=== PATIENT | female | born 1950 | race Caucasian/White ===

== ENCOUNTER 2017-10-16 09:51 | Inpatient (IN) | payer MEDICARE, OTHER ==
[~2017-10-16] VITALS: Ht 170.2 cm; Wt 67.8 kg
[~2017-10-16 09:51] MED LIST: ACET325T9 PO; ASCO500T2 PO; BACL10TA PO; BALS3OIN TP; BISA-42 PO; BISA10SU55 RC; BUPR100T7 PO; BUSP5TAB PO; CLOB15CR2 TP; CLON2TAB2 PO; CRAN450T2 PO; DULO60CA44 PO; FLUC200T4 PO; FLUT1DIS3 IH; LACT1TAB8 PO; LISI10TA2 PO; LUBI24CA7 PO; MAG355OR15 PO; MAGN2400 PO; MEMA10TA PO; METF10003 PO; METH29OI TP; MINE30LO TP; MUPI15CR8 TP; NICO1PAT2 TP; NITR50CA PO; NYST15PO9 TP; OMEP20TA8 PO; OXYC20TA PO; OXYC30TA PO; OXYC5CAP PO; OXYC80TA22 PO; POLY255P PO; SILV20CR14 TP; SIMV20TA3 PO; TRAZ150T49 PO; ZINC220C4 PO; ZINC50TA2 PO
[2017-10-16] MEDS ORDERED: IV NORMAL SALINE 1,000ML 1,000 ML IV ONE (10:45)
[2017-10-16 11:03] LABS: ALBUMIN/GLOBULIN RATIO 0.5 (1.0-1.7); CALCIUM 9.8 mg/dL (8.5-10.1); CREATININE 1.1 mg/dL (0.6-1.0); GFR 49.5; MAGNESIUM 2.6 mg/dL (1.8-2.4); TOTAL BILIRUBIN 0.2 mg/dL (0.2-1.0); TOTAL PROTEIN 8.9 g/dL (6.4-8.2)
[2017-10-16 11:05] LABS: POTASSIUM 4.4 mmol/L (3.5-5.1)
[2017-10-16 11:08] LABS: BILIRUBIN,URINE NEG (NEG); CLARITY,URINE HAZY; COLOR,URINE YELLOW; GLUCOSE,URINE NEG (NEG)
[2017-10-16 11:09] LABS: BACTERIA,URINE MOD /HPF (0-FEW); NITRITE,URINE NEG (NEG); SQUAMOUS EPITHELIAL CELL,UR FEW /LPF; UROBILINOGEN,URINE 0.2 mg/dL (0.2 mg/dL)
[2017-10-16 11:13] LABS: AMORPHOUS SEDIMENT,UR PRESENT /HPF
[2017-10-16 11:14] LABS: BASO # 0.1 x10^3/uL (0.0-0.2); BASO % 1 % (0-3); EOS # 0.2 x10^3/uL (0.0-0.7); EOS % 1 % (0-3); HEMATOCRIT 39.9 % (36.0-47.0); HEMOGLOBIN 12.7 g/dL (12.0-15.5); LYMPH # 2.5 x10^3/uL (1.0-4.8); LYMPH % 20 % (24-48); MEAN CORPUSCULAR HEMOGLOBIN 26 pg (25-35); MEAN CORPUSCULAR HGB CONC 32 g/dL (31-37); MEAN CORPUSCULAR VOLUME 81 fL (79-100); MONO % 8 % (0-9); NEUT # 8.8 x10^3uL (1.8-7.7); NEUT % 70 % (31-73); PLATELET COUNT 228 x10^3/uL (140-400); RED BLOOD COUNT 4.95 x10^6/uL (3.50-5.40); RED CELL DISTRIBUTION WIDTH 20.4 % (11.5-14.5); WHITE BLOOD COUNT 12.5 x10^3/uL (4.0-11.0)
--- NOTE | 2017-10-16 12:11 | RAD ---
Exam: AP portable chest History: Shortness of breath. Comparison: July 22, 2017. Findings: Patient is rotated. The heart and mediastinal structures are within normal limits for size. Lungs are without infiltrate. No pleural effusion or pneumothorax is identified. Cholecystectomy clips are present. Impression: 1. No acute cardiopulmonary process. Electronically signed by: Justino Baptiste MD (10/16/2017 12:09 PM) [facility]
[2017-10-16] MEDS ORDERED: ACETAMINOPHEN 325 MG TABLET PO ONE (12:40)
[2017-10-16] MEDS ORDERED: cefTRIAXone SODIUM 1 GM VIAL IV ONE (12:45)
[2017-10-16] MEDS ORDERED: IV NORMAL SALINE 50ML 50 ML ONE (12:45)
[2017-10-16] MEDS ORDERED: cefTRIAXone IV Push 1 GM VIAL. IVP ONE (13:00)
--- NOTE | 2017-10-16 13:09 | ED.ADGEN ---
Past History Past Medical History: Anxiety, CHF, Depression, Diabetes, GERD, UTI Past Surgical History: Appendectomy, Cholecystectomy, Tubal ligation Alcohol Use: None Drug Use: None Adult General Chief Complaint Chief Complaint Medical screening exam HPI HPI Patient is a 67-year-old wheelchair bound correction patient who presents for medical clearance for hospital admission. Patient has been diagnosed with major depressive order and is reportedly not been eating and drinking. She history of pneumonia. No fever chills, cough, sore throat. Reports chronic back and shoulder pain. Patient is alert and oriented to person. She states she has a very poor memory recall previewed detail her chronic medical problems[] Review of Systems Review of Systems ROS as per HPI> All other systems were reviewed and found to be within normal limits, except as documented in this note. Current Medications Current Medications Current Medications Medications (Trade) Dose Ordered Sig/Julia Start Time Stop Time Status Last Admin Dose Admin Acetaminophen (Tylenol) 650 mg 1X ONCE 10/16/17 12:40 10/16/17 12:41 DC 10/16/17 12:23 650 MG Ceftriaxone Sodium 1 gm/ Sodium Chloride 50 ml @ 100 mls/hr 1X ONCE 10/16/17 12:45 10/16/17 13:14 UNV Ceftriaxone Sodium (Rocephin) 1 gm 1X ONCE 10/16/17 13:00 10/16/17 13:01 10/16/17 12:55 1 GM Sodium Chloride 50 ml @ As Directed STK-MED ONCE 10/16/17 12:45 10/16/17 12:46 DC Allergies Allergies Allergies Coded Allergies Type Severity Reaction Last Updated Verified codeine Allergy Intermediate Itching 02/01/15 Yes penicillin Allergy Intermediate Itching 02/01/15 Yes Physical Exam Physical Exam Constitutional: Well developed, well nourished, weak and debilitated. [] HENT: Normocephalic, atraumatic, oropharynx moist, no oral exudates, nose normal. [] Eyes: PERRLA. [] Neck: Normal range of motion, no tenderness. [] Cardiovascular:RRR [] Lungs & Thorax: Rest sounds diminished, Bilateral breath sounds clear to auscultation [] Abdomen: Bowel sounds normal, soft, no tenderness. [] Extremities: No tenderness, no edema. [] Neurologic: Alert and oriented X 1, normal motor function, normal sensory function, no focal deficits noted. [] Psychologic: Affect,, flat. [] Current Patient Data Vital Signs Vital Signs Date Time Temp Pulse Resp B/P (MAP) Pulse Ox O2 Delivery O2 Flow Rate FiO2 10/16/17 10:58 81 20 96 Nasal Cannula 2.0 Lab Results Laboratory Tests Test 10/16/17 10:30 10/16/17 10:32 White Blood Count 12.5 x10^3/uL (4.0-11.0) H Red Blood Count 4.95 x10^6/uL (3.50-5.40) Hemoglobin 12.7 g/dL (12.0-15.5) Hematocrit 39.9 % (36.0-47.0) Mean Corpuscular Volume 81 fL (79-100) Mean Corpuscular Hemoglobin 26 pg (25-35) Mean Corpuscular Hemoglobin Concent 32 g/dL (31-37) Red Cell Distribution Width 20.4 % (11.5-14.5) H Platelet Count 228 x10^3/uL (140-400) Neutrophils (%) (Auto) 70 % (31-73) Lymphocytes (%) (Auto) 20 % (24-48) L Monocytes (%) (Auto) 8 % (0-9) Eosinophils (%) (Auto) 1 % (0-3) Basophils (%) (Auto) 1 % (0-3) Neutrophils # (Auto) 8.8 x10^3uL (1.8-7.7) H Lymphocytes # (Auto) 2.5 x10^3/uL (1.0-4.8) Monocytes # (Auto) 1.0 x10^3/uL (0.0-1.1) Eosinophils # (Auto) 0.2 x10^3/uL (0.0-0.7) Basophils # (Auto) 0.1 x10^3/uL (0.0-0.2) Sodium Level 143 mmol/L (136-145) Potassium Level 4.4 mmol/L (3.5-5.1) Chloride Level 101 mmol/L (98-107) Carbon Dioxide Level 35 mmol/L (21-32) H Anion Gap 7 (6-14) Blood Urea Nitrogen 46 mg/dL (7-20) H Creatinine 1.1 mg/dL (0.6-1.0) H Estimated GFR (Cockcroft-Gault) 49.5 BUN/Creatinine Ratio 42 (6-20) H Glucose Level 128 mg/dL (70-99) H Calcium Level 9.8 mg/dL (8.5-10.1) Magnesium Level 2.6 mg/dL (1.8-2.4) H Total Bilirubin 0.2 mg/dL (0.2-1.0) Aspartate Amino Transferase (AST) 12 U/L (15-37) L Alanine Aminotransferase (ALT) 8 U/L (14-59) L Alkaline Phosphatase 71 U/L (46-116) Total Protein 8.9 g/dL (6.4-8.2) H Albumin 3.0 g/dL (3.4-5.0) L Albumin/Globulin Ratio 0.5 (1.0-1.7) L Urine Collection Type Unknown Urine Color Yellow Urine Clarity Hazy Urine pH >8.5 Urine Specific [place] 1.015 Urine Protein 30 mg/dl (NEG-TRACE) Urine Glucose (UA) Neg mg/dL (NEG) Urine Ketones (Stick) Neg mg/dL (NEG) Urine Blood Small (NEG) Urine Nitrite Neg (NEG) Urine Bilirubin Neg (NEG) Urine Urobilinogen Dipstick 0.2 mg/dL (0.2 mg/dL) Urine Leukocyte Esterase Small (NEG) Urine RBC 1-2 /HPF (0-2) Urine WBC 5-10 /HPF (0-4) Urine Squamous Epithelial Cells Few /LPF Urine Amorphous Sediment Present /HPF Urine Bacteria Mod /HPF (0-FEW) EKG EKG [EKG: Sinus rhythm, rate 82, no acute ST-T wave changes, QTC 447.] Radiology/Procedures Radiology/Procedures [CXR: NAD per radiology report] Course & Med Decision Making Course & Med Decision Making Pertinent Labs and Imaging studies reviewed. (See chart for details) [Lab reviewed with Dr. Morris in detail. Recommendations are IV antibiotics and admission to [facility].] Final Impression Final Impression [1. Medical clearance for psychiatric admission 2. UTI] Problems: Dragon Disclaimer Dragon Disclaimer This electronic medical record was generated, in whole or in part, using a voice recognition dictation system. SUNITA WALLACE DO October 16, 2017 13:09
--- NOTE | 2017-10-16 13:14 | EKG ---
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
[2017-10-16] MEDS ORDERED: ACETAMINOPHEN 325 MG TABLET PO PRN ×2 (14:45→16:45)
[2017-10-16] MEDS ORDERED: MAG HYDROX/AL HYDROX/SIMETH 30 ML ORAL.SUSP PO PRN (14:45)
[2017-10-16] MEDS ORDERED: METHYL SALICYLATE/MENTHOL TOPICAL OINTMENT 29GM TUBE. TP PRN (14:45)
[2017-10-16] MEDS ORDERED: MAGNESIUM HYDROXIDE 2,400 MG/30 ML ORAL.SUSP. PO PRN (14:45)
[2017-10-16 15:16] VITALS: BP 112/75
[2017-10-16] MEDS ORDERED: ONDA4TAB10 PO (16:08)
[2017-10-16] MEDS ORDERED: OXYM30SP17 NS (16:08)
[2017-10-16] MEDS ORDERED: DEXT38GE2 PO (16:08)
[2017-10-16] MEDS ORDERED: INSU100V13 SQ (16:08)
[2017-10-16] MEDS ORDERED: SENN8.6T99 PO ×2 (16:08)
[2017-10-16] MEDS ORDERED: DEXT15DR5 EACHEYE (16:08)
[2017-10-16] MEDS ORDERED: IPRA3AMP NEB (16:08)
[2017-10-16] MEDS ORDERED: DIVA500T2 PO (16:08)
[2017-10-16] MEDS ORDERED: OXYC10TA PO (16:08)
[2017-10-16] MEDS ORDERED: ACET325T9 PO (16:08)
[2017-10-16] MEDS ORDERED: POTA20TA4 PO (16:08)
[2017-10-16] MEDS ORDERED: FURO-68 PO (16:08)
[2017-10-16] MEDS ORDERED: LOPE2CAP88 PO (16:08)
[2017-10-16] MEDS ORDERED: HYOS0.1265 SL (16:08)
[2017-10-16] MEDS ORDERED: morphine sulfate SQ (16:08)
[2017-10-16] MEDS ORDERED: NYST15OI TP (16:08)
[2017-10-16] MEDS ORDERED: OXYC20TA34 PO (16:08)
[2017-10-16] MEDS ORDERED: TRIA15CR50 TP (16:08)
[2017-10-16] MEDS ORDERED: CALC60CR TP (16:08)
[2017-10-16] MEDS ORDERED: LORA2ORA8 PO (16:08)
[2017-10-16 16:09] LABS: VAL ACID 58 mcg/mL (50-100)
[2017-10-16] MEDS ORDERED: INSU100C4 SQ (16:12)
[2017-10-16] MEDS ORDERED: DEXTROSE 50% 25 GM / 50ML DISP.SYRIN. IV PRN (16:15)
[2017-10-16] MEDS ORDERED: OXYMETAZOLINE 0.05% NASAL SPRAY 15ML BOTTLE. NS PRN (16:45)
[2017-10-16] MEDS ORDERED: BISACODYL 10 MG SUPP.RECT RC PRN (16:45)
[2017-10-16] MEDS ORDERED: LOPERAMIDE 2 MG CAPSULE PO PRN (16:45)
[2017-10-16] MEDS ORDERED: SENNOSIDES 8.6 MG TABLET PO PRN (16:45)
[2017-10-16] MEDS ORDERED: LORazepam INTENSOL 2 MG/ML BOTTLE PO PRN (16:45)
[2017-10-16] MEDS ORDERED: IPRATRPIUM/ALBUTEROL 0.5/2.5MG 3 ML NEBU. NEB PRN (16:45)
[2017-10-16] MEDS ORDERED: DEXTROSE ORAL GEL 15 GM TUBE. PO PRN (16:45)
[2017-10-16] MEDS ORDERED: ONDANSETRON ODT 4 MG TAB.RAPDIS PO PRN (16:45)
[2017-10-16] MEDS ORDERED: POLY15DR27 OP (17:03)
[2017-10-16] MEDS ORDERED: POLYVINYL ALCOHOL 1.4% OPHTH SOLUTION 15ML BOTTLE. OU PRN (17:15)
[2017-10-16] MEDS ORDERED: HYOSCYAMINE 0.125 MG TAB.RAPDIS PO PRN (17:30)
[2017-10-16] MEDS: INSULIN LISPRO 300 UNITS/3 ML INSULN.PEN. SQ SCH (18:00)
[2017-10-16] MEDS: oxyCODONE IR 5 MG TABLET PO SCH ×2 (18:02→20:36)
[2017-10-16] MEDS ORDERED: MORPHINE SULFATE SQ SCH (20:00)
[2017-10-16] MEDS: POTASSIUM CHLORIDE 20 MEQ TABLET.ER. PO SCH (20:35)
[2017-10-16] MEDS: DIVALPROEX SODIUM 250 MG TABLET.DR. PO SCH (20:35)
[2017-10-16] MEDS: clonazePAM 2 MG TABLET PO SCH (20:35)
[2017-10-16] MEDS: ENOXAPARIN 30 MG/0.3 ML SYRINGE. SQ SCH (20:37)
[2017-10-16] MEDS: INSULIN GLARGINE 300 UNITS/3 ML INSULN.PEN. SQ SCH (20:40)
[2017-10-16] MEDS: TRIAMCINOLONE ACETONIDE 0.1% TOPICAL CREAM 15GM TUBE. TP SCH (20:40)
[2017-10-16] MEDS: CALCIPOTRIENE 0.005% TOPICAL CREAM 60GM TUBE. TP SCH (20:41)
[2017-10-16] MEDS: CLOBETASOL EMOLLIENT 0.05% TOPICAL CREAM 15GM TUBE. TP SCH (20:41)
[2017-10-16] MEDS: NYSTATIN 100,000 UNIT/GM TOPICAL OINTMENT 15GM TUBE. TP SCH (20:41)
[2017-10-16] MEDS: oxyCODONE ER 20 MG TAB.ER.12H PO SCH (20:46)
--- NOTE | 2017-10-16 22:56 | PDOC ---
Exam Note: [place] Note: Please also refer to the separate dictated note~for this date of service dictated separately.~Patient seen individually. Discussed the patient with Nursing staff reviewed the chart.~Reviewed interim history and current functioning. Reviewed vital signs,~Labs/ Radiology~and current medications noted below. Continue current treatment with the changes noted in the dictated addendum note Assessment: Vital Signs: Vital Signs Date Time Temp Pulse Resp B/P (MAP) Pulse Ox O2 Delivery O2 Flow Rate FiO2 10/16/17 21:38 96 10/16/17 15:16 97.8 83 18 112/75 (87) 10/16/17 10:58 Nasal Cannula 2.0 Labs: Laboratory Tests Test 10/16/17 10:30 10/16/17 10:32 10/16/17 15:35 10/16/17 16:56 White Blood Count 12.5 x10^3/uL (4.0-11.0) H Red Blood Count 4.95 x10^6/uL (3.50-5.40) Hemoglobin 12.7 g/dL (12.0-15.5) Hematocrit 39.9 % (36.0-47.0) Mean Corpuscular Volume 81 fL (79-100) Mean Corpuscular Hemoglobin 26 pg (25-35) Mean Corpuscular Hemoglobin Concent 32 g/dL (31-37) Red Cell Distribution Width 20.4 % (11.5-14.5) H Platelet Count 228 x10^3/uL (140-400) Neutrophils (%) (Auto) 70 % (31-73) Lymphocytes (%) (Auto) 20 % (24-48) L Monocytes (%) (Auto) 8 % (0-9) Eosinophils (%) (Auto) 1 % (0-3) Basophils (%) (Auto) 1 % (0-3) Neutrophils # (Auto) 8.8 x10^3uL (1.8-7.7) H Lymphocytes # (Auto) 2.5 x10^3/uL (1.0-4.8) Monocytes # (Auto) 1.0 x10^3/uL (0.0-1.1) Eosinophils # (Auto) 0.2 x10^3/uL (0.0-0.7) Basophils # (Auto) 0.1 x10^3/uL (0.0-0.2) Sodium Level 143 mmol/L (136-145) Potassium Level 4.4 mmol/L (3.5-5.1) Chloride Level 101 mmol/L (98-107) Carbon Dioxide Level 35 mmol/L (21-32) H Anion Gap 7 (6-14) Blood Urea Nitrogen 46 mg/dL (7-20) H Creatinine 1.1 mg/dL (0.6-1.0) H Estimated GFR (Cockcroft-Gault) 49.5 BUN/Creatinine Ratio 42 (6-20) H Glucose Level 128 mg/dL (70-99) H Calcium Level 9.8 mg/dL (8.5-10.1) Magnesium Level 2.6 mg/dL (1.8-2.4) H Total Bilirubin 0.2 mg/dL (0.2-1.0) Aspartate Amino Transferase (AST) 12 U/L (15-37) L Alanine Aminotransferase (ALT) 8 U/L (14-59) L Alkaline Phosphatase 71 U/L (46-116) Total Protein 8.9 g/dL (6.4-8.2) H Albumin 3.0 g/dL (3.4-5.0) L Albumin/Globulin Ratio 0.5 (1.0-1.7) L Thyroid Stimulating Hormone (TSH) 1.763 uIU/mL (0.358-3.740) Urine Collection Type Unknown Urine Color Yellow Urine Clarity Hazy Urine pH >8.5 Urine Specific [place] 1.015 Urine Protein 30 mg/dl (NEG-TRACE) Urine Glucose (UA) Neg mg/dL (NEG) Urine Ketones (Stick) Neg mg/dL (NEG) Urine Blood Small (NEG) Urine Nitrite Neg (NEG) Urine Bilirubin Neg (NEG) Urine Urobilinogen Dipstick 0.2 mg/dL (0.2 mg/dL) Urine Leukocyte Esterase Small (NEG) Urine RBC 1-2 /HPF (0-2) Urine WBC 5-10 /HPF (0-4) Urine Squamous Epithelial Cells Few /LPF Urine Amorphous Sediment Present /HPF Urine Bacteria Mod /HPF (0-FEW) Valproic Acid Level 58 mcg/mL (50-100) Valproic Acid Last Dose Date 10/16/2017 Valproic Acid Last Dose Time 0900 Glucose (Fingerstick) 126 mg/dL (70-99) H Test 10/16/17 19:39 Glucose (Fingerstick) 141 mg/dL (70-99) H Current Medications: Meds: Current Medications Sodium Chloride 1,000 ml @ 1,000 mls/hr 1X ONCE IV Last administered on at 10:45; Start 10/16/17 at 10:45; Stop 10/16/17 at 11:44; Status DC Acetaminophen (Tylenol) 650 mg 1X ONCE PO Last administered on 10/16/17at 12:23 ; Start 10/16/17 at 12:40; Stop 10/16/17 at 12:41; Status DC Ceftriaxone Sodium 1 gm/ Sodium Chloride 50 ml @ 100 mls/hr 1X ONCE IV ; Start 10/16/17 at 12:45; Stop 10/16/17 at 13:14; Status UNV Sodium Chloride 50 ml @ As Directed STK-MED ONCE .ROUTE ; Start 10/16/17 at 12:45 ; Stop 10/16/17 at 12:46; Status DC Ceftriaxone Sodium (Rocephin) 1 gm STK-MED ONCE IV ; Start 10/16/17 at 12:45; Stop 10/16/17 at 12:46; Status DC Ceftriaxone Sodium (Rocephin) 1 gm 1X ONCE IVP Last administered on 10/16/17at 12:55; Start 10/16/17 at 13:00; Stop 10/16/17 at 13:01; Status DC Acetaminophen (Tylenol) 650 mg PRN Q6HRS PRN PO PAIN / TEMP; Start 10/16/17 at 14:45; Status Cancel Multi-Ingredient Ointment (Analgesic [place]) 1 lacey PRN QID PRN TP MUSCLE PAIN; Start 10/16/17 at 14:45 Al Hydroxide/Mg Hydroxide (Mylanta Plus Xs) 15 ml PRN AFTMEALHC PRN PO DYSPEPSIA; Start 10/16/17 at 14:45 Magnesium Hydroxide (Milk Of Magnesia) 2,400 mg PRN QHS PRN PO CONSTIPATION; Start 10/16/17 at 14:45 Insulin Human Lispro (HumaLOG) 0-7 UNITS TIDWMEALS SQ ; Start 10/16/17 at 17:00 Dextrose 12.5 gm PRN Q15MIN PRN IV SEE COMMENTS; Start 10/16/17 at 16:15 Acetaminophen (Tylenol) 650 mg PRN Q4HRS PRN PO PAIN / TEMP; Start 10/16/17 at 16:45 Bisacodyl (Dulcolax Supp) 10 mg PRN DAILY PRN RC CONSTIPATION; Start 10/16/17 at 16:45 Calcipotriene (Dovonex) 2 lacey BID TP ; Start 10/16/17 at 21:00 Clobetasol Propionate 1 lacey BID TP Last administered on 10/16/17at 20:41; Start 10/16/17 at 21:00 Clonazepam (KlonoPIN) 2 mg TID PO Last administered on 10/16/17at 20:35; Start at 21:00 Glucose (Insta-Glucose) 1 gm PRN Q15MIN PRN PO hypoglycemia; Start 10/16/17 at 16:45 Furosemide (Lasix) 40 mg DAILY PO ; Start 10/17/17 at 09:00 Albuterol/ Ipratropium (Duoneb) 3 ml PRN Q4HRS PRN NEB SHORTNESS OF BREATH; Start 10/16/17 at 16:45 Loperamide HCl (Imodium) 2 mg PRN Q6HRS PRN PO DIARRHEA; Start 10/16/17 at 16:45 Lorazepam (Ativan Intensol) 2 mg PRN Q3HRS PRN PO restlessness; Start 10/16/17 at 16:45 Nystatin (Mycostatin) 1 lacey BID TP Last administered on 10/16/17at 20:41; Start 10/16/17 at 21:00 Ondansetron HCl (Zofran Odt) 4 mg PRN Q8HRS PRN PO NAUSEA/VOMITING; Start at 16:45 Oxycodone HCl (OxyCONTIN) 20 mg BID PO Last administered on 10/16/17at 20:46; Start 10/16/17 at 21:00 Oxymetazoline HCl (Afrin) 1 spray PRN Q6HRS PRN NS ALLERGY; Start 10/16/17 at 16 :45 Potassium Chloride (Klor-Con) 20 meq BID PO Last administered on 10/16/17at 20:35 ; Start 10/16/17 at 21:00 Sennosides (Senna) 8.6 mg DAILY PO ; Start 10/17/17 at 09:00 Sennosides (Senna) 8.6 mg PRN DAILY PRN PO CONSTIPATION; Start 10/16/17 at 16:45 Artificial Tears (Artificial Tears) 2 drop PRN Q3HRS PRN OU DRY EYE; Start 10/16 at 17:15 Divalproex Sodium (Depakote) 250 mg TID PO Last administered on 10/16/17at 20:35 ; Start 10/16/17 at 21:00 Hyoscyamine (Anaspaz) 0.125 mg PRN Q2HR PRN PO SECRETIONS; Start 10/16/17 at 17: 30 Insulin Glargine (Lantus) 10 units QHS SQ Last administered on 10/16/17at 20:40; Start 10/16/17 at 21:00 Oxycodone HCl (Roxicodone) 20 mg QID PO Last administered on 10/16/17at 20:36; Start 10/16/17 at 17:30 Oxycodone HCl (Roxicodone) 20 mg PRN Q6HRS PRN PO PAIN; Start 10/16/17 at 17:30 Triamcinolone Acetonide (Kenalog) 1 lacey BID TP Last administered on 10/16/17at 20 :40; Start 10/16/17 at 21:00 Non-Formulary Medication ([morphine sulfate ] ) 0.5 ml Q4HRS SQ ; Start 10/16/17 at 20:00; Status UNV Enoxaparin Sodium (Lovenox) 30 mg Q24H SQ Last administered on 10/16/17at 20:37; Start 10/16/17 at 21:00 Active Scripts Active Reported Artificial Tears (Polyvinyl Alcohol) 15 Ml Drops 2 Drop OP PRN Q3HRS PRN Novolog (Insulin Aspart) 100 Unit/1 Ml Cartridge 3-12 Unit SQ PRN BFRMEAL PRN Zofran Odt (Ondansetron) 4 Mg Tab.rapdis 4 Mg PO PRN Q8HRS PRN Triamcinolone Acetonide 15 Gm Cream..g. 1 Lacey TP BID Senokot (Sennosides) 8.6 Mg Tablet 8.6 Mg PO PRN DAILY PRN Senokot (Sennosides) 8.6 Mg Tablet 8.6 Mg PO DAILY Klor-Con M20 (Potassium Chloride) 20 Meq Tab.er.prt 20 Meq PO BID Oxycontin (Oxycodone HCl) 20 Mg Tab.er.12h 20 Mg PO BID Oxycodone Hcl 10 Mg Tablet 20 Mg PO QID Nystatin 15 Gm Oint...g. 1 Lacey TP BID Nasal [place] Sinus (Oxymetazoline Hcl) 30 Ml [place] 1 Spr NS PRN Q6HRS PRN [morphine sulfate ] 0.5 Ml SQ Q4HRS Lorazepam Intensol (Lorazepam) 2 Mg/1 Ml Oral.conc 1 Ml PO PRN Q3HRS PRN Levsin-Sl (Hyoscyamine Sulfate) 0.125 Mg Tab.subl 0.125 Mg SL PRN Q2HR PRN Levemir (Insulin Detemir) 100 Unit/1 Ml Vial 10 Unit SQ HS Lasix (Furosemide) 40 Mg Tablet 40 Mg PO DAILY Imodium A-D (Loperamide HCl) 2 Mg Capsule 2 Mg PO PRN Q6HRS Glucose Gel (Dextrose) 38 Gm Gel..gram. 1 Gm PO PRN Q15MIN PRN Duoneb 0.5-3(2.5) Mg/3 Ml (Albuterol/Ipratropium) 3 Ml Ampul.neb 3 Ml NEB PRN Q4HRS PRN Depakote (Divalproex Sodium) 500 Mg Tablet.dr 250 Mg PO TID Calcipotriene 60 Gm Cream..g. 2 Lacey TP BID Artificial Tears Eye Drops (Dextran 70/Hypromellose) 15 Ml Drops 2 Drop EACHEYE PRN Q3HRS PRN Tylenol (Acetaminophen) 325 Mg Tablet 650 Mg PO PRN Q4HRS PRN Dulcolax (Bisacodyl) 10 Mg Supp.rect 10 Mg RC PRN DAILY PRN Oxycodone Hcl 20 Mg Tablet 20 Mg PO PRN Q6HRS PRN Clobetasol Emollient 0.05% Crm (Clobetasol Propionate/Emoll) 15 Gm Cream..g. 1 Applic TP BID Apply to Feet, Elbows and hands BID for Rash/itching Clonazepam 2 Mg Tablet 2 Mg PO TID I have reviewed the current psychotropics carefully including drug interactions. Risk benefit ratio favors no change other than as noted in my dictated progress note. Diagnosis: Problems: (1) Major depression (2) Anxiety disorder (3) Impulse control disorder (4) Major depressive disorder, recurrent episode (5) Mild cognitive impairment ROMINA SORTO MD October 16, 2017 22:56
--- NOTE | 2017-10-17 02:08 | HP ---
ADMIT DATE: 10/16/2017 PSYCHIATRIC ADMISSION HISTORY/EVALUATION This note covers elements not covered in my initial note of 10/16/2017. IDENTIFYING DATA: The patient is a 67-year-old female referred to us from [facility] by her primary care physician, Dr. Fong, on account of worsening symptoms of depression, anxiety, and making suicidal statements, but without a plan. Per nursing report, the patient has had attention seeking behavior, marked mood lability. Behaviors were deemed dangerous at risk to herself given the suicidal statements, which the patient now minimizes. She is referred for inpatient psychiatric stabilization. I have discussed with nursing staff on a couple of occasions to gather historical information, circumstances prompting this referral. CHIEF COMPLAINT: "No, I am not depressed. No, I am not suicidal. There is nothing wrong with me." The patient was in bed. I met with her individually in her room. She is quite angry, irritable, labile, minimizes most, not all her symptoms. HISTORY OF PRESENT ILLNESS: The patient has a history of depression with worsening mood, anger, irritability, sleep and appetite changes, and mood swings. She has made the suicidal statements noted above, which she now denies. No active homicidal ideation. She has had some short-term memory deficits, but remains otherwise reasonably oriented. PAST PSYCHIATRIC HISTORY: Positive for prior inpatient psychiatric hospitalization for major depressive disorder, anxiety disorder, impulse control disorder. PAST MEDICAL HISTORY: The patient has a suprapubic catheter, atrial fibrillation, gastroesophageal reflux disease, hyperlipidemia, chronic obstructive pulmonary disease, diabetes mellitus. She was on hospice care, which has since been revoked. CODE STATUS: DNR. ALLERGIES: MARÍA INHIBITORS, SEROQUEL, CODEINE, PENICILLIN. ACCU-CHEKS: A.c. and at bedtime. DIET: Regular. CURRENT PSYCHOTROPICS: Klonopin 2 mg t.i.d., Depakote DR 250 mg t.i.d., Ativan Intensol p.r.n. FAMILY HISTORY: Noncontributory. SOCIAL HISTORY: No alcohol, drug abuse, physical, sexual or elder abuse history is noted. Not known to be a perpetrator. REACTION TO HOSPITALIZATION: The patient minimizes most problems, prompting this referral. ASSETS: Supportive living at the above facility. MENTAL STATUS EXAM: The patient was seen individually in her room. She is oriented to herself, situation, aware that she came here the day before. She is quite angry, irritable, labile, minimizes being depressed; denied suicidal ideation despite what prompted this referral. Speech has some latency, coherent. Abstraction is fair, computation somewhat impaired, language function intact, attention span short. Mood and affect, she minimizes being depressed, but affect is depressed, anxious, irritable, and labile. IMPRESSION: Major depressive disorder, rule out psychotic features; anxiety disorder, unspecified; impulse control disorder, unspecified. Rest as above. PLAN: Admit to Geropsychiatry Unit at [facility]. I will see the patient daily individually from a psychiatric standpoint, medical followup per Dr. Fong/Dr. Sims. Continue the patient on her current psychotropics. We have checked a valproic acid level, which is therapeutic at 58, continue Depakote for now, Klonopin. We will observe her baseline, consider adding an antidepressant or an atypical antipsychotic as a mood stabilizer depending on baseline assessment. ESTIMATED LENGTH OF STAY: 7-10 days with transition back to halfway. MAN Yamilex SORTO MD DR: TOD/moris JOB#: [id number] / [id number]
[2017-10-17 06:21] VITALS: BP 114/51
[2017-10-17] MEDS: INSULIN LISPRO 300 UNITS/3 ML INSULN.PEN. SQ SCH ×3 (08:00→19:18)
[2017-10-17] MEDS: POTASSIUM CHLORIDE 20 MEQ TABLET.ER. PO SCH ×2 (08:17→19:48)
[2017-10-17] MEDS: DIVALPROEX SODIUM 250 MG TABLET.DR. PO SCH ×3 (08:17→19:48)
[2017-10-17] MEDS: FUROSEMIDE 40 MG TABLET PO SCH (08:21)
[2017-10-17] MEDS: SENNOSIDES 8.6 MG TABLET PO SCH (08:21)
[2017-10-17] MEDS: clonazePAM 2 MG TABLET PO SCH ×3 (08:21→19:52)
[2017-10-17] MEDS: oxyCODONE IR 5 MG TABLET PO SCH ×4 (08:21→19:52)
[2017-10-17] MEDS: TRIAMCINOLONE ACETONIDE 0.1% TOPICAL CREAM 15GM TUBE. TP SCH ×2 (08:22→19:55)
[2017-10-17] MEDS: CLOBETASOL EMOLLIENT 0.05% TOPICAL CREAM 15GM TUBE. TP SCH ×2 (08:22→19:55)
[2017-10-17] MEDS: NYSTATIN 100,000 UNIT/GM TOPICAL OINTMENT 15GM TUBE. TP SCH ×2 (08:22→19:55)
[2017-10-17] MEDS: CALCIPOTRIENE 0.005% TOPICAL CREAM 60GM TUBE. TP SCH ×2 (09:00→21:00)
[2017-10-17] MEDS: oxyCODONE ER 20 MG TAB.ER.12H PO SCH ×2 (11:43→19:49)
[2017-10-17 12:07] LABS: HEMOGLOBIN A1C 7.6 % (4.8-5.6); T3 TOTAL 69 ng/dL (71-180); THYROXINE 5.4 ug/dL (4.5-12.0)
[2017-10-17 16:34] VITALS: BP 105/61
--- NOTE | 2017-10-17 18:44 | PDOC ---
Exam Note: Laureano Note: Please also refer to the separate dictated note~for this date of service dictated separately.~Patient seen individually. Discussed the patient with Nursing staff reviewed the chart.~Reviewed interim history and current functioning. Reviewed vital signs,~Labs/ Radiology~and current medications noted below. Continue current treatment with the changes noted in the dictated addendum note Assessment: Vital Signs: Vital Signs Date Time Temp Pulse Resp B/P (MAP) Pulse Ox O2 Delivery O2 Flow Rate FiO2 10/17/17 16:34 97.6 80 16 105/61 (76) 99 2.0 10/17/17 13:36 Nasal Cannula I&O Intake and Output 10/17/17 07:00 Intake Total 300 ml Balance 300 ml Intake Oral 300 ml # Bowel Movements 1 Labs: Laboratory Tests Test 10/16/17 19:39 10/17/17 07:34 10/17/17 11:12 10/17/17 17:05 Glucose (Fingerstick) 141 mg/dL (70-99) H 145 mg/dL (70-99) H 195 mg/dL (70-99) H 220 mg/dL (70-99) H Current Medications: Meds: Current Medications Sodium Chloride 1,000 ml @ 1,000 mls/hr 1X ONCE IV Last administered on at 10:45; Start 10/16/17 at 10:45; Stop 10/16/17 at 11:44; Status DC Acetaminophen (Tylenol) 650 mg 1X ONCE PO Last administered on 10/16/17at 12:23 ; Start 10/16/17 at 12:40; Stop 10/16/17 at 12:41; Status DC Ceftriaxone Sodium 1 gm/ Sodium Chloride 50 ml @ 100 mls/hr 1X ONCE IV ; Start 10/16/17 at 12:45; Stop 10/16/17 at 13:14; Status UNV Sodium Chloride 50 ml @ As Directed STK-MED ONCE .ROUTE ; Start 10/16/17 at 12:45 ; Stop 10/16/17 at 12:46; Status DC Ceftriaxone Sodium (Rocephin) 1 gm STK-MED ONCE IV ; Start 10/16/17 at 12:45; Stop 10/16/17 at 12:46; Status DC Ceftriaxone Sodium (Rocephin) 1 gm 1X ONCE IVP Last administered on 10/16/17at 12:55; Start 10/16/17 at 13:00; Stop 10/16/17 at 13:01; Status DC Acetaminophen (Tylenol) 650 mg PRN Q6HRS PRN PO PAIN / TEMP; Start 10/16/17 at 14:45; Status Cancel Multi-Ingredient Ointment (Analgesic [place]) 1 lacey PRN QID PRN TP MUSCLE PAIN; Start 10/16/17 at 14:45 Al Hydroxide/Mg Hydroxide (Mylanta Plus Xs) 15 ml PRN AFTMEALHC PRN PO DYSPEPSIA; Start 10/16/17 at 14:45 Magnesium Hydroxide (Milk Of Magnesia) 2,400 mg PRN QHS PRN PO CONSTIPATION; Start 10/16/17 at 14:45 Insulin Human Lispro (HumaLOG) 0-7 UNITS TIDWMEALS SQ Last administered on at 13:40; Start 10/16/17 at 17:00 Dextrose 12.5 gm PRN Q15MIN PRN IV SEE COMMENTS; Start 10/16/17 at 16:15 Acetaminophen (Tylenol) 650 mg PRN Q4HRS PRN PO PAIN / TEMP; Start 10/16/17 at 16:45 Bisacodyl (Dulcolax Supp) 10 mg PRN DAILY PRN RC CONSTIPATION; Start 10/16/17 at 16:45 Calcipotriene (Dovonex) 2 lacey BID TP ; Start 10/16/17 at 21:00 Clobetasol Propionate 1 lacey BID TP Last administered on 10/17/17at 08:22; Start 10/16/17 at 21:00 Clonazepam (KlonoPIN) 2 mg TID PO Last administered on 10/17/17at 13:36; Start at 21:00 Glucose (Insta-Glucose) 1 gm PRN Q15MIN PRN PO hypoglycemia; Start 10/16/17 at 16:45 Furosemide (Lasix) 40 mg DAILY PO Last administered on 10/17/17at 08:21; Start at 09:00 Albuterol/ Ipratropium (Duoneb) 3 ml PRN Q4HRS PRN NEB SHORTNESS OF BREATH; Start 10/16/17 at 16:45 Loperamide HCl (Imodium) 2 mg PRN Q6HRS PRN PO DIARRHEA; Start 10/16/17 at 16:45 Lorazepam (Ativan Intensol) 2 mg PRN Q3HRS PRN PO restlessness; Start 10/16/17 at 16:45 Nystatin (Mycostatin) 1 lacey BID TP Last administered on 10/17/17at 08:22; Start 10/16/17 at 21:00 Ondansetron HCl (Zofran Odt) 4 mg PRN Q8HRS PRN PO NAUSEA/VOMITING; Start at 16:45 Oxycodone HCl (OxyCONTIN) 20 mg BID PO Last administered on 10/17/17at 11:43; Start 10/16/17 at 21:00 Oxymetazoline HCl (Afrin) 1 spray PRN Q6HRS PRN NS ALLERGY; Start 10/16/17 at 16 :45 Potassium Chloride (Klor-Con) 20 meq BID PO Last administered on 10/17/17at 08:17 ; Start 10/16/17 at 21:00 Sennosides (Senna) 8.6 mg DAILY PO Last administered on 10/17/17at 08:21; Start 10/17/17 at 09:00 Sennosides (Senna) 8.6 mg PRN DAILY PRN PO CONSTIPATION; Start 10/16/17 at 16:45 Artificial Tears (Artificial Tears) 2 drop PRN Q3HRS PRN OU DRY EYE; Start 10/16 at 17:15 Divalproex Sodium (Depakote) 250 mg TID PO Last administered on 10/17/17 13:36 ; Start 10/16/17 at 21:00 Hyoscyamine (Anaspaz) 0.125 mg PRN Q2HR PRN PO SECRETIONS; Start 10/16/17 at 17: 30 Insulin Glargine (Lantus) 10 units QHS SQ Last administered on 10/16/17at 20:40; Start 10/16/17 at 21:00 Oxycodone HCl (Roxicodone) 20 mg QID PO Last administered on 10/17/17 13:36; Start 10/16/17 at 17:30 Oxycodone HCl (Roxicodone) 20 mg PRN Q6HRS PRN PO PAIN; Start 10/16/17 at 17:30 Triamcinolone Acetonide (Kenalog) 1 lacey BID TP Last administered on 10/17/17at 08 :22; Start 10/16/17 at 21:00 Non-Formulary Medication ([morphine sulfate ] ) 0.5 ml Q4HRS SQ ; Start 10/16/17 at 20:00; Status UNV Enoxaparin Sodium (Lovenox) 30 mg Q24H SQ Last administered on 10/16/17at 20:37; Start 10/16/17 at 21:00 Active Scripts Active Reported Artificial Tears (Polyvinyl Alcohol) 15 Ml Drops 2 Drop OP PRN Q3HRS PRN Novolog (Insulin Aspart) 100 Unit/1 Ml Cartridge 3-12 Unit SQ PRN BFRMEAL PRN Zofran Odt (Ondansetron) 4 Mg Tab.rapdis 4 Mg PO PRN Q8HRS PRN Triamcinolone Acetonide 15 Gm Cream..g. 1 Lacey TP BID Senokot (Sennosides) 8.6 Mg Tablet 8.6 Mg PO PRN DAILY PRN Senokot (Sennosides) 8.6 Mg Tablet 8.6 Mg PO DAILY Klor-Con M20 (Potassium Chloride) 20 Meq Tab.er.prt 20 Meq PO BID Oxycontin (Oxycodone HCl) 20 Mg Tab.er.12h 20 Mg PO BID Oxycodone Hcl 10 Mg Tablet 20 Mg PO QID Nystatin 15 Gm Oint...g. 1 Lacey TP BID Nasal [place] Sinus (Oxymetazoline Hcl) 30 Ml [place] 1 Spr NS PRN Q6HRS PRN [morphine sulfate ] 0.5 Ml SQ Q4HRS Lorazepam Intensol (Lorazepam) 2 Mg/1 Ml Oral.conc 1 Ml PO PRN Q3HRS PRN Levsin-Sl (Hyoscyamine Sulfate) 0.125 Mg Tab.subl 0.125 Mg SL PRN Q2HR PRN Levemir (Insulin Detemir) 100 Unit/1 Ml Vial 10 Unit SQ HS Lasix (Furosemide) 40 Mg Tablet 40 Mg PO DAILY Imodium A-D (Loperamide HCl) 2 Mg Capsule 2 Mg PO PRN Q6HRS Glucose Gel (Dextrose) 38 Gm Gel..gram. 1 Gm PO PRN Q15MIN PRN Duoneb 0.5-3(2.5) Mg/3 Ml (Albuterol/Ipratropium) 3 Ml Ampul.neb 3 Ml NEB PRN Q4HRS PRN Depakote (Divalproex Sodium) 500 Mg Tablet.dr 250 Mg PO TID Calcipotriene 60 Gm Cream..g. 2 Lacey TP BID Artificial Tears Eye Drops (Dextran 70/Hypromellose) 15 Ml Drops 2 Drop EACHEYE PRN Q3HRS PRN Tylenol (Acetaminophen) 325 Mg Tablet 650 Mg PO PRN Q4HRS PRN Dulcolax (Bisacodyl) 10 Mg Supp.rect 10 Mg RC PRN DAILY PRN Oxycodone Hcl 20 Mg Tablet 20 Mg PO PRN Q6HRS PRN Clobetasol Emollient 0.05% Crm (Clobetasol Propionate/Emoll) 15 Gm Cream..g. 1 Applic TP BID Apply to Feet, Elbows and hands BID for Rash/itching Clonazepam 2 Mg Tablet 2 Mg PO TID I have reviewed the current psychotropics carefully including drug interactions. Risk benefit ratio favors no change other than as noted in my dictated progress note. Diagnosis: Problems: (1) Mild cognitive impairment (2) Major depressive disorder, recurrent episode (3) Impulse control disorder (4) Anxiety disorder ROMINA SORTO MD October 17, 2017 18:44
[2017-10-17] MEDS: ENOXAPARIN 30 MG/0.3 ML SYRINGE. SQ SCH (19:54)
[2017-10-17] MEDS: INSULIN GLARGINE 300 UNITS/3 ML INSULN.PEN. SQ SCH (23:30)
[2017-10-18] MEDS: SENNOSIDES 8.6 MG TABLET PO SCH (04:35)
[2017-10-18] MEDS: FUROSEMIDE 40 MG TABLET PO SCH (04:35)
[2017-10-18] MEDS: POTASSIUM CHLORIDE 20 MEQ TABLET.ER. PO SCH ×2 (04:36→20:10)
[2017-10-18] MEDS: clonazePAM 2 MG TABLET PO SCH ×3 (04:39→20:16)
[2017-10-18] MEDS: DIVALPROEX SODIUM 250 MG TABLET.DR. PO SCH ×2 (04:39→13:22)
[2017-10-18] MEDS: oxyCODONE ER 20 MG TAB.ER.12H PO SCH ×2 (04:47→20:16)
[2017-10-18] MEDS: oxyCODONE IR 5 MG TABLET PO SCH ×4 (04:48→20:16)
[2017-10-18] MEDS: CALCIPOTRIENE 0.005% TOPICAL CREAM 60GM TUBE. TP SCH ×2 (04:48→20:20)
[2017-10-18] MEDS: NYSTATIN 100,000 UNIT/GM TOPICAL OINTMENT 15GM TUBE. TP SCH (04:49)
[2017-10-18] MEDS: CLOBETASOL EMOLLIENT 0.05% TOPICAL CREAM 15GM TUBE. TP SCH ×2 (04:49→20:19)
[2017-10-18] MEDS: TRIAMCINOLONE ACETONIDE 0.1% TOPICAL CREAM 15GM TUBE. TP SCH ×2 (04:49→20:20)
[2017-10-18 06:24] VITALS: BP 96/53
[2017-10-18] MEDS: INSULIN LISPRO 300 UNITS/3 ML INSULN.PEN. SQ SCH ×3 (08:00→17:00)
[2017-10-18] MEDS: DULoxetine HCL 30 MG CAPSULE.DR PO SCH (08:45)
--- NOTE | 2017-10-18 12:30 | CONS ---
DATE OF CONSULTATION: 10/16/2017 REASON FOR CONSULTATION: Consult for medical management for the patient. HISTORY OF PRESENT ILLNESS: The patient is a 67-year-old female patient, a resident at [facility] in [place], who apparently was referred to [facility] by in fact the hospitalist doctor, Dr. Espinoza, on account of worsening symptoms of depression and anxiety and making suicidal statement, but without a plan. The patient is known to have attention seeking behavior, marked mood lability. Given that this dangerous behavior, making the patient risk to herself and given the suicidal statement, which the patient now minimizes. She was referred to this facility for inpatient psychiatric stabilization. The patient was in fact on hospice and she was on large amount of pain medications that became unresponsive and apparently her medications were withdrawn and that was the time when she made this statement that in fact she is now denying. PAST MEDICAL HISTORY: She has chronic obstructive pulmonary disease, type 2 diabetes, hyperlipidemia, gastroesophageal reflux disease, atrial fibrillation, neurogenic bladder requiring suprapubic catheter, severe osteoporosis, osteoarthritis, and psoriasis. FAMILY HISTORY: Noncontributory. SOCIAL HISTORY: She is a resident at [facility]. She used to be a smoker, quit recently. She was able to use a scooter; however, she has been bedridden for almost a year now. She does not smoke any longer, does not drink alcohol, or use any recreational drugs. ALLERGIES: She is allergic to MARÍA INHIBITORS, CODEINE, PENICILLIN, and QUETIAPINE. MEDICATIONS: She is currently on following medications: She is on Levsin 0.125 mg sublingually every 2 hours. She is on ipratropium bromide, albuterol sulfate 0.5-2.5 mg in 3 mL by nebulizer every 4 hours, oxycodone 20 mg every 6 hours, oxycodone 20 mg scheduled 4 times a day. She is on OxyContin 20 mg twice a day, Tylenol 650 mg every 4 hours, clonazepam 2 mg 3 times a day. She is on Depakote 250 mg 3 times a day, lorazepam for Intensol 2 mg per 1 mL oral concentrate that she takes 1 mL every 3 hours, potassium chloride 20 mEq twice a day, dextrose 80 grams as needed for hypoglycemia, furosemide 40 mg once a day, oxymetazoline nasal spray 1 spray to each nostril every 6 hours. She is on artificial tears 1-2 drops to each eye as needed every 3 hours, loperamide 2 mg every 6 hours, bisacodyl 10 mg suppositories rectally as needed for constipation, senna 1 tablet daily. She is on Zofran 4 mg every 8 hours, NovoLog insulin subcutaneously before meals and Levemir insulin 10 units at bedtime, nystatin 15 grams ointment applied topically twice a day, clobetasol emollient applied topically twice a day, triamcinolone acetonide applied topically twice a day, calcipotriene 60 g cream applied topically twice a day for psoriasis. She is on morphine sulfate 0.5 mL every 4 hours for pain. PHYSICAL EXAMINATION: GENERAL: When I saw her today, she was resting slightly propped up in bed, in no apparent distress, pale, but no jaundice, cyanosis, or thyromegaly. No jugular venous distention. No lower limb edema. VITAL SIGNS: Her heart rate was 72, blood pressure was 114/51, temperature was 97.6, respiratory rate was 16, and oxygen saturation was 98%. HEAD, EYES, EARS, NOSE, AND THROAT: Showed normocephalic, atraumatic. NECK: Supple. HEART: Showed normal first and second heart sounds with no gallop, rub, or murmur. CHEST: Clear to auscultation. No crepitation or rhonchi. ABDOMEN: Distended, soft, nontender. No guarding or rigidity. No organomegaly. Hernial orifice intact. Bowel sounds normal. NEUROLOGIC: She is awake, alert, responding appropriately. All cranial nerves intact. She is able to move her upper extremity to much greater extent than lower extremities. She has bilateral foot drop. SKIN: The patient has pressure sores on her sacral and bilateral gluteal area and the skin folds in her thighs bilaterally, but she has also multiple psoriatic plaques. LABORATORY DATA: Her lab work this morning showed a white cell count of 12,500, hemoglobin 12.7, hematocrit 39, MCV 81 and platelet count 228,000 with a manual differential showed 70% polymorphs, 20% lymphocytes and 8% monocytes. Her serum sodium 143, potassium 4.4, chloride 101, bicarbonate 35, anion gap of 7, BUN 46, creatinine 1.1, estimated GFR was 49 mL per minute. Her glucose was 128. Hemoglobin A1c was 7.6%. Calcium was 9.8, magnesium 2.6. Total bilirubin, AST, ALT, alkaline phosphatase were normal. Total protein was 8.9, albumin was 3. Her serum triglyceride was 181, total cholesterol 196, LDL was 117, VLDL was 36, HDL cholesterol was 43 and the ratio was 4. Her TSH was 1.763, total T4 was 65.4 and total T3 was 69. Her serum iron was 32, TIBC was 49, and percent saturation was 8%. Her urinalysis showed the urine was yellow, hazy with a pH of more than 8.5, specific gravity 1.015, small amount of protein, negative for glucose, ketones, small amount of blood, negative for nitrites, small amount of leukocyte esterase, 5-10 wbc's, very few bacteria. Toxicology screen showed that her valproic acid was 58 mcg/mL, which is well within therapeutic range, and her RPR was still pending. ASSESSMENT AND PLAN: In summary, this is a 67-year-old female patient with a multitude of medical problems who apparently was on hospice and who basically made a suicidal statement without any plans and in fact without any physical ability to even commit suicide if she has a plan given her extreme immobility and weakness. She was basically admitted to [facility] for inpatient psychiatric stabilization. She has multiple medical problems including atrial fibrillation, hyperlipidemia, chronic obstructive pulmonary disease, type 2 diabetes, gastroesophageal reflux disease. She also has neurogenic bladder requiring suprapubic catheter. Generally, she seems to be medically stable. I will obviously review all the labs that are still pending at the time of this dictation and make any necessary recommendation. Thank you, Dr. Hill, for allowing me to participate in the care of this patient. ELOY RIVERA MD DR: RACHEL/moris JOB#: [id number] / [id number]
[2017-10-18 16:28] VITALS: BP 92/56
[2017-10-18] MEDS ORDERED: NYSTATIN TOPICAL POWDER 15GM BOTTLE. TP ONE (17:41)
[2017-10-18] MEDS: ENOXAPARIN 30 MG/0.3 ML SYRINGE. SQ SCH (20:15)
[2017-10-18] MEDS: DIVALPROEX ER 250 MG TAB.ER.24H. PO SCH (20:19)
[2017-10-18] MEDS: NYSTATIN TOPICAL POWDER 15GM BOTTLE. TP SCH (20:20)
[2017-10-18] MEDS: INSULIN GLARGINE 300 UNITS/3 ML INSULN.PEN. SQ SCH (20:23)
--- NOTE | 2017-10-18 20:55 | PDOC ---
Exam Note: Laureano Note: Please also refer to the separate dictated note~for this date of service dictated separately.~Patient seen individually. Discussed the patient with Nursing staff reviewed the chart.~Reviewed interim history and current functioning. Reviewed vital signs,~Labs/ Radiology~and current medications noted below. Continue current treatment with the changes noted in the dictated addendum note Assessment: Vital Signs: Vital Signs Date Time Temp Pulse Resp B/P (MAP) Pulse Ox O2 Delivery O2 Flow Rate FiO2 10/18/17 16:28 97.7 78 18 92/56 (68) 97 2.0 10/17/17 13:36 Nasal Cannula I&O Intake and Output 10/18/17 07:00 Intake Total 480 ml Output Total 1050 ml Balance -570 ml Intake Oral 480 ml Output Urine Total 1050 ml Labs: Laboratory Tests Test 10/18/17 05:49 10/18/17 11:47 10/18/17 16:47 10/18/17 19:22 Glucose (Fingerstick) 78 mg/dL (70-99) 177 mg/dL (70-99) H 145 mg/dL (70-99) H 218 mg/dL (70-99) H Current Medications: Meds: Current Medications Sodium Chloride 1,000 ml @ 1,000 mls/hr 1X ONCE IV Last administered on at 10:45; Start 10/16/17 at 10:45; Stop 10/16/17 at 11:44; Status DC Acetaminophen (Tylenol) 650 mg 1X ONCE PO Last administered on 10/16/17at 12:23 ; Start 10/16/17 at 12:40; Stop 10/16/17 at 12:41; Status DC Ceftriaxone Sodium 1 gm/ Sodium Chloride 50 ml @ 100 mls/hr 1X ONCE IV ; Start 10/16/17 at 12:45; Stop 10/16/17 at 13:14; Status UNV Sodium Chloride 50 ml @ As Directed STK-MED ONCE .ROUTE ; Start 10/16/17 at 12:45 ; Stop 10/16/17 at 12:46; Status DC Ceftriaxone Sodium (Rocephin) 1 gm STK-MED ONCE IV ; Start 10/16/17 at 12:45; Stop 10/16/17 at 12:46; Status DC Ceftriaxone Sodium (Rocephin) 1 gm 1X ONCE IVP Last administered on 10/16/17at 12:55; Start 10/16/17 at 13:00; Stop 10/16/17 at 13:01; Status DC Acetaminophen (Tylenol) 650 mg PRN Q6HRS PRN PO PAIN / TEMP; Start 10/16/17 at 14:45; Status Cancel Multi-Ingredient Ointment (Analgesic [place]) 1 lacey PRN QID PRN TP MUSCLE PAIN; Start 10/16/17 at 14:45 Al Hydroxide/Mg Hydroxide (Mylanta Plus Xs) 15 ml PRN AFTMEALHC PRN PO DYSPEPSIA; Start 10/16/17 at 14:45 Magnesium Hydroxide (Milk Of Magnesia) 2,400 mg PRN QHS PRN PO CONSTIPATION; Start 10/16/17 at 14:45 Insulin Human Lispro (HumaLOG) 0-7 UNITS TIDWMEALS SQ Last administered on at 12:08; Start 10/16/17 at 17:00 Dextrose 12.5 gm PRN Q15MIN PRN IV SEE COMMENTS; Start 10/16/17 at 16:15 Acetaminophen (Tylenol) 650 mg PRN Q4HRS PRN PO PAIN / TEMP; Start 10/16/17 at 16:45 Bisacodyl (Dulcolax Supp) 10 mg PRN DAILY PRN RC CONSTIPATION; Start 10/16/17 at 16:45 Calcipotriene (Dovonex) 2 lacey BID TP Last administered on 10/18/17at 20:20; Start 10/16/17 at 21:00 Clobetasol Propionate 1 lacey BID TP Last administered on 10/18/17at 20:19; Start 10/16/17 at 21:00 Clonazepam (KlonoPIN) 2 mg TID PO Last administered on 10/18/17at 20:16; Start at 21:00 Glucose (Insta-Glucose) 1 gm PRN Q15MIN PRN PO hypoglycemia; Start 10/16/17 at 16:45 Furosemide (Lasix) 40 mg DAILY PO Last administered on 10/18/17at 04:35; Start at 09:00 Albuterol/ Ipratropium (Duoneb) 3 ml PRN Q4HRS PRN NEB SHORTNESS OF BREATH; Start 10/16/17 at 16:45 Loperamide HCl (Imodium) 2 mg PRN Q6HRS PRN PO DIARRHEA; Start 10/16/17 at 16:45 Lorazepam (Ativan Intensol) 2 mg PRN Q3HRS PRN PO restlessness; Start 10/16/17 at 16:45 Nystatin (Mycostatin) 1 lacey BID TP Last administered on 10/18/17 04:49; Start 10/16/17 at 21:00; Stop 10/18/17 at 15:02; Status DC Ondansetron HCl (Zofran Odt) 4 mg PRN Q8HRS PRN PO NAUSEA/VOMITING; Start at 16:45 Oxycodone HCl (OxyCONTIN) 20 mg BID PO Last administered on 10/18/17at 04:47; Start 10/16/17 at 21:00 Oxymetazoline HCl (Afrin) 1 spray PRN Q6HRS PRN NS ALLERGY; Start 10/16/17 at 16 :45 Potassium Chloride (Klor-Con) 20 meq BID PO Last administered on 10/18/17at 20:10 ; Start 10/16/17 at 21:00 Sennosides (Senna) 8.6 mg DAILY PO Last administered on 10/18/17 04:35; Start 10/17/17 at 09:00 Sennosides (Senna) 8.6 mg PRN DAILY PRN PO CONSTIPATION; Start 10/16/17 at 16:45 Artificial Tears (Artificial Tears) 2 drop PRN Q3HRS PRN OU DRY EYE; Start 10/16 at 17:15 Divalproex Sodium (Depakote) 250 mg TID PO Last administered on 10/18/17at 13:22 ; Start 10/16/17 at 21:00; Stop 10/18/17 at 19:28; Status DC Hyoscyamine (Anaspaz) 0.125 mg PRN Q2HR PRN PO SECRETIONS; Start 10/16/17 at 17: 30 Insulin Glargine (Lantus) 10 units QHS SQ Last administered on 10/18/17at 20:23; Start 10/16/17 at 21:00 Oxycodone HCl (Roxicodone) 20 mg QID PO Last administered on 10/18/17at 17:11; Start 10/16/17 at 17:30 Oxycodone HCl (Roxicodone) 20 mg PRN Q6HRS PRN PO PAIN; Start 10/16/17 at 17:30 Triamcinolone Acetonide (Kenalog) 1 lacey BID TP Last administered on 10/18/17at 20 :20; Start 10/16/17 at 21:00 Non-Formulary Medication ([morphine sulfate ] ) 0.5 ml Q4HRS SQ ; Start 10/16/17 at 20:00; Status UNV Enoxaparin Sodium (Lovenox) 30 mg Q24H SQ Last administered on 10/18/17at 20:15; Start 10/16/17 at 21:00 Duloxetine HCl (Cymbalta) 30 mg DAILY PO Last administered on 10/18/17at 08:45; Start 10/18/17 at 09:00 Polyethylene Glycol (miraLAX) 17 gm DAILY PO ; Start 10/19/17 at 09:00 Nystatin (Nystop) 1 lacey BID TP Last administered on 10/18/17at 20:20; Start at 21:00 Vitamin D (Vitamin D3) 50,000 unit WEEKLY PO ; Start 10/19/17 at 09:00 Nystatin (Nystop) 15 lacey STK-MED ONCE TP ; Start 10/18/17 at 17:41; Stop 10/18/17 at 17:42; Status DC Divalproex Sodium (Depakote Er) 750 mg HS PO Last administered on 10/18/17at 20: 19; Start 10/18/17 at 21:00 Active Scripts Active Reported Artificial Tears (Polyvinyl Alcohol) 15 Ml Drops 2 Drop OP PRN Q3HRS PRN Novolog (Insulin Aspart) 100 Unit/1 Ml Cartridge 3-12 Unit SQ PRN BFRMEAL PRN Zofran Odt (Ondansetron) 4 Mg Tab.rapdis 4 Mg PO PRN Q8HRS PRN Triamcinolone Acetonide 15 Gm Cream..g. 1 Lacey TP BID Senokot (Sennosides) 8.6 Mg Tablet 8.6 Mg PO PRN DAILY PRN Senokot (Sennosides) 8.6 Mg Tablet 8.6 Mg PO DAILY Klor-Con M20 (Potassium Chloride) 20 Meq Tab.er.prt 20 Meq PO BID Oxycontin (Oxycodone HCl) 20 Mg Tab.er.12h 20 Mg PO BID Oxycodone Hcl 10 Mg Tablet 20 Mg PO QID Nystatin 15 Gm Oint...g. 1 Lacey TP BID Nasal [place] Sinus (Oxymetazoline Hcl) 30 Ml [place] 1 Spr NS PRN Q6HRS PRN [morphine sulfate ] 0.5 Ml SQ Q4HRS Lorazepam Intensol (Lorazepam) 2 Mg/1 Ml Oral.conc 1 Ml PO PRN Q3HRS PRN Levsin-Sl (Hyoscyamine Sulfate) 0.125 Mg Tab.subl 0.125 Mg SL PRN Q2HR PRN Levemir (Insulin Detemir) 100 Unit/1 Ml Vial 10 Unit SQ HS Lasix (Furosemide) 40 Mg Tablet 40 Mg PO DAILY Imodium A-D (Loperamide HCl) 2 Mg Capsule 2 Mg PO PRN Q6HRS Glucose Gel (Dextrose) 38 Gm Gel..gram. 1 Gm PO PRN Q15MIN PRN Duoneb 0.5-3(2.5) Mg/3 Ml (Albuterol/Ipratropium) 3 Ml Ampul.neb 3 Ml NEB PRN Q4HRS PRN Depakote (Divalproex Sodium) 500 Mg Tablet.dr 250 Mg PO TID Calcipotriene 60 Gm Cream..g. 2 Lacey TP BID Artificial Tears Eye Drops (Dextran 70/Hypromellose) 15 Ml Drops 2 Drop EACHEYE PRN Q3HRS PRN Tylenol (Acetaminophen) 325 Mg Tablet 650 Mg PO PRN Q4HRS PRN Dulcolax (Bisacodyl) 10 Mg Supp.rect 10 Mg RC PRN DAILY PRN Oxycodone Hcl 20 Mg Tablet 20 Mg PO PRN Q6HRS PRN Clobetasol Emollient 0.05% Crm (Clobetasol Propionate/Emoll) 15 Gm Cream..g. 1 Applic TP BID Apply to Feet, Elbows and hands BID for Rash/itching Clonazepam 2 Mg Tablet 2 Mg PO TID I have reviewed the current psychotropics carefully including drug interactions. Risk benefit ratio favors no change other than as noted in my dictated progress note. Diagnosis: Problems: (1) Major depression (2) Anxiety disorder (3) Impulse control disorder (4) Major depressive disorder, recurrent episode (5) Mild cognitive impairment ROMINA SORTO MD October 18, 2017 20:55
[2017-10-19 06:16] VITALS: BP 114/70
[2017-10-19] MEDS: INSULIN LISPRO 300 UNITS/3 ML INSULN.PEN. SQ SCH ×3 (08:00→17:00)
[2017-10-19] MEDS: CLOBETASOL EMOLLIENT 0.05% TOPICAL CREAM 15GM TUBE. TP SCH ×2 (09:00→20:19)
[2017-10-19] MEDS: oxyCODONE IR 5 MG TABLET PO SCH ×4 (09:00→20:18)
[2017-10-19] MEDS: POTASSIUM CHLORIDE 20 MEQ TABLET.ER. PO SCH ×2 (09:18→20:09)
[2017-10-19] MEDS: DULoxetine HCL 30 MG CAPSULE.DR PO SCH (09:18)
[2017-10-19] MEDS: SENNOSIDES 8.6 MG TABLET PO SCH (09:18)
[2017-10-19] MEDS: FUROSEMIDE 40 MG TABLET PO SCH (09:18)
[2017-10-19] MEDS: CHOLECALCIFEROL (VITAMIN D3) 50,000 UNIT CAPSULE PO SCH (09:18)
[2017-10-19] MEDS: TRIAMCINOLONE ACETONIDE 0.1% TOPICAL CREAM 15GM TUBE. TP SCH ×2 (09:25→20:19)
[2017-10-19] MEDS: clonazePAM 2 MG TABLET PO SCH ×2 (09:25→12:51)
[2017-10-19] MEDS: POLYETHYLENE GLYCOL 3350 17 GM PACKET. PO SCH (09:25)
[2017-10-19] MEDS: CALCIPOTRIENE 0.005% TOPICAL CREAM 60GM TUBE. TP SCH ×2 (09:25→20:19)
[2017-10-19] MEDS: NYSTATIN TOPICAL POWDER 15GM BOTTLE. TP SCH ×2 (09:26→20:19)
[2017-10-19] MEDS: oxyCODONE ER 20 MG TAB.ER.12H PO SCH ×2 (09:28→20:18)
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
[2017-10-19 16:12] VITALS: BP 119/69
[2017-10-19] MEDS: DIVALPROEX ER 250 MG TAB.ER.24H. PO SCH (20:08)
[2017-10-19] MEDS: clonazePAM 1 MG TABLET PO SCH (20:14)
[2017-10-19] MEDS: ENOXAPARIN 30 MG/0.3 ML SYRINGE. SQ SCH (20:21)
[2017-10-19] MEDS: INSULIN GLARGINE 300 UNITS/3 ML INSULN.PEN. SQ SCH (20:22)
--- NOTE | 2017-10-19 20:49 | PDOC ---
Exam Note: Laureano Note: Please also refer to the separate dictated note~for this date of service dictated separately.~Patient seen individually. Discussed the patient with Nursing staff reviewed the chart.~Reviewed interim history and current functioning. Reviewed vital signs,~Labs/ Radiology~and current medications noted below. Continue current treatment with the changes noted in the dictated addendum note Assessment: Vital Signs: Vital Signs Date Time Temp Pulse Resp B/P (MAP) Pulse Ox O2 Delivery O2 Flow Rate FiO2 10/19/17 20:18 93 Nasal Cannula 2.0 10/19/17 16:12 97.1 83 16 119/69 (86) I&O Intake and Output 10/19/17 07:00 Intake Total 840 ml Output Total 2225 ml Balance -1385 ml Intake Oral 840 ml Output Urine Total 2225 ml # Voids 1 Labs: Laboratory Tests Test 10/19/17 07:22 10/19/17 11:39 10/19/17 16:54 10/19/17 19:11 Glucose (Fingerstick) 135 mg/dL (70-99) H 152 mg/dL (70-99) H 141 mg/dL (70-99) H 179 mg/dL (70-99) H Current Medications: Meds: Current Medications Sodium Chloride 1,000 ml @ 1,000 mls/hr 1X ONCE IV Last administered on at 10:45; Start 10/16/17 at 10:45; Stop 10/16/17 at 11:44; Status DC Acetaminophen (Tylenol) 650 mg 1X ONCE PO Last administered on 10/16/17at 12:23 ; Start 10/16/17 at 12:40; Stop 10/16/17 at 12:41; Status DC Ceftriaxone Sodium 1 gm/ Sodium Chloride 50 ml @ 100 mls/hr 1X ONCE IV ; Start 10/16/17 at 12:45; Stop 10/16/17 at 13:14; Status UNV Sodium Chloride 50 ml @ As Directed STK-MED ONCE .ROUTE ; Start 10/16/17 at 12:45 ; Stop 10/16/17 at 12:46; Status DC Ceftriaxone Sodium (Rocephin) 1 gm STK-MED ONCE IV ; Start 10/16/17 at 12:45; Stop 10/16/17 at 12:46; Status DC Ceftriaxone Sodium (Rocephin) 1 gm 1X ONCE IVP Last administered on 10/16/17at 12:55; Start 10/16/17 at 13:00; Stop 10/16/17 at 13:01; Status DC Acetaminophen (Tylenol) 650 mg PRN Q6HRS PRN PO PAIN / TEMP; Start 10/16/17 at 14:45; Status Cancel Multi-Ingredient Ointment (Analgesic [place]) 1 lacey PRN QID PRN TP MUSCLE PAIN; Start 10/16/17 at 14:45 Al Hydroxide/Mg Hydroxide (Mylanta Plus Xs) 15 ml PRN AFTMEALHC PRN PO DYSPEPSIA; Start 10/16/17 at 14:45 Magnesium Hydroxide (Milk Of Magnesia) 2,400 mg PRN QHS PRN PO CONSTIPATION; Start 10/16/17 at 14:45 Insulin Human Lispro (HumaLOG) 0-7 UNITS TIDWMEALS SQ Last administered on at 12:28; Start 10/16/17 at 17:00 Dextrose 12.5 gm PRN Q15MIN PRN IV SEE COMMENTS; Start 10/16/17 at 16:15 Acetaminophen (Tylenol) 650 mg PRN Q4HRS PRN PO PAIN / TEMP; Start 10/16/17 at 16:45 Bisacodyl (Dulcolax Supp) 10 mg PRN DAILY PRN RC CONSTIPATION; Start 10/16/17 at 16:45 Calcipotriene (Dovonex) 2 lacey BID TP Last administered on 10/19/17at 20:19; Start 10/16/17 at 21:00 Clobetasol Propionate 1 lacey BID TP Last administered on 10/19/17at 20:19; Start 10/16/17 at 21:00 Clonazepam (KlonoPIN) 2 mg TID PO Last administered on 10/19/17at 12:51; Start at 21:00; Stop 10/19/17 at 18:35; Status DC Glucose (Insta-Glucose) 1 gm PRN Q15MIN PRN PO hypoglycemia; Start 10/16/17 at 16:45 Furosemide (Lasix) 40 mg DAILY PO Last administered on 10/19/17at 09:18; Start at 09:00 Albuterol/ Ipratropium (Duoneb) 3 ml PRN Q4HRS PRN NEB SHORTNESS OF BREATH; Start 10/16/17 at 16:45 Loperamide HCl (Imodium) 2 mg PRN Q6HRS PRN PO DIARRHEA; Start 10/16/17 at 16:45 Lorazepam (Ativan Intensol) 2 mg PRN Q3HRS PRN PO restlessness; Start 10/16/17 at 16:45 Nystatin (Mycostatin) 1 lacey BID TP Last administered on 10/18/17at 04:49; Start 10/16/17 at 21:00; Stop 10/18/17 at 15:02; Status DC Ondansetron HCl (Zofran Odt) 4 mg PRN Q8HRS PRN PO NAUSEA/VOMITING Last administered on 10/19/17at 08:14; Start 10/16/17 at 16:45 Oxycodone HCl (OxyCONTIN) 20 mg BID PO Last administered on 10/19/17 20:18; Start 10/16/17 at 21:00 Oxymetazoline HCl (Afrin) 1 spray PRN Q6HRS PRN NS ALLERGY; Start 10/16/17 at 16 :45 Potassium Chloride (Klor-Con) 20 meq BID PO Last administered on 10/19/17at 20:09 ; Start 10/16/17 at 21:00 Sennosides (Senna) 8.6 mg DAILY PO Last administered on 10/19/17 09:18; Start 10/17/17 at 09:00 Sennosides (Senna) 8.6 mg PRN DAILY PRN PO CONSTIPATION; Start 10/16/17 at 16:45 Artificial Tears (Artificial Tears) 2 drop PRN Q3HRS PRN OU DRY EYE; Start 10/16 at 17:15 Divalproex Sodium (Depakote) 250 mg TID PO Last administered on 10/18/17 13:22 ; Start 10/16/17 at 21:00; Stop 10/18/17 at 19:28; Status DC Hyoscyamine (Anaspaz) 0.125 mg PRN Q2HR PRN PO SECRETIONS; Start 10/16/17 at 17: 30 Insulin Glargine (Lantus) 10 units QHS SQ Last administered on 10/19/17at 20:22; Start 10/16/17 at 21:00 Oxycodone HCl (Roxicodone) 20 mg QID PO Last administered on 10/19/17 18:07; Start 10/16/17 at 17:30 Oxycodone HCl (Roxicodone) 20 mg PRN Q6HRS PRN PO PAIN; Start 10/16/17 at 17:30 Triamcinolone Acetonide (Kenalog) 1 lacey BID TP Last administered on 10/19/17 20 :19; Start 10/16/17 at 21:00 Non-Formulary Medication ([morphine sulfate ] ) 0.5 ml Q4HRS SQ ; Start 10/16/17 at 20:00; Status UNV Enoxaparin Sodium (Lovenox) 30 mg Q24H SQ Last administered on 10/19/17 20:21; Start 10/16/17 at 21:00 Duloxetine HCl (Cymbalta) 30 mg DAILY PO Last administered on 10/19/17 09:18; Start 10/18/17 at 09:00 Polyethylene Glycol (miraLAX) 17 gm DAILY PO Last administered on 10/19/17 09: 25; Start 10/19/17 at 09:00 Nystatin (Nystop) 1 lacey BID TP Last administered on 10/19/17 20:19; Start at 21:00 Vitamin D (Vitamin D3) 50,000 unit WEEKLY PO Last administered on 10/19/17 09: 18; Start 10/19/17 at 09:00 Nystatin (Nystop) 15 lacey STK-MED ONCE TP ; Start 10/18/17 at 17:41; Stop 10/18/17 at 17:42; Status DC Divalproex Sodium (Depakote Er) 750 mg HS PO Last administered on 10/19/17 20: 08; Start 10/18/17 at 21:00 Clonazepam (KlonoPIN) 2 mg BID92 PO ; Start 10/20/17 at 09:00 Clonazepam (KlonoPIN) 1.5 mg QHS PO Last administered on 10/19/17 20:14; Start 10/19/17 at 21:00 Active Scripts Active Reported Artificial Tears (Polyvinyl Alcohol) 15 Ml Drops 2 Drop OP PRN Q3HRS PRN Novolog (Insulin Aspart) 100 Unit/1 Ml Cartridge 3-12 Unit SQ PRN BFRMEAL PRN Zofran Odt (Ondansetron) 4 Mg Tab.rapdis 4 Mg PO PRN Q8HRS PRN Triamcinolone Acetonide 15 Gm Cream..g. 1 Lacey TP BID Senokot (Sennosides) 8.6 Mg Tablet 8.6 Mg PO PRN DAILY PRN Senokot (Sennosides) 8.6 Mg Tablet 8.6 Mg PO DAILY Klor-Con M20 (Potassium Chloride) 20 Meq Tab.er.prt 20 Meq PO BID Oxycontin (Oxycodone HCl) 20 Mg Tab.er.12h 20 Mg PO BID Oxycodone Hcl 10 Mg Tablet 20 Mg PO QID Nystatin 15 Gm Oint...g. 1 Lacey TP BID Nasal [place] Sinus (Oxymetazoline Hcl) 30 Ml [place] 1 Spr NS PRN Q6HRS PRN [morphine sulfate ] 0.5 Ml SQ Q4HRS Lorazepam Intensol (Lorazepam) 2 Mg/1 Ml Oral.conc 1 Ml PO PRN Q3HRS PRN Levsin-Sl (Hyoscyamine Sulfate) 0.125 Mg Tab.subl 0.125 Mg SL PRN Q2HR PRN Levemir (Insulin Detemir) 100 Unit/1 Ml Vial 10 Unit SQ HS Lasix (Furosemide) 40 Mg Tablet 40 Mg PO DAILY Imodium A-D (Loperamide HCl) 2 Mg Capsule 2 Mg PO PRN Q6HRS Glucose Gel (Dextrose) 38 Gm Gel..gram. 1 Gm PO PRN Q15MIN PRN Duoneb 0.5-3(2.5) Mg/3 Ml (Albuterol/Ipratropium) 3 Ml Ampul.neb 3 Ml NEB PRN Q4HRS PRN Depakote (Divalproex Sodium) 500 Mg Tablet.dr 250 Mg PO TID Calcipotriene 60 Gm Cream..g. 2 Lacey TP BID Artificial Tears Eye Drops (Dextran 70/Hypromellose) 15 Ml Drops 2 Drop EACHEYE PRN Q3HRS PRN Tylenol (Acetaminophen) 325 Mg Tablet 650 Mg PO PRN Q4HRS PRN Dulcolax (Bisacodyl) 10 Mg Supp.rect 10 Mg RC PRN DAILY PRN Oxycodone Hcl 20 Mg Tablet 20 Mg PO PRN Q6HRS PRN Clobetasol Emollient 0.05% Crm (Clobetasol Propionate/Emoll) 15 Gm Cream..g. 1 Applic TP BID Apply to Feet, Elbows and hands BID for Rash/itching Clonazepam 2 Mg Tablet 2 Mg PO TID I have reviewed the current psychotropics carefully including drug interactions. Risk benefit ratio favors no change other than as noted in my dictated progress note. Diagnosis: Problems: (1) Major depression (2) Anxiety disorder (3) Impulse control disorder (4) Major depressive disorder, recurrent episode (5) Mild cognitive impairment ROMINA SORTO MD October 19, 2017 20:49
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
[2017-10-20 05:57] VITALS: BP 126/69
[2017-10-20] MEDS: INSULIN LISPRO 300 UNITS/3 ML INSULN.PEN. SQ SCH ×3 (08:00→17:46)
[2017-10-20] MEDS: POTASSIUM CHLORIDE 20 MEQ TABLET.ER. PO SCH ×2 (10:15→20:41)
[2017-10-20] MEDS: FUROSEMIDE 40 MG TABLET PO SCH (10:15)
[2017-10-20] MEDS: SENNOSIDES 8.6 MG TABLET PO SCH (10:15)
[2017-10-20] MEDS: DULoxetine HCL 30 MG CAPSULE.DR PO SCH (10:15)
[2017-10-20] MEDS: clonazePAM 2 MG TABLET PO SCH ×2 (10:18→15:37)
[2017-10-20] MEDS: POLYETHYLENE GLYCOL 3350 17 GM PACKET. PO SCH (10:18)
[2017-10-20] MEDS: oxyCODONE ER 20 MG TAB.ER.12H PO SCH ×2 (10:18→20:44)
[2017-10-20] MEDS: CALCIPOTRIENE 0.005% TOPICAL CREAM 60GM TUBE. TP SCH ×2 (10:18→20:46)
[2017-10-20] MEDS: TRIAMCINOLONE ACETONIDE 0.1% TOPICAL CREAM 15GM TUBE. TP SCH ×2 (10:19→20:46)
[2017-10-20] MEDS: CLOBETASOL EMOLLIENT 0.05% TOPICAL CREAM 15GM TUBE. TP SCH ×2 (10:19→20:46)
[2017-10-20] MEDS: oxyCODONE IR 5 MG TABLET PO SCH ×5 (10:19→20:43)
[2017-10-20] MEDS: NYSTATIN TOPICAL POWDER 15GM BOTTLE. TP SCH ×2 (10:19→20:46)
[2017-10-20 18:14] VITALS: BP 115/67
[2017-10-20] MEDS: DIVALPROEX ER 250 MG TAB.ER.24H. PO SCH (20:40)
[2017-10-20] MEDS: clonazePAM 1 MG TABLET PO SCH (20:41)
[2017-10-20] MEDS: ENOXAPARIN 30 MG/0.3 ML SYRINGE. SQ SCH (20:44)
[2017-10-20] MEDS: INSULIN GLARGINE 300 UNITS/3 ML INSULN.PEN. SQ SCH (20:45)
--- NOTE | 2017-10-20 22:15 | PDOC ---
Exam Note: Laureano Note: Please also refer to the separate dictated note~for this date of service dictated separately.~Patient seen individually. Discussed the patient with Nursing staff reviewed the chart.~Reviewed interim history and current functioning. Reviewed vital signs,~Labs/ Radiology~and current medications noted below. Continue current treatment with the changes noted in the dictated addendum note Assessment: Vital Signs: Vital Signs Date Time Temp Pulse Resp B/P (MAP) Pulse Ox O2 Delivery O2 Flow Rate FiO2 10/20/17 20:43 95 10/20/17 18:14 97.8 86 18 115/67 (83) 10/20/17 14:30 Room Air 10/20/17 05:57 2.0 I&O Intake and Output 10/20/17 07:00 Intake Total 960 ml Output Total 650 ml Balance 310 ml Intake Oral 960 ml Output Urine Total 650 ml Labs: Laboratory Tests Test 10/20/17 07:39 10/20/17 11:33 10/20/17 17:02 10/20/17 19:22 Glucose (Fingerstick) 108 mg/dL (70-99) H 96 mg/dL (70-99) 205 mg/dL (70-99) H 141 mg/dL (70-99) H Current Medications: Meds: Current Medications Sodium Chloride 1,000 ml @ 1,000 mls/hr 1X ONCE IV Last administered on at 10:45; Start 10/16/17 at 10:45; Stop 10/16/17 at 11:44; Status DC Acetaminophen (Tylenol) 650 mg 1X ONCE PO Last administered on 10/16/17at 12:23 ; Start 10/16/17 at 12:40; Stop 10/16/17 at 12:41; Status DC Ceftriaxone Sodium 1 gm/ Sodium Chloride 50 ml @ 100 mls/hr 1X ONCE IV ; Start 10/16/17 at 12:45; Stop 10/16/17 at 13:14; Status UNV Sodium Chloride 50 ml @ As Directed STK-MED ONCE .ROUTE ; Start 10/16/17 at 12:45 ; Stop 10/16/17 at 12:46; Status DC Ceftriaxone Sodium (Rocephin) 1 gm STK-MED ONCE IV ; Start 10/16/17 at 12:45; Stop 10/16/17 at 12:46; Status DC Ceftriaxone Sodium (Rocephin) 1 gm 1X ONCE IVP Last administered on 10/16/17at 12:55; Start 10/16/17 at 13:00; Stop 10/16/17 at 13:01; Status DC Acetaminophen (Tylenol) 650 mg PRN Q6HRS PRN PO PAIN / TEMP; Start 10/16/17 at 14:45; Status Cancel Multi-Ingredient Ointment (Analgesic [place]) 1 lacey PRN QID PRN TP MUSCLE PAIN; Start 10/16/17 at 14:45 Al Hydroxide/Mg Hydroxide (Mylanta Plus Xs) 15 ml PRN AFTMEALHC PRN PO DYSPEPSIA; Start 10/16/17 at 14:45 Magnesium Hydroxide (Milk Of Magnesia) 2,400 mg PRN QHS PRN PO CONSTIPATION; Start 10/16/17 at 14:45 Insulin Human Lispro (HumaLOG) 0-7 UNITS TIDWMEALS SQ Last administered on at 17:46; Start 10/16/17 at 17:00 Dextrose 12.5 gm PRN Q15MIN PRN IV SEE COMMENTS; Start 10/16/17 at 16:15 Acetaminophen (Tylenol) 650 mg PRN Q4HRS PRN PO PAIN / TEMP; Start 10/16/17 at 16:45 Bisacodyl (Dulcolax Supp) 10 mg PRN DAILY PRN RC CONSTIPATION; Start 10/16/17 at 16:45 Calcipotriene (Dovonex) 2 lacey BID TP Last administered on 10/20/17at 20:46; Start 10/16/17 at 21:00 Clobetasol Propionate 1 lacey BID TP Last administered on 10/20/17at 20:46; Start 10/16/17 at 21:00 Clonazepam (KlonoPIN) 2 mg TID PO Last administered on 10/19/17at 12:51; Start at 21:00; Stop 10/19/17 at 18:35; Status DC Glucose (Insta-Glucose) 1 gm PRN Q15MIN PRN PO hypoglycemia; Start 10/16/17 at 16:45 Furosemide (Lasix) 40 mg DAILY PO Last administered on 10/20/17at 10:15; Start at 09:00 Albuterol/ Ipratropium (Duoneb) 3 ml PRN Q4HRS PRN NEB SHORTNESS OF BREATH; Start 10/16/17 at 16:45 Loperamide HCl (Imodium) 2 mg PRN Q6HRS PRN PO DIARRHEA; Start 10/16/17 at 16:45 Lorazepam (Ativan Intensol) 2 mg PRN Q3HRS PRN PO restlessness; Start 10/16/17 at 16:45 Nystatin (Mycostatin) 1 lacey BID TP Last administered on 10/18/17at 04:49; Start 10/16/17 at 21:00; Stop 10/18/17 at 15:02; Status DC Ondansetron HCl (Zofran Odt) 4 mg PRN Q8HRS PRN PO NAUSEA/VOMITING Last administered on 10/19/17 08:14; Start 10/16/17 at 16:45 Oxycodone HCl (OxyCONTIN) 20 mg BID PO Last administered on 10/20/17at 20:44; Start 10/16/17 at 21:00 Oxymetazoline HCl (Afrin) 1 spray PRN Q6HRS PRN NS ALLERGY; Start 10/16/17 at 16 :45 Potassium Chloride (Klor-Con) 20 meq BID PO Last administered on 10/20/17at 20:41 ; Start 10/16/17 at 21:00 Sennosides (Senna) 8.6 mg DAILY PO Last administered on 10/20/17at 10:15; Start 10/17/17 at 09:00 Sennosides (Senna) 8.6 mg PRN DAILY PRN PO CONSTIPATION; Start 10/16/17 at 16:45 Artificial Tears (Artificial Tears) 2 drop PRN Q3HRS PRN OU DRY EYE; Start 10/16 at 17:15 Divalproex Sodium (Depakote) 250 mg TID PO Last administered on 10/18/17 13:22 ; Start 10/16/17 at 21:00; Stop 10/18/17 at 19:28; Status DC Hyoscyamine (Anaspaz) 0.125 mg PRN Q2HR PRN PO SECRETIONS; Start 10/16/17 at 17: 30 Insulin Glargine (Lantus) 10 units QHS SQ Last administered on 5/9/18at 20:45; Start 10/16/17 at 21:00 Oxycodone HCl (Roxicodone) 20 mg QID PO Last administered on 10/20/17 20:43; Start 10/16/17 at 17:30 Oxycodone HCl (Roxicodone) 20 mg PRN Q6HRS PRN PO PAIN; Start 10/16/17 at 17:30 Triamcinolone Acetonide (Kenalog) 1 lacey BID TP Last administered on 10/20/17 20 :46; Start 10/16/17 at 21:00 Non-Formulary Medication ([morphine sulfate ] ) 0.5 ml Q4HRS SQ ; Start 10/16/17 at 20:00; Status UNV Enoxaparin Sodium (Lovenox) 30 mg Q24H SQ Last administered on 10/20/17 20:44; Start 10/16/17 at 21:00 Duloxetine HCl (Cymbalta) 30 mg DAILY PO Last administered on 10/20/17 10:15; Start 10/18/17 at 09:00; Stop 10/22/17 at 09:01 Polyethylene Glycol (miraLAX) 17 gm DAILY PO Last administered on 10/20/17 10: 18; Start 10/19/17 at 09:00 Nystatin (Nystop) 1 lacey BID TP Last administered on 10/20/17 20:46; Start at 21:00 Vitamin D (Vitamin D3) 50,000 unit WEEKLY PO Last administered on 10/19/17 09: 18; Start 10/19/17 at 09:00 Nystatin (Nystop) 15 lacey STK-MED ONCE TP ; Start 10/18/17 at 17:41; Stop 10/18/17 at 17:42; Status DC Divalproex Sodium (Depakote Er) 750 mg HS PO Last administered on 10/20/17 20: 40; Start 10/18/17 at 21:00 Clonazepam (KlonoPIN) 2 mg BID92 PO Last administered on 10/20/17 15:37; Start 10/20/17 at 09:00 Clonazepam (KlonoPIN) 1.5 mg QHS PO Last administered on 10/20/17 20:41; Start 10/19/17 at 21:00 Duloxetine HCl (Cymbalta) 60 mg DAILY PO ; Start 10/23/17 at 09:00 Active Scripts Active Reported Artificial Tears (Polyvinyl Alcohol) 15 Ml Drops 2 Drop OP PRN Q3HRS PRN Novolog (Insulin Aspart) 100 Unit/1 Ml Cartridge 3-12 Unit SQ PRN BFRMEAL PRN Zofran Odt (Ondansetron) 4 Mg Tab.rapdis 4 Mg PO PRN Q8HRS PRN Triamcinolone Acetonide 15 Gm Cream..g. 1 Lacey TP BID Senokot (Sennosides) 8.6 Mg Tablet 8.6 Mg PO PRN DAILY PRN Senokot (Sennosides) 8.6 Mg Tablet 8.6 Mg PO DAILY Klor-Con M20 (Potassium Chloride) 20 Meq Tab.er.prt 20 Meq PO BID Oxycontin (Oxycodone HCl) 20 Mg Tab.er.12h 20 Mg PO BID Oxycodone Hcl 10 Mg Tablet 20 Mg PO QID Nystatin 15 Gm Oint...g. 1 [place]acey TP BID Nasal [place] Sinus (Oxymetazoline Hcl) 30 Ml [place] 1 Spr NS PRN Q6HRS PRN [morphine sulfate ] 0.5 Ml SQ Q4HRS Lorazepam Intensol (Lorazepam) 2 Mg/1 Ml Oral.conc 1 Ml PO PRN Q3HRS PRN Levsin-Sl (Hyoscyamine Sulfate) 0.125 Mg Tab.subl 0.125 Mg SL PRN Q2HR PRN Levemir (Insulin Detemir) 100 Unit/1 Ml Vial 10 Unit SQ HS Lasix (Furosemide) 40 Mg Tablet 40 Mg PO DAILY Imodium A-D (Loperamide HCl) 2 Mg Capsule 2 Mg PO PRN Q6HRS Glucose Gel (Dextrose) 38 Gm Gel..gram. 1 Gm PO PRN Q15MIN PRN Duoneb 0.5-3(2.5) Mg/3 Ml (Albuterol/Ipratropium) 3 Ml Ampul.neb 3 Ml NEB PRN Q4HRS PRN Depakote (Divalproex Sodium) 500 Mg Tablet.dr 250 Mg PO TID Calcipotriene 60 Gm Cream..g. 2 [place]acey TP BID Artificial Tears Eye Drops (Dextran 70/Hypromellose) 15 Ml Drops 2 Drop EACHEYE PRN Q3HRS PRN Tylenol (Acetaminophen) 325 Mg Tablet 650 Mg PO PRN Q4HRS PRN Dulcolax (Bisacodyl) 10 Mg Supp.rect 10 Mg RC PRN DAILY PRN Oxycodone Hcl 20 Mg Tablet 20 Mg PO PRN Q6HRS PRN Clobetasol Emollient 0.05% Crm (Clobetasol Propionate/Emoll) 15 Gm Cream..g. 1 Applic TP BID Apply to Feet, Elbows and hands BID for Rash/itching Clonazepam 2 Mg Tablet 2 Mg PO TID I have reviewed the current psychotropics carefully including drug interactions. Risk benefit ratio favors no change other than as noted in my dictated progress note. Diagnosis: Problems: (1) Major depression (2) Anxiety disorder (3) Impulse control disorder (4) Major depressive disorder, recurrent episode (5) Mild cognitive impairment ROMINA SORTO MD October 20, 2017 22:15
--- NOTE | 2017-10-21 01:10 | PN ---
DATE: 10/19/2017 This is a late entry of 10/19/2017 covers elements not covered in my initial note of 10/19/2017. SUBJECTIVE: I met with the patient in the evening. The patient slept 7 hours, somewhat manipulative, making deals with nursing staff, wanting to lie down most of the time. REVIEW OF SYSTEMS: Ambulation impaired, in Broda chair. No CV, , pulmonary, eye system symptoms on review, has some vague somatic symptoms. MENTAL STATUS EXAM: Oriented to herself and situation. Speech has some latency, coherent. Abstraction fair, computation impaired, language function intact, attention span short. Mood and affect remain somewhat depressed, anxious, labile at times. LABORATORY DATA: Reviewed. IMPRESSION: Unchanged from initial note. PLAN: Start Cymbalta 30 mg a day for her mood symptoms. Reduce the Klonopin from 2 mg 3 times a day down to 2 mg twice a day, 1.5 mg once a day. Maintain Depakote at current dosage, level therapeutic at 58. MAN Yamilex SORTO MD DR: TOD/moris JOB#: [id number] / [id number]
[2017-10-21] MEDS: INSULIN LISPRO 300 UNITS/3 ML INSULN.PEN. SQ SCH ×3 (08:19→17:26)
[2017-10-21] MEDS: clonazePAM 2 MG TABLET PO SCH ×2 (08:28→14:11)
[2017-10-21] MEDS: DULoxetine HCL 30 MG CAPSULE.DR PO SCH (08:28)
[2017-10-21] MEDS: FUROSEMIDE 40 MG TABLET PO SCH (08:29)
[2017-10-21] MEDS: SENNOSIDES 8.6 MG TABLET PO SCH (08:29)
[2017-10-21] MEDS: POTASSIUM CHLORIDE 20 MEQ TABLET.ER. PO SCH ×2 (08:29→19:57)
[2017-10-21] MEDS: POLYETHYLENE GLYCOL 3350 17 GM PACKET. PO SCH (08:29)
[2017-10-21] MEDS: TRIAMCINOLONE ACETONIDE 0.1% TOPICAL CREAM 15GM TUBE. TP SCH ×2 (08:31→20:07)
[2017-10-21] MEDS: CALCIPOTRIENE 0.005% TOPICAL CREAM 60GM TUBE. TP SCH ×2 (08:31→20:07)
[2017-10-21] MEDS: NYSTATIN TOPICAL POWDER 15GM BOTTLE. TP SCH ×2 (08:31→20:07)
[2017-10-21] MEDS: CLOBETASOL EMOLLIENT 0.05% TOPICAL CREAM 15GM TUBE. TP SCH ×2 (08:31→20:08)
[2017-10-21] MEDS: oxyCODONE ER 20 MG TAB.ER.12H PO SCH ×2 (08:32→20:06)
[2017-10-21] MEDS: oxyCODONE IR 5 MG TABLET PO SCH ×4 (08:32→20:05)
[2017-10-21 09:11] LABS: ALBUMIN 2.6 g/dL (3.4-5.0); ALBUMIN/GLOBULIN RATIO 0.5 (1.0-1.7); ALK PHOS 61 U/L (46-116); ALT (SGPT) 8 U/L (14-59); ANION GAP 7 (6-14); AST (SGOT) 10 U/L (15-37); BLOOD UREA NITROGEN 37 mg/dL (7-20); BUN/CREATININE RATIO 37 (6-20); CALCIUM 8.5 mg/dL (8.5-10.1); CARBON DIOXIDE 30 mmol/L (21-32); CHLORIDE 101 mmol/L (98-107); GFR 55.3; GLUCOSE 95 mg/dL (70-99); MAGNESIUM 1.8 mg/dL (1.8-2.4); POTASSIUM 4.3 mmol/L (3.5-5.1); SODIUM 138 mmol/L (136-145); TOTAL BILIRUBIN 0.3 mg/dL (0.2-1.0); TOTAL PROTEIN 7.5 g/dL (6.4-8.2); VAL ACID 67 mcg/mL (50-100)
[2017-10-21 09:18] LABS: BASO # 0.1 x10^3/uL (0.0-0.2); BASO % 1 % (0-3); EOS # 0.3 x10^3/uL (0.0-0.7); EOS % 4 % (0-3); HEMATOCRIT 35.8 % (36.0-47.0); HEMOGLOBIN 11.6 g/dL (12.0-15.5); LYMPH # 2.3 x10^3/uL (1.0-4.8); LYMPH % 31 % (24-48); MEAN CORPUSCULAR HEMOGLOBIN 26 pg (25-35); MEAN CORPUSCULAR HGB CONC 32 g/dL (31-37); MEAN CORPUSCULAR VOLUME 80 fL (79-100); MONO # 0.7 x10^3/uL (0.0-1.1); MONO % 9 % (0-9); NEUT # 4.2 x10^3uL (1.8-7.7); NEUT % 55 % (31-73); PLATELET COUNT 160 x10^3/uL (140-400); RED BLOOD COUNT 4.49 x10^6/uL (3.50-5.40); RED CELL DISTRIBUTION WIDTH 20.1 % (11.5-14.5); WHITE BLOOD COUNT 7.6 x10^3/uL (4.0-11.0)
[2017-10-21 18:13] VITALS: BP 102/53
[2017-10-21] MEDS: DIVALPROEX ER 250 MG TAB.ER.24H. PO SCH (19:57)
[2017-10-21] MEDS: clonazePAM 1 MG TABLET PO SCH (20:06)
[2017-10-21] MEDS: ENOXAPARIN 30 MG/0.3 ML SYRINGE. SQ SCH (20:07)
[2017-10-21] MEDS: INSULIN GLARGINE 300 UNITS/3 ML INSULN.PEN. SQ SCH (20:09)
--- NOTE | 2017-10-21 20:45 | PDOC ---
Exam Note: Laureano Note: Please also refer to the separate dictated note~for this date of service dictated separately.~Patient seen individually. Discussed the patient with Nursing staff reviewed the chart.~Reviewed interim history and current functioning. Reviewed vital signs,~Labs/ Radiology~and current medications noted below. Continue current treatment with the changes noted in the dictated addendum note Assessment: Vital Signs: Vital Signs Date Time Temp Pulse Resp B/P (MAP) Pulse Ox O2 Delivery O2 Flow Rate FiO2 10/21/17 20:06 18 96 Nasal Cannula 2.0 10/21/17 18:13 97.7 67 102/53 (69) I&O Intake and Output 10/21/17 07:00 Intake Total 600 ml Output Total 600 ml Balance 0 ml Intake Oral 600 ml Output Urine Total 600 ml # Bowel Movements 1 Labs: Laboratory Tests Test 10/21/17 07:49 10/21/17 07:54 10/21/17 11:29 10/21/17 16:20 Glucose (Fingerstick) 97 mg/dL (70-99) 104 mg/dL (70-99) H 191 mg/dL (70-99) H White Blood Count 7.6 x10^3/uL (4.0-11.0) Red Blood Count 4.49 x10^6/uL (3.50-5.40) Hemoglobin 11.6 g/dL (12.0-15.5) L Hematocrit 35.8 % (36.0-47.0) L Mean Corpuscular Volume 80 fL (79-100) Mean Corpuscular Hemoglobin 26 pg (25-35) Mean Corpuscular Hemoglobin Concent 32 g/dL (31-37) Red Cell Distribution Width 20.1 % (11.5-14.5) H Platelet Count 160 x10^3/uL (140-400) Neutrophils (%) (Auto) 55 % (31-73) Lymphocytes (%) (Auto) 31 % (24-48) Monocytes (%) (Auto) 9 % (0-9) Eosinophils (%) (Auto) 4 % (0-3) H Basophils (%) (Auto) 1 % (0-3) Neutrophils # (Auto) 4.2 x10^3uL (1.8-7.7) Lymphocytes # (Auto) 2.3 x10^3/uL (1.0-4.8) Monocytes # (Auto) 0.7 x10^3/uL (0.0-1.1) Eosinophils # (Auto) 0.3 x10^3/uL (0.0-0.7) Basophils # (Auto) 0.1 x10^3/uL (0.0-0.2) Sodium Level 138 mmol/L (136-145) Potassium Level 4.3 mmol/L (3.5-5.1) Chloride Level 101 mmol/L (98-107) Carbon Dioxide Level 30 mmol/L (21-32) Anion Gap 7 (6-14) Blood Urea Nitrogen 37 mg/dL (7-20) H Creatinine 1.0 mg/dL (0.6-1.0) Estimated GFR (Cockcroft-Gault) 55.3 BUN/Creatinine Ratio 37 (6-20) H Glucose Level 95 mg/dL (70-99) Calcium Level 8.5 mg/dL (8.5-10.1) Magnesium Level 1.8 mg/dL (1.8-2.4) Total Bilirubin 0.3 mg/dL (0.2-1.0) Aspartate Amino Transferase (AST) 10 U/L (15-37) L Alanine Aminotransferase (ALT) 8 U/L (14-59) L Alkaline Phosphatase 61 U/L (46-116) Total Protein 7.5 g/dL (6.4-8.2) Albumin 2.6 g/dL (3.4-5.0) L Albumin/Globulin Ratio 0.5 (1.0-1.7) L Valproic Acid Level 67 mcg/mL (50-100) Valproic Acid Last Dose Date 10/20/2017 Valproic Acid Last Dose Time 2100 Test 10/21/17 19:19 Glucose (Fingerstick) 150 mg/dL (70-99) H Current Medications: Meds: Current Medications Sodium Chloride 1,000 ml @ 1,000 mls/hr 1X ONCE IV Last administered on at 10:45; Start 10/16/17 at 10:45; Stop 10/16/17 at 11:44; Status DC Acetaminophen (Tylenol) 650 mg 1X ONCE PO Last administered on 10/16/17at 12:23 ; Start 10/16/17 at 12:40; Stop 10/16/17 at 12:41; Status DC Ceftriaxone Sodium 1 gm/ Sodium Chloride 50 ml @ 100 mls/hr 1X ONCE IV ; Start 10/16/17 at 12:45; Stop 10/16/17 at 13:14; Status UNV Sodium Chloride 50 ml @ As Directed STK-MED ONCE .ROUTE ; Start 10/16/17 at 12:45 ; Stop 10/16/17 at 12:46; Status DC Ceftriaxone Sodium (Rocephin) 1 gm STK-MED ONCE IV ; Start 10/16/17 at 12:45; Stop 10/16/17 at 12:46; Status DC Ceftriaxone Sodium (Rocephin) 1 gm 1X ONCE IVP Last administered on 10/16/17at 12:55; Start 10/16/17 at 13:00; Stop 10/16/17 at 13:01; Status DC Acetaminophen (Tylenol) 650 mg PRN Q6HRS PRN PO PAIN / TEMP; Start 10/16/17 at 14:45; Status Cancel Multi-Ingredient Ointment (Analgesic [place]) 1 lacey PRN QID PRN TP MUSCLE PAIN; Start 10/16/17 at 14:45 Al Hydroxide/Mg Hydroxide (Mylanta Plus Xs) 15 ml PRN AFTMEALHC PRN PO DYSPEPSIA; Start 10/16/17 at 14:45 Magnesium Hydroxide (Milk Of Magnesia) 2,400 mg PRN QHS PRN PO CONSTIPATION; Start 10/16/17 at 14:45 Insulin Human Lispro (HumaLOG) 0-7 UNITS TIDWMEALS SQ Last administered on at 17:46; Start 10/16/17 at 17:00 Dextrose 12.5 gm PRN Q15MIN PRN IV SEE COMMENTS; Start 10/16/17 at 16:15 Acetaminophen (Tylenol) 650 mg PRN Q4HRS PRN PO PAIN / TEMP; Start 10/16/17 at 16:45 Bisacodyl (Dulcolax Supp) 10 mg PRN DAILY PRN RC CONSTIPATION; Start 10/16/17 at 16:45 Calcipotriene (Dovonex) 2 lacey BID TP Last administered on 10/21/17at 20:07; Start 10/16/17 at 21:00 Clobetasol Propionate 1 lacey BID TP Last administered on 10/21/17 20:08; Start 10/16/17 at 21:00 Clonazepam (KlonoPIN) 2 mg TID PO Last administered on 10/19/17 12:51; Start at 21:00; Stop 10/19/17 at 18:35; Status DC Glucose (Insta-Glucose) 1 gm PRN Q15MIN PRN PO hypoglycemia; Start 10/16/17 at 16:45 Furosemide (Lasix) 40 mg DAILY PO Last administered on 10/21/17 08:29; Start 10/17/17 at 09:00 Albuterol/ Ipratropium (Duoneb) 3 ml PRN Q4HRS PRN NEB SHORTNESS OF BREATH; Start 10/16/17 at 16:45 Loperamide HCl (Imodium) 2 mg PRN Q6HRS PRN PO DIARRHEA; Start 10/16/17 at 16:45 Lorazepam (Ativan Intensol) 2 mg PRN Q3HRS PRN PO restlessness; Start 10/16/17 at 16:45 Nystatin (Mycostatin) 1 lacey BID TP Last administered on 10/18/17 04:49; Start 10/16/17 at 21:00; Stop 10/18/17 at 15:02; Status DC Ondansetron HCl (Zofran Odt) 4 mg PRN Q8HRS PRN PO NAUSEA/VOMITING Last administered on 10/19/17 08:14; Start 10/16/17 at 16:45 Oxycodone HCl (OxyCONTIN) 20 mg BID PO Last administered on 10/21/17 20:06; Start 10/16/17 at 21:00 Oxymetazoline HCl (Afrin) 1 spray PRN Q6HRS PRN NS ALLERGY; Start 10/16/17 at 16 :45 Potassium Chloride (Klor-Con) 20 meq BID PO Last administered on 10/21/17 19: 57; Start 10/16/17 at 21:00 Sennosides (Senna) 8.6 mg DAILY PO Last administered on 10/21/17 08:29; Start 10/17/17 at 09:00 Sennosides (Senna) 8.6 mg PRN DAILY PRN PO CONSTIPATION; Start 10/16/17 at 16:45 Artificial Tears (Artificial Tears) 2 drop PRN Q3HRS PRN OU DRY EYE; Start 10/16 at 17:15 Divalproex Sodium (Depakote) 250 mg TID PO Last administered on 10/18/17at 13:22 ; Start 10/16/17 at 21:00; Stop 10/18/17 at 19:28; Status DC Hyoscyamine (Anaspaz) 0.125 mg PRN Q2HR PRN PO SECRETIONS; Start 10/16/17 at 17: 30 Insulin Glargine (Lantus) 10 units QHS SQ Last administered on 10/21/17 20:09 ; Start 10/16/17 at 21:00 Oxycodone HCl (Roxicodone) 20 mg QID PO Last administered on 10/21/17 20:05; Start 10/16/17 at 17:30 Oxycodone HCl (Roxicodone) 20 mg PRN Q6HRS PRN PO PAIN; Start 10/16/17 at 17:30 Triamcinolone Acetonide (Kenalog) 1 lacey BID TP Last administered on 10/21/17 20:07; Start 10/16/17 at 21:00 Non-Formulary Medication ([morphine sulfate ] ) 0.5 ml Q4HRS SQ ; Start 10/16/17 at 20:00; Status UNV Enoxaparin Sodium (Lovenox) 30 mg Q24H SQ Last administered on 10/21/17 20:07 ; Start 10/16/17 at 21:00 Duloxetine HCl (Cymbalta) 30 mg DAILY PO Last administered on 10/21/17 08:28; Start 10/18/17 at 09:00; Stop 10/22/17 at 09:01 Polyethylene Glycol (miraLAX) 17 gm DAILY PO Last administered on 10/21/17 08: 29; Start 10/19/17 at 09:00 Nystatin (Nystop) 1 lacey BID TP Last administered on 10/21/17 20:07; Start 10/18 at 21:00 Vitamin D (Vitamin D3) 50,000 unit WEEKLY PO Last administered on 10/19/17 09: 18; Start 10/19/17 at 09:00 Nystatin (Nystop) 15 lacey STK-MED ONCE TP ; Start 10/18/17 at 17:41; Stop 10/18/17 at 17:42; Status DC Divalproex Sodium (Depakote Er) 750 mg HS PO Last administered on 10/21/17at 19: 57; Start 10/18/17 at 21:00 Clonazepam (KlonoPIN) 2 mg [id number] PO Last administered on 10/21/17at 14:11; Start 10/20/17 at 09:00 Clonazepam (KlonoPIN) 1.5 mg QHS PO Last administered on 10/21/17at 20:06; Start 10/19/17 at 21:00 Duloxetine HCl (Cymbalta) 60 mg DAILY PO ; Start 10/23/17 at 09:00 Active Scripts Active Reported Artificial Tears (Polyvinyl Alcohol) 15 Ml Drops 2 Drop OP PRN Q3HRS PRN Novolog (Insulin Aspart) 100 Unit/1 Ml Cartridge 3-12 Unit SQ PRN BFRMEAL PRN Zofran Odt (Ondansetron) 4 Mg Tab.rapdis 4 Mg PO PRN Q8HRS PRN Triamcinolone Acetonide 15 Gm Cream..g. 1 Lacey TP BID Senokot (Sennosides) 8.6 Mg Tablet 8.6 Mg PO PRN DAILY PRN Senokot (Sennosides) 8.6 Mg Tablet 8.6 Mg PO DAILY Klor-Con M20 (Potassium Chloride) 20 Meq Tab.er.prt 20 Meq PO BID Oxycontin (Oxycodone HCl) 20 Mg Tab.er.12h 20 Mg PO BID Oxycodone Hcl 10 Mg Tablet 20 Mg PO QID Nystatin 15 Gm Oint...g. 1 Lacey TP BID Nasal [place] Sinus (Oxymetazoline Hcl) 30 Ml [place] 1 Spr NS PRN Q6HRS PRN [morphine sulfate ] 0.5 Ml SQ Q4HRS Lorazepam Intensol (Lorazepam) 2 Mg/1 Ml Oral.conc 1 Ml PO PRN Q3HRS PRN Levsin-Sl (Hyoscyamine Sulfate) 0.125 Mg Tab.subl 0.125 Mg SL PRN Q2HR PRN Levemir (Insulin Detemir) 100 Unit/1 Ml Vial 10 Unit SQ HS Lasix (Furosemide) 40 Mg Tablet 40 Mg PO DAILY Imodium A-D (Loperamide HCl) 2 Mg Capsule 2 Mg PO PRN Q6HRS Glucose Gel (Dextrose) 38 Gm Gel..gram. 1 Gm PO PRN Q15MIN PRN Duoneb 0.5-3(2.5) Mg/3 Ml (Albuterol/Ipratropium) 3 Ml Ampul.neb 3 Ml NEB PRN Q4HRS PRN Depakote (Divalproex Sodium) 500 Mg Tablet.dr 250 Mg PO TID Calcipotriene 60 Gm Cream..g. 2 Lacey TP BID Artificial Tears Eye Drops (Dextran 70/Hypromellose) 15 Ml Drops 2 Drop EACHEYE PRN Q3HRS PRN Tylenol (Acetaminophen) 325 Mg Tablet 650 Mg PO PRN Q4HRS PRN Dulcolax (Bisacodyl) 10 Mg Supp.rect 10 Mg RC PRN DAILY PRN Oxycodone Hcl 20 Mg Tablet 20 Mg PO PRN Q6HRS PRN Clobetasol Emollient 0.05% Crm (Clobetasol Propionate/Emoll) 15 Gm Cream..g. 1 Applic TP BID Apply to Feet, Elbows and hands BID for Rash/itching Clonazepam 2 Mg Tablet 2 Mg PO TID I have reviewed the current psychotropics carefully including drug interactions. Risk benefit ratio favors no change other than as noted in my dictated progress note. Diagnosis: Problems: (1) Major depression (2) Anxiety disorder (3) Impulse control disorder (4) Major depressive disorder, recurrent episode (5) Mild cognitive impairment ROMINA SORTO MD October 21, 2017 20:45
[2017-10-22] MEDS: oxyCODONE IR 5 MG TABLET PO PRN (04:56)
[2017-10-22 05:27] VITALS: BP 135/76
[2017-10-22] MEDS: INSULIN LISPRO 300 UNITS/3 ML INSULN.PEN. SQ SCH ×3 (08:00→18:47)
[2017-10-22] MEDS: POTASSIUM CHLORIDE 20 MEQ TABLET.ER. PO SCH ×2 (08:42→20:51)
[2017-10-22] MEDS: SENNOSIDES 8.6 MG TABLET PO SCH (08:42)
[2017-10-22] MEDS: FUROSEMIDE 40 MG TABLET PO SCH (08:43)
[2017-10-22] MEDS: DULoxetine HCL 30 MG CAPSULE.DR PO SCH (08:43)
[2017-10-22] MEDS: POLYETHYLENE GLYCOL 3350 17 GM PACKET. PO SCH (08:43)
[2017-10-22] MEDS: clonazePAM 2 MG TABLET PO SCH ×2 (08:48→15:01)
[2017-10-22] MEDS: oxyCODONE IR 5 MG TABLET PO SCH ×4 (08:48→20:52)
[2017-10-22] MEDS: oxyCODONE ER 20 MG TAB.ER.12H PO SCH ×2 (08:49→20:51)
[2017-10-22] MEDS: CALCIPOTRIENE 0.005% TOPICAL CREAM 60GM TUBE. TP SCH ×2 (08:49→21:48)
[2017-10-22] MEDS: TRIAMCINOLONE ACETONIDE 0.1% TOPICAL CREAM 15GM TUBE. TP SCH ×2 (08:49→21:48)
[2017-10-22] MEDS: NYSTATIN TOPICAL POWDER 15GM BOTTLE. TP SCH ×2 (08:49→21:48)
[2017-10-22] MEDS: CLOBETASOL EMOLLIENT 0.05% TOPICAL CREAM 15GM TUBE. TP SCH ×2 (08:49→21:48)
[2017-10-22 16:35] VITALS: BP 133/76
--- NOTE | 2017-10-22 20:44 | PDOC ---
Exam Note: Laureano Note: Please also refer to the separate dictated note~for this date of service dictated separately.~Patient seen individually. Discussed the patient with Nursing staff reviewed the chart.~Reviewed interim history and current functioning. Reviewed vital signs,~Labs/ Radiology~and current medications noted below. Continue current treatment with the changes noted in the dictated addendum note Assessment: Vital Signs: Vital Signs Date Time Temp Pulse Resp B/P (MAP) Pulse Ox O2 Delivery O2 Flow Rate FiO2 10/22/17 19:58 91 10/22/17 19:50 Nasal Cannula 2.0 10/22/17 18:45 18 10/22/17 16:35 96.3 82 133/76 (95) I&O Intake and Output 10/22/17 07:00 Intake Total 360 ml Balance 360 ml Intake Oral 360 ml # Bowel Movements 1 Labs: Laboratory Tests Test 10/22/17 08:18 10/22/17 11:59 10/22/17 17:04 Glucose (Fingerstick) 99 mg/dL (70-99) 98 mg/dL (70-99) 170 mg/dL (70-99) H Current Medications: Meds: Current Medications Sodium Chloride 1,000 ml @ 1,000 mls/hr 1X ONCE IV Last administered on at 10:45; Start 10/16/17 at 10:45; Stop 10/16/17 at 11:44; Status DC Acetaminophen (Tylenol) 650 mg 1X ONCE PO Last administered on 10/16/17at 12:23 ; Start 10/16/17 at 12:40; Stop 10/16/17 at 12:41; Status DC Ceftriaxone Sodium 1 gm/ Sodium Chloride 50 ml @ 100 mls/hr 1X ONCE IV ; Start 10/16/17 at 12:45; Stop 10/16/17 at 13:14; Status UNV Sodium Chloride 50 ml @ As Directed STK-MED ONCE .ROUTE ; Start 10/16/17 at 12:45 ; Stop 10/16/17 at 12:46; Status DC Ceftriaxone Sodium (Rocephin) 1 gm STK-MED ONCE IV ; Start 10/16/17 at 12:45; Stop 10/16/17 at 12:46; Status DC Ceftriaxone Sodium (Rocephin) 1 gm 1X ONCE IVP Last administered on 10/16/17at 12:55; Start 10/16/17 at 13:00; Stop 10/16/17 at 13:01; Status DC Acetaminophen (Tylenol) 650 mg PRN Q6HRS PRN PO PAIN / TEMP; Start 10/16/17 at 14:45; Status Cancel Multi-Ingredient Ointment (Analgesic [place]) 1 lacey PRN QID PRN TP MUSCLE PAIN; Start 10/16/17 at 14:45 Al Hydroxide/Mg Hydroxide (Mylanta Plus Xs) 15 ml PRN AFTMEALHC PRN PO DYSPEPSIA; Start 10/16/17 at 14:45 Magnesium Hydroxide (Milk Of Magnesia) 2,400 mg PRN QHS PRN PO CONSTIPATION; Start 10/16/17 at 14:45 Insulin Human Lispro (HumaLOG) 0-7 UNITS TIDWMEALS SQ Last administered on 10/22at 18:47; Start 10/16/17 at 17:00 Dextrose 12.5 gm PRN Q15MIN PRN IV SEE COMMENTS; Start 10/16/17 at 16:15 Acetaminophen (Tylenol) 650 mg PRN Q4HRS PRN PO PAIN / TEMP; Start 10/16/17 at 16:45 Bisacodyl (Dulcolax Supp) 10 mg PRN DAILY PRN RC CONSTIPATION; Start 10/16/17 at 16:45 Calcipotriene (Dovonex) 2 lacey BID TP Last administered on 10/22/17at 08:49; Start 10/16/17 at 21:00 Clobetasol Propionate 1 lacey BID TP Last administered on 10/22/17at 08:49; Start 10/16/17 at 21:00 Clonazepam (KlonoPIN) 2 mg TID PO Last administered on 10/19/17at 12:51; Start at 21:00; Stop 10/19/17 at 18:35; Status DC Glucose (Insta-Glucose) 1 gm PRN Q15MIN PRN PO hypoglycemia; Start 10/16/17 at 16:45 Furosemide (Lasix) 40 mg DAILY PO Last administered on 10/22/17at 08:43; Start 10/17/17 at 09:00 Albuterol/ Ipratropium (Duoneb) 3 ml PRN Q4HRS PRN NEB SHORTNESS OF BREATH; Start 10/16/17 at 16:45 Loperamide HCl (Imodium) 2 mg PRN Q6HRS PRN PO DIARRHEA; Start 10/16/17 at 16:45 Lorazepam (Ativan Intensol) 2 mg PRN Q3HRS PRN PO restlessness; Start 10/16/17 at 16:45 Nystatin (Mycostatin) 1 lacey BID TP Last administered on 10/18/17at 04:49; Start 10/16/17 at 21:00; Stop 10/18/17 at 15:02; Status DC Ondansetron HCl (Zofran Odt) 4 mg PRN Q8HRS PRN PO NAUSEA/VOMITING Last administered on 10/19/17at 08:14; Start 10/16/17 at 16:45 Oxycodone HCl (OxyCONTIN) 20 mg BID PO Last administered on 10/22/17at 08:49; Start 10/16/17 at 21:00 Oxymetazoline HCl (Afrin) 1 spray PRN Q6HRS PRN NS ALLERGY; Start 10/16/17 at 16 :45 Potassium Chloride (Klor-Con) 20 meq BID PO Last administered on 10/22/17at 08: 42; Start 10/16/17 at 21:00 Sennosides (Senna) 8.6 mg DAILY PO Last administered on 10/22/17at 08:42; Start 10/17/17 at 09:00 Sennosides (Senna) 8.6 mg PRN DAILY PRN PO CONSTIPATION; Start 10/16/17 at 16:45 Artificial Tears (Artificial Tears) 2 drop PRN Q3HRS PRN OU DRY EYE; Start 10/16 at 17:15 Divalproex Sodium (Depakote) 250 mg TID PO Last administered on 10/18/17at 13:22 ; Start 10/16/17 at 21:00; Stop 10/18/17 at 19:28; Status DC Hyoscyamine (Anaspaz) 0.125 mg PRN Q2HR PRN PO SECRETIONS; Start 10/16/17 at 17: 30 Insulin Glargine (Lantus) 10 units QHS SQ Last administered on 10/21/17at 20:09 ; Start 10/16/17 at 21:00 Oxycodone HCl (Roxicodone) 20 mg QID PO Last administered on 10/22/17 18:45; Start 10/16/17 at 17:30 Oxycodone HCl (Roxicodone) 20 mg PRN Q6HRS PRN PO PAIN Last administered on 04:56; Start 10/16/17 at 17:30 Triamcinolone Acetonide (Kenalog) 1 lacey BID TP Last administered on 10/22/17 08:49; Start 10/16/17 at 21:00 Non-Formulary Medication ([morphine sulfate ] ) 0.5 ml Q4HRS SQ ; Start 10/16/17 at 20:00; Status UNV Enoxaparin Sodium (Lovenox) 30 mg Q24H SQ Last administered on 10/21/17 20:07 ; Start 10/16/17 at 21:00 Duloxetine HCl (Cymbalta) 30 mg DAILY PO Last administered on 10/22/17 08:43; Start 10/18/17 at 09:00; Stop 10/22/17 at 09:01; Status DC Polyethylene Glycol (miraLAX) 17 gm DAILY PO Last administered on 10/22/17 08: 43; Start 10/19/17 at 09:00 Nystatin (Nystop) 1 lacey BID TP Last administered on 10/22/17 08:49; Start 10/18 at 21:00 Vitamin D (Vitamin D3) 50,000 unit WEEKLY PO Last administered on 10/19/17 09: 18; Start 10/19/17 at 09:00 Nystatin (Nystop) 15 lacey STK-MED ONCE TP ; Start 10/18/17 at 17:41; Stop 10/18/17 at 17:42; Status DC Divalproex Sodium (Depakote Er) 750 mg HS PO Last administered on 10/21/17 19: 57; Start 10/18/17 at 21:00 Clonazepam (KlonoPIN) 2 mg [id number] PO Last administered on 10/22/17 15:01; Start 10/20/17 at 09:00 Clonazepam (KlonoPIN) 1.5 mg QHS PO Last administered on 10/21/17 20:06; Start 10/19/17 at 21:00 Duloxetine HCl (Cymbalta) 60 mg DAILY PO ; Start 10/23/17 at 09:00 Active Scripts Active Reported Artificial Tears (Polyvinyl Alcohol) 15 Ml Drops 2 Drop OP PRN Q3HRS PRN Novolog (Insulin Aspart) 100 Unit/1 Ml Cartridge 3-12 Unit SQ PRN BFRMEAL PRN Zofran Odt (Ondansetron) 4 Mg Tab.rapdis 4 Mg PO PRN Q8HRS PRN Triamcinolone Acetonide 15 Gm Cream..g. 1 Lacey TP BID Senokot (Sennosides) 8.6 Mg Tablet 8.6 Mg PO PRN DAILY PRN Senokot (Sennosides) 8.6 Mg Tablet 8.6 Mg PO DAILY Klor-Con M20 (Potassium Chloride) 20 Meq Tab.er.prt 20 Meq PO BID Oxycontin (Oxycodone HCl) 20 Mg Tab.er.12h 20 Mg PO BID Oxycodone Hcl 10 Mg Tablet 20 Mg PO QID Nystatin 15 Gm Oint...g. 1 Lacey TP BID Nasal [place] Sinus (Oxymetazoline Hcl) 30 Ml [place] 1 Spr NS PRN Q6HRS PRN [morphine sulfate ] 0.5 Ml SQ Q4HRS Lorazepam Intensol (Lorazepam) 2 Mg/1 Ml Oral.conc 1 Ml PO PRN Q3HRS PRN Levsin-Sl (Hyoscyamine Sulfate) 0.125 Mg Tab.subl 0.125 Mg SL PRN Q2HR PRN Levemir (Insulin Detemir) 100 Unit/1 Ml Vial 10 Unit SQ HS Lasix (Furosemide) 40 Mg Tablet 40 Mg PO DAILY Imodium A-D (Loperamide HCl) 2 Mg Capsule 2 Mg PO PRN Q6HRS Glucose Gel (Dextrose) 38 Gm Gel..gram. 1 Gm PO PRN Q15MIN PRN Duoneb 0.5-3(2.5) Mg/3 Ml (Albuterol/Ipratropium) 3 Ml Ampul.neb 3 Ml NEB PRN Q4HRS PRN Depakote (Divalproex Sodium) 500 Mg Tablet.dr 250 Mg PO TID Calcipotriene 60 Gm Cream..g. 2 Lacey TP BID Artificial Tears Eye Drops (Dextran 70/Hypromellose) 15 Ml Drops 2 Drop EACHEYE PRN Q3HRS PRN Tylenol (Acetaminophen) 325 Mg Tablet 650 Mg PO PRN Q4HRS PRN Dulcolax (Bisacodyl) 10 Mg Supp.rect 10 Mg RC PRN DAILY PRN Oxycodone Hcl 20 Mg Tablet 20 Mg PO PRN Q6HRS PRN Clobetasol Emollient 0.05% Crm (Clobetasol Propionate/Emoll) 15 Gm Cream..g. 1 Applic TP BID Apply to Feet, Elbows and hands BID for Rash/itching Clonazepam 2 Mg Tablet 2 Mg PO TID I have reviewed the current psychotropics carefully including drug interactions. Risk benefit ratio favors no change other than as noted in my dictated progress note. Diagnosis: Problems: (1) Major depression (2) Anxiety disorder (3) Impulse control disorder (4) Major depressive disorder, recurrent episode (5) Mild cognitive impairment ROMINA SORTO MD October 22, 2017 20:44
[2017-10-22] MEDS: DIVALPROEX ER 250 MG TAB.ER.24H. PO SCH (20:52)
[2017-10-22] MEDS: clonazePAM 1 MG TABLET PO SCH (20:53)
[2017-10-22] MEDS: ENOXAPARIN 30 MG/0.3 ML SYRINGE. SQ SCH (20:53)
[2017-10-22] MEDS: INSULIN GLARGINE 300 UNITS/3 ML INSULN.PEN. SQ SCH (21:42)
[2017-10-23 05:52] VITALS: BP 112/62
[2017-10-23] MEDS: INSULIN LISPRO 300 UNITS/3 ML INSULN.PEN. SQ SCH ×3 (08:33→17:11)
[2017-10-23] MEDS: DULoxetine HCL 60 MG CAPSULE.DR PO SCH ×2 (08:35→12:40)
[2017-10-23] MEDS: POTASSIUM CHLORIDE 20 MEQ TABLET.ER. PO SCH ×3 (08:35→20:58)
[2017-10-23] MEDS: clonazePAM 2 MG TABLET PO SCH ×3 (08:35→12:41)
[2017-10-23] MEDS: FUROSEMIDE 40 MG TABLET PO SCH ×2 (08:36→12:40)
[2017-10-23] MEDS: POLYETHYLENE GLYCOL 3350 17 GM PACKET. PO SCH ×2 (08:36→12:40)
[2017-10-23] MEDS: SENNOSIDES 8.6 MG TABLET PO SCH ×2 (08:36→12:40)
[2017-10-23] MEDS: oxyCODONE ER 20 MG TAB.ER.12H PO SCH ×3 (08:39→12:40)
[2017-10-23] MEDS: oxyCODONE IR 5 MG TABLET PO SCH ×5 (08:41→20:58)
[2017-10-23] MEDS: NYSTATIN TOPICAL POWDER 15GM BOTTLE. TP SCH ×2 (08:43→21:12)
[2017-10-23] MEDS: CLOBETASOL EMOLLIENT 0.05% TOPICAL CREAM 15GM TUBE. TP SCH ×2 (08:43→21:12)
[2017-10-23] MEDS: TRIAMCINOLONE ACETONIDE 0.1% TOPICAL CREAM 15GM TUBE. TP SCH ×2 (08:43→21:12)
[2017-10-23] MEDS: CALCIPOTRIENE 0.005% TOPICAL CREAM 60GM TUBE. TP SCH ×2 (08:43→21:12)
--- NOTE | 2017-10-23 11:46 | PN ---
DATE: 10/20/2017 PSYCHIATRIC PROGRESS NOTE This is a late entry 10/20/2017, covers elements not covered in the initial note 10/20/2017. I met with the patient in the evening. The patient slept 7-3/4 hours, somewhat withdrawn, repeatedly wanting to get to bed. No suicidal ideation. REVIEW OF SYSTEMS: Ambulation impaired, in wheelchair. No CV, , pulmonary, eye, ENT system symptoms on review. MENTAL STATUS EXAM: Oriented to herself and situation. Speech moderate latency, often responses monosyllabic. Abstraction fair, computation impaired. Mood and affect withdrawn. LABORATORY DATA: Reviewed. No active suicidal ideation. IMPRESSION: Unchanged from initial note. PLAN: Increase Cymbalta to 60 mg a day after she has been on 30 for 4 days. Continue rest unchanged. MAN Yamilex SORTO MD DR: TOD/moris JOB#: [id number] / [id number]
--- NOTE | 2017-10-23 11:48 | PN ---
DATE: 10/21/2017 PSYCHIATRIC PROGRESS NOTE This is a late entry 10/21/2017, covers elements not covered in my initial note 10/21/2017. SUBJECTIVE: The patient was staffed in the morning, seen individually in the evening, sleeping hours. Appetite is 50%. She is quite accusatory of staff, somewhat paranoid, withdrawn, depressed. REVIEW OF SYSTEMS: Ambulation impaired, in wheelchair/Broda chair. No CV, , pulmonary, eye system symptoms on review. MENTAL STATUS EXAM: Oriented to herself and situation. Speech moderate latency, low in rate and rhythm, low in volume. Abstraction fair. Computation impaired. Mood and affect still depressed. No suicidal ideation. IMPRESSION: Unchanged from initial note. PLAN: Continue current psychotropics. Adjust Klonopin downward gradually. We have already reduced it. Valproic acid level therapeutic. MAN Yamilex SORTO MD DR: TOD/moris JOB#: [id number] / [id number]
[2017-10-23 16:05] VITALS: BP 124/70
[2017-10-23] MEDS: DIVALPROEX ER 250 MG TAB.ER.24H. PO SCH (20:59)
[2017-10-23] MEDS: clonazePAM 1 MG TABLET PO SCH (21:01)
[2017-10-23] MEDS: ENOXAPARIN 30 MG/0.3 ML SYRINGE. SQ SCH (21:02)
[2017-10-23] MEDS: INSULIN GLARGINE 300 UNITS/3 ML INSULN.PEN. SQ SCH (21:03)
--- NOTE | 2017-10-23 22:48 | PDOC ---
Exam Note: Laureano Note: Please also refer to the separate dictated note~for this date of service dictated separately.~Patient seen individually. Discussed the patient with Nursing staff reviewed the chart.~Reviewed interim history and current functioning. Reviewed vital signs,~Labs/ Radiology~and current medications noted below. Continue current treatment with the changes noted in the dictated addendum note Assessment: Vital Signs: Vital Signs Date Time Temp Pulse Resp B/P (MAP) Pulse Ox O2 Delivery O2 Flow Rate FiO2 10/23/17 21:58 18 93 Room Air 10/23/17 16:05 97.8 83 124/70 (88) 10/22/17 19:50 2.0 I&O Intake and Output 10/23/17 07:00 Intake Total 1562 ml Balance 1562 ml Intake Oral 1562 ml # Bowel Movements 1 Labs: Laboratory Tests Test 10/23/17 08:20 10/23/17 11:41 10/23/17 16:55 10/23/17 19:16 Glucose (Fingerstick) 118 mg/dL (70-99) H 101 mg/dL (70-99) H 137 mg/dL (70-99) H 133 mg/dL (70-99) H Current Medications: Meds: Current Medications Sodium Chloride 1,000 ml @ 1,000 mls/hr 1X ONCE IV Last administered on at 10:45; Start 10/16/17 at 10:45; Stop 10/16/17 at 11:44; Status DC Acetaminophen (Tylenol) 650 mg 1X ONCE PO Last administered on 10/16/17at 12:23 ; Start 10/16/17 at 12:40; Stop 10/16/17 at 12:41; Status DC Ceftriaxone Sodium 1 gm/ Sodium Chloride 50 ml @ 100 mls/hr 1X ONCE IV ; Start 10/16/17 at 12:45; Stop 10/16/17 at 13:14; Status UNV Sodium Chloride 50 ml @ As Directed STK-MED ONCE .ROUTE ; Start 10/16/17 at 12:45 ; Stop 10/16/17 at 12:46; Status DC Ceftriaxone Sodium (Rocephin) 1 gm STK-MED ONCE IV ; Start 10/16/17 at 12:45; Stop 10/16/17 at 12:46; Status DC Ceftriaxone Sodium (Rocephin) 1 gm 1X ONCE IVP Last administered on 10/16/17at 12:55; Start 10/16/17 at 13:00; Stop 10/16/17 at 13:01; Status DC Acetaminophen (Tylenol) 650 mg PRN Q6HRS PRN PO PAIN / TEMP; Start 10/16/17 at 14:45; Status Cancel Multi-Ingredient Ointment (Analgesic [place]) 1 lacey PRN QID PRN TP MUSCLE PAIN; Start 10/16/17 at 14:45 Al Hydroxide/Mg Hydroxide (Mylanta Plus Xs) 15 ml PRN AFTMEALHC PRN PO DYSPEPSIA; Start 10/16/17 at 14:45 Magnesium Hydroxide (Milk Of Magnesia) 2,400 mg PRN QHS PRN PO CONSTIPATION; Start 10/16/17 at 14:45 Insulin Human Lispro (HumaLOG) 0-7 UNITS TIDWMEALS SQ Last administered on 10/22at 18:47; Start 10/16/17 at 17:00 Dextrose 12.5 gm PRN Q15MIN PRN IV SEE COMMENTS; Start 10/16/17 at 16:15 Acetaminophen (Tylenol) 650 mg PRN Q4HRS PRN PO PAIN / TEMP; Start 10/16/17 at 16:45 Bisacodyl (Dulcolax Supp) 10 mg PRN DAILY PRN RC CONSTIPATION; Start 10/16/17 at 16:45 Calcipotriene (Dovonex) 2 lacey BID TP Last administered on 10/23/17at 21:12; Start 10/16/17 at 21:00 Clobetasol Propionate 1 lacey BID TP Last administered on 10/23/17at 21:12; Start 10/16/17 at 21:00 Clonazepam (KlonoPIN) 2 mg TID PO Last administered on 10/19/17at 12:51; Start at 21:00; Stop 10/19/17 at 18:35; Status DC Glucose (Insta-Glucose) 1 gm PRN Q15MIN PRN PO hypoglycemia; Start 10/16/17 at 16:45 Furosemide (Lasix) 40 mg DAILY PO Last administered on 10/23/17at 12:40; Start 10/17/17 at 09:00 Albuterol/ Ipratropium (Duoneb) 3 ml PRN Q4HRS PRN NEB SHORTNESS OF BREATH; Start 10/16/17 at 16:45 Loperamide HCl (Imodium) 2 mg PRN Q6HRS PRN PO DIARRHEA; Start 10/16/17 at 16:45 Lorazepam (Ativan Intensol) 2 mg PRN Q3HRS PRN PO restlessness; Start 10/16/17 at 16:45 Nystatin (Mycostatin) 1 lacey BID TP Last administered on 10/18/17at 04:49; Start 10/16/17 at 21:00; Stop 10/18/17 at 15:02; Status DC Ondansetron HCl (Zofran Odt) 4 mg PRN Q8HRS PRN PO NAUSEA/VOMITING Last administered on 10/19/17at 08:14; Start 10/16/17 at 16:45 Oxycodone HCl (OxyCONTIN) 20 mg BID PO Last administered on 10/23/17at 12:40; Start 10/16/17 at 21:00 Oxymetazoline HCl (Afrin) 1 spray PRN Q6HRS PRN NS ALLERGY; Start 10/16/17 at 16 :45 Potassium Chloride (Klor-Con) 20 meq BID PO Last administered on 10/23/17at 20: 58; Start 10/16/17 at 21:00 Sennosides (Senna) 8.6 mg DAILY PO Last administered on 10/23/17at 12:40; Start 10/17/17 at 09:00 Sennosides (Senna) 8.6 mg PRN DAILY PRN PO CONSTIPATION; Start 10/16/17 at 16:45 Artificial Tears (Artificial Tears) 2 drop PRN Q3HRS PRN OU DRY EYE; Start 10/16 at 17:15 Divalproex Sodium (Depakote) 250 mg TID PO Last administered on 10/18/17at 13:22 ; Start 10/16/17 at 21:00; Stop 10/18/17 at 19:28; Status DC Hyoscyamine (Anaspaz) 0.125 mg PRN Q2HR PRN PO SECRETIONS; Start 10/16/17 at 17: 30 Insulin Glargine (Lantus) 10 units QHS SQ Last administered on 10/23/17at 21:03 ; Start 10/16/17 at 21:00 Oxycodone HCl (Roxicodone) 20 mg QID PO Last administered on 10/23/17 20:58; Start 10/16/17 at 17:30 Oxycodone HCl (Roxicodone) 20 mg PRN Q6HRS PRN PO PAIN Last administered on 04:56; Start 10/16/17 at 17:30 Triamcinolone Acetonide (Kenalog) 1 lacey BID TP Last administered on 10/23/17 21:12; Start 10/16/17 at 21:00 Non-Formulary Medication ([morphine sulfate ] ) 0.5 ml Q4HRS SQ ; Start 10/16/17 at 20:00; Status UNV Enoxaparin Sodium (Lovenox) 30 mg Q24H SQ Last administered on 10/23/17 21:02 ; Start 10/16/17 at 21:00 Duloxetine HCl (Cymbalta) 30 mg DAILY PO Last administered on 10/22/17 08:43; Start 10/18/17 at 09:00; Stop 10/22/17 at 09:01; Status DC Polyethylene Glycol (miraLAX) 17 gm DAILY PO Last administered on 10/23/17 12: 40; Start 10/19/17 at 09:00 Nystatin (Nystop) 1 lacey BID TP Last administered on 10/23/17 21:12; Start 10/18 at 21:00 Vitamin D (Vitamin D3) 50,000 unit WEEKLY PO Last administered on 10/19/17 09: 18; Start 10/19/17 at 09:00 Nystatin (Nystop) 15 lacey STK-MED ONCE TP ; Start 10/18/17 at 17:41; Stop 10/18/17 at 17:42; Status DC Divalproex Sodium (Depakote Er) 750 mg HS PO Last administered on 10/23/17 20: 59; Start 10/18/17 at 21:00 Clonazepam (KlonoPIN) 2 mg BID92 PO Last administered on 10/23/17 12:41; Start 10/20/17 at 09:00; Stop 10/23/17 at 18:47; Status DC Clonazepam (KlonoPIN) 1.5 mg QHS PO Last administered on 5/12/18at 21:01; Start 10/19/17 at 21:00 Duloxetine HCl (Cymbalta) 60 mg DAILY PO Last administered on 10/23/17at 12:40; Start 10/23/17 at 09:00 Clonazepam (KlonoPIN) 2 mg 1400 PO ; Start 10/24/17 at 14:00 Clonazepam (KlonoPIN) 1.5 mg DAILY PO ; Start 10/24/17 at 09:00 Active Scripts Active Reported Artificial Tears (Polyvinyl Alcohol) 15 Ml Drops 2 Drop OP PRN Q3HRS PRN Novolog (Insulin Aspart) 100 Unit/1 Ml Cartridge 3-12 Unit SQ PRN BFRMEAL PRN Zofran Odt (Ondansetron) 4 Mg Tab.rapdis 4 Mg PO PRN Q8HRS PRN Triamcinolone Acetonide 15 Gm Cream..g. 1 Lacey TP BID Senokot (Sennosides) 8.6 Mg Tablet 8.6 Mg PO PRN DAILY PRN Senokot (Sennosides) 8.6 Mg Tablet 8.6 Mg PO DAILY Klor-Con M20 (Potassium Chloride) 20 Meq Tab.er.prt 20 Meq PO BID Oxycontin (Oxycodone HCl) 20 Mg Tab.er.12h 20 Mg PO BID Oxycodone Hcl 10 Mg Tablet 20 Mg PO QID Nystatin 15 Gm Oint...g. 1 Lacey TP BID Nasal [place] Sinus (Oxymetazoline Hcl) 30 Ml [place] 1 Spr NS PRN Q6HRS PRN [morphine sulfate ] 0.5 Ml SQ Q4HRS Lorazepam Intensol (Lorazepam) 2 Mg/1 Ml Oral.conc 1 Ml PO PRN Q3HRS PRN Levsin-Sl (Hyoscyamine Sulfate) 0.125 Mg Tab.subl 0.125 Mg SL PRN Q2HR PRN Levemir (Insulin Detemir) 100 Unit/1 Ml Vial 10 Unit SQ HS Lasix (Furosemide) 40 Mg Tablet 40 Mg PO DAILY Imodium A-D (Loperamide HCl) 2 Mg Capsule 2 Mg PO PRN Q6HRS Glucose Gel (Dextrose) 38 Gm Gel..gram. 1 Gm PO PRN Q15MIN PRN Duoneb 0.5-3(2.5) Mg/3 Ml (Albuterol/Ipratropium) 3 Ml Ampul.neb 3 Ml NEB PRN Q4HRS PRN Depakote (Divalproex Sodium) 500 Mg Tablet.dr 250 Mg PO TID Calcipotriene 60 Gm Cream..g. 2 Lacey TP BID Artificial Tears Eye Drops (Dextran 70/Hypromellose) 15 Ml Drops 2 Drop EACHEYE PRN Q3HRS PRN Tylenol (Acetaminophen) 325 Mg Tablet 650 Mg PO PRN Q4HRS PRN Dulcolax (Bisacodyl) 10 Mg Supp.rect 10 Mg RC PRN DAILY PRN Oxycodone Hcl 20 Mg Tablet 20 Mg PO PRN Q6HRS PRN Clobetasol Emollient 0.05% Crm (Clobetasol Propionate/Emoll) 15 Gm Cream..g. 1 Applic TP BID Apply to Feet, Elbows and hands BID for Rash/itching Clonazepam 2 Mg Tablet 2 Mg PO TID I have reviewed the current psychotropics carefully including drug interactions. Risk benefit ratio favors no change other than as noted in my dictated progress note. Diagnosis: Problems: (1) Major depression (2) Anxiety disorder (3) Impulse control disorder (4) Major depressive disorder, recurrent episode (5) Mild cognitive impairment ROMINA SORTO MD October 23, 2017 22:48
[2017-10-24 05:31] VITALS: BP 112/67
[2017-10-24] MEDS: INSULIN LISPRO 300 UNITS/3 ML INSULN.PEN. SQ SCH ×3 (09:55→17:00)
[2017-10-24] MEDS: SENNOSIDES 8.6 MG TABLET PO SCH (10:10)
[2017-10-24] MEDS: DULoxetine HCL 60 MG CAPSULE.DR PO SCH (10:10)
[2017-10-24] MEDS: FUROSEMIDE 40 MG TABLET PO SCH (10:10)
[2017-10-24] MEDS: POLYETHYLENE GLYCOL 3350 17 GM PACKET. PO SCH (10:10)
[2017-10-24] MEDS: POTASSIUM CHLORIDE 20 MEQ TABLET.ER. PO SCH ×2 (10:10→19:52)
[2017-10-24] MEDS: NYSTATIN TOPICAL POWDER 15GM BOTTLE. TP SCH ×2 (10:11→20:00)
[2017-10-24] MEDS: TRIAMCINOLONE ACETONIDE 0.1% TOPICAL CREAM 15GM TUBE. TP SCH ×2 (10:11→20:00)
[2017-10-24] MEDS: CLOBETASOL EMOLLIENT 0.05% TOPICAL CREAM 15GM TUBE. TP SCH ×2 (10:11→20:01)
[2017-10-24] MEDS: CALCIPOTRIENE 0.005% TOPICAL CREAM 60GM TUBE. TP SCH ×2 (10:11→20:01)
[2017-10-24] MEDS: oxyCODONE ER 20 MG TAB.ER.12H PO SCH ×2 (10:14→20:00)
[2017-10-24] MEDS: oxyCODONE IR 5 MG TABLET PO SCH ×4 (10:14→19:58)
[2017-10-24] MEDS: clonazePAM 1 MG TABLET PO SCH ×2 (10:15→19:58)
[2017-10-24] MEDS: clonazePAM 2 MG TABLET PO SCH (14:00)
[2017-10-24 16:43] VITALS: BP 110/62
[2017-10-24] MEDS: DIVALPROEX ER 250 MG TAB.ER.24H. PO SCH (19:52)
[2017-10-24] MEDS: ENOXAPARIN 30 MG/0.3 ML SYRINGE. SQ SCH (19:53)
[2017-10-24] MEDS: INSULIN GLARGINE 300 UNITS/3 ML INSULN.PEN. SQ SCH (20:04)
--- NOTE | 2017-10-24 20:46 | PDOC ---
Exam Note: Laureano Note: Please also refer to the separate dictated note~for this date of service dictated separately.~Patient seen individually. Discussed the patient with Nursing staff reviewed the chart.~Reviewed interim history and current functioning. Reviewed vital signs,~Labs/ Radiology~and current medications noted below. Continue current treatment with the changes noted in the dictated addendum note Assessment: Vital Signs: Vital Signs Date Time Temp Pulse Resp B/P (MAP) Pulse Ox O2 Delivery O2 Flow Rate FiO2 10/24/17 20:00 20 10/24/17 16:43 98.4 90 110/62 (78) 92 10/24/17 05:31 2.0 10/23/17 21:58 Room Air I&O Intake and Output 10/24/17 07:00 Intake Total 600 ml Output Total 750 ml Balance -150 ml Intake Oral 600 ml Output Urine Total 750 ml # Bowel Movements 1 Labs: Laboratory Tests Test 10/24/17 07:57 10/24/17 11:18 10/24/17 16:27 10/24/17 19:20 Glucose (Fingerstick) 103 mg/dL (70-99) H 167 mg/dL (70-99) H 130 mg/dL (70-99) H 117 mg/dL (70-99) H Current Medications: Meds: Current Medications Sodium Chloride 1,000 ml @ 1,000 mls/hr 1X ONCE IV Last administered on at 10:45; Start 10/16/17 at 10:45; Stop 10/16/17 at 11:44; Status DC Acetaminophen (Tylenol) 650 mg 1X ONCE PO Last administered on 10/16/17at 12:23 ; Start 10/16/17 at 12:40; Stop 10/16/17 at 12:41; Status DC Ceftriaxone Sodium 1 gm/ Sodium Chloride 50 ml @ 100 mls/hr 1X ONCE IV ; Start 10/16/17 at 12:45; Stop 10/16/17 at 13:14; Status UNV Sodium Chloride 50 ml @ As Directed STK-MED ONCE .ROUTE ; Start 10/16/17 at 12:45 ; Stop 10/16/17 at 12:46; Status DC Ceftriaxone Sodium (Rocephin) 1 gm STK-MED ONCE IV ; Start 10/16/17 at 12:45; Stop 10/16/17 at 12:46; Status DC Ceftriaxone Sodium (Rocephin) 1 gm 1X ONCE IVP Last administered on 10/16/17at 12:55; Start 10/16/17 at 13:00; Stop 10/16/17 at 13:01; Status DC Acetaminophen (Tylenol) 650 mg PRN Q6HRS PRN PO PAIN / TEMP; Start 10/16/17 at 14:45; Status Cancel Multi-Ingredient Ointment (Analgesic [place]) 1 lacey PRN QID PRN TP MUSCLE PAIN; Start 10/16/17 at 14:45 Al Hydroxide/Mg Hydroxide (Mylanta Plus Xs) 15 ml PRN AFTMEALHC PRN PO DYSPEPSIA; Start 10/16/17 at 14:45 Magnesium Hydroxide (Milk Of Magnesia) 2,400 mg PRN QHS PRN PO CONSTIPATION; Start 10/16/17 at 14:45 Insulin Human Lispro (HumaLOG) 0-7 UNITS TIDWMEALS SQ Last administered on 10/24at 12:37; Start 10/16/17 at 17:00 Dextrose 12.5 gm PRN Q15MIN PRN IV SEE COMMENTS; Start 10/16/17 at 16:15 Acetaminophen (Tylenol) 650 mg PRN Q4HRS PRN PO PAIN / TEMP; Start 10/16/17 at 16:45 Bisacodyl (Dulcolax Supp) 10 mg PRN DAILY PRN RC CONSTIPATION; Start 10/16/17 at 16:45 Calcipotriene (Dovonex) 2 lacey BID TP Last administered on 10/24/17at 20:01; Start 10/16/17 at 21:00 Clobetasol Propionate 1 lacey BID TP Last administered on 10/24/17at 20:01; Start 10/16/17 at 21:00 Clonazepam (KlonoPIN) 2 mg TID PO Last administered on 10/19/17at 12:51; Start at 21:00; Stop 10/19/17 at 18:35; Status DC Glucose (Insta-Glucose) 1 gm PRN Q15MIN PRN PO hypoglycemia; Start 10/16/17 at 16:45 Furosemide (Lasix) 40 mg DAILY PO Last administered on 10/24/17at 10:10; Start 10/17/17 at 09:00 Albuterol/ Ipratropium (Duoneb) 3 ml PRN Q4HRS PRN NEB SHORTNESS OF BREATH; Start 10/16/17 at 16:45 Loperamide HCl (Imodium) 2 mg PRN Q6HRS PRN PO DIARRHEA; Start 10/16/17 at 16:45 Lorazepam (Ativan Intensol) 2 mg PRN Q3HRS PRN PO restlessness; Start 10/16/17 at 16:45 Nystatin (Mycostatin) 1 lacey BID TP Last administered on 10/18/17at 04:49; Start 10/16/17 at 21:00; Stop 10/18/17 at 15:02; Status DC Ondansetron HCl (Zofran Odt) 4 mg PRN Q8HRS PRN PO NAUSEA/VOMITING Last administered on 10/19/17at 08:14; Start 10/16/17 at 16:45 Oxycodone HCl (OxyCONTIN) 20 mg BID PO Last administered on 10/24/17at 20:00; Start 10/16/17 at 21:00 Oxymetazoline HCl (Afrin) 1 spray PRN Q6HRS PRN NS ALLERGY; Start 10/16/17 at 16 :45 Potassium Chloride (Klor-Con) 20 meq BID PO Last administered on 10/24/17at 19: 52; Start 10/16/17 at 21:00 Sennosides (Senna) 8.6 mg DAILY PO Last administered on 10/24/17at 10:10; Start 10/17/17 at 09:00 Sennosides (Senna) 8.6 mg PRN DAILY PRN PO CONSTIPATION; Start 10/16/17 at 16:45 Artificial Tears (Artificial Tears) 2 drop PRN Q3HRS PRN OU DRY EYE; Start 10/16 at 17:15 Divalproex Sodium (Depakote) 250 mg TID PO Last administered on 10/18/17at 13:22 ; Start 10/16/17 at 21:00; Stop 10/18/17 at 19:28; Status DC Hyoscyamine (Anaspaz) 0.125 mg PRN Q2HR PRN PO SECRETIONS; Start 10/16/17 at 17: 30 Insulin Glargine (Lantus) 10 units QHS SQ Last administered on 5/13/18at 20:04 ; Start 10/16/17 at 21:00 Oxycodone HCl (Roxicodone) 20 mg QID PO Last administered on 10/24/17 19:58; Start 10/16/17 at 17:30 Oxycodone HCl (Roxicodone) 20 mg PRN Q6HRS PRN PO PAIN Last administered on 04:56; Start 10/16/17 at 17:30 Triamcinolone Acetonide (Kenalog) 1 lacey BID TP Last administered on 10/24/17 20:00; Start 10/16/17 at 21:00 Non-Formulary Medication ([morphine sulfate ] ) 0.5 ml Q4HRS SQ ; Start 10/16/17 at 20:00; Status UNV Enoxaparin Sodium (Lovenox) 30 mg Q24H SQ Last administered on 10/24/17 19:53 ; Start 10/16/17 at 21:00 Duloxetine HCl (Cymbalta) 30 mg DAILY PO Last administered on 10/22/17 08:43; Start 10/18/17 at 09:00; Stop 10/22/17 at 09:01; Status DC Polyethylene Glycol (miraLAX) 17 gm DAILY PO Last administered on 10/24/17 10: 10; Start 10/19/17 at 09:00 Nystatin (Nystop) 1 lacey BID TP Last administered on 10/24/17 20:00; Start 10/18 at 21:00 Vitamin D (Vitamin D3) 50,000 unit WEEKLY PO Last administered on 10/19/17 09: 18; Start 10/19/17 at 09:00 Nystatin (Nystop) 15 lacey STK-MED ONCE TP ; Start 10/18/17 at 17:41; Stop 10/18/17 at 17:42; Status DC Divalproex Sodium (Depakote Er) 750 mg HS PO Last administered on 10/24/17 19: 52; Start 10/18/17 at 21:00 Clonazepam (KlonoPIN) 2 mg BID92 PO Last administered on 10/23/17 12:41; Start 10/20/17 at 09:00; Stop 10/23/17 at 18:47; Status DC Clonazepam (KlonoPIN) 1.5 mg QHS PO Last administered on 10/24/17at 19:58; Start 10/19/17 at 21:00 Duloxetine HCl (Cymbalta) 60 mg DAILY PO Last administered on 10/24/17at 10:10; Start 10/23/17 at 09:00 Clonazepam (KlonoPIN) 2 mg 1400 PO ; Start 10/24/17 at 14:00 Clonazepam (KlonoPIN) 1.5 mg DAILY PO Last administered on 10/24/17at 10:15; Start 10/24/17 at 09:00 Bupropion HCl (Wellbutrin Xl) 150 mg DAILY PO ; Start 10/25/17 at 09:00 Active Scripts Active Reported Artificial Tears (Polyvinyl Alcohol) 15 Ml Drops 2 Drop OP PRN Q3HRS PRN Novolog (Insulin Aspart) 100 Unit/1 Ml Cartridge 3-12 Unit SQ PRN BFRMEAL PRN Zofran Odt (Ondansetron) 4 Mg Tab.rapdis 4 Mg PO PRN Q8HRS PRN Triamcinolone Acetonide 15 Gm Cream..g. 1 Lacey TP BID Senokot (Sennosides) 8.6 Mg Tablet 8.6 Mg PO PRN DAILY PRN Senokot (Sennosides) 8.6 Mg Tablet 8.6 Mg PO DAILY Klor-Con M20 (Potassium Chloride) 20 Meq Tab.er.prt 20 Meq PO BID Oxycontin (Oxycodone HCl) 20 Mg Tab.er.12h 20 Mg PO BID Oxycodone Hcl 10 Mg Tablet 20 Mg PO QID Nystatin 15 Gm Oint...g. 1 [place]acey TP BID Nasal [place] Sinus (Oxymetazoline Hcl) 30 Ml [place] 1 Spr NS PRN Q6HRS PRN [morphine sulfate ] 0.5 Ml SQ Q4HRS Lorazepam Intensol (Lorazepam) 2 Mg/1 Ml Oral.conc 1 Ml PO PRN Q3HRS PRN Levsin-Sl (Hyoscyamine Sulfate) 0.125 Mg Tab.subl 0.125 Mg SL PRN Q2HR PRN Levemir (Insulin Detemir) 100 Unit/1 Ml Vial 10 Unit SQ HS Lasix (Furosemide) 40 Mg Tablet 40 Mg PO DAILY Imodium A-D (Loperamide HCl) 2 Mg Capsule 2 Mg PO PRN Q6HRS Glucose Gel (Dextrose) 38 Gm Gel..gram. 1 Gm PO PRN Q15MIN PRN Duoneb 0.5-3(2.5) Mg/3 Ml (Albuterol/Ipratropium) 3 Ml Ampul.neb 3 Ml NEB PRN Q4HRS PRN Depakote (Divalproex Sodium) 500 Mg Tablet.dr 250 Mg PO TID Calcipotriene 60 Gm Cream..g. 2 [place]acey TP BID Artificial Tears Eye Drops (Dextran 70/Hypromellose) 15 Ml Drops 2 Drop EACHEYE PRN Q3HRS PRN Tylenol (Acetaminophen) 325 Mg Tablet 650 Mg PO PRN Q4HRS PRN Dulcolax (Bisacodyl) 10 Mg Supp.rect 10 Mg RC PRN DAILY PRN Oxycodone Hcl 20 Mg Tablet 20 Mg PO PRN Q6HRS PRN Clobetasol Emollient 0.05% Crm (Clobetasol Propionate/Emoll) 15 Gm Cream..g. 1 Applic TP BID Apply to Feet, Elbows and hands BID for Rash/itching Clonazepam 2 Mg Tablet 2 Mg PO TID I have reviewed the current psychotropics carefully including drug interactions. Risk benefit ratio favors no change other than as noted in my dictated progress note. Diagnosis: Problems: (1) Major depression (2) Anxiety disorder (3) Impulse control disorder (4) Major depressive disorder, recurrent episode (5) Mild cognitive impairment ROMINA SORTO MD October 24, 2017 20:46
--- NOTE | 2017-10-24 23:18 | PN ---
DATE: 10/22/2017 This is a late entry of 10/22/2017 covers elements not covered in my initial note of 10/22/2017. SUBJECTIVE: I met with the patient in the evening. The patient slept 8-1/2 hours. She had a telephone call with her daughter and was pleased about this, addressed this individually. REVIEW OF SYSTEMS: Ambulation impaired, in Broda chair. No CV, , pulmonary, eye system symptoms on review. MENTAL STATUS EXAM: Oriented to herself and situation. Speech has some latency, coherent, often responses monosyllabic. Abstraction fair, computation impaired, language function intact. Mood and affect somewhat withdrawn, depressed. LABORATORY DATA: Reviewed. IMPRESSION: Unchanged from initial note. PLAN: Continue current psychotropics. MAN Yamilex SORTO MD DR: TOD/moris JOB#: [id number] / [id number]
[2017-10-25] MEDS: oxyCODONE IR 5 MG TABLET PO PRN (00:29)
[2017-10-25 05:45] VITALS: BP 109/62
[2017-10-25] MEDS: DULoxetine HCL 60 MG CAPSULE.DR PO SCH (09:19)
[2017-10-25] MEDS: INSULIN LISPRO 300 UNITS/3 ML INSULN.PEN. SQ SCH ×3 (09:19→18:01)
[2017-10-25] MEDS: FUROSEMIDE 40 MG TABLET PO SCH (09:20)
[2017-10-25] MEDS: POLYETHYLENE GLYCOL 3350 17 GM PACKET. PO SCH (09:20)
[2017-10-25] MEDS: POTASSIUM CHLORIDE 20 MEQ TABLET.ER. PO SCH ×2 (09:20→19:19)
[2017-10-25] MEDS: oxyCODONE ER 20 MG TAB.ER.12H PO SCH ×2 (09:20→19:19)
[2017-10-25] MEDS: clonazePAM 1 MG TABLET PO SCH ×2 (09:20→19:18)
[2017-10-25] MEDS: oxyCODONE IR 5 MG TABLET PO SCH ×4 (09:21→19:19)
[2017-10-25] MEDS: SENNOSIDES 8.6 MG TABLET PO SCH (09:21)
[2017-10-25] MEDS: buPROPion XL 150 MG TAB.ER.24H PO SCH (09:24)
[2017-10-25] MEDS: CALCIPOTRIENE 0.005% TOPICAL CREAM 60GM TUBE. TP SCH ×2 (09:25→19:22)
[2017-10-25] MEDS: TRIAMCINOLONE ACETONIDE 0.1% TOPICAL CREAM 15GM TUBE. TP SCH ×2 (09:25→19:22)
[2017-10-25] MEDS: CLOBETASOL EMOLLIENT 0.05% TOPICAL CREAM 15GM TUBE. TP SCH ×2 (09:25→19:21)
[2017-10-25] MEDS: NYSTATIN TOPICAL POWDER 15GM BOTTLE. TP SCH ×2 (09:25→19:22)
--- NOTE | 2017-10-25 09:45 | PN ---
DATE: 10/23/2017 PSYCHIATRIC PROGRESS NOTE This is a late entry for 10/23/2017, covers elements not covered in my initial note of 10/23/2017. HISTORY OF PRESENT ILLNESS: I met with the patient in the evening. The patient slept 8 hours previous night, somewhat sedated during the day. Repeatedly states she does not feel good. REVIEW OF SYSTEMS: Ambulation impaired, in Broda chair. No CV, , pulmonary, eye, ENT system symptoms on review. MENTAL STATUS EXAM: Oriented to herself and situation. Speech, moderate latency, often responses monosyllabic. Abstraction fair, computation impaired, language function intact. Mood and affect are somewhat anxious, withdrawn. LABORATORY DATA: Reviewed. IMPRESSION: Unchanged from initial note. PLAN: Klonopin is 2 mg 0900 hours, ____ and 1.5 mg at bedtime, which was changed on 10/19/2017. We will reduce 0900 Klonopin down to 1.5 mg to help with daytime sedation. Continue rest unchanged. ROMINA SORTO MD DR: TOD/moris JOB#: [id number] / [id number]
[2017-10-25] MEDS: clonazePAM 2 MG TABLET PO SCH (13:08)
[2017-10-25] MEDS: DIVALPROEX ER 250 MG TAB.ER.24H. PO SCH (19:18)
[2017-10-25] MEDS: ENOXAPARIN 30 MG/0.3 ML SYRINGE. SQ SCH (19:21)
[2017-10-25] MEDS: INSULIN GLARGINE 300 UNITS/3 ML INSULN.PEN. SQ SCH (19:23)
--- NOTE | 2017-10-25 20:49 | PDOC ---
Exam Note: Laureano Note: Please also refer to the separate dictated note~for this date of service dictated separately.~Patient seen individually. Discussed the patient with Nursing staff reviewed the chart.~Reviewed interim history and current functioning. Reviewed vital signs,~Labs/ Radiology~and current medications noted below. Continue current treatment with the changes noted in the dictated addendum note Assessment: Vital Signs: Vital Signs Date Time Temp Pulse Resp B/P (MAP) Pulse Ox O2 Delivery O2 Flow Rate FiO2 10/25/17 20:22 100 Room Air 10/25/17 18:03 18 10/25/17 05:45 97.2 80 109/62 (78) 2.0 I&O Intake and Output 10/25/17 07:00 Intake Total 720 ml Balance 720 ml Intake Oral 720 ml Labs: Laboratory Tests Test 10/25/17 07:37 10/25/17 11:19 10/25/17 16:37 10/25/17 19:03 Glucose (Fingerstick) 73 mg/dL (70-99) 102 mg/dL (70-99) H 252 mg/dL (70-99) H 274 mg/dL (70-99) H Current Medications: Meds: Current Medications Sodium Chloride 1,000 ml @ 1,000 mls/hr 1X ONCE IV Last administered on at 10:45; Start 10/16/17 at 10:45; Stop 10/16/17 at 11:44; Status DC Acetaminophen (Tylenol) 650 mg 1X ONCE PO Last administered on 10/16/17at 12:23 ; Start 10/16/17 at 12:40; Stop 10/16/17 at 12:41; Status DC Ceftriaxone Sodium 1 gm/ Sodium Chloride 50 ml @ 100 mls/hr 1X ONCE IV ; Start 10/16/17 at 12:45; Stop 10/16/17 at 13:14; Status UNV Sodium Chloride 50 ml @ As Directed STK-MED ONCE .ROUTE ; Start 10/16/17 at 12:45 ; Stop 10/16/17 at 12:46; Status DC Ceftriaxone Sodium (Rocephin) 1 gm STK-MED ONCE IV ; Start 10/16/17 at 12:45; Stop 10/16/17 at 12:46; Status DC Ceftriaxone Sodium (Rocephin) 1 gm 1X ONCE IVP Last administered on 10/16/17at 12:55; Start 10/16/17 at 13:00; Stop 10/16/17 at 13:01; Status DC Acetaminophen (Tylenol) 650 mg PRN Q6HRS PRN PO PAIN / TEMP; Start 10/16/17 at 14:45; Status Cancel Multi-Ingredient Ointment (Analgesic [place]) 1 lacey PRN QID PRN TP MUSCLE PAIN; Start 10/16/17 at 14:45 Al Hydroxide/Mg Hydroxide (Mylanta Plus Xs) 15 ml PRN AFTMEALHC PRN PO DYSPEPSIA; Start 10/16/17 at 14:45 Magnesium Hydroxide (Milk Of Magnesia) 2,400 mg PRN QHS PRN PO CONSTIPATION; Start 10/16/17 at 14:45 Insulin Human Lispro (HumaLOG) 0-7 UNITS TIDWMEALS SQ Last administered on 10/25at 18:01; Start 10/16/17 at 17:00 Dextrose 12.5 gm PRN Q15MIN PRN IV SEE COMMENTS; Start 10/16/17 at 16:15 Acetaminophen (Tylenol) 650 mg PRN Q4HRS PRN PO PAIN / TEMP; Start 10/16/17 at 16:45 Bisacodyl (Dulcolax Supp) 10 mg PRN DAILY PRN RC CONSTIPATION; Start 10/16/17 at 16:45 Calcipotriene (Dovonex) 2 lacey BID TP Last administered on 10/25/17at 19:22; Start 10/16/17 at 21:00 Clobetasol Propionate 1 lacey BID TP Last administered on 10/25/17at 19:21; Start 10/16/17 at 21:00 Clonazepam (KlonoPIN) 2 mg TID PO Last administered on 10/19/17at 12:51; Start at 21:00; Stop 10/19/17 at 18:35; Status DC Glucose (Insta-Glucose) 1 gm PRN Q15MIN PRN PO hypoglycemia; Start 10/16/17 at 16:45 Furosemide (Lasix) 40 mg DAILY PO Last administered on 10/25/17at 09:20; Start 10/17/17 at 09:00 Albuterol/ Ipratropium (Duoneb) 3 ml PRN Q4HRS PRN NEB SHORTNESS OF BREATH; Start 10/16/17 at 16:45 Loperamide HCl (Imodium) 2 mg PRN Q6HRS PRN PO DIARRHEA; Start 10/16/17 at 16:45 Lorazepam (Ativan Intensol) 2 mg PRN Q3HRS PRN PO restlessness; Start 10/16/17 at 16:45 Nystatin (Mycostatin) 1 lacey BID TP Last administered on 10/18/17at 04:49; Start 10/16/17 at 21:00; Stop 10/18/17 at 15:02; Status DC Ondansetron HCl (Zofran Odt) 4 mg PRN Q8HRS PRN PO NAUSEA/VOMITING Last administered on 10/19/17at 08:14; Start 10/16/17 at 16:45 Oxycodone HCl (OxyCONTIN) 20 mg BID PO Last administered on 10/25/17 19:19; Start 10/16/17 at 21:00 Oxymetazoline HCl (Afrin) 1 spray PRN Q6HRS PRN NS ALLERGY; Start 10/16/17 at 16 :45 Potassium Chloride (Klor-Con) 20 meq BID PO Last administered on 10/25/17 19: 19; Start 10/16/17 at 21:00 Sennosides (Senna) 8.6 mg DAILY PO Last administered on 10/25/17at 09:21; Start 10/17/17 at 09:00 Sennosides (Senna) 8.6 mg PRN DAILY PRN PO CONSTIPATION; Start 10/16/17 at 16:45 Artificial Tears (Artificial Tears) 2 drop PRN Q3HRS PRN OU DRY EYE; Start 10/16 at 17:15 Divalproex Sodium (Depakote) 250 mg TID PO Last administered on 10/18/17at 13:22 ; Start 10/16/17 at 21:00; Stop 10/18/17 at 19:28; Status DC Hyoscyamine (Anaspaz) 0.125 mg PRN Q2HR PRN PO SECRETIONS; Start 10/16/17 at 17: 30 Insulin Glargine (Lantus) 10 units QHS SQ Last administered on 10/25/17at 19:23 ; Start 10/16/17 at 21:00 Oxycodone HCl (Roxicodone) 20 mg QID PO Last administered on 10/25/17 19:19; Start 10/16/17 at 17:30 Oxycodone HCl (Roxicodone) 20 mg PRN Q6HRS PRN PO PAIN Last administered on at 00:29; Start 10/16/17 at 17:30 Triamcinolone Acetonide (Kenalog) 1 lacey BID TP Last administered on 10/25/17 19:22; Start 10/16/17 at 21:00 Non-Formulary Medication ([morphine sulfate ] ) 0.5 ml Q4HRS SQ ; Start 10/16/17 at 20:00; Status UNV Enoxaparin Sodium (Lovenox) 30 mg Q24H SQ Last administered on 10/25/17 19:21 ; Start 10/16/17 at 21:00 Duloxetine HCl (Cymbalta) 30 mg DAILY PO Last administered on 10/22/17at 08:43; Start 10/18/17 at 09:00; Stop 10/22/17 at 09:01; Status DC Polyethylene Glycol (miraLAX) 17 gm DAILY PO Last administered on 10/25/17at 09: 20; Start 10/19/17 at 09:00 Nystatin (Nystop) 1 lacey BID TP Last administered on 10/25/17 19:22; Start 10/18 at 21:00 Vitamin D (Vitamin D3) 50,000 unit WEEKLY PO Last administered on 10/19/17at 09: 18; Start 10/19/17 at 09:00 Nystatin (Nystop) 15 lacey STK-MED ONCE TP ; Start 10/18/17 at 17:41; Stop 10/18/17 at 17:42; Status DC Divalproex Sodium (Depakote Er) 750 mg HS PO Last administered on 10/25/17 19: 18; Start 10/18/17 at 21:00 Clonazepam (KlonoPIN) 2 mg BID92 PO Last administered on 10/23/17at 12:41; Start 10/20/17 at 09:00; Stop 10/23/17 at 18:47; Status DC Clonazepam (KlonoPIN) 1.5 mg QHS PO Last administered on 10/25/17 19:18; Start 10/19/17 at 21:00 Duloxetine HCl (Cymbalta) 60 mg DAILY PO Last administered on 10/25/17at 09:19; Start 10/23/17 at 09:00 Clonazepam (KlonoPIN) 2 mg 1400 PO Last administered on 10/25/17at 13:08; Start 10/24/17 at 14:00 Clonazepam (KlonoPIN) 1.5 mg DAILY PO Last administered on 10/25/17at 09:20; Start 10/24/17 at 09:00 Bupropion HCl (Wellbutrin Xl) 150 mg DAILY PO Last administered on 10/25/17at 09 :24; Start 10/25/17 at 09:00 Active Scripts Active Reported Artificial Tears (Polyvinyl Alcohol) 15 Ml Drops 2 Drop OP PRN Q3HRS PRN Novolog (Insulin Aspart) 100 Unit/1 Ml Cartridge 3-12 Unit SQ PRN BFRMEAL PRN Zofran Odt (Ondansetron) 4 Mg Tab.rapdis 4 Mg PO PRN Q8HRS PRN Triamcinolone Acetonide 15 Gm Cream..g. 1 Lacey TP BID Senokot (Sennosides) 8.6 Mg Tablet 8.6 Mg PO PRN DAILY PRN Senokot (Sennosides) 8.6 Mg Tablet 8.6 Mg PO DAILY Klor-Con M20 (Potassium Chloride) 20 Meq Tab.er.prt 20 Meq PO BID Oxycontin (Oxycodone HCl) 20 Mg Tab.er.12h 20 Mg PO BID Oxycodone Hcl 10 Mg Tablet 20 Mg PO QID Nystatin 15 Gm Oint...g. 1 Lacey TP BID Nasal [place] Sinus (Oxymetazoline Hcl) 30 Ml [place] 1 Spr NS PRN Q6HRS PRN [morphine sulfate ] 0.5 Ml SQ Q4HRS Lorazepam Intensol (Lorazepam) 2 Mg/1 Ml Oral.conc 1 Ml PO PRN Q3HRS PRN Levsin-Sl (Hyoscyamine Sulfate) 0.125 Mg Tab.subl 0.125 Mg SL PRN Q2HR PRN Levemir (Insulin Detemir) 100 Unit/1 Ml Vial 10 Unit SQ HS Lasix (Furosemide) 40 Mg Tablet 40 Mg PO DAILY Imodium A-D (Loperamide HCl) 2 Mg Capsule 2 Mg PO PRN Q6HRS Glucose Gel (Dextrose) 38 Gm Gel..gram. 1 Gm PO PRN Q15MIN PRN Duoneb 0.5-3(2.5) Mg/3 Ml (Albuterol/Ipratropium) 3 Ml Ampul.neb 3 Ml NEB PRN Q4HRS PRN Depakote (Divalproex Sodium) 500 Mg Tablet.dr 250 Mg PO TID Calcipotriene 60 Gm Cream..g. 2 Lacey TP BID Artificial Tears Eye Drops (Dextran 70/Hypromellose) 15 Ml Drops 2 Drop EACHEYE PRN Q3HRS PRN Tylenol (Acetaminophen) 325 Mg Tablet 650 Mg PO PRN Q4HRS PRN Dulcolax (Bisacodyl) 10 Mg Supp.rect 10 Mg RC PRN DAILY PRN Oxycodone Hcl 20 Mg Tablet 20 Mg PO PRN Q6HRS PRN Clobetasol Emollient 0.05% Crm (Clobetasol Propionate/Emoll) 15 Gm Cream..g. 1 Applic TP BID Apply to Feet, Elbows and hands BID for Rash/itching Clonazepam 2 Mg Tablet 2 Mg PO TID I have reviewed the current psychotropics carefully including drug interactions. Risk benefit ratio favors no change other than as noted in my dictated progress note. Diagnosis: Problems: (1) Major depression (2) Anxiety disorder (3) Impulse control disorder (4) Major depressive disorder, recurrent episode (5) Mild cognitive impairment ROMINA SORTO MD October 25, 2017 20:49
--- NOTE | 2017-10-26 04:57 | PN ---
DATE: 10/24/2017 This is a late entry for 10/24/2017 covers elements not covered in my initial note of 10/24/2017. SUBJECTIVE: I met with the patient in the evening. Overall, the patient had a good night and a good day on 10/24/2017, somewhat sedated during the day, tired. REVIEW OF SYSTEMS: Ambulation impaired, in Broda chair. No CV, , pulmonary, eye system symptoms on review. MENTAL STATUS EXAM: Reasonably oriented. Speech has some latency, coherent. Abstraction fair, computation impaired, language function intact. Mood and affect somewhat withdrawn. LABORATORY DATA: Reviewed. IMPRESSION: Unchanged from initial note, major depressive disorder with psychotic features; anxiety disorder, unspecified. PLAN: Continue psychotropics mentioned in my initial note. Start Wellbutrin-XL 150 mg in the morning, which should help with augmenting the Cymbalta and help with her energy activation during the day. ROMINA SORTO MD DR: TOD/moris JOB#: [id number] / [id number]
[2017-10-26 06:18] VITALS: BP 132/72
[2017-10-26] MEDS: INSULIN LISPRO 300 UNITS/3 ML INSULN.PEN. SQ SCH ×3 (08:00→16:50)
[2017-10-26] MEDS: POLYETHYLENE GLYCOL 3350 17 GM PACKET. PO SCH (09:32)
[2017-10-26] MEDS: CHOLECALCIFEROL (VITAMIN D3) 50,000 UNIT CAPSULE PO SCH (09:32)
[2017-10-26] MEDS: FUROSEMIDE 40 MG TABLET PO SCH (09:32)
[2017-10-26] MEDS: POTASSIUM CHLORIDE 20 MEQ TABLET.ER. PO SCH ×2 (09:32→20:00)
[2017-10-26] MEDS: DULoxetine HCL 60 MG CAPSULE.DR PO SCH (09:32)
[2017-10-26] MEDS: SENNOSIDES 8.6 MG TABLET PO SCH (09:32)
[2017-10-26] MEDS: buPROPion XL 150 MG TAB.ER.24H PO SCH (09:32)
[2017-10-26] MEDS: TRIAMCINOLONE ACETONIDE 0.1% TOPICAL CREAM 15GM TUBE. TP SCH ×2 (09:35→20:07)
[2017-10-26] MEDS: CLOBETASOL EMOLLIENT 0.05% TOPICAL CREAM 15GM TUBE. TP SCH ×2 (09:35→20:07)
[2017-10-26] MEDS: CALCIPOTRIENE 0.005% TOPICAL CREAM 60GM TUBE. TP SCH ×2 (09:35→20:06)
[2017-10-26] MEDS: NYSTATIN TOPICAL POWDER 15GM BOTTLE. TP SCH ×2 (09:35→20:07)
[2017-10-26] MEDS: oxyCODONE ER 20 MG TAB.ER.12H PO SCH ×2 (09:38→20:04)
[2017-10-26] MEDS: oxyCODONE IR 5 MG TABLET PO SCH ×5 (09:38→20:05)
[2017-10-26] MEDS: clonazePAM 1 MG TABLET PO SCH ×2 (09:39→20:05)
[2017-10-26] MEDS: clonazePAM 2 MG TABLET PO SCH (14:12)
[2017-10-26 16:31] VITALS: BP 125/71
--- NOTE | 2017-10-26 18:51 | PN ---
DATE: 10/25/2017 This is a late entry for 10/25/2017 and covers the elements not covered in my initial note of 10/25/2017. SUBJECTIVE: I met with the patient in the evening. The patient slept 6 hours, somewhat anxious, demanding at night regarding her suprapubic catheter. Irritable at times, tired during the day. REVIEW OF SYSTEMS: Ambulation impaired, in Broda chair. No CV, , pulmonary, eye system symptoms on review other than the discomfort with suprapubic catheter. MENTAL STATUS EXAM: Reasonably oriented. Speech moderate latency, often responses monosyllabic. Abstraction fair, computation impaired, language function intact. Mood and affect still somewhat withdrawn, dysphoric. LABORATORY DATA: Reviewed. IMPRESSION: Unchanged from initial note. PLAN: Add Wellbutrin-XL 150 mg in the morning to augment the Cymbalta 60 mg a day, Klonopin is being tapered. Maintain Depakote ER 750 at bedtime, level is therapeutic at 67. ROMINA SORTO MD DR: TOD/moris JOB#: [id number] / [id number]
[2017-10-26] MEDS: DIVALPROEX ER 250 MG TAB.ER.24H. PO SCH (20:00)
[2017-10-26] MEDS: ENOXAPARIN 30 MG/0.3 ML SYRINGE. SQ SCH (20:04)
[2017-10-26] MEDS: INSULIN GLARGINE 300 UNITS/3 ML INSULN.PEN. SQ SCH (20:06)
--- NOTE | 2017-10-26 20:17 | PDOC ---
Exam Note: Laureano Note: Please also refer to the separate dictated note~for this date of service dictated separately.~Patient seen individually. Discussed the patient with Nursing staff reviewed the chart.~Reviewed interim history and current functioning. Reviewed vital signs,~Labs/ Radiology~and current medications noted below. Continue current treatment with the changes noted in the dictated addendum note Assessment: Vital Signs: Vital Signs Date Time Temp Pulse Resp B/P (MAP) Pulse Ox O2 Delivery O2 Flow Rate FiO2 10/26/17 20:05 90 Room Air 10/26/17 18:05 16 10/26/17 16:31 97.6 82 125/71 (89) 10/26/17 06:18 2.0 I&O Intake and Output 10/26/17 07:00 Intake Total 960 ml Output Total 1600 ml Balance -640 ml Intake Oral 960 ml Output Urine Total 1600 ml Labs: Laboratory Tests Test 10/26/17 07:48 10/26/17 11:23 10/26/17 16:27 10/26/17 19:29 Glucose (Fingerstick) 116 mg/dL (70-99) H 144 mg/dL (70-99) H 133 mg/dL (70-99) H 167 mg/dL (70-99) H Current Medications: Meds: Current Medications Sodium Chloride 1,000 ml @ 1,000 mls/hr 1X ONCE IV Last administered on at 10:45; Start 10/16/17 at 10:45; Stop 10/16/17 at 11:44; Status DC Acetaminophen (Tylenol) 650 mg 1X ONCE PO Last administered on 10/16/17at 12:23 ; Start 10/16/17 at 12:40; Stop 10/16/17 at 12:41; Status DC Ceftriaxone Sodium 1 gm/ Sodium Chloride 50 ml @ 100 mls/hr 1X ONCE IV ; Start 10/16/17 at 12:45; Stop 10/16/17 at 13:14; Status UNV Sodium Chloride 50 ml @ As Directed STK-MED ONCE .ROUTE ; Start 10/16/17 at 12:45 ; Stop 10/16/17 at 12:46; Status DC Ceftriaxone Sodium (Rocephin) 1 gm STK-MED ONCE IV ; Start 10/16/17 at 12:45; Stop 10/16/17 at 12:46; Status DC Ceftriaxone Sodium (Rocephin) 1 gm 1X ONCE IVP Last administered on 10/16/17at 12:55; Start 10/16/17 at 13:00; Stop 10/16/17 at 13:01; Status DC Acetaminophen (Tylenol) 650 mg PRN Q6HRS PRN PO PAIN / TEMP; Start 10/16/17 at 14:45; Status Cancel Multi-Ingredient Ointment (Analgesic [place]) 1 lacey PRN QID PRN TP MUSCLE PAIN; Start 10/16/17 at 14:45 Al Hydroxide/Mg Hydroxide (Mylanta Plus Xs) 15 ml PRN AFTMEALHC PRN PO DYSPEPSIA; Start 10/16/17 at 14:45 Magnesium Hydroxide (Milk Of Magnesia) 2,400 mg PRN QHS PRN PO CONSTIPATION; Start 10/16/17 at 14:45 Insulin Human Lispro (HumaLOG) 0-7 UNITS TIDWMEALS SQ Last administered on 10/25at 18:01; Start 10/16/17 at 17:00 Dextrose 12.5 gm PRN Q15MIN PRN IV SEE COMMENTS; Start 10/16/17 at 16:15 Acetaminophen (Tylenol) 650 mg PRN Q4HRS PRN PO PAIN / TEMP; Start 10/16/17 at 16:45 Bisacodyl (Dulcolax Supp) 10 mg PRN DAILY PRN RC CONSTIPATION; Start 10/16/17 at 16:45 Calcipotriene (Dovonex) 2 [place] BID TP Last administered on 10/26/17at 20:06; Start 10/16/17 at 21:00 Clobetasol Propionate 1 lacey BID TP Last administered on 10/26/17at 20:07; Start 10/16/17 at 21:00 Clonazepam (KlonoPIN) 2 mg TID PO Last administered on 10/19/17at 12:51; Start at 21:00; Stop 10/19/17 at 18:35; Status DC Glucose (Insta-Glucose) 1 gm PRN Q15MIN PRN PO hypoglycemia; Start 10/16/17 at 16:45 Furosemide (Lasix) 40 mg DAILY PO Last administered on 10/26/17at 09:32; Start 10/17/17 at 09:00 Albuterol/ Ipratropium (Duoneb) 3 ml PRN Q4HRS PRN NEB SHORTNESS OF BREATH; Start 10/16/17 at 16:45 Loperamide HCl (Imodium) 2 mg PRN Q6HRS PRN PO DIARRHEA; Start 10/16/17 at 16:45 Lorazepam (Ativan Intensol) 2 mg PRN Q3HRS PRN PO restlessness; Start 10/16/17 at 16:45 Nystatin (Mycostatin) 1 lacey BID TP Last administered on 10/18/17at 04:49; Start 10/16/17 at 21:00; Stop 10/18/17 at 15:02; Status DC Ondansetron HCl (Zofran Odt) 4 mg PRN Q8HRS PRN PO NAUSEA/VOMITING Last administered on 10/19/17 08:14; Start 10/16/17 at 16:45 Oxycodone HCl (OxyCONTIN) 20 mg BID PO Last administered on 10/26/17 20:04; Start 10/16/17 at 21:00 Oxymetazoline HCl (Afrin) 1 spray PRN Q6HRS PRN NS ALLERGY; Start 10/16/17 at 16 :45 Potassium Chloride (Klor-Con) 20 meq BID PO Last administered on 10/26/17at 20: 00; Start 10/16/17 at 21:00 Sennosides (Senna) 8.6 mg DAILY PO Last administered on 10/26/17at 09:32; Start 10/17/17 at 09:00 Sennosides (Senna) 8.6 mg PRN DAILY PRN PO CONSTIPATION; Start 10/16/17 at 16:45 Artificial Tears (Artificial Tears) 2 drop PRN Q3HRS PRN OU DRY EYE; Start 10/16 at 17:15 Divalproex Sodium (Depakote) 250 mg TID PO Last administered on 10/18/17at 13:22 ; Start 10/16/17 at 21:00; Stop 10/18/17 at 19:28; Status DC Hyoscyamine (Anaspaz) 0.125 mg PRN Q2HR PRN PO SECRETIONS; Start 10/16/17 at 17: 30 Insulin Glargine (Lantus) 10 units QHS SQ Last administered on 10/26/17at 20:06 ; Start 10/16/17 at 21:00 Oxycodone HCl (Roxicodone) 20 mg QID PO Last administered on 10/26/17 20:05; Start 10/16/17 at 17:30 Oxycodone HCl (Roxicodone) 20 mg PRN Q6HRS PRN PO PAIN Last administered on 00:29; Start 10/16/17 at 17:30 Triamcinolone Acetonide (Kenalog) 1 lacey BID TP Last administered on 10/26/17 20:07; Start 10/16/17 at 21:00 Non-Formulary Medication ([morphine sulfate ] ) 0.5 ml Q4HRS SQ ; Start 10/16/17 at 20:00; Status UNV Enoxaparin Sodium (Lovenox) 30 mg Q24H SQ Last administered on 10/26/17 20:04 ; Start 10/16/17 at 21:00 Duloxetine HCl (Cymbalta) 30 mg DAILY PO Last administered on 10/22/17 08:43; Start 10/18/17 at 09:00; Stop 10/22/17 at 09:01; Status DC Polyethylene Glycol (miraLAX) 17 gm DAILY PO Last administered on 10/26/17 09: 32; Start 10/19/17 at 09:00 Nystatin (Nystop) 1 lacey BID TP Last administered on 10/26/17 20:07; Start 10/18 at 21:00 Vitamin D (Vitamin D3) 50,000 unit WEEKLY PO Last administered on 10/26/17 09: 32; Start 10/19/17 at 09:00 Nystatin (Nystop) 15 lacey STK-MED ONCE TP ; Start 10/18/17 at 17:41; Stop 10/18/17 at 17:42; Status DC Divalproex Sodium (Depakote Er) 750 mg HS PO Last administered on 10/26/17 20: 00; Start 10/18/17 at 21:00 Clonazepam (KlonoPIN) 2 mg BID92 PO Last administered on 10/23/17 12:41; Start 10/20/17 at 09:00; Stop 10/23/17 at 18:47; Status DC Clonazepam (KlonoPIN) 1.5 mg QHS PO Last administered on 10/26/17at 20:05; Start 10/19/17 at 21:00 Duloxetine HCl (Cymbalta) 60 mg DAILY PO Last administered on 10/26/17at 09:32; Start 10/23/17 at 09:00 Clonazepam (KlonoPIN) 2 mg 1400 PO Last administered on 10/26/17at 14:12; Start 10/24/17 at 14:00; Stop 10/26/17 at 18:51; Status DC Clonazepam (KlonoPIN) 1.5 mg DAILY PO Last administered on 10/26/17at 09:39; Start 10/24/17 at 09:00 Bupropion HCl (Wellbutrin Xl) 150 mg DAILY PO Last administered on 10/26/17at 09 :32; Start 10/25/17 at 09:00 Clonazepam (KlonoPIN) 1.5 mg DAILY@1400 PO ; Start 10/27/17 at 14:00 Active Scripts Active Reported Artificial Tears (Polyvinyl Alcohol) 15 Ml Drops 2 Drop OP PRN Q3HRS PRN Novolog (Insulin Aspart) 100 Unit/1 Ml Cartridge 3-12 Unit SQ PRN BFRMEAL PRN Zofran Odt (Ondansetron) 4 Mg Tab.rapdis 4 Mg PO PRN Q8HRS PRN Triamcinolone Acetonide 15 Gm Cream..g. 1 Lacey TP BID Senokot (Sennosides) 8.6 Mg Tablet 8.6 Mg PO PRN DAILY PRN Senokot (Sennosides) 8.6 Mg Tablet 8.6 Mg PO DAILY Klor-Con M20 (Potassium Chloride) 20 Meq Tab.er.prt 20 Meq PO BID Oxycontin (Oxycodone HCl) 20 Mg Tab.er.12h 20 Mg PO BID Oxycodone Hcl 10 Mg Tablet 20 Mg PO QID Nystatin 15 Gm Oint...g. 1 Lacey TP BID Nasal [place] Sinus (Oxymetazoline Hcl) 30 Ml [place] 1 Spr NS PRN Q6HRS PRN [morphine sulfate ] 0.5 Ml SQ Q4HRS Lorazepam Intensol (Lorazepam) 2 Mg/1 Ml Oral.conc 1 Ml PO PRN Q3HRS PRN Levsin-Sl (Hyoscyamine Sulfate) 0.125 Mg Tab.subl 0.125 Mg SL PRN Q2HR PRN Levemir (Insulin Detemir) 100 Unit/1 Ml Vial 10 Unit SQ HS Lasix (Furosemide) 40 Mg Tablet 40 Mg PO DAILY Imodium A-D (Loperamide HCl) 2 Mg Capsule 2 Mg PO PRN Q6HRS Glucose Gel (Dextrose) 38 Gm Gel..gram. 1 Gm PO PRN Q15MIN PRN Duoneb 0.5-3(2.5) Mg/3 Ml (Albuterol/Ipratropium) 3 Ml Ampul.neb 3 Ml NEB PRN Q4HRS PRN Depakote (Divalproex Sodium) 500 Mg Tablet.dr 250 Mg PO TID Calcipotriene 60 Gm Cream..g. 2 Lacey TP BID Artificial Tears Eye Drops (Dextran 70/Hypromellose) 15 Ml Drops 2 Drop EACHEYE PRN Q3HRS PRN Tylenol (Acetaminophen) 325 Mg Tablet 650 Mg PO PRN Q4HRS PRN Dulcolax (Bisacodyl) 10 Mg Supp.rect 10 Mg RC PRN DAILY PRN Oxycodone Hcl 20 Mg Tablet 20 Mg PO PRN Q6HRS PRN Clobetasol Emollient 0.05% Crm (Clobetasol Propionate/Emoll) 15 Gm Cream..g. 1 Applic TP BID Apply to Feet, Elbows and hands BID for Rash/itching Clonazepam 2 Mg Tablet 2 Mg PO TID I have reviewed the current psychotropics carefully including drug interactions. Risk benefit ratio favors no change other than as noted in my dictated progress note. Diagnosis: Problems: (1) Major depression (2) Anxiety disorder (3) Impulse control disorder (4) Major depressive disorder, recurrent episode (5) Mild cognitive impairment ROMINA SORTO MD October 26, 2017 20:17
[2017-10-27 05:59] VITALS: BP 115/54
[2017-10-27 07:30] VITALS: BP 117/77
[2017-10-27] MEDS: INSULIN LISPRO 300 UNITS/3 ML INSULN.PEN. SQ SCH ×3 (08:00→17:23)
[2017-10-27] MEDS: FUROSEMIDE 40 MG TABLET PO SCH (09:05)
[2017-10-27] MEDS: DULoxetine HCL 60 MG CAPSULE.DR PO SCH (09:05)
[2017-10-27] MEDS: POTASSIUM CHLORIDE 20 MEQ TABLET.ER. PO SCH ×2 (09:05→19:42)
[2017-10-27] MEDS: SENNOSIDES 8.6 MG TABLET PO SCH (09:05)
[2017-10-27] MEDS: buPROPion XL 150 MG TAB.ER.24H PO SCH (09:05)
[2017-10-27] MEDS: clonazePAM 1 MG TABLET PO SCH ×3 (09:07→19:43)
[2017-10-27] MEDS: POLYETHYLENE GLYCOL 3350 17 GM PACKET. PO SCH (09:08)
[2017-10-27] MEDS: oxyCODONE ER 20 MG TAB.ER.12H PO SCH ×2 (09:10→19:42)
[2017-10-27] MEDS: oxyCODONE IR 5 MG TABLET PO SCH ×5 (09:11→22:59)
[2017-10-27] MEDS: TRIAMCINOLONE ACETONIDE 0.1% TOPICAL CREAM 15GM TUBE. TP SCH ×2 (09:13→19:41)
[2017-10-27] MEDS: CLOBETASOL EMOLLIENT 0.05% TOPICAL CREAM 15GM TUBE. TP SCH ×2 (09:13→19:41)
[2017-10-27] MEDS: CALCIPOTRIENE 0.005% TOPICAL CREAM 60GM TUBE. TP SCH ×2 (09:13→19:40)
[2017-10-27] MEDS: NYSTATIN TOPICAL POWDER 15GM BOTTLE. TP SCH ×2 (09:13→19:40)
[2017-10-27 18:16] VITALS: BP 129/70
[2017-10-27] MEDS: ENOXAPARIN 30 MG/0.3 ML SYRINGE. SQ SCH (19:41)
[2017-10-27] MEDS: DIVALPROEX ER 250 MG TAB.ER.24H. PO SCH (19:42)
[2017-10-27] MEDS: INSULIN GLARGINE 300 UNITS/3 ML INSULN.PEN. SQ SCH (19:45)
--- NOTE | 2017-10-27 22:10 | PDOC ---
Exam Note: Laureano Note: Please also refer to the separate dictated note~for this date of service dictated separately.~Patient seen individually. Discussed the patient with Nursing staff reviewed the chart.~Reviewed interim history and current functioning. Reviewed vital signs,~Labs/ Radiology~and current medications noted below. Continue current treatment with the changes noted in the dictated addendum note Assessment: Vital Signs: Vital Signs Date Time Temp Pulse Resp B/P (MAP) Pulse Ox O2 Delivery O2 Flow Rate FiO2 10/27/17 20:43 94 Room Air 10/27/17 18:16 97.6 96 18 129/70 (89) 10/26/17 06:18 2.0 I&O Intake and Output 10/27/17 07:00 Intake Total 600 ml Output Total 1250 ml Balance -650 ml Intake Oral 600 ml Output Urine Total 1250 ml Labs: Laboratory Tests Test 10/27/17 08:00 10/27/17 11:44 10/27/17 16:59 10/27/17 19:04 Glucose (Fingerstick) 103 mg/dL (70-99) H 115 mg/dL (70-99) H 181 mg/dL (70-99) H 237 mg/dL (70-99) H Current Medications: Meds: Current Medications Sodium Chloride 1,000 ml @ 1,000 mls/hr 1X ONCE IV Last administered on at 10:45; Start 10/16/17 at 10:45; Stop 10/16/17 at 11:44; Status DC Acetaminophen (Tylenol) 650 mg 1X ONCE PO Last administered on 10/16/17at 12:23 ; Start 10/16/17 at 12:40; Stop 10/16/17 at 12:41; Status DC Ceftriaxone Sodium 1 gm/ Sodium Chloride 50 ml @ 100 mls/hr 1X ONCE IV ; Start 10/16/17 at 12:45; Stop 10/16/17 at 13:14; Status UNV Sodium Chloride 50 ml @ As Directed STK-MED ONCE .ROUTE ; Start 10/16/17 at 12:45 ; Stop 10/16/17 at 12:46; Status DC Ceftriaxone Sodium (Rocephin) 1 gm STK-MED ONCE IV ; Start 10/16/17 at 12:45; Stop 10/16/17 at 12:46; Status DC Ceftriaxone Sodium (Rocephin) 1 gm 1X ONCE IVP Last administered on 10/16/17at 12:55; Start 10/16/17 at 13:00; Stop 10/16/17 at 13:01; Status DC Acetaminophen (Tylenol) 650 mg PRN Q6HRS PRN PO PAIN / TEMP; Start 10/16/17 at 14:45; Status Cancel Multi-Ingredient Ointment (Analgesic [place]) 1 lacey PRN QID PRN TP MUSCLE PAIN; Start 10/16/17 at 14:45 Al Hydroxide/Mg Hydroxide (Mylanta Plus Xs) 15 ml PRN AFTMEALHC PRN PO DYSPEPSIA; Start 10/16/17 at 14:45 Magnesium Hydroxide (Milk Of Magnesia) 2,400 mg PRN QHS PRN PO CONSTIPATION; Start 10/16/17 at 14:45 Insulin Human Lispro (HumaLOG) 0-7 UNITS TIDWMEALS SQ Last administered on 10/27at 17:23; Start 10/16/17 at 17:00 Dextrose 12.5 gm PRN Q15MIN PRN IV SEE COMMENTS; Start 10/16/17 at 16:15 Acetaminophen (Tylenol) 650 mg PRN Q4HRS PRN PO PAIN / TEMP; Start 10/16/17 at 16:45 Bisacodyl (Dulcolax Supp) 10 mg PRN DAILY PRN RC CONSTIPATION; Start 10/16/17 at 16:45 Calcipotriene (Dovonex) 2 lacey BID TP Last administered on 10/27/17at 19:40; Start 10/16/17 at 21:00 Clobetasol Propionate 1 lacey BID TP Last administered on 10/27/17at 19:41; Start 10/16/17 at 21:00 Clonazepam (KlonoPIN) 2 mg TID PO Last administered on 10/19/17at 12:51; Start at 21:00; Stop 10/19/17 at 18:35; Status DC Glucose (Insta-Glucose) 1 gm PRN Q15MIN PRN PO hypoglycemia; Start 10/16/17 at 16:45 Furosemide (Lasix) 40 mg DAILY PO Last administered on 10/27/17at 09:05; Start 10/17/17 at 09:00 Albuterol/ Ipratropium (Duoneb) 3 ml PRN Q4HRS PRN NEB SHORTNESS OF BREATH; Start 10/16/17 at 16:45 Loperamide HCl (Imodium) 2 mg PRN Q6HRS PRN PO DIARRHEA; Start 10/16/17 at 16:45 Lorazepam (Ativan Intensol) 2 mg PRN Q3HRS PRN PO restlessness; Start 10/16/17 at 16:45 Nystatin (Mycostatin) 1 lacey BID TP Last administered on 10/18/17at 04:49; Start 10/16/17 at 21:00; Stop 10/18/17 at 15:02; Status DC Ondansetron HCl (Zofran Odt) 4 mg PRN Q8HRS PRN PO NAUSEA/VOMITING Last administered on 10/19/17at 08:14; Start 10/16/17 at 16:45 Oxycodone HCl (OxyCONTIN) 20 mg BID PO Last administered on 10/27/17at 19:42; Start 10/16/17 at 21:00 Oxymetazoline HCl (Afrin) 1 spray PRN Q6HRS PRN NS ALLERGY; Start 10/16/17 at 16 :45 Potassium Chloride (Klor-Con) 20 meq BID PO Last administered on 10/27/17at 19: 42; Start 10/16/17 at 21:00 Sennosides (Senna) 8.6 mg DAILY PO Last administered on 10/27/17at 09:05; Start 10/17/17 at 09:00 Sennosides (Senna) 8.6 mg PRN DAILY PRN PO CONSTIPATION; Start 10/16/17 at 16:45 Artificial Tears (Artificial Tears) 2 drop PRN Q3HRS PRN OU DRY EYE; Start 10/16 at 17:15 Divalproex Sodium (Depakote) 250 mg TID PO Last administered on 10/18/17 13:22 ; Start 10/16/17 at 21:00; Stop 10/18/17 at 19:28; Status DC Hyoscyamine (Anaspaz) 0.125 mg PRN Q2HR PRN PO SECRETIONS; Start 10/16/17 at 17: 30 Insulin Glargine (Lantus) 10 units QHS SQ Last administered on 10/27/17at 19:45 ; Start 10/16/17 at 21:00 Oxycodone HCl (Roxicodone) 20 mg QID PO Last administered on 10/27/17 19:43; Start 10/16/17 at 17:30 Oxycodone HCl (Roxicodone) 20 mg PRN Q6HRS PRN PO PAIN Last administered on 00:29; Start 10/16/17 at 17:30 Triamcinolone Acetonide (Kenalog) 1 lacey BID TP Last administered on 10/27/17 19:41; Start 10/16/17 at 21:00 Non-Formulary Medication ([morphine sulfate ] ) 0.5 ml Q4HRS SQ ; Start 10/16/17 at 20:00; Status UNV Enoxaparin Sodium (Lovenox 30mg Syringe) 30 mg Q24H SQ Last administered on 19:41; Start 10/16/17 at 21:00 Duloxetine HCl (Cymbalta) 30 mg DAILY PO Last administered on 10/22/17 08:43; Start 10/18/17 at 09:00; Stop 10/22/17 at 09:01; Status DC Polyethylene Glycol (miraLAX) 17 gm DAILY PO Last administered on 10/27/17 09: 08; Start 10/19/17 at 09:00 Nystatin (Nystop) 1 lacey BID TP Last administered on 10/27/17 19:40; Start 10/18 at 21:00 Vitamin D (Vitamin D3) 50,000 unit WEEKLY PO Last administered on 10/26/17 09: 32; Start 10/19/17 at 09:00 Nystatin (Nystop) 15 lacey STK-MED ONCE TP ; Start 10/18/17 at 17:41; Stop 10/18/17 at 17:42; Status DC Divalproex Sodium (Depakote Er) 750 mg HS PO Last administered on 10/27/17 19: 42; Start 10/18/17 at 21:00 Clonazepam (KlonoPIN) 2 mg BID92 PO Last administered on 10/23/17 12:41; Start 10/20/17 at 09:00; Stop 10/23/17 at 18:47; Status DC Clonazepam (KlonoPIN) 1.5 mg QHS PO Last administered on 5/16/18at 19:43; Start 10/19/17 at 21:00 Duloxetine HCl (Cymbalta) 60 mg DAILY PO Last administered on 10/27/17at 09:05; Start 10/23/17 at 09:00 Clonazepam (KlonoPIN) 2 mg 1400 PO Last administered on 10/26/17at 14:12; Start 10/24/17 at 14:00; Stop 10/26/17 at 18:51; Status DC Clonazepam (KlonoPIN) 1.5 mg DAILY PO Last administered on 10/27/17at 09:07; Start 10/24/17 at 09:00 Bupropion HCl (Wellbutrin Xl) 150 mg DAILY PO Last administered on 10/27/17at 09 :05; Start 10/25/17 at 09:00 Clonazepam (KlonoPIN) 1.5 mg DAILY@1400 PO Last administered on 10/27/17at 13:25 ; Start 10/27/17 at 14:00 Active Scripts Active Reported Artificial Tears (Polyvinyl Alcohol) 15 Ml Drops 2 Drop OP PRN Q3HRS PRN Novolog (Insulin Aspart) 100 Unit/1 Ml Cartridge 3-12 Unit SQ PRN BFRMEAL PRN Zofran Odt (Ondansetron) 4 Mg Tab.rapdis 4 Mg PO PRN Q8HRS PRN Triamcinolone Acetonide 15 Gm Cream..g. 1 Lacey TP BID Senokot (Sennosides) 8.6 Mg Tablet 8.6 Mg PO PRN DAILY PRN Senokot (Sennosides) 8.6 Mg Tablet 8.6 Mg PO DAILY Klor-Con M20 (Potassium Chloride) 20 Meq Tab.er.prt 20 Meq PO BID Oxycontin (Oxycodone HCl) 20 Mg Tab.er.12h 20 Mg PO BID Oxycodone Hcl 10 Mg Tablet 20 Mg PO QID Nystatin 15 Gm Oint...g. 1 Lacey TP BID Nasal [place] Sinus (Oxymetazoline Hcl) 30 Ml [place] 1 Spr NS PRN Q6HRS PRN [morphine sulfate ] 0.5 Ml SQ Q4HRS Lorazepam Intensol (Lorazepam) 2 Mg/1 Ml Oral.conc 1 Ml PO PRN Q3HRS PRN Levsin-Sl (Hyoscyamine Sulfate) 0.125 Mg Tab.subl 0.125 Mg SL PRN Q2HR PRN Levemir (Insulin Detemir) 100 Unit/1 Ml Vial 10 Unit SQ HS Lasix (Furosemide) 40 Mg Tablet 40 Mg PO DAILY Imodium A-D (Loperamide HCl) 2 Mg Capsule 2 Mg PO PRN Q6HRS Glucose Gel (Dextrose) 38 Gm Gel..gram. 1 Gm PO PRN Q15MIN PRN Duoneb 0.5-3(2.5) Mg/3 Ml (Albuterol/Ipratropium) 3 Ml Ampul.neb 3 Ml NEB PRN Q4HRS PRN Depakote (Divalproex Sodium) 500 Mg Tablet.dr 250 Mg PO TID Calcipotriene 60 Gm Cream..g. 2 Lacey TP BID Artificial Tears Eye Drops (Dextran 70/Hypromellose) 15 Ml Drops 2 Drop EACHEYE PRN Q3HRS PRN Tylenol (Acetaminophen) 325 Mg Tablet 650 Mg PO PRN Q4HRS PRN Dulcolax (Bisacodyl) 10 Mg Supp.rect 10 Mg RC PRN DAILY PRN Oxycodone Hcl 20 Mg Tablet 20 Mg PO PRN Q6HRS PRN Clobetasol Emollient 0.05% Crm (Clobetasol Propionate/Emoll) 15 Gm Cream..g. 1 Applic TP BID Apply to Feet, Elbows and hands BID for Rash/itching Clonazepam 2 Mg Tablet 2 Mg PO TID I have reviewed the current psychotropics carefully including drug interactions. Risk benefit ratio favors no change other than as noted in my dictated progress note. Diagnosis: Problems: (1) Major depression (2) Anxiety disorder (3) Impulse control disorder (4) Major depressive disorder, recurrent episode (5) Mild cognitive impairment ROMINA SORTO MD October 27, 2017 22:09
--- NOTE | 2017-10-28 01:12 | PN ---
DATE: 10/26/2017 This is a late entry of 10/26/2017 covers elements not covered in my initial note of 10/26/2017. SUBJECTIVE: I met with the patient in the evening. The patient slept 8 hours previous evening, tearful, depressed in the morning, consequent to pain, sedated during the day secondary to pain medications per nursing report. REVIEW OF SYSTEMS: Ambulation impaired, in Broda chair. No CV, , pulmonary, eye, ENT system symptoms on review, somewhat tired partly due to Klonopin, perhaps due to her pain medications. MENTAL STATUS EXAM: Reasonably oriented. Speech is coherent, but quite sedated as I met with her. Abstraction fair, computation impaired, language function intact. Mood and affect withdrawn. No suicidal or homicidal ideation. LABORATORY DATA: Reviewed. IMPRESSION: Major depressive disorder, recurrent, in partial remission; anxiety disorder, unspecified, sedation. PLAN: Reduce the 02:00 p.m. Klonopin from 2 mg to 1.5 mg and she is already on 1.5 mg at 0900, which was reduced previously from 2 mg and bedtime dosage of Klonopin 1.5 mg was a reduction on 10/19/2017. Continue Depakote, Cymbalta, Wellbutrin for now. ROMINA SORTO MD DR: TOD/moris JOB#: [id number] / [id number]
[2017-10-28 05:58] VITALS: BP 136/73
[2017-10-28] MEDS: INSULIN LISPRO 300 UNITS/3 ML INSULN.PEN. SQ SCH ×3 (08:00→12:25)
[2017-10-28] MEDS: SENNOSIDES 8.6 MG TABLET PO SCH (09:10)
[2017-10-28] MEDS: buPROPion XL 150 MG TAB.ER.24H PO SCH (09:10)
[2017-10-28] MEDS: DULoxetine HCL 60 MG CAPSULE.DR PO SCH (09:10)
[2017-10-28] MEDS: POTASSIUM CHLORIDE 20 MEQ TABLET.ER. PO SCH ×2 (09:10→19:43)
[2017-10-28] MEDS: POLYETHYLENE GLYCOL 3350 17 GM PACKET. PO SCH (09:11)
[2017-10-28] MEDS: FUROSEMIDE 40 MG TABLET PO SCH (09:11)
[2017-10-28] MEDS: oxyCODONE ER 20 MG TAB.ER.12H PO SCH ×2 (09:13→19:47)
[2017-10-28] MEDS: clonazePAM 1 MG TABLET PO SCH ×3 (09:13→19:48)
[2017-10-28] MEDS: TRIAMCINOLONE ACETONIDE 0.1% TOPICAL CREAM 15GM TUBE. TP SCH ×2 (09:15→19:58)
[2017-10-28] MEDS: NYSTATIN TOPICAL POWDER 15GM BOTTLE. TP SCH ×2 (09:15→19:59)
[2017-10-28] MEDS: CALCIPOTRIENE 0.005% TOPICAL CREAM 60GM TUBE. TP SCH ×2 (09:16→19:59)
[2017-10-28] MEDS: CLOBETASOL EMOLLIENT 0.05% TOPICAL CREAM 15GM TUBE. TP SCH ×2 (09:16→19:58)
[2017-10-28] MEDS: oxyCODONE IR 5 MG TABLET PO SCH ×3 (12:10→19:47)
[2017-10-28 16:40] VITALS: BP 125/74
[2017-10-28] MEDS: DIVALPROEX ER 250 MG TAB.ER.24H. PO SCH (19:44)
[2017-10-28] MEDS: INSULIN GLARGINE 300 UNITS/3 ML INSULN.PEN. SQ SCH (19:51)
[2017-10-28] MEDS: ENOXAPARIN 30 MG/0.3 ML SYRINGE. SQ SCH (19:51)
--- NOTE | 2017-10-28 20:14 | PDOC ---
Exam Note: Laureano Note: Please also refer to the separate dictated note~for this date of service dictated separately.~Patient seen individually. Discussed the patient with Nursing staff reviewed the chart.~Reviewed interim history and current functioning. Reviewed vital signs,~Labs/ Radiology~and current medications noted below. Continue current treatment with the changes noted in the dictated addendum note Assessment: Vital Signs: Vital Signs Date Time Temp Pulse Resp B/P (MAP) Pulse Ox O2 Delivery O2 Flow Rate FiO2 10/28/17 17:27 92 Room Air 10/28/17 16:40 97.6 100 22 125/74 (91) 10/26/17 06:18 2.0 I&O Intake and Output 10/28/17 07:00 Intake Total 1080 ml Output Total 725 ml Balance 355 ml Intake Oral 1080 ml Output Urine Total 725 ml # Bowel Movements 1 Labs: Laboratory Tests Test 10/28/17 07:51 10/28/17 12:12 10/28/17 17:00 10/28/17 19:22 Glucose (Fingerstick) 109 mg/dL (70-99) H 132 mg/dL (70-99) H 138 mg/dL (70-99) H 230 mg/dL (70-99) H Current Medications: Meds: Current Medications Sodium Chloride 1,000 ml @ 1,000 mls/hr 1X ONCE IV Last administered on at 10:45; Start 10/16/17 at 10:45; Stop 10/16/17 at 11:44; Status DC Acetaminophen (Tylenol) 650 mg 1X ONCE PO Last administered on 10/16/17at 12:23 ; Start 10/16/17 at 12:40; Stop 10/16/17 at 12:41; Status DC Ceftriaxone Sodium 1 gm/ Sodium Chloride 50 ml @ 100 mls/hr 1X ONCE IV ; Start 10/16/17 at 12:45; Stop 10/16/17 at 13:14; Status UNV Sodium Chloride 50 ml @ As Directed STK-MED ONCE .ROUTE ; Start 10/16/17 at 12:45 ; Stop 10/16/17 at 12:46; Status DC Ceftriaxone Sodium (Rocephin) 1 gm STK-MED ONCE IV ; Start 10/16/17 at 12:45; Stop 10/16/17 at 12:46; Status DC Ceftriaxone Sodium (Rocephin) 1 gm 1X ONCE IVP Last administered on 10/16/17at 12:55; Start 10/16/17 at 13:00; Stop 10/16/17 at 13:01; Status DC Acetaminophen (Tylenol) 650 mg PRN Q6HRS PRN PO PAIN / TEMP; Start 10/16/17 at 14:45; Status Cancel Multi-Ingredient Ointment (Analgesic [place]) 1 lacey PRN QID PRN TP MUSCLE PAIN; Start 10/16/17 at 14:45 Al Hydroxide/Mg Hydroxide (Mylanta Plus Xs) 15 ml PRN AFTMEALHC PRN PO DYSPEPSIA; Start 10/16/17 at 14:45 Magnesium Hydroxide (Milk Of Magnesia) 2,400 mg PRN QHS PRN PO CONSTIPATION; Start 10/16/17 at 14:45 Insulin Human Lispro (HumaLOG) 0-7 UNITS TIDWMEALS SQ Last administered on 10/27at 17:23; Start 10/16/17 at 17:00 Dextrose 12.5 gm PRN Q15MIN PRN IV SEE COMMENTS; Start 10/16/17 at 16:15 Acetaminophen (Tylenol) 650 mg PRN Q4HRS PRN PO PAIN / TEMP; Start 10/16/17 at 16:45 Bisacodyl (Dulcolax Supp) 10 mg PRN DAILY PRN RC CONSTIPATION; Start 10/16/17 at 16:45 Calcipotriene (Dovonex) 2 lacey BID TP Last administered on 10/28/17at 09:16; Start 10/16/17 at 21:00 Clobetasol Propionate 1 lacey BID TP Last administered on 10/28/17at 09:16; Start 10/16/17 at 21:00 Clonazepam (KlonoPIN) 2 mg TID PO Last administered on 10/19/17at 12:51; Start at 21:00; Stop 10/19/17 at 18:35; Status DC Glucose (Insta-Glucose) 1 gm PRN Q15MIN PRN PO hypoglycemia; Start 10/16/17 at 16:45 Furosemide (Lasix) 40 mg DAILY PO Last administered on 10/28/17at 09:11; Start 10/17/17 at 09:00 Albuterol/ Ipratropium (Duoneb) 3 ml PRN Q4HRS PRN NEB SHORTNESS OF BREATH; Start 10/16/17 at 16:45 Loperamide HCl (Imodium) 2 mg PRN Q6HRS PRN PO DIARRHEA; Start 10/16/17 at 16:45 Lorazepam (Ativan Intensol) 2 mg PRN Q3HRS PRN PO restlessness; Start 10/16/17 at 16:45 Nystatin (Mycostatin) 1 lacey BID TP Last administered on 10/18/17at 04:49; Start 10/16/17 at 21:00; Stop 10/18/17 at 15:02; Status DC Ondansetron HCl (Zofran Odt) 4 mg PRN Q8HRS PRN PO NAUSEA/VOMITING Last administered on 10/19/17at 08:14; Start 10/16/17 at 16:45 Oxycodone HCl (OxyCONTIN) 20 mg BID PO Last administered on 10/28/17at 09:13; Start 10/16/17 at 21:00 Oxymetazoline HCl (Afrin) 1 spray PRN Q6HRS PRN NS ALLERGY; Start 10/16/17 at 16 :45 Potassium Chloride (Klor-Con) 20 meq BID PO Last administered on 10/28/17at 09: 10; Start 10/16/17 at 21:00 Sennosides (Senna) 8.6 mg DAILY PO Last administered on 10/28/17at 09:10; Start 10/17/17 at 09:00 Sennosides (Senna) 8.6 mg PRN DAILY PRN PO CONSTIPATION; Start 10/16/17 at 16:45 Artificial Tears (Artificial Tears) 2 drop PRN Q3HRS PRN OU DRY EYE; Start 10/16 at 17:15 Divalproex Sodium (Depakote) 250 mg TID PO Last administered on 10/18/17at 13:22 ; Start 10/16/17 at 21:00; Stop 10/18/17 at 19:28; Status DC Hyoscyamine (Anaspaz) 0.125 mg PRN Q2HR PRN PO SECRETIONS; Start 10/16/17 at 17: 30 Insulin Glargine (Lantus) 10 units QHS SQ Last administered on 10/27/17at 19:45 ; Start 10/16/17 at 21:00 Oxycodone HCl (Roxicodone) 20 mg QID PO Last administered on 10/28/17at 16:26; Start 10/16/17 at 17:30 Oxycodone HCl (Roxicodone) 20 mg PRN Q6HRS PRN PO PAIN Last administered on at 00:29; Start 10/16/17 at 17:30 Triamcinolone Acetonide (Kenalog) 1 lacey BID TP Last administered on 10/28/17at 09:15; Start 10/16/17 at 21:00 Non-Formulary Medication ([morphine sulfate ] ) 0.5 ml Q4HRS SQ ; Start 10/16/17 at 20:00; Status UNV Enoxaparin Sodium (Lovenox 30mg Syringe) 30 mg Q24H SQ Last administered on at 19:41; Start 10/16/17 at 21:00 Duloxetine HCl (Cymbalta) 30 mg DAILY PO Last administered on 10/22/17at 08:43; Start 10/18/17 at 09:00; Stop 10/22/17 at 09:01; Status DC Polyethylene Glycol (miraLAX) 17 gm DAILY PO Last administered on 10/28/17at 09: 11; Start 10/19/17 at 09:00 Nystatin (Nystop) 1 lacey BID TP Last administered on 10/28/17at 09:15; Start 10/18 at 21:00 Vitamin D (Vitamin D3) 50,000 unit WEEKLY PO Last administered on 10/26/17at 09: 32; Start 10/19/17 at 09:00 Nystatin (Nystop) 15 lacey STK-MED ONCE TP ; Start 10/18/17 at 17:41; Stop 10/18/17 at 17:42; Status DC Divalproex Sodium (Depakote Er) 750 mg HS PO Last administered on 10/27/17at 19: 42; Start 10/18/17 at 21:00 Clonazepam (KlonoPIN) 2 mg [id number] PO Last administered on 10/23/17at 12:41; Start 10/20/17 at 09:00; Stop 10/23/17 at 18:47; Status DC Clonazepam (KlonoPIN) 1.5 mg QHS PO Last administered on 10/27/17at 19:43; Start 10/19/17 at 21:00 Duloxetine HCl (Cymbalta) 60 mg DAILY PO Last administered on 10/28/17at 09:10; Start 10/23/17 at 09:00 Clonazepam (KlonoPIN) 2 mg 1400 PO Last administered on 10/26/17at 14:12; Start 10/24/17 at 14:00; Stop 10/26/17 at 18:51; Status DC Clonazepam (KlonoPIN) 1.5 mg DAILY PO Last administered on 10/28/17at 09:13; Start 10/24/17 at 09:00 Bupropion HCl (Wellbutrin Xl) 150 mg DAILY PO Last administered on 10/28/17at 09 :10; Start 10/25/17 at 09:00 Clonazepam (KlonoPIN) 1.5 mg DAILY@1400 PO Last administered on 10/28/17at 12:08 ; Start 10/27/17 at 14:00 Active Scripts Active Reported Artificial Tears (Polyvinyl Alcohol) 15 Ml Drops 2 Drop OP PRN Q3HRS PRN Novolog (Insulin Aspart) 100 Unit/1 Ml Cartridge 3-12 Unit SQ PRN BFRMEAL PRN Zofran Odt (Ondansetron) 4 Mg Tab.rapdis 4 Mg PO PRN Q8HRS PRN Triamcinolone Acetonide 15 Gm Cream..g. 1 Lacey TP BID Senokot (Sennosides) 8.6 Mg Tablet 8.6 Mg PO PRN DAILY PRN Senokot (Sennosides) 8.6 Mg Tablet 8.6 Mg PO DAILY Klor-Con M20 (Potassium Chloride) 20 Meq Tab.er.prt 20 Meq PO BID Oxycontin (Oxycodone HCl) 20 Mg Tab.er.12h 20 Mg PO BID Oxycodone Hcl 10 Mg Tablet 20 Mg PO QID Nystatin 15 Gm Oint...g. 1 Lacey TP BID Nasal [place] Sinus (Oxymetazoline Hcl) 30 Ml [place] 1 Spr NS PRN Q6HRS PRN [morphine sulfate ] 0.5 Ml SQ Q4HRS Lorazepam Intensol (Lorazepam) 2 Mg/1 Ml Oral.conc 1 Ml PO PRN Q3HRS PRN Levsin-Sl (Hyoscyamine Sulfate) 0.125 Mg Tab.subl 0.125 Mg SL PRN Q2HR PRN Levemir (Insulin Detemir) 100 Unit/1 Ml Vial 10 Unit SQ HS Lasix (Furosemide) 40 Mg Tablet 40 Mg PO DAILY Imodium A-D (Loperamide HCl) 2 Mg Capsule 2 Mg PO PRN Q6HRS Glucose Gel (Dextrose) 38 Gm Gel..gram. 1 Gm PO PRN Q15MIN PRN Duoneb 0.5-3(2.5) Mg/3 Ml (Albuterol/Ipratropium) 3 Ml Ampul.neb 3 Ml NEB PRN Q4HRS PRN Depakote (Divalproex Sodium) 500 Mg Tablet.dr 250 Mg PO TID Calcipotriene 60 Gm Cream..g. 2 Lacey TP BID Artificial Tears Eye Drops (Dextran 70/Hypromellose) 15 Ml Drops 2 Drop EACHEYE PRN Q3HRS PRN Tylenol (Acetaminophen) 325 Mg Tablet 650 Mg PO PRN Q4HRS PRN Dulcolax (Bisacodyl) 10 Mg Supp.rect 10 Mg RC PRN DAILY PRN Oxycodone Hcl 20 Mg Tablet 20 Mg PO PRN Q6HRS PRN Clobetasol Emollient 0.05% Crm (Clobetasol Propionate/Emoll) 15 Gm Cream..g. 1 Applic TP BID Apply to Feet, Elbows and hands BID for Rash/itching Clonazepam 2 Mg Tablet 2 Mg PO TID I have reviewed the current psychotropics carefully including drug interactions. Risk benefit ratio favors no change other than as noted in my dictated progress note. Diagnosis: Problems: (1) Major depression (2) Anxiety disorder (3) Impulse control disorder (4) Major depressive disorder, recurrent episode (5) Mild cognitive impairment ROMINA SORTO MD October 28, 2017 20:14
[2017-10-29] MEDS ORDERED: DIVA250T14 PO (02:44)
[2017-10-29] MEDS ORDERED: CHOL500016 PO (02:45)
[2017-10-29] MEDS ORDERED: DULO60CA6 PO (02:47)
[2017-10-29] MEDS ORDERED: ENOX30DI SQ (02:49)
[2017-10-29] MEDS ORDERED: MAG30ORA2 PO (02:51)
[2017-10-29] MEDS ORDERED: MAGN2400 PO (02:52)
[2017-10-29] MEDS ORDERED: METH29OI TP (02:53)
[2017-10-29] MEDS ORDERED: CLON1TAB3 PO ×2 (02:55)
[2017-10-29] MEDS ORDERED: BUPR-192 PO (02:56)
[2017-10-29] MEDS ORDERED: POLY255P PO (02:57)
[2017-10-29 05:40] VITALS: BP 125/65
[2017-10-29] MEDS: POLYETHYLENE GLYCOL 3350 17 GM PACKET. PO SCH (07:29)
[2017-10-29] MEDS: DULoxetine HCL 60 MG CAPSULE.DR PO SCH (07:29)
[2017-10-29] MEDS: SENNOSIDES 8.6 MG TABLET PO SCH (07:29)
[2017-10-29] MEDS: FUROSEMIDE 40 MG TABLET PO SCH (07:30)
[2017-10-29] MEDS: buPROPion XL 150 MG TAB.ER.24H PO SCH (07:30)
[2017-10-29] MEDS: POTASSIUM CHLORIDE 20 MEQ TABLET.ER. PO SCH (07:30)
[2017-10-29] MEDS: clonazePAM 1 MG TABLET PO SCH (07:33)
[2017-10-29] MEDS: oxyCODONE ER 20 MG TAB.ER.12H PO SCH (07:33)
[2017-10-29] MEDS: oxyCODONE IR 5 MG TABLET PO SCH (07:34)
[2017-10-29] MEDS: CALCIPOTRIENE 0.005% TOPICAL CREAM 60GM TUBE. TP SCH (07:34)
[2017-10-29] MEDS: TRIAMCINOLONE ACETONIDE 0.1% TOPICAL CREAM 15GM TUBE. TP SCH (07:34)
[2017-10-29] MEDS: CLOBETASOL EMOLLIENT 0.05% TOPICAL CREAM 15GM TUBE. TP SCH (07:34)
[2017-10-29] MEDS: NYSTATIN TOPICAL POWDER 15GM BOTTLE. TP SCH (07:35)
[2017-10-29] MEDS: INSULIN LISPRO 300 UNITS/3 ML INSULN.PEN. SQ SCH (07:59)
--- NOTE | 2017-10-29 22:41 | PDOC ---
Exam Note: Laureano Note: Please also refer to the separate dictated note~for this date of service dictated separately.~Patient seen individually. Discussed the patient with Nursing staff reviewed the chart.~Reviewed interim history and current functioning. Reviewed vital signs,~Labs/ Radiology~and current medications noted below. Continue current treatment with the changes noted in the dictated addendum note Assessment: Vital Signs: Vital Signs Date Time Temp Pulse Resp B/P (MAP) Pulse Ox O2 Delivery O2 Flow Rate FiO2 10/29/17 05:40 97.2 87 22 125/65 (85) 93 Room Air 10/26/17 06:18 2.0 I&O Intake and Output 10/29/17 07:00 Intake Total 480 ml Output Total 225 ml Balance 255 ml Intake Oral 480 ml Output Urine Total 225 ml # Bowel Movements 1 Labs: Laboratory Tests Test 10/29/17 07:44 Glucose (Fingerstick) 146 mg/dL (70-99) H Current Medications: Meds: Current Medications Sodium Chloride 1,000 ml @ 1,000 mls/hr 1X ONCE IV Last administered on at 10:45; Start 10/16/17 at 10:45; Stop 10/16/17 at 11:44; Status DC Acetaminophen (Tylenol) 650 mg 1X ONCE PO Last administered on 10/16/17at 12:23 ; Start 10/16/17 at 12:40; Stop 10/16/17 at 12:41; Status DC Ceftriaxone Sodium 1 gm/ Sodium Chloride 50 ml @ 100 mls/hr 1X ONCE IV ; Start 10/16/17 at 12:45; Stop 10/16/17 at 13:14; Status UNV Sodium Chloride 50 ml @ As Directed STK-MED ONCE .ROUTE ; Start 10/16/17 at 12:45 ; Stop 10/16/17 at 12:46; Status DC Ceftriaxone Sodium (Rocephin) 1 gm STK-MED ONCE IV ; Start 10/16/17 at 12:45; Stop 10/16/17 at 12:46; Status DC Ceftriaxone Sodium (Rocephin) 1 gm 1X ONCE IVP Last administered on 10/16/17at 12:55; Start 10/16/17 at 13:00; Stop 10/16/17 at 13:01; Status DC Acetaminophen (Tylenol) 650 mg PRN Q6HRS PRN PO PAIN / TEMP; Start 10/16/17 at 14:45; Status Cancel Multi-Ingredient Ointment (Analgesic [place]) 1 lacey PRN QID PRN TP MUSCLE PAIN; Start 10/16/17 at 14:45; Stop 10/29/17 at 10:27; Status DC Al Hydroxide/Mg Hydroxide (Mylanta Plus Xs) 15 ml PRN AFTMEALHC PRN PO DYSPEPSIA; Start 10/16/17 at 14:45; Stop 10/29/17 at 10:27; Status DC Magnesium Hydroxide (Milk Of Magnesia) 2,400 mg PRN QHS PRN PO CONSTIPATION; Start 10/16/17 at 14:45; Stop 10/29/17 at 10:27; Status DC Insulin Human Lispro (HumaLOG) 0-7 UNITS TIDWMEALS SQ Last administered on 10/27at 17:23; Start 10/16/17 at 17:00; Stop 10/29/17 at 10:27; Status DC Dextrose 12.5 gm PRN Q15MIN PRN IV SEE COMMENTS; Start 10/16/17 at 16:15; Stop 10/29/17 at 10:27; Status DC Acetaminophen (Tylenol) 650 mg PRN Q4HRS PRN PO PAIN / TEMP; Start 10/16/17 at 16:45; Stop 10/29/17 at 10:27; Status DC Bisacodyl (Dulcolax Supp) 10 mg PRN DAILY PRN RC CONSTIPATION; Start 10/16/17 at 16:45; Stop 10/29/17 at 10:27; Status DC Calcipotriene (Dovonex) 2 lacey BID TP Last administered on 10/29/17at 07:34; Start 10/16/17 at 21:00; Stop 10/29/17 at 10:27; Status DC Clobetasol Propionate 1 lacey BID TP Last administered on 10/29/17at 07:34; Start 10/16/17 at 21:00; Stop 10/29/17 at 10:27; Status DC Clonazepam (KlonoPIN) 2 mg TID PO Last administered on 10/19/17at 12:51; Start at 21:00; Stop 10/19/17 at 18:35; Status DC Glucose (Insta-Glucose) 1 gm PRN Q15MIN PRN PO hypoglycemia; Start 10/16/17 at 16:45; Stop 10/29/17 at 10:27; Status DC Furosemide (Lasix) 40 mg DAILY PO Last administered on 10/29/17 07:30; Start 10/17/17 at 09:00; Stop 10/29/17 at 10:27; Status DC Albuterol/ Ipratropium (Duoneb) 3 ml PRN Q4HRS PRN NEB SHORTNESS OF BREATH; Start 10/16/17 at 16:45; Stop 10/29/17 at 10:27; Status DC Loperamide HCl (Imodium) 2 mg PRN Q6HRS PRN PO DIARRHEA; Start 10/16/17 at 16:45 ; Stop 10/29/17 at 10:27; Status DC Lorazepam (Ativan Intensol) 2 mg PRN Q3HRS PRN PO restlessness; Start 10/16/17 at 16:45; Stop 10/29/17 at 10:27; Status DC Nystatin (Mycostatin) 1 lacey BID TP Last administered on 10/18/17at 04:49; Start 10/16/17 at 21:00; Stop 10/18/17 at 15:02; Status DC Ondansetron HCl (Zofran Odt) 4 mg PRN Q8HRS PRN PO NAUSEA/VOMITING Last administered on 10/19/17at 08:14; Start 10/16/17 at 16:45; Stop 10/29/17 at 10:27; Status DC Oxycodone HCl (OxyCONTIN) 20 mg BID PO Last administered on 10/29/17 07:33; Start 10/16/17 at 21:00; Stop 10/29/17 at 10:27; Status DC Oxymetazoline HCl (Afrin) 1 spray PRN Q6HRS PRN NS ALLERGY; Start 10/16/17 at 16 :45; Stop 10/29/17 at 10:27; Status DC Potassium Chloride (Klor-Con) 20 meq BID PO Last administered on 10/29/17 07: 30; Start 10/16/17 at 21:00; Stop 10/29/17 at 10:27; Status DC Sennosides (Senna) 8.6 mg DAILY PO Last administered on 5/18/18at 07:29; Start 10/17/17 at 09:00; Stop 10/29/17 at 10:27; Status DC Sennosides (Senna) 8.6 mg PRN DAILY PRN PO CONSTIPATION; Start 10/16/17 at 16:45 ; Stop 10/29/17 at 10:27; Status DC Artificial Tears (Artificial Tears) 2 drop PRN Q3HRS PRN OU DRY EYE; Start 10/16 at 17:15; Stop 10/29/17 at 10:27; Status DC Divalproex Sodium (Depakote) 250 mg TID PO Last administered on 10/18/17at 13:22 ; Start 10/16/17 at 21:00; Stop 10/18/17 at 19:28; Status DC Hyoscyamine (Anaspaz) 0.125 mg PRN Q2HR PRN PO SECRETIONS; Start 10/16/17 at 17: 30; Stop 10/29/17 at 10:27; Status DC Insulin Glargine (Lantus) 10 units QHS SQ Last administered on 10/28/17 19:51 ; Start 10/16/17 at 21:00; Stop 10/29/17 at 10:27; Status DC Oxycodone HCl (Roxicodone) 20 mg QID PO Last administered on 10/29/17 07:34; Start 10/16/17 at 17:30; Stop 10/29/17 at 10:27; Status DC Oxycodone HCl (Roxicodone) 20 mg PRN Q6HRS PRN PO PAIN Last administered on at 00:29; Start 10/16/17 at 17:30; Stop 10/29/17 at 10:27; Status DC Triamcinolone Acetonide (Kenalog) 1 lacey BID TP Last administered on 10/29/17 07:34; Start 10/16/17 at 21:00; Stop 10/29/17 at 10:27; Status DC Non-Formulary Medication ([morphine sulfate ] ) 0.5 ml Q4HRS SQ ; Start 10/16/17 at 20:00; Status UNV Enoxaparin Sodium (Lovenox 30mg Syringe) 30 mg Q24H SQ Last administered on at 19:51; Start 10/16/17 at 21:00; Stop 10/29/17 at 10:27; Status DC Duloxetine HCl (Cymbalta) 30 mg DAILY PO Last administered on 10/22/17at 08:43; Start 10/18/17 at 09:00; Stop 10/22/17 at 09:01; Status DC Polyethylene Glycol (miraLAX) 17 gm DAILY PO Last administered on 10/29/17at 07: 29; Start 10/19/17 at 09:00; Stop 10/29/17 at 10:27; Status DC Nystatin (Nystop) 1 lacey BID TP Last administered on 10/29/17at 07:35; Start 10/18 at 21:00; Stop 10/29/17 at 10:27; Status DC Vitamin D (Vitamin D3) 50,000 unit WEEKLY PO Last administered on 10/26/17at 09: 32; Start 10/19/17 at 09:00; Stop 10/29/17 at 10:27; Status DC Nystatin (Nystop) 15 lacey STK-MED ONCE TP ; Start 10/18/17 at 17:41; Stop 10/18/17 at 17:42; Status DC Divalproex Sodium (Depakote Er) 750 mg HS PO Last administered on 10/28/17at 19: 44; Start 10/18/17 at 21:00; Stop 10/29/17 at 10:27; Status DC Clonazepam (KlonoPIN) 2 mg BID92 PO Last administered on 10/23/17at 12:41; Start 10/20/17 at 09:00; Stop 10/23/17 at 18:47; Status DC Clonazepam (KlonoPIN) 1.5 mg QHS PO Last administered on 10/28/17at 19:48; Start 10/19/17 at 21:00; Stop 10/29/17 at 10:27; Status DC Duloxetine HCl (Cymbalta) 60 mg DAILY PO Last administered on 10/29/17at 07:29; Start 10/23/17 at 09:00; Stop 10/29/17 at 10:27; Status DC Clonazepam (KlonoPIN) 2 mg 1400 PO Last administered on 10/26/17at 14:12; Start 10/24/17 at 14:00; Stop 10/26/17 at 18:51; Status DC Clonazepam (KlonoPIN) 1.5 mg DAILY PO Last administered on 10/29/17at 07:33; Start 10/24/17 at 09:00; Stop 10/29/17 at 10:27; Status DC Bupropion HCl (Wellbutrin Xl) 150 mg DAILY PO Last administered on 10/29/17at 07 :30; Start 10/25/17 at 09:00; Stop 10/29/17 at 10:27; Status DC Clonazepam (KlonoPIN) 1.5 mg DAILY@1400 PO Last administered on 10/28/17at 12:08 ; Start 10/27/17 at 14:00; Stop 10/29/17 at 10:27; Status DC Active Scripts Active Reported Polyethylene Glycol 3350 255 Gm Powder 17 Gm PO DAILY Bupropion Xl (Bupropion Hcl) 150 Mg Tab.er.24h 150 Mg PO DAILY Clonazepam 1 Mg Tablet 1.5 Mg PO QHS Clonazepam 1 Mg Tablet 1.5 Mg PO DAILY Analgesic [place] (Methyl Salicylate/Menthol) 28 Gm Oint...g. 1 [place] TP PRN QID PRN Milk Of Magnesia (Magnesium Hydroxide) 2,400 Mg/10 Ml Oral.susp 2,400 Mg PO PRN QHS PRN Mag-Al Plus Xs Suspension (Mag Hydrox/Al Hydrox/Simeth) 30 Ml Oral.susp 15 Ml PO PRN AFTMEALHC PRN Lovenox (Enoxaparin Sodium) 30 Mg/0.3 Ml Disp.syrin 30 Mg SQ Q24H Cymbalta (Duloxetine Hcl) 60 Mg Capsule.dr 60 Mg PO DAILY Vitamin D3 (Cholecalciferol (Vitamin D3)) 5,000 Unit Tablet 5,000 Unit PO WEEKLY Divalproex Sodium Er (Divalproex Sodium) 250 Mg Tab.er.24h 750 Mg PO QHS Artificial Tears (Polyvinyl Alcohol) 15 Ml Drops 2 Drop OP PRN Q3HRS PRN Novolog (Insulin Aspart) 100 Unit/1 Ml Cartridge 0-7 Unit SQ TIDWMEALS Zofran Odt (Ondansetron) 4 Mg Tab.rapdis 4 Mg PO PRN Q8HRS PRN Triamcinolone Acetonide 15 Gm Cream..g. 1 [place]acey TP BID Senokot (Sennosides) 8.6 Mg Tablet 8.6 Mg PO PRN DAILY PRN Senokot (Sennosides) 8.6 Mg Tablet 8.6 Mg PO DAILY Klor-Con M20 (Potassium Chloride) 20 Meq Tab.er.prt 20 Meq PO BID Oxycontin (Oxycodone HCl) 20 Mg Tab.er.12h 20 Mg PO BID Oxycodone Hcl 10 Mg Tablet 20 Mg PO QID Nystatin 15 Gm Oint...g. 1 Lacey TP BID Nasal [place] Sinus (Oxymetazoline Hcl) 30 Ml [place] 1 Spr NS PRN Q6HRS PRN Lorazepam Intensol (Lorazepam) 2 Mg/1 Ml Oral.conc 1 Ml PO PRN Q3HRS PRN Levsin-Sl (Hyoscyamine Sulfate) 0.125 Mg Tab.subl 0.125 Mg SL PRN Q2HR PRN Levemir (Insulin Detemir) 100 Unit/1 Ml Vial 10 Unit SQ HS Lasix (Furosemide) 40 Mg Tablet 40 Mg PO DAILY Imodium A-D (Loperamide HCl) 2 Mg Capsule 2 Mg PO PRN Q6HRS Glucose Gel (Dextrose) 38 Gm Gel..gram. 1 Gm PO PRN Q15MIN PRN Duoneb 0.5-3(2.5) Mg/3 Ml (Albuterol/Ipratropium) 3 Ml Ampul.neb 3 Ml NEB PRN Q4HRS PRN Calcipotriene 60 Gm Cream..g. 2 Lacey TP BID Tylenol (Acetaminophen) 325 Mg Tablet 650 Mg PO PRN Q4HRS PRN Dulcolax (Bisacodyl) 10 Mg Supp.rect 10 Mg RC PRN DAILY PRN Oxycodone Hcl 20 Mg Tablet 20 Mg PO PRN Q6HRS PRN Clobetasol Emollient 0.05% Crm (Clobetasol Propionate/Emoll) 15 Gm Cream..g. 1 Applic TP BID Apply to Feet, Elbows and hands BID for Rash/itching Clonazepam 2 Mg Tablet 1.5 Mg PO DAILY@1400 I have reviewed the current psychotropics carefully including drug interactions. Risk benefit ratio favors no change other than as noted in my dictated progress note. Diagnosis: Problems: (1) Mild cognitive impairment (2) Major depressive disorder, recurrent episode (3) Impulse control disorder (4) Anxiety disorder (5) Major depression ROMINA SORTO MD October 29, 2017 22:41
--- NOTE | 2017-10-30 02:41 | PN ---
DATE: 10/28/2017 PSYCHIATRIC PROGRESS NOTE This is a late entry for 10/28/2017, covers elements not covered in my initial note of 10/28/2017. SUBJECTIVE: The patient was seen in the evening. The patient has refused to shower, gets very anxious when this is suggested to her. Complains of the pain despite receiving opioids. REVIEW OF SYSTEMS: Ambulation impaired, in Broda chair. No CV, , pulmonary, eye system symptoms on review. Slept 9 hours previous evening. MENTAL STATUS EXAM: Oriented to herself and situation. Speech has some latency, coherent. Abstraction fair, computation impaired, language function intact. Mood and affect still somewhat depressed, but not aggressive. LABORATORY DATA: Reviewed. IMPRESSION: Unchanged from initial note. PLAN: No change from a psychiatric standpoint other than above. MAN Yamilex SORTO MD DR: TOD/moris JOB#: [id number] / [id number]
--- NOTE | 2017-10-30 02:47 | PN ---
DATE: 10/27/2017 This is a late entry, 10/27/2017, covers the elements not covered in my initial note, 10/27/2017. SUBJECTIVE: I met with the patient in the evening, staffed at treatment team meeting with the entire team during the day. The patient continues to be tearful, anxious at times, and pain is always 10/10, even when she has received her narcotics. She spends much time in a bed, crying and she slept 7-1/2 hours previous evening. Social service staff discussed significant family dynamics. Her daughter was in [place]. The patient wants to go there or take a job, limited insight into her ability to do either of these. REVIEW OF SYSTEMS: Ambulation impaired, in Broda chair. No CV, , pulmonary, eye system symptoms on review, does complain of the pain as noted, somewhat tired. MENTAL STATUS EXAM: Oriented to herself and situation. Speech has some latency, coherent. Abstraction fair, computation impaired, language function intact. Mood and affect somewhat withdrawn, but less angry, irritable. LABORATORY DATA: Reviewed. IMPRESSION: Unchanged from initial note. PLAN: Continue psychotropics as mentioned in my initial note. ROMINA SORTO MD DR: TOD/moris JOB#: [id number] / [id number]
--- NOTE | 2017-10-30 22:31 | PDOC ---
Exam Note: Laureano Note: Late entry for date of service October 29, 2017. Please also refer to the separate dictated note~for this date of service dictated separately.~Patient seen individually. Discussed the patient with Nursing staff reviewed the chart.~ Reviewed interim history and current functioning. Reviewed vital signs,~Labs/ Radiology~and current medications noted below. Continue current treatment with the changes noted in the dictated addendum note Assessment: Vital Signs: Vital Signs Date Time Temp Pulse Resp B/P (MAP) Pulse Ox O2 Delivery O2 Flow Rate FiO2 10/29/17 05:40 97.2 87 22 125/65 (85) 93 Room Air 10/26/17 06:18 2.0 I&O Intake and Output 10/30/17 07:00 Intake Total 0 ml Balance 0 ml Intake Oral 0 ml Current Medications: Meds: Current Medications Sodium Chloride 1,000 ml @ 1,000 mls/hr 1X ONCE IV Last administered on at 10:45; Start 10/16/17 at 10:45; Stop 10/16/17 at 11:44; Status DC Acetaminophen (Tylenol) 650 mg 1X ONCE PO Last administered on 10/16/17at 12:23 ; Start 10/16/17 at 12:40; Stop 10/16/17 at 12:41; Status DC Ceftriaxone Sodium 1 gm/ Sodium Chloride 50 ml @ 100 mls/hr 1X ONCE IV ; Start 10/16/17 at 12:45; Stop 10/16/17 at 13:14; Status UNV Sodium Chloride 50 ml @ As Directed STK-MED ONCE .ROUTE ; Start 10/16/17 at 12:45 ; Stop 10/16/17 at 12:46; Status DC Ceftriaxone Sodium (Rocephin) 1 gm STK-MED ONCE IV ; Start 10/16/17 at 12:45; Stop 10/16/17 at 12:46; Status DC Ceftriaxone Sodium (Rocephin) 1 gm 1X ONCE IVP Last administered on 10/16/17at 12:55; Start 10/16/17 at 13:00; Stop 10/16/17 at 13:01; Status DC Acetaminophen (Tylenol) 650 mg PRN Q6HRS PRN PO PAIN / TEMP; Start 10/16/17 at 14:45; Status Cancel Multi-Ingredient Ointment (Analgesic [place]) 1 lacey PRN QID PRN TP MUSCLE PAIN; Start 10/16/17 at 14:45; Stop 10/29/17 at 10:27; Status DC Al Hydroxide/Mg Hydroxide (Mylanta Plus Xs) 15 ml PRN AFTMEALHC PRN PO DYSPEPSIA; Start 10/16/17 at 14:45; Stop 10/29/17 at 10:27; Status DC Magnesium Hydroxide (Milk Of Magnesia) 2,400 mg PRN QHS PRN PO CONSTIPATION; Start 10/16/17 at 14:45; Stop 10/29/17 at 10:27; Status DC Insulin Human Lispro (HumaLOG) 0-7 UNITS TIDWMEALS SQ Last administered on 10/27at 17:23; Start 10/16/17 at 17:00; Stop 10/29/17 at 10:27; Status DC Dextrose 12.5 gm PRN Q15MIN PRN IV SEE COMMENTS; Start 10/16/17 at 16:15; Stop 10/29/17 at 10:27; Status DC Acetaminophen (Tylenol) 650 mg PRN Q4HRS PRN PO PAIN / TEMP; Start 10/16/17 at 16:45; Stop 10/29/17 at 10:27; Status DC Bisacodyl (Dulcolax Supp) 10 mg PRN DAILY PRN RC CONSTIPATION; Start 10/16/17 at 16:45; Stop 10/29/17 at 10:27; Status DC Calcipotriene (Dovonex) 2 lacey BID TP Last administered on 10/29/17at 07:34; Start 10/16/17 at 21:00; Stop 10/29/17 at 10:27; Status DC Clobetasol Propionate 1 lacey BID TP Last administered on 10/29/17at 07:34; Start 10/16/17 at 21:00; Stop 10/29/17 at 10:27; Status DC Clonazepam (KlonoPIN) 2 mg TID PO Last administered on 10/19/17at 12:51; Start at 21:00; Stop 10/19/17 at 18:35; Status DC Glucose (Insta-Glucose) 1 gm PRN Q15MIN PRN PO hypoglycemia; Start 10/16/17 at 16:45; Stop 10/29/17 at 10:27; Status DC Furosemide (Lasix) 40 mg DAILY PO Last administered on 10/29/17at 07:30; Start 10/17/17 at 09:00; Stop 10/29/17 at 10:27; Status DC Albuterol/ Ipratropium (Duoneb) 3 ml PRN Q4HRS PRN NEB SHORTNESS OF BREATH; Start 10/16/17 at 16:45; Stop 10/29/17 at 10:27; Status DC Loperamide HCl (Imodium) 2 mg PRN Q6HRS PRN PO DIARRHEA; Start 10/16/17 at 16:45 ; Stop 10/29/17 at 10:27; Status DC Lorazepam (Ativan Intensol) 2 mg PRN Q3HRS PRN PO restlessness; Start 10/16/17 at 16:45; Stop 10/29/17 at 10:27; Status DC Nystatin (Mycostatin) 1 lacey BID TP Last administered on 10/18/17at 04:49; Start 10/16/17 at 21:00; Stop 10/18/17 at 15:02; Status DC Ondansetron HCl (Zofran Odt) 4 mg PRN Q8HRS PRN PO NAUSEA/VOMITING Last administered on 10/19/17at 08:14; Start 10/16/17 at 16:45; Stop 10/29/17 at 10:27; Status DC Oxycodone HCl (OxyCONTIN) 20 mg BID PO Last administered on 10/29/17at 07:33; Start 10/16/17 at 21:00; Stop 10/29/17 at 10:27; Status DC Oxymetazoline HCl (Afrin) 1 spray PRN Q6HRS PRN NS ALLERGY; Start 10/16/17 at 16 :45; Stop 10/29/17 at 10:27; Status DC Potassium Chloride (Klor-Con) 20 meq BID PO Last administered on 10/29/17at 07: 30; Start 10/16/17 at 21:00; Stop 10/29/17 at 10:27; Status DC Sennosides (Senna) 8.6 mg DAILY PO Last administered on 10/29/17at 07:29; Start 10/17/17 at 09:00; Stop 10/29/17 at 10:27; Status DC Sennosides (Senna) 8.6 mg PRN DAILY PRN PO CONSTIPATION; Start 10/16/17 at 16:45 ; Stop 10/29/17 at 10:27; Status DC Artificial Tears (Artificial Tears) 2 drop PRN Q3HRS PRN OU DRY EYE; Start 10/16 at 17:15; Stop 10/29/17 at 10:27; Status DC Divalproex Sodium (Depakote) 250 mg TID PO Last administered on 10/18/17at 13:22 ; Start 10/16/17 at 21:00; Stop 10/18/17 at 19:28; Status DC Hyoscyamine (Anaspaz) 0.125 mg PRN Q2HR PRN PO SECRETIONS; Start 10/16/17 at 17: 30; Stop 10/29/17 at 10:27; Status DC Insulin Glargine (Lantus) 10 units QHS SQ Last administered on 10/28/17at 19:51 ; Start 10/16/17 at 21:00; Stop 10/29/17 at 10:27; Status DC Oxycodone HCl (Roxicodone) 20 mg QID PO Last administered on 10/29/17at 07:34; Start 10/16/17 at 17:30; Stop 10/29/17 at 10:27; Status DC Oxycodone HCl (Roxicodone) 20 mg PRN Q6HRS PRN PO PAIN Last administered on at 00:29; Start 10/16/17 at 17:30; Stop 10/29/17 at 10:27; Status DC Triamcinolone Acetonide (Kenalog) 1 lacey BID TP Last administered on 10/29/17at 07:34; Start 10/16/17 at 21:00; Stop 10/29/17 at 10:27; Status DC Non-Formulary Medication ([morphine sulfate ] ) 0.5 ml Q4HRS SQ ; Start 10/16/17 at 20:00; Status UNV Enoxaparin Sodium (Lovenox 30mg Syringe) 30 mg Q24H SQ Last administered on at 19:51; Start 10/16/17 at 21:00; Stop 10/29/17 at 10:27; Status DC Duloxetine HCl (Cymbalta) 30 mg DAILY PO Last administered on 10/22/17at 08:43; Start 10/18/17 at 09:00; Stop 10/22/17 at 09:01; Status DC Polyethylene Glycol (miraLAX) 17 gm DAILY PO Last administered on 10/29/17at 07: 29; Start 10/19/17 at 09:00; Stop 10/29/17 at 10:27; Status DC Nystatin (Nystop) 1 lacey BID TP Last administered on 10/29/17at 07:35; Start 10/18 at 21:00; Stop 10/29/17 at 10:27; Status DC Vitamin D (Vitamin D3) 50,000 unit WEEKLY PO Last administered on 10/26/17at 09: 32; Start 10/19/17 at 09:00; Stop 10/29/17 at 10:27; Status DC Nystatin (Nystop) 15 lacey STK-MED ONCE TP ; Start 10/18/17 at 17:41; Stop 10/18/17 at 17:42; Status DC Divalproex Sodium (Depakote Er) 750 mg HS PO Last administered on 10/28/17at 19: 44; Start 10/18/17 at 21:00; Stop 10/29/17 at 10:27; Status DC Clonazepam (KlonoPIN) 2 mg BID92 PO Last administered on 10/23/17at 12:41; Start 10/20/17 at 09:00; Stop 10/23/17 at 18:47; Status DC Clonazepam (KlonoPIN) 1.5 mg QHS PO Last administered on 10/28/17at 19:48; Start 10/19/17 at 21:00; Stop 10/29/17 at 10:27; Status DC Duloxetine HCl (Cymbalta) 60 mg DAILY PO Last administered on 10/29/17at 07:29; Start 10/23/17 at 09:00; Stop 10/29/17 at 10:27; Status DC Clonazepam (KlonoPIN) 2 mg 1400 PO Last administered on 10/26/17at 14:12; Start 10/24/17 at 14:00; Stop 10/26/17 at 18:51; Status DC Clonazepam (KlonoPIN) 1.5 mg DAILY PO Last administered on 10/29/17at 07:33; Start 10/24/17 at 09:00; Stop 10/29/17 at 10:27; Status DC Bupropion HCl (Wellbutrin Xl) 150 mg DAILY PO Last administered on 10/29/17at 07 :30; Start 10/25/17 at 09:00; Stop 10/29/17 at 10:27; Status DC Clonazepam (KlonoPIN) 1.5 mg DAILY@1400 PO Last administered on 10/28/17at 12:08 ; Start 10/27/17 at 14:00; Stop 10/29/17 at 10:27; Status DC Active Scripts Active Reported Polyethylene Glycol 3350 255 Gm Powder 17 Gm PO DAILY Bupropion Xl (Bupropion Hcl) 150 Mg Tab.er.24h 150 Mg PO DAILY Clonazepam 1 Mg Tablet 1.5 Mg PO QHS Clonazepam 1 Mg Tablet 1.5 Mg PO DAILY Analgesic [place] (Methyl Salicylate/Menthol) 28 Gm Oint...g. 1 [place] TP PRN QID PRN Milk Of Magnesia (Magnesium Hydroxide) 2,400 Mg/10 Ml Oral.susp 2,400 Mg PO PRN QHS PRN Mag-Al Plus Xs Suspension (Mag Hydrox/Al Hydrox/Simeth) 30 Ml Oral.susp 15 Ml PO PRN AFTMEALHC PRN Lovenox (Enoxaparin Sodium) 30 Mg/0.3 Ml Disp.syrin 30 Mg SQ Q24H Cymbalta (Duloxetine Hcl) 60 Mg Capsule.dr 60 Mg PO DAILY Vitamin D3 (Cholecalciferol (Vitamin D3)) 5,000 Unit Tablet 5,000 Unit PO WEEKLY Divalproex Sodium Er (Divalproex Sodium) 250 Mg Tab.er.24h 750 Mg PO QHS Artificial Tears (Polyvinyl Alcohol) 15 Ml Drops 2 Drop OP PRN Q3HRS PRN Novolog (Insulin Aspart) 100 Unit/1 Ml Cartridge 0-7 Unit SQ TIDWMEALS Zofran Odt (Ondansetron) 4 Mg Tab.rapdis 4 Mg PO PRN Q8HRS PRN Triamcinolone Acetonide 15 Gm Cream..g. 1 [place] TP BID Senokot (Sennosides) 8.6 Mg Tablet 8.6 Mg PO PRN DAILY PRN Senokot (Sennosides) 8.6 Mg Tablet 8.6 Mg PO DAILY Klor-Con M20 (Potassium Chloride) 20 Meq Tab.er.prt 20 Meq PO BID Oxycontin (Oxycodone HCl) 20 Mg Tab.er.12h 20 Mg PO BID Oxycodone Hcl 10 Mg Tablet 20 Mg PO QID Nystatin 15 Gm Oint...g. 1 [place]acey TP BID Nasal [place] Sinus (Oxymetazoline Hcl) 30 Ml [place] 1 Spr NS PRN Q6HRS PRN Lorazepam Intensol (Lorazepam) 2 Mg/1 Ml Oral.conc 1 Ml PO PRN Q3HRS PRN Levsin-Sl (Hyoscyamine Sulfate) 0.125 Mg Tab.subl 0.125 Mg SL PRN Q2HR PRN Levemir (Insulin Detemir) 100 Unit/1 Ml Vial 10 Unit SQ HS Lasix (Furosemide) 40 Mg Tablet 40 Mg PO DAILY Imodium A-D (Loperamide HCl) 2 Mg Capsule 2 Mg PO PRN Q6HRS Glucose Gel (Dextrose) 38 Gm Gel..gram. 1 Gm PO PRN Q15MIN PRN Duoneb 0.5-3(2.5) Mg/3 Ml (Albuterol/Ipratropium) 3 Ml Ampul.neb 3 Ml NEB PRN Q4HRS PRN Calcipotriene 60 Gm Cream..g. 2 Lacey TP BID Tylenol (Acetaminophen) 325 Mg Tablet 650 Mg PO PRN Q4HRS PRN Dulcolax (Bisacodyl) 10 Mg Supp.rect 10 Mg RC PRN DAILY PRN Oxycodone Hcl 20 Mg Tablet 20 Mg PO PRN Q6HRS PRN Clobetasol Emollient 0.05% Crm (Clobetasol Propionate/Emoll) 15 Gm Cream..g. 1 Applic TP BID Apply to Feet, Elbows and hands BID for Rash/itching Clonazepam 2 Mg Tablet 1.5 Mg PO DAILY@1400 I have reviewed the current psychotropics carefully including drug interactions. Risk benefit ratio favors no change other than as noted in my dictated progress note. Diagnosis: Problems: (1) Major depression (2) Anxiety disorder (3) Impulse control disorder (4) Major depressive disorder, recurrent episode (5) Mild cognitive impairment ROMINA SORTO MD October 30, 2017 22:31
--- NOTE | 2017-10-31 03:54 | DS ---
DATE OF DISCHARGE: 10/29/2017 DISCHARGE SUMMARY/PSYCHIATRIC PROGRESS NOTE This late entry 10/29/2017 covers elements not covered in my initial note 10/29/2017. REASON FOR ADMISSION: Please refer to the admission history for details. Briefly, the patient is a 67-year-old female referred to us from [facility] referred by her primary care physician and psychiatrist on account of worsening symptoms of depression after the patient voiced suicidal ideation even though she did not have a specific plan. She is extremely anxious, labile in her mood, noted to have attention-seeking behaviors. She had failed outpatient psychiatric interventions resulting in this referral. SIGNIFICANT FINDINGS AND CLINICAL COURSE: Following admission, the patient was seen daily individually by myself, followed medically per Dr. Elias/Dr. Fong/Dr. Sims. She was extremely depressed, withdrawn, irritable, anxious. Adjustments were made in her psychotropic, she seemed to respond to a combination of Klonopin 1.5 mg t.i.d., which was a gradual dose reduction along with Ativan p.r.n., Depakote ER 750 mg at bedtime, Valproic acid level therapeutic at 67, Cymbalta 60 mg a day, Wellbutrin-XL 150 mg a day to augment the Cymbalta. Gradually mood appeared to improve. She denied suicidal ideations, still withdrawn, anxious at times. REVIEW OF SYSTEMS: Prior to discharge 10/29/2017, ambulation impaired, in Broda chair. No CV, , pulmonary, eye system symptoms on review. MENTAL STATUS EXAM: Oriented to herself and situation. Speech moderate latency, often responses monosyllabic. Abstraction fair, computation impaired, language function intact, attention span short. Mood and affect showing improvement. No active suicidal ideation on discharge. CONDITION ON DISCHARGE: Improved. FINAL DIAGNOSES: Major depressive disorder with psychotic features in partial remission; anxiety disorder, unspecified; impulse control disorder, unspecified. Rest unchanged from admission. DISCHARGE MEDICATIONS: Please refer to the MRAD. DISCHARGE INSTRUCTIONS: Outpatient psychiatric and medical followup at the care home. MAN Yamilex SORTO MD DR: TOD/moris JOB#: [id number] / [id number]
== END 2017-10-29 10:00 | disposition home or self-care (01) | DRG 885 ==
LOC: ER 09:51 → GEROPSY 14:31
PROVIDERS: ADMIT Psychiatry & Neurology Psychiatry; ATTEND Psychiatry & Neurology Psychiatry
DX: F31.5 Bipolar disorder, current episode depressed, severe, with psychotic features (principal); I48.91 Unspecified atrial fibrillation; I50.9 Heart failure, unspecified; R45.851 Suicidal ideations; G31.84 Mild cognitive impairment of uncertain or unknown etiology; N31.9 Neuromuscular dysfunction of bladder, unspecified; E11.9 Type 2 diabetes mellitus without complications; N39.0 Urinary tract infection, site not specified; E78.5 Hyperlipidemia, unspecified; F41.9 Anxiety disorder, unspecified; F63.9 Impulse disorder, unspecified; J44.9 Chronic obstructive pulmonary disease, unspecified; Z66 Do not resuscitate; K21.9 Gastro-esophageal reflux disease without esophagitis; G89.29 Other chronic pain; M81.0 Age-related osteoporosis without current pathological fracture; M19.90 Unspecified osteoarthritis, unspecified site; L40.9 Psoriasis, unspecified; Z87.891 Personal history of nicotine dependence; Z74.01 Bed confinement status; Z87.01 Personal history of pneumonia (recurrent); Z90.49 Acquired absence of other specified parts of digestive tract; Z98.51 Tubal ligation status; Z99.3 Dependence on wheelchair; Z88.0 Allergy status to penicillin; Z88.5 Allergy status to narcotic agent; Z88.8 Allergy status to other drugs, medicaments and biological substances
CPT/HCPCS: 36415; 71045; 80053; 80061; 80164; 81001; 82306; 82607; 82947; 83036; 83540; 83550; 83735; 84436; 84443; 84480; 85025; 86593; 93005; 96361; 96374; J0696; J1650; J1815; Q0162; 99285-25; J7030

== ENCOUNTER 2019-10-19 19:52 | Inpatient (IN) | payer MEDICARE, MEDICAID ==
[~2019-10-19] VITALS: Ht 172.7 cm; Wt 94.0 kg
[~2019-10-19 19:52] MED LIST changes: -ASCO500T2 PO; +ASCO500T4 PO; +BUPR-192 PO; +CALC60CR TP; +CHOL500016 PO; +CLON1TAB11 PO; -CLON2TAB2 PO; +CLON2TAB9 PO; +DEXT15DR5 EACHEYE; +DEXT38GE2 PO; +DIVA250T14 PO; +DIVA500T2 PO; -DULO60CA44 PO; +DULO60CA6 PO; +DULO60CA98 PO; +ENOX30DI SQ; +FURO-68 PO; +HYOS0.1265 SL; +INSU100C4 SQ; +INSU100V13 SQ; +IPRA3AMP29 NEB; +LOPE-101 PO; +LORA2ORA8 PO; +MAG30ORA2 PO; -MAGN2400 PO; +MAGN24003 PO; -METF10003 PO; +METF10007 PO; +METH28OI2 TP; +NYST15OI TP; +ONDA4TAB10 PO; +OXYC10TA PO; +OXYC20TA35 PO; -OXYC30TA PO; +OXYC30TA3 PO; +OXYM30SP17 NS; +POLY15DR27 OP; -POLY255P PO; +POLY255P11 PO; +POTA20TA4 PO; +SENN8.6T99 PO; +SIMV20TA18 PO; -SIMV20TA3 PO; +TRIA15CR50 TP; +ZINC50TA10 PO; -ZINC50TA2 PO; +morphine sulfate SQ
--- NOTE | 2019-10-19 20:14 | PHYS DOC ---
Past History Past Medical History: Anxiety, Bronchitis, CHF, Dementia, Depression, Diabetes, GERD, Pneumonia, UTI Past Medical History Post polio syndrome-wheelchair dependent Past Surgical History: Appendectomy, Cholecystectomy, Tubal ligation Past Surgical History Supra pubic cath. Alcohol Use: None Drug Use: None General Adult HPI: HPI: " They sent me...because I said things.. I get anxiety... Sometimes I don't want to do... stuff..."..." I get angry..." Patient is a 69 year old female who presents with above complaints and hx. of disruptive behavior. Pt. a resident of [place], [place], since 07/21/2019. Pt. reportedly has had mental status change, with increased yelling , calling the staff whores, threatening staff, calling police, non-compliant with attempts to re-direct and treatment efforts. Pt. follows with Dr. Simon Bonds. Pt.DPOA sister Tatiana Cummings [phone]. Patient has had past history of diagnosis of depression, mood instability, insomnia, suicidal ideation, dementia with short-term memory issues, poor impulse control. Patient reportedly did have a previous admission at our senior behavioral unit and 10/16/2017. Patient has previous history of CHF, diabetes, GERD, UTIs, post polio syndrome and wheel chair dependent. Review of Systems: Review of Systems: Constitutional: Denies fever or chills Eyes: Denies change in visual acuity HENT: Denies nasal congestion or sore throat Respiratory: Denies cough or shortness of breath Cardiovascular: Denies chest pain or edema GI: Denies abdominal pain, nausea, vomiting, bloody stools or diarrhea : Denies dysuria Musculoskeletal: Denies back pain or joint pain Integument: Denies rash Neurologic: Denies headache, focal weakness or sensory changes Endocrine: Denies polyuria or polydipsia Lymphatic: Denies swollen glands Psychiatric: Complaints of depression or anxiety Heart Score: HEART Score for Chest Pain: HEART Score for Chest Pain Response (Comments) Value History Slighlty/Non-Suspicious 0 ECG Normal 0 Age > 65 2 Risk Factors 1 or 2 Risk Factors 1 Troponin < Normal Limit 0 Total 3 Risk Factors: Risk Factors: DM, Current or recent (<one month) smoker, HTN, HLP, family history of CAD, obesity. Risk Scores: Score 0 - 3: 2.5% MACE over next 6 weeks - Discharge Home Score 4 - 6: 20.3% MACE over next 6 weeks - Admit for Clinical Observation Score 7 - 10: 72.7% MACE over next 6 weeks - Early Invasive Strategies Family History: Family History: Not currently available Current Medications: Current Meds: See nursing for home meds Allergies: Allergies: Allergies Coded Allergies Type Severity Reaction Last Updated Verified MARÍA Inhibitors Allergy Intermediate 10/18/17 Yes codeine Allergy Intermediate Itching 02/01/15 Yes penicillin Allergy Intermediate Itching 02/01/15 Yes quetiapine Allergy Intermediate 10/18/17 Yes Physical Exam: PE: Constitutional: no acute distress, non-toxic appearance. [] HENT: Normocephalic, atraumatic, bilateral external ears normal, oropharynx moist, no oral exudates, nose normal. [] Eyes: PERRLA, EOMI, conjunctiva normal, no discharge. [] Neck: Normal range of motion, no tenderness, supple, no stridor. [] Cardiovascular:Heart rate regular rhythm, no murmur [] Lungs & Thorax: Bilateral breath sounds equal at apex with some basilar crackles on auscultation [. Patient has a] few scattered wheezes. Abdomen: Bowel sounds normal, soft, no tenderness, distended., Suprapubic catheter, no masses, no pulsatile masses. Old surgical scars Skin: Warm, dry, groin and sacral erythema, no rash. [] Back: No tenderness, no CVA tenderness. [] Extremities: No tenderness, no cyanosis, no clubbing, bilateral foot drop, . Neurologic: Alert and oriented X 3, at time refuses to answer questions, will move upper arms on request, and has upper arm sensory function, lower limb weakness/paralysis and foot drop Psychologic: Affect flat, but at times angry, anxious, appears to have some memory deficits, , mood depressed but patient denies any suicidal ideation. The patient did state she would like to " hurt some people ." EKG: EKG: My interpretation EKG shows a sinus rhythm at 89 bpm. No acute morphology. [] Radiology/Procedures: Radiology/Procedures: [[address] [address] IMAGING REPORT Signed PATIENT: ARTURO GEORGE ACCOUNT: [id number] : 1950 LOCATION: ER AGE: 69 SEX: F EXAM STATUS: PRE ER ORD. PHYSICIAN: DHRUV HOLLY MD REASON: Mental status change PROCEDURE: CT HEAD WO CONTRAST EXAM: CT Head without IV contrast CLINICAL HISTORY: Mental status change COMPARISON: None. TECHNIQUE: Routine CT of the head without contrast. Soft tissues and bone windows were reviewed. PQRS compliance statement - One or more of the following individualized dose reduction techniques were utilized for this study: 1. Automated exposure control 2. Adjustment of the mA and/or kV according to patient size 3. Use of iterative reconstruction technique FINDINGS: There is no evidence of hemorrhage, mass or extra-axial fluid collection. Apodaca-white differentiation is maintained with no evidence of edema. Subcortical, periventricular as well as deep white matter foci of hypoattenuation may be seen with chronic small vessel disease. There is no mass effect or shift of the intracranial structures. The ventricles, basilar cisterns and cortical sulci are normal in size and configuration for the patients stated age. The cerebellum and brainstem are unremarkable. The calvarium demonstrates no evidence of fracture or focal lesion. There is normal aeration of the visualized paranasal sinuses and mastoid air cells. The visualized portions of the orbits are normal. Atherosclerotic calcifications of the intracranial internal carotid and vertebral arteries is seen. IMPRESSION: 1. No evidence for acute intracranial process. 2. White matter changes likely chronic small vessel disease. Electronically signed by: Laci Talbot MD (10/19/2019 9:49 PM) [facility] DICTATED AND SIGNED BY: LACI TALBOT MD DATE: 10/19/192148 CC: SIMON BONDS JR, MD; DHRUV HOLLY MD ~ ][address] [address] IMAGING REPORT Signed PATIENT: ARTURO GEORGE ACCOUNT: [id number] : 1950 LOCATION: ER AGE: 69 SEX: F EXAM STATUS: PRE ER ORD. PHYSICIAN: DHRUV HOLLY MD REASON: Psych. evaluation, dyspnea PROCEDURE: PORTABLE CHEST 1V EXAM: AP View of the chest DATE: 10/19/2019 9:03 PM INDICATION: Dyspnea COMPARISON: 10/16/2017 FINDINGS: The heart is not enlarged. Mediastinal and hilar contours are normal. Patchy opacities right midlung and right lower lung may represent atelectasis or consolidation. . No pleural effusion or pneumothorax. IMPRESSION: Patchy opacities right midlung and right lower lung may represent atelectasis or consolidation. Electronically signed by: Laci Talbot MD (10/19/2019 10:08 PM) [facility] DICTATED AND SIGNED BY: LACI TALBOT MD DATE: 10/19/192 CC: SIMON BONDS JR, MD; DHRUV HOLLY MD ~ Course & Med Decision Making: Course & Med Decision Making Pertinent Labs and Imaging studies reviewed. (See chart for details) Patient admitted to Senior behavioral unit - Dr. Hill, Consult to Dr. Fong for medical issues. Will start antibiotic for coverage UTI and Bronchitis/ Pneumonia. Impression: 1. Mental Status Change 2. Hx.Disruptive Behavior 3. Hx.Depression 4, Hx. Anxiety Disorder 5. Hx. Poor Impulse Control 6. Hx. Post Polio Syndrome 7. Hx. DM = 496 8. Hx. IBS/GERD 9. UTI 10. Basilar Atelectasis vs Pneumonia 11. History of COPD/Bronchitis 12. Hx of Non-compliance with meds./ and Tx. plans 13. Elevated Creat/ Bun -36/1.4 14. Malnutrition Alb. 2.9 15. Subtherapeutic valproic acid= 36 16. Elevated CRP 26.9 17. Dementia [] Dragon Disclaimer: Dragon Disclaimer: This electronic medical record was generated, in whole or in part, using a voice recognition dictation system. Departure Departure: Disposition: 01 HOME/RESIDENCE PRIOR TO ADM Condition: STABLE Referrals: SIMON BONDS JR, MD (PCP) Nory Disclaimer This chart was dictated in whole or in part using Voice Recognition software in a busy, high-work load, and often noisy Emergency Department environment. It may contain unintended and wholly unrecognized errors or omissions. Dragon Disclaimer This chart was dictated in whole or in part using Voice Recognition software in a busy, high-work load, and often noisy Emergency Department environment. It may contain unintended and wholly unrecognized errors or omissions. DHRUV HOLLY MD October 19, 2019 20:14
[2019-10-19] MEDS ORDERED: IV RINGERS SOLUTION,LACTATED 1,000 ML IV SCH (21:03)
[2019-10-19] MEDS ORDERED: OXYC1TAB15 PO (21:25)
[2019-10-19] MEDS ORDERED: DEXT38GE2 PO (21:25)
[2019-10-19] MEDS ORDERED: FLUO40CA2 PO (21:25)
[2019-10-19] MEDS ORDERED: INSU100V13 SQ (21:25)
[2019-10-19] MEDS ORDERED: CLON1TAB PO (21:25)
[2019-10-19] MEDS ORDERED: FAMO20TA5 PO (21:25)
[2019-10-19] MEDS ORDERED: INSU200I SQ (21:25)
[2019-10-19] MEDS ORDERED: LINA145C PO (21:25)
[2019-10-19] MEDS ORDERED: BALS60OI3 TP (21:25)
[2019-10-19] MEDS ORDERED: ALBU2.5V8 INH (21:25)
[2019-10-19] MEDS ORDERED: CARB15DR2 OP (21:25)
[2019-10-19] MEDS ORDERED: FERR325T14 PO (21:25)
[2019-10-19] MEDS ORDERED: IPRA3AMP29 NEB (21:25)
[2019-10-19] MEDS ORDERED: BUPR150T11 PO (21:25)
[2019-10-19] MEDS ORDERED: SENN1TAB99 PO (21:25)
[2019-10-19] MEDS ORDERED: DICL100G28 TP (21:25)
[2019-10-19] MEDS ORDERED: FURO40TA4 PO (21:25)
[2019-10-19] MEDS ORDERED: TRAZ150T49 PO (21:25)
[2019-10-19] MEDS ORDERED: GABA-587 PO (21:25)
[2019-10-19] MEDS ORDERED: DIVA250T PO (21:25)
[2019-10-19] MEDS ORDERED: HYDR25TA PO (21:26)
--- NOTE | 2019-10-19 21:51 | RAD ---
EXAM: CT Head without IV contrast CLINICAL HISTORY: Mental status change COMPARISON: None. TECHNIQUE: Routine CT of the head without contrast. Soft tissues and bone windows were reviewed. PQRS compliance statement - One or more of the following individualized dose reduction techniques were utilized for this study: 1. Automated exposure control 2. Adjustment of the mA and/or kV according to patient size 3. Use of iterative reconstruction technique FINDINGS: There is no evidence of hemorrhage, mass or extra-axial fluid collection. Apodaca-white differentiation is maintained with no evidence of edema. Subcortical, periventricular as well as deep white matter foci of hypoattenuation may be seen with chronic small vessel disease. There is no mass effect or shift of the intracranial structures. The ventricles, basilar cisterns and cortical sulci are normal in size and configuration for the patients stated age. The cerebellum and brainstem are unremarkable. The calvarium demonstrates no evidence of fracture or focal lesion. There is normal aeration of the visualized paranasal sinuses and mastoid air cells. The visualized portions of the orbits are normal. Atherosclerotic calcifications of the intracranial internal carotid and vertebral arteries is seen. IMPRESSION: 1. No evidence for acute intracranial process. 2. White matter changes likely chronic small vessel disease. Electronically signed by: Laci Swanson MD (10/19/2019 9:49 PM) TONI
--- NOTE | 2019-10-19 22:11 | RAD ---
EXAM: AP View of the chest DATE: 10/19/2019 9:03 PM INDICATION: Dyspnea COMPARISON: 10/16/2017 FINDINGS: The heart is not enlarged. Mediastinal and hilar contours are normal. Patchy opacities right midlung and right lower lung may represent atelectasis or consolidation. . No pleural effusion or pneumothorax. IMPRESSION: Patchy opacities right midlung and right lower lung may represent atelectasis or consolidation. Electronically signed by: Laci Swanson MD (10/19/2019 10:08 PM) TONI
[2019-10-19 23:15] LABS: BASO # 0.1 x10^3/uL (0.0-0.2); BASO % 1 % (0-3); EOS # 0.3 x10^3/uL (0.0-0.7); EOS % 5 % (0-3); HEMATOCRIT 41.1 % (36.0-47.0); HEMOGLOBIN 13.1 g/dL (12.0-15.5); LYMPH # 1.5 x10^3/uL (1.0-4.8); LYMPH % 24 % (24-48); MEAN CORPUSCULAR HEMOGLOBIN 31 pg (25-35); MEAN CORPUSCULAR HGB CONC 32 g/dL (31-37); MEAN CORPUSCULAR VOLUME 96 fL (79-100); MONO # 0.6 x10^3/uL (0.0-1.1); MONO % 10 % (0-9); NEUT # 3.6 x10^3uL (1.8-7.7); NEUT % 60 % (31-73); PLATELET COUNT 227 x10^3/uL (140-400); RED BLOOD COUNT 4.29 x10^6/uL (3.50-5.40); RED CELL DISTRIBUTION WIDTH 16.3 % (11.5-14.5)
[2019-10-19 23:32] LABS: BACTERIA,URINE MOD /HPF (0-FEW); BILIRUBIN,URINE NEG (NEG); CLARITY,URINE HAZY; COLOR,URINE YELLOW; GLUCOSE,URINE >=1000 mg/dL (NEG); NITRITE,URINE POS (NEG); RBC,URINE OCC /HPF (0-2); SQUAMOUS EPITHELIAL CELL,UR FEW /LPF; UROBILINOGEN,URINE 0.2 mg/dL (0.2 mg/dL); WBC,URINE >40 /HPF (0-4)
[2019-10-19 23:33] LABS: BARBITURATES NEG (NEG); BENZODIAZEPINES NEG (NEG); CANNABINOIDS NEG (NEG); COCAINE NEG (NEG); METHADONE NEG (NEG); OPIATES NEG (NEG); PHENCYCLIDINE NEG (NEG)
[2019-10-19 23:35] LABS: AMPHETAMINE/METHAMPHETAMINE NEG (NEG)
[2019-10-19 23:37] LABS: CALCIUM 9.4 mg/dL (8.5-10.1); CREATININE 1.4 mg/dL (0.6-1.0); GFR 37.3; POTASSIUM 4.9 mmol/L (3.5-5.1); VAL ACID 36 mcg/mL (50-100)
[2019-10-19 23:50] LABS: ALBUMIN 2.9 g/dL (3.4-5.0); DIRECT BILIRUBIN 0.1 mg/dL (0.0-0.2); MAGNESIUM 2.3 mg/dL (1.8-2.4); TOTAL BILIRUBIN 0.2 mg/dL (0.2-1.0)
[2019-10-20] MEDS ORDERED: INSULIN REGULAR 100 UNIT/ML 3ML VIAL. SQ ONE ×2 (01:15)
[2019-10-20] MEDS ORDERED: ACETAMINOPHEN 325 MG TABLET PO PRN ×2 (01:15→03:15)
[2019-10-20] MEDS ORDERED: VALPROIC ACID 250 MG CAPSULE. PO ONE (01:30)
[2019-10-20] MEDS ORDERED: levoFLOXacin 500 MG TABLET PO ONE (01:30)
[2019-10-20] MEDS ORDERED: MAGNESIUM HYDROXIDE 2,400 MG/30 ML ORAL.SUSP. PO PRN (02:30)
[2019-10-20] MEDS ORDERED: METHYL SALICYLATE/MENTHOL TOPICAL OINTMENT 57GM TUBE. TP PRN (02:30)
[2019-10-20] MEDS ORDERED: MAG HYDROX/AL HYDROX/SIMETH 30 ML ORAL.SUSP PO PRN (02:30)
[2019-10-20 02:36] VITALS: BP 153/83
[2019-10-20] MEDS ORDERED: ONDANSETRON ODT 4 MG TAB.RAPDIS PO PRN (03:15)
[2019-10-20] MEDS ORDERED: OXYMETAZOLINE 0.05% NASAL SPRAY 30ML BOTTLE. NS PRN (03:15)
[2019-10-20] MEDS ORDERED: hydrOXYzine HCL 25 MG TABLET PO PRN (03:30)
[2019-10-20] MEDS ORDERED: ALBUTEROL SULFATE 2.5 MG/3 ML NEBU. NEB PRN (03:30)
[2019-10-20] MEDS ORDERED: POLYVINYL ALCOHOL 1.4% OPHTH SOLUTION 15ML BOTTLE. OU PRN (03:30)
[2019-10-20] MEDS ORDERED: HYOSCYAMINE 0.125 MG TAB.RAPDIS PO PRN (03:30)
[2019-10-20] MEDS: oxyCODONE/APAP 5/325 1 TAB TABLET PO PRN ×2 (05:15→07:45)
[2019-10-20 05:34] VITALS: BP 129/64
[2019-10-20] MEDS: FLUoxetine HCL 20 MG CAPSULE PO SCH (07:44)
[2019-10-20] MEDS: GABAPENTIN 400 MG CAPSULE. PO SCH ×2 (07:44→20:27)
[2019-10-20] MEDS: FUROSEMIDE 40 MG TABLET PO SCH (07:44)
[2019-10-20] MEDS: buPROPion SR 150 MG TABLET.SA PO SCH (07:44)
[2019-10-20] MEDS: FERROUS SULFATE 325 MG TABLET. PO SCH (07:44)
[2019-10-20] MEDS ORDERED: ALBUTEROL SULFATE 8GM INHALER. INH PRN (07:45)
[2019-10-20] MEDS: DIVALPROEX 125 MG CAP.SPRINK PO SCH ×3 (07:45→20:27)
[2019-10-20] MEDS: clonazePAM 1 MG TABLET PO SCH ×3 (07:45→20:27)
[2019-10-20] MEDS ORDERED: IPRATRPIUM/ALBUTEROL 0.5/2.5MG 3 ML NEBU. NEB SCH (08:00)
[2019-10-20] MEDS: INSULIN LISPRO 300 UNITS/3 ML VIAL. SQ SCH ×4 (08:00→18:45)
[2019-10-20] MEDS: LUBIPROSTONE 24 MCG CAPSULE PO SCH ×2 (08:37→17:31)
[2019-10-20] MEDS: DICLOFENAC SODIUM 1% TOPICAL GEL 100GM TUBE. TP SCH ×2 (08:40→20:31)
[2019-10-20] MEDS ORDERED: CALCIPOTRIENE TP SCH (09:00)
[2019-10-20] MEDS ORDERED: ALBUTEROL SULFATE 2.5 MG/3 ML NEBU. INH SCH (09:00)
[2019-10-20] MEDS: VITS A & D/LANOLIN TOPICAL OINTMENT 42GM TUBE. TP SCH ×2 (09:00→21:00)
[2019-10-20] MEDS ORDERED: CLOBETASOL EMOLLIENT 0.05% TOPICAL CREAM 15GM TUBE. TP SCH (09:00)
[2019-10-20] MEDS ORDERED: CASTOR OIL TP SCH (09:00)
[2019-10-20] MEDS ORDERED: BALSAM PERU TP SCH (09:00)
[2019-10-20] MEDS ORDERED: IPRATROPIUM/ALBUTEROL 20/100mcg/INH INHALER. INH SCH (12:00)
[2019-10-20 15:46] VITALS: BP 112/70
[2019-10-20] MEDS: IPRATROPIUM/ALBUTEROL 20/100mcg/INH INHALER. INH SCH ×2 (17:31→20:26)
[2019-10-20] MEDS: traZODone 150 MG TABLET. PO SCH (20:27)
[2019-10-20] MEDS: FAMOTIDINE 20 MG TABLET PO SCH (20:28)
[2019-10-20] MEDS: SENNOSIDES/DOCUSATE 8.6/50MG TABLET. PO SCH (20:28)
[2019-10-20] MEDS: INSULIN GLARGINE SYRINGE. SQ SCH (20:29)
[2019-10-20] MEDS: CHOLECALCIFEROL (VITAMIN D3) 50,000 UNIT CAPSULE PO SCH (20:31)
[2019-10-20] MEDS ORDERED: INSULIN GLARGINE SYRINGE. SQ SCH (21:00)
[2019-10-20] MEDS ORDERED: levoFLOXacin 500 MG TABLET PO SCH (21:00)
[2019-10-20 21:06] LABS: THYROXINE 6.5 ug/dL (4.5-12.0)
--- NOTE | 2019-10-20 22:07 | PDOC ---
Exam Note: Laureano Note: Please also refer to the separate dictated note~for this date of service dictated separately. Discussed the patient with Nursing staff reviewed the chart.~Reviewed interim history and current functioning. Reviewed vital signs,~Labs/ Radiology~and current medications noted below. Continue current treatment with the changes noted in the dictated addendum note Assessment: Vital Signs/I&O: Vital Signs Date Time Temp Pulse Resp B/P (MAP) Pulse Ox O2 Delivery O2 Flow Rate FiO2 10/20/19 15:46 97.6 77 16 112/70 (84) 95 10/20/19 06:13 Room Air I & O 10/19/19 10/19/19 10/20/19 15:00 23:00 07:00 Intake Total 1359 ml Output Total 500 ml Balance 859 ml Labs: Laboratory Tests Test 10/19/19 22:10 10/20/19 00:53 10/20/19 01:31 10/20/19 03:53 White Blood Count 6.0 x10^3/uL (4.0-11.0) Red Blood Count 4.29 x10^6/uL (3.50-5.40) Hemoglobin 13.1 g/dL (12.0-15.5) Hematocrit 41.1 % (36.0-47.0) Mean Corpuscular Volume 96 fL (79-100) Mean Corpuscular Hemoglobin 31 pg (25-35) Mean Corpuscular Hemoglobin Concent 32 g/dL (31-37) Red Cell Distribution Width 16.3 % (11.5-14.5) H Platelet Count 227 x10^3/uL (140-400) Neutrophils (%) (Auto) 60 % (31-73) Lymphocytes (%) (Auto) 24 % (24-48) Monocytes (%) (Auto) 10 % (0-9) H Eosinophils (%) (Auto) 5 % (0-3) H Basophils (%) (Auto) 1 % (0-3) Neutrophils # (Auto) 3.6 x10^3uL (1.8-7.7) Lymphocytes # (Auto) 1.5 x10^3/uL (1.0-4.8) Monocytes # (Auto) 0.6 x10^3/uL (0.0-1.1) Eosinophils # (Auto) 0.3 x10^3/uL (0.0-0.7) Basophils # (Auto) 0.1 x10^3/uL (0.0-0.2) Prothrombin Time 10.0 SEC (9.4-11.4) Prothrombin Time INR 1.0 (0.9-1.1) Activated Partial Thromboplast Time 26 SEC (23-33) Sodium Level 138 mmol/L (136-145) Potassium Level 4.9 mmol/L (3.5-5.1) Chloride Level 100 mmol/L (98-107) Carbon Dioxide Level 30 mmol/L (21-32) Anion Gap 8 (6-14) Blood Urea Nitrogen 36 mg/dL (7-20) H Creatinine 1.4 mg/dL (0.6-1.0) H Estimated GFR (Cockcroft-Gault) 37.3 Glucose Level 496 mg/dL (70-99) H Calcium Level 9.4 mg/dL (8.5-10.1) Magnesium Level 2.3 mg/dL (1.8-2.4) Iron Level 49 ug/dL (50-170) L Total Iron Binding Capacity 277 ug/dL (250-450) Iron Saturation 18 % (15-34) Total Bilirubin 0.2 mg/dL (0.2-1.0) Direct Bilirubin 0.1 mg/dL (0.0-0.2) Aspartate Amino Transferase (AST) 12 U/L (15-37) L Alanine Aminotransferase (ALT) 14 U/L (14-59) Alkaline Phosphatase 104 U/L (46-116) Creatine Kinase 38 U/L (26-192) Troponin I Quantitative 0.023 ng/mL (0-0.055) C-Reactive Protein 26.9 mg/L (0-3.3) H KB-Wgc-A-Type Natriuretic Peptide 601 pg/mL (0-124) H Total Protein 8.0 g/dL (6.4-8.2) Albumin 2.9 g/dL (3.4-5.0) L Triglycerides Level 215 mg/dL (0-150) H Cholesterol Level 258 mg/dL (0-200) H LDL Cholesterol, Calculated 156 mg/dL (0-100) H VLDL Cholesterol, Calculated 43 mg/dL (0-40) H Non-HDL Cholesterol Calculated 199 mg/dL (0-129) H HDL Cholesterol 59 mg/dL (40-60) Cholesterol/HDL Ratio 4.0 Lipase 112 U/L (73-393) Vitamin B12 Level 560 pg/mL (247-911) 25-Hydroxy Vitamin D Total 25.5 ng/mL (30-100) L Thyroid Stimulating Hormone (TSH) 1.964 uIU/mL (0.358-3.740) Thyroxine (T4) 6.5 ug/dL (4.5-12.0) Total Triiodothyronine (TT3) 98 ng/dL (71-180) Valproic Acid Level 36 mcg/mL (50-100) L Valproic Acid Last Dose Date Unknown Valproic Acid Last Dose Time Unknown Treponema pallidum Antibody Nonreactive (Nonreactive) Glucose (Fingerstick) 410 mg/dL (70-99) H 402 mg/dL (70-99) H 313 mg/dL (70-99) H Test 10/20/19 08:24 10/20/19 12:18 10/20/19 16:54 10/20/19 19:59 Glucose (Fingerstick) 335 mg/dL (70-99) H 315 mg/dL (70-99) H 204 mg/dL (70-99) H 177 mg/dL (70-99) H Current Medications: Meds: Current Medications Medications (Trade) Dose Ordered Sig/Julia Route PRN Reason Start Time Stop Time Status Last Admin Dose Admin Valproic Acid (Depakene) 500 mg 1X ONCE PO 10/20/19 01:30 10/20/19 01:31 DC 10/20/19 05:16 Levofloxacin (Levaquin) 500 mg 1X ONCE PO 10/20/19 01:30 10/20/19 01:31 DC 10/20/19 01:09 Insulin Human Regular (HumuLIN R VIAL) 10 unit 1X ONCE SQ 10/20/19 01:15 10/20/19 01:16 DC 10/20/19 01:14 Bupropion HCl (Wellbutrin Sr) 150 mg DAILY PO 10/20/19 09:00 10/20/19 07:44 Clonazepam (KlonoPIN) 3 mg TID PO 10/20/19 09:00 10/20/19 20:27 Divalproex Sodium (Depakote Sprinkles) 125 mg TID PO 10/20/19 09:00 10/20/19 20:27 Gabapentin (Neurontin) 400 mg BID PO 10/20/19 09:00 10/20/19 20:27 Oxycodone/ Acetaminophen (Percocet 5/325) 1 tab PRN Q8HRS PRN PO MODERATE PAIN 4-6 10/20/19 03:00 10/20/19 07:45 Trazodone HCl (Desyrel) 150 mg HS PO 10/20/19 21:00 10/20/19 20:27 Fluoxetine HCl (PROzac) 40 mg DAILY PO 10/20/19 09:00 10/20/19 07:44 Clobetasol Propionate 1 joey BID TP 10/20/19 09:00 10/20/19 19:28 DC 10/20/19 08:40 Diclofenac Sodium (Voltaren) 1 joey BID TP 10/20/19 09:00 10/20/19 20:31 Famotidine (Pepcid) 20 mg HS PO 10/20/19 21:00 10/20/19 20:28 Ferrous Sulfate (Feosol) 325 mg DAILY PO 10/20/19 09:00 10/20/19 07:44 Furosemide (Lasix) 40 mg DAILY PO 10/20/19 09:00 10/20/19 07:44 Senna/Docusate Sodium (Senna Plus) 2 tab HS PO 10/20/19 21:00 10/20/19 20:28 Insulin Human Lispro (HumaLOG) 8 units TIDWMEALS SQ 10/20/19 08:00 10/20/19 18:47 DC 10/20/19 17:30 Lubiprostone (Amitiza) 24 mcg BIDWMEALS PO 10/20/19 08:00 10/20/19 17:31 Vitamin A/Vitamin D (Vitamin A & D Ointment) 1 joey BID TP 10/20/19 09:00 10/20/19 21:00 Albuterol/ Ipratropium (Combivent Respimat 20-100 Mcg) 1 puff RTQID INH 10/20/19 12:00 10/20/19 15:11 DC 10/20/19 12:32 Albuterol/ Ipratropium (Combivent Respimat 20-100 Mcg) 1 puff RTQID INH 10/20/19 15:11 10/20/19 20:26 Vitamin D (Vitamin D3) 50,000 unit WEEKLY PO 10/20/19 18:45 10/20/19 20:31 Insulin Glargine (Lantus Syringe) 25 unit QHS SQ 10/20/19 21:00 10/20/19 20:29 I have reviewed the current psychotropics carefully including drug interactions. Risk benefit ratio favors no change other than as noted in my dictated progress note. Diagnosis: Problems: (1) Major depression (2) Anxiety disorder (3) Impulse control disorder (4) Major depressive disorder, recurrent episode (5) Mild cognitive impairment ROMINA SORTO MD October 20, 2019 22:07
--- NOTE | 2019-10-20 23:03 | EKG ---
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
--- NOTE | 2019-10-20 23:17 | HP ---
ADMIT DATE: 10/20/2019 PSYCHIATRIC ADMISSION HISTORY/EVALUATION IDENTIFYING DATA: The patient is a 69-year-old female referred to us back from [facility] by her primary care physician on account of worsening symptoms of depression, anxiety, irritability, mood lability, anger. The patient appeared helpless, hopeless, worthless and behaviors have been unmanageable at the facility. CHIEF COMPLAINT: "No, I have not been here before." In fact, the patient has been hospitalized here twice, the last one about a year and a half back. HISTORY OF PRESENT ILLNESS: The patient has a long history of major depressive disorder; anxiety disorder; impulse control disorder. Most recently at the nursing facility, she appeared depressed, anxious, irritable, labile, noncompliant with treatment, disruptive to the facility and was referred for inpatient psychiatric stabilization. She has had sleep and appetite changes, worsening confusion. She has had no clear history of bipolar disorder, suicidal or homicidal ideation. PAST PSYCHIATRIC HISTORY: As above. MEDICAL HISTORY: Positive for postpolio syndrome, acute renal failure, type 2 diabetes mellitus, history of pneumonia, weakness, dysphagia, irritable bowel syndrome, GERD, hyperlipidemia, chronic kidney disease. ACCU-CHEKS: Before meals and at bedtime. DIET: Diabetic, dysphagia 2 diet. Ambulates in wheelchair. UA culture is pending. CODE STATUS: DNR. ALLERGIES: CODEINE, SEROQUEL, ZYPREXA, PENICILLIN, MARÍA INHIBITORS. CURRENT PSYCHOTROPICS: Wellbutrin 150 mg daily, Klonopin 3 mg t.i.d. and she has been on this dose since about 5 years as a muscle relaxant. Gabapentin 400 mg t.i.d., Prozac 40 mg a day, trazodone 150 mg at bedtime and Depakote, his level is ____. FAMILY HISTORY: Noncontributory. SOCIAL HISTORY: No history of alcohol, drug abuse, physical, sexual or elder abuse. She is not known to be a perpetrator. REACTION TO HOSPITALIZATION: The patient accepting of this. ASSETS: Supportive, living at the intermediate. MENTAL STATUS EXAMINATION: The patient was seen individually on audiovisual rounds evening of 10/20/2019. She did not remember me from the prior visit and did not remember she had been here before. Her short-term memory is impaired. She felt it was 08/2019, was aware of who the president was. Speech is coherent, abstraction fair, computation impaired, language function intact. Mood is somewhat depressed, anxious. Short-term memory is impaired. She is somewhat paranoid. No active suicidal or homicidal ideation. Attention span is short, language function intact. IMPRESSION: Major depressive disorder, recurrent; anxiety disorder, unspecified; impulse control disorder. Rest as above. PLAN: Admit to Ger[facility]ychiatry Unit at [facility]. I will see the patient daily individually from a psychiatric standpoint, medical followup with Dr. Fong. We will check with Dr. Fong on the dosage of Klonopin since we would not use these high dosages from a psychiatric standpoint. Continue current psychotropics, observe baseline, await urine C and S and treat as indicated. We will make further adjustments as clinically indicated. ESTIMATED LENGTH OF STAY: 10-12 days. DISPOSITION: Plan is back to intermediate when stable. ROMINA SORTO MD DR: TOD/moris JOB#: [id number] / [id number]
--- NOTE | 2019-10-21 04:18 | CONS ---
DATE OF CONSULTATION: 10/20/2019 REASON FOR CONSULTATION: Medical management. HISTORY OF PRESENT ILLNESS: The patient is a 69-year-old female patient, a resident at [facility], who was admitted [facility] on account of name calling, yelling, called police, attempted to pull her suprapubic catheter, irritable, all this in a depression and anxiety disorder, impulse control disorder and mild cognitive impairment. PAST MEDICAL HISTORY: Significant for chronic obstructive pulmonary disease, type 2 diabetes mellitus, hyperlipidemia, gastroesophageal reflux disease, atrial fibrillation and neurogenic bladder requiring suprapubic catheter, severe osteoporosis, osteoarthritis, psoriasis. She also has post-polio syndrome. PAST SURGICAL HISTORY: Significant for suprapubic catheter placement. FAMILY HISTORY: Noncontributory. SOCIAL HISTORY: She apparently is residing now at [facility]. She used to be a smoker. She used to be able to use her scooter; however, she is now bedridden. She has a [place] lift. She does not drink alcohol or any recreational drugs. ALLERGIES: She is allergic to MARÍA INHIBITORS, CODEINE, PENICILLIN AND QUETIAPINE. MEDICATIONS: She is currently on following medications: She is currently on hyoscyamine sulfate for Levsin 0.125 mg sublingually every 2 hours. She is on DuoNeb 0.5-2.5 mg in 2 mL by nebulizer every 4 hours, albuterol sulfate for ProAir 2 puffs 3 times a day, ferrous sulfate 325 mg once a day, diclofenac sodium 100 grams gel 1 gram applied topically twice a day, oxycodone/APAP 5/325 one tablet every 8 hours, acetaminophen 650 mg every 6 hours. Clonazepam, she takes 3 mg 3 times a day; divalproex sodium 125 mg 3 times a day; gabapentin 400 mg 3 times a day; Wellbutrin 150 mg p.o. daily; fluoxetine 40 mg daily; trazodone 150 mg at bedtime; hydroxyzine 25 mg every 8 hours as needed. She is on glucose gel as needed for hypoglycemia, furosemide 40 mg once a day. She is on oxymetazoline nasal spray one spray to each nostril every 8 hours, carboxymethylcellulose sodium, Refresh Tears 1 drop to both eyes as needed every 3 hours, senna-S 2 tablets at bedtime. She is on ondansetron 4 mg every 8 hours, famotidine 20 mg once a day, linaclotide for Linzess 145 mcg daily. She is on Levemir insulin 21 units at bedtime, Humalog insulin 8 units 3 times a day. She is on clobetasol propionate 1 application topically twice a day, ____ plus castor oil apply topically twice a day, calcipotriene 1 application topically twice a day, cholecalciferol vitamin D 5000 units at bedtime. REVIEW OF SYSTEMS: As per history of present illness. PHYSICAL EXAMINATION: GENERAL: When I examined her, she was resting slightly propped up in bed, in no apparent distress. She was somewhat pale, nonjaundiced, cyanosis or thyromegaly. No jugular venous distention. No limb edema. VITAL SIGNS: Her heart rate was 77, blood pressure was 112/70, temperature was 97.6, respiratory rate was 16, and oxygen saturation was 95%. HEAD, EYES, EARS, NOSE AND THROAT: Normocephalic, atraumatic. NECK: Supple. HEART: Showed normal first and second heart sounds. No gallop, rub or murmur. CHEST: Clear to auscultation. No crepitation or rhonchi. ABDOMEN: Distended, soft with suprapubic catheter in place. No guarding or rigidity. No organomegaly. Hernial orifice intact. Bowel sounds normal. NEUROLOGIC: She was awake, alert, but extremely confused and disoriented. All her cranial nerves intact. She moves upper extremities to much extent than lower extremities. She has fixed flexion contraction of both lower extremities. She has also wry neck. LABORATORY DATA: Her lab work on arrival showed a white cell count of 6000, hemoglobin 13, hematocrit 41, MCV 96, and platelet count 227,000. Her most recent lab work shows a serum sodium of 138, potassium 4.9, chloride 100, bicarbonate 30, anion gap of 8, BUN 36, creatinine 1.4, estimated GFR was 37 mL per minute. Her glucose was high at 496, calcium was 9.4, magnesium was 2.3. Total bilirubin, AST, ALT, alkaline phosphatase were normal. Her total protein was 8, albumin was 2.9. Her lipase was normal. Her TSH was normal at 1.964. Her serum iron was 49, TIBC was 277 and iron saturation was 18. Her vitamin B12 was 560 pg/mL and 25-hydroxy vitamin D was only 25.5 ng/mL. Her thrombin time, INR and aPTT are normal. Her urinalysis showed the urine was yellow, hazy with a pH of 7, specific gravity of 1.015. There was small amount of protein, large amount of glucose. Urine was positive for nitrite, small amount of leukocyte esterase, more than 40 wbc's. Her toxic screen essentially showed the valproic acid to be 36 ng/mL and her treponema pallidum antibody nonreactive. IMPRESSION: In summary, this is a 69-year-old female patient who was admitted on account of yelling, name calling, called the police, wanting catheter out, irritating staff and basically had very disruptive behavior. She is calling the staff whore, threatening staff, noncompliant with attempt to redirect and treatment efforts. Given her previous history of depression, mood instability and insomnia, she was admitted to [facility] for inpatient psychiatric stabilization. She was here twice before. Medically, she obviously has urinary tract infection that may be contributing to her psychosis. She was already started on levofloxacin. Her vitamin D is low also and her blood sugar is poorly controlled. PLAN: My plan is to continue with levofloxacin and await the results of the culture and sensitivity, replenish her vitamin D, and adjust her insulin to achieve a better control of her blood sugar Thank you, Dr. Hill, for allowing me to participate in the care of this patient. ELOY RIVERA MD DR: RACHEL/moris JOB#: [id number] / [id number]
[2019-10-21] MEDS ORDERED: levoFLOXacin 500 MG TABLET PO SCH (06:00)
[2019-10-21 06:24] VITALS: BP 119/67
[2019-10-21] MEDS: clonazePAM 1 MG TABLET PO SCH ×3 (07:59→20:34)
[2019-10-21] MEDS: GABAPENTIN 400 MG CAPSULE. PO SCH ×2 (07:59→20:34)
[2019-10-21] MEDS: DIVALPROEX 125 MG CAP.SPRINK PO SCH ×3 (07:59→20:34)
[2019-10-21] MEDS: FUROSEMIDE 40 MG TABLET PO SCH (07:59)
[2019-10-21] MEDS: FERROUS SULFATE 325 MG TABLET. PO SCH (07:59)
[2019-10-21] MEDS: LUBIPROSTONE 24 MCG CAPSULE PO SCH ×2 (07:59→16:52)
[2019-10-21] MEDS: buPROPion SR 150 MG TABLET.SA PO SCH (07:59)
[2019-10-21] MEDS: IPRATROPIUM/ALBUTEROL 20/100mcg/INH INHALER. INH SCH ×4 (08:00→20:34)
[2019-10-21] MEDS: FLUoxetine HCL 20 MG CAPSULE PO SCH (08:00)
[2019-10-21] MEDS: INSULIN LISPRO 300 UNITS/3 ML VIAL. SQ SCH ×3 (08:01→16:56)
[2019-10-21] MEDS: LACTOBACILLUS RHAMNOSUS GG 1 CAPSULE. PO SCH ×2 (08:02→20:34)
[2019-10-21] MEDS: DICLOFENAC SODIUM 1% TOPICAL GEL 100GM TUBE. TP SCH ×2 (08:03→20:35)
[2019-10-21] MEDS: VITS A & D/LANOLIN TOPICAL OINTMENT 42GM TUBE. TP SCH ×2 (08:03→20:35)
[2019-10-21] MEDS: CLOBETASOL EMOLLIENT 0.05% TOPICAL CREAM 15GM TUBE. TP SCH ×2 (09:00→20:35)
[2019-10-21 15:32] VITALS: BP 102/66
[2019-10-21] MEDS: SENNOSIDES/DOCUSATE 8.6/50MG TABLET. PO SCH (20:34)
[2019-10-21] MEDS: traZODone 150 MG TABLET. PO SCH (20:34)
[2019-10-21] MEDS: FAMOTIDINE 20 MG TABLET PO SCH (20:34)
[2019-10-21] MEDS: INSULIN GLARGINE SYRINGE. SQ SCH (21:40)
--- NOTE | 2019-10-21 22:15 | PDOC ---
Exam Note: Laureano Note: Please also refer to the separate dictated note~for this date of service dictated separately.~Patient seen individually. Discussed the patient with Nursing staff reviewed the chart.~Reviewed interim history and current functioning. Reviewed vital signs,~Labs/ Radiology~and current medications noted below. Continue current treatment with the changes noted in the dictated addendum note Assessment: Vital Signs/I&O: Vital Signs Date Time Temp Pulse Resp B/P (MAP) Pulse Ox O2 Delivery O2 Flow Rate FiO2 10/21/19 15:32 98.2 76 18 102/66 (78) 92 Nasal Cannula 2.0 I & O 10/20/19 10/20/19 10/21/19 15:00 23:00 07:00 Intake Total 580 ml 240 ml Output Total 500 ml Balance 580 ml -260 ml Labs: Laboratory Tests Test 10/21/19 07:46 10/21/19 11:45 10/21/19 17:01 10/21/19 19:05 Glucose (Fingerstick) 215 mg/dL (70-99) H 175 mg/dL (70-99) H 249 mg/dL (70-99) H 180 mg/dL (70-99) H Current Medications: Meds: Current Medications Medications (Trade) Dose Ordered Sig/Julia Route PRN Reason Start Time Stop Time Status Last Admin Dose Admin Levofloxacin (Levaquin) 500 mg DAILY06 PO 10/21/19 06:00 10/21/19 12:08 DC 10/21/19 05:29 Lactobacillus Rhamnosus (Culturelle) 1 cap BID PO 10/21/19 09:00 10/21/19 20:34 Clobetasol Propionate 1 joey BID TP 10/21/19 09:00 10/21/19 20:35 Vitamin A/Vitamin D (Vitamin A & D Ointment) 1 joey BID TP 10/21/19 21:00 10/21/19 20:35 I have reviewed the current psychotropics carefully including drug interactions. Risk benefit ratio favors no change other than as noted in my dictated progress note. Diagnosis: Problems: (1) Anxiety disorder (2) Impulse control disorder (3) Major depressive disorder, recurrent episode (4) Mild cognitive impairment ROMINA SORTO MD October 21, 2019 22:15
[2019-10-22] MEDS ORDERED: levoFLOXacin 250 MG TABLET PO SCH (06:00)
[2019-10-22 06:38] VITALS: BP 104/53
[2019-10-22] MEDS: IPRATROPIUM/ALBUTEROL 20/100mcg/INH INHALER. INH SCH ×4 (07:57→20:28)
[2019-10-22] MEDS: CLOBETASOL EMOLLIENT 0.05% TOPICAL CREAM 15GM TUBE. TP SCH ×2 (07:57→20:29)
[2019-10-22] MEDS: VITS A & D/LANOLIN TOPICAL OINTMENT 42GM TUBE. TP SCH ×2 (07:57→20:29)
[2019-10-22] MEDS: DICLOFENAC SODIUM 1% TOPICAL GEL 100GM TUBE. TP SCH ×2 (07:57→20:39)
[2019-10-22] MEDS: buPROPion SR 150 MG TABLET.SA PO SCH (07:58)
[2019-10-22] MEDS: FUROSEMIDE 40 MG TABLET PO SCH (07:58)
[2019-10-22] MEDS: GABAPENTIN 400 MG CAPSULE. PO SCH ×2 (07:58→20:30)
[2019-10-22] MEDS: DIVALPROEX 125 MG CAP.SPRINK PO SCH ×3 (07:58→20:31)
[2019-10-22] MEDS: FERROUS SULFATE 325 MG TABLET. PO SCH (07:58)
[2019-10-22] MEDS: FLUoxetine HCL 20 MG CAPSULE PO SCH (07:58)
[2019-10-22] MEDS: LACTOBACILLUS RHAMNOSUS GG 1 CAPSULE. PO SCH ×2 (07:58→20:31)
[2019-10-22] MEDS: INSULIN LISPRO 300 UNITS/3 ML VIAL. SQ SCH ×3 (07:59→16:54)
[2019-10-22] MEDS: LUBIPROSTONE 24 MCG CAPSULE PO SCH ×2 (08:01→16:51)
[2019-10-22] MEDS: clonazePAM 1 MG TABLET PO SCH ×3 (08:01→20:29)
[2019-10-22 10:48] LABS: CALCIUM 8.4 mg/dL (8.5-10.1); CREATININE 1.2 mg/dL (0.6-1.0); GFR 44.5
[2019-10-22 10:49] LABS: POTASSIUM 3.6 mmol/L (3.5-5.1)
[2019-10-22 15:46] VITALS: BP 100/61
[2019-10-22] MEDS: INSULIN GLARGINE SYRINGE. SQ SCH ×2 (17:15→20:36)
[2019-10-22] MEDS: NYSTATIN/TRIAMCIN TOPICAL CREAM 15GM TUBE. TP PRN (20:28)
[2019-10-22] MEDS: traZODone 150 MG TABLET. PO SCH (20:30)
[2019-10-22] MEDS: SENNOSIDES/DOCUSATE 8.6/50MG TABLET. PO SCH (20:30)
[2019-10-22] MEDS: FAMOTIDINE 20 MG TABLET PO SCH (20:30)
--- NOTE | 2019-10-22 22:31 | PDOC ---
Exam Note: Laureano Note: Please also refer to the separate dictated note~for this date of service dictated separately.~Patient seen individually. Discussed the patient with Nursing staff reviewed the chart.~Reviewed interim history and current functioning. Reviewed vital signs,~Labs/ Radiology~and current medications noted below. Continue current treatment with the changes noted in the dictated addendum note Assessment: Vital Signs/I&O: Vital Signs Date Time Temp Pulse Resp B/P (MAP) Pulse Ox O2 Delivery O2 Flow Rate FiO2 10/22/19 15:46 97.3 76 16 100/61 (74) 95 10/21/19 15:32 Nasal Cannula 2.0 I & O 10/21/19 10/21/19 10/22/19 15:00 23:00 07:00 Intake Total 480 ml 780 ml Output Total 500 ml 800 ml 300 ml Balance -20 ml -20 ml -300 ml Labs: Laboratory Tests Test 10/22/19 07:31 10/22/19 10:34 10/22/19 12:01 10/22/19 16:53 Glucose (Fingerstick) 138 mg/dL (70-99) H 112 mg/dL (70-99) H 57 mg/dL (70-99) L Sodium Level 135 mmol/L (136-145) L Potassium Level 3.6 mmol/L (3.5-5.1) Chloride Level 98 mmol/L (98-107) Carbon Dioxide Level 28 mmol/L (21-32) Anion Gap 9 (6-14) Blood Urea Nitrogen 30 mg/dL (7-20) H Creatinine 1.2 mg/dL (0.6-1.0) H Estimated GFR (Cockcroft-Gault) 44.5 Glucose Level 163 mg/dL (70-99) H Calcium Level 8.4 mg/dL (8.5-10.1) L Test 10/22/19 17:14 10/22/19 19:11 Glucose (Fingerstick) 79 mg/dL (70-99) 233 mg/dL (70-99) H Current Medications: Meds: Current Medications Medications (Trade) Dose Ordered Sig/Julia Route PRN Reason Start Time Stop Time Status Last Admin Dose Admin Levofloxacin (Levaquin) 250 mg DAILY06 PO 10/22/19 06:00 10/22/19 17:08 DC 10/22/19 06:19 Insulin Glargine (Lantus Syringe) 21 unit QHS SQ 10/22/19 17:15 10/22/19 20:36 Clonazepam (KlonoPIN) 3 mg BID PO 10/22/19 21:00 10/22/19 20:29 I have reviewed the current psychotropics carefully including drug interactions. Risk benefit ratio favors no change other than as noted in my dictated progress note. Diagnosis: Problems: (1) Major depression (2) Anxiety disorder (3) Impulse control disorder (4) Major depressive disorder, recurrent episode (5) Mild cognitive impairment ROMINA SORTO MD October 22, 2019 22:31
--- NOTE | 2019-10-23 00:08 | PN ---
DATE: 10/21/2019 PSYCHIATRIC PROGRESS NOTE This late entry 10/21/2019 covers elements not covered in my initial note. SUBJECTIVE: I met with the patient evening of 10/21/2019 on audiovisual rounds. Per DIVYA Barber, the patient slept 7-1/2 hours previous night. She was given a bed bath by the staff member and has appeared much brighter since then. She was in a Broda chair. As I questioned her, she was aware the year was 2019, thought the month was August, but knew she had been here for about 2 days and knew that the president was President Lizzy. She seems a little more oriented than she seemed initially on admission. REVIEW OF SYSTEMS: Positive for impaired ambulation, tiredness. No CV, GI, or pulmonary, eye system symptoms on review. MENTAL STATUS EXAMINATION: The patient is oriented as noted. Speech has some latency, coherent. Abstraction fair, computation impaired, language function intact, attention span short. Mood and affect somewhat withdrawn, still depressed. LABORATORY DATA: Reviewed. IMPRESSION: Major depressive disorder; anxiety disorder, unspecified; mild cognitive impairment. PLAN: Continue psychotropics from initial note. Maintain Wellbutrin-XL 150 mg a day. She is on Klonopin 3 mg t.i.d. We checked with Dr. Fong with no recommendation to reduce this. On questioning, this seems to be used for anxiety according to the patient rather than as a muscle relaxant. It is a rather high dosage for anxiety and we may reduce it, but she has been on this dosage for about 5 years. Maintain gabapentin 400 mg t.i.d., Prozac 40 mg a day, trazodone 150 mg at bedtime. Adjust further as clinically indicated. MAN Yamilex SORTO MD DR: TOD/moris JOB#: [id number] / [id number]
[2019-10-23 06:29] VITALS: BP 121/63
[2019-10-23 06:49] LABS: BASO # 0.1 x10^3/uL (0.0-0.2); BASO % 1 % (0-3); EOS # 0.3 x10^3/uL (0.0-0.7); EOS % 5 % (0-3); HEMATOCRIT 36.9 % (36.0-47.0); HEMOGLOBIN 12.1 g/dL (12.0-15.5); LYMPH # 1.8 x10^3/uL (1.0-4.8); LYMPH % 29 % (24-48); MEAN CORPUSCULAR HEMOGLOBIN 31 pg (25-35); MEAN CORPUSCULAR HGB CONC 33 g/dL (31-37); MEAN CORPUSCULAR VOLUME 94 fL (79-100); MONO # 0.7 x10^3/uL (0.0-1.1); MONO % 11 % (0-9); NEUT # 3.4 x10^3uL (1.8-7.7); NEUT % 55 % (31-73); PLATELET COUNT 218 x10^3/uL (140-400); RED BLOOD COUNT 3.93 x10^6/uL (3.50-5.40); RED CELL DISTRIBUTION WIDTH 15.8 % (11.5-14.5); WHITE BLOOD COUNT 6.3 x10^3/uL (4.0-11.0)
[2019-10-23 07:03] LABS: ALBUMIN 2.5 g/dL (3.4-5.0); ALBUMIN/GLOBULIN RATIO 0.6 (1.0-1.7); CALCIUM 8.6 mg/dL (8.5-10.1); CREATININE 1.2 mg/dL (0.6-1.0); GFR 44.5; POTASSIUM 3.4 mmol/L (3.5-5.1); TOTAL BILIRUBIN 0.2 mg/dL (0.2-1.0); TOTAL PROTEIN 6.8 g/dL (6.4-8.2)
[2019-10-23] MEDS: IPRATROPIUM/ALBUTEROL 20/100mcg/INH INHALER. INH SCH ×4 (08:26→21:13)
[2019-10-23] MEDS: LUBIPROSTONE 24 MCG CAPSULE PO SCH ×2 (08:27→17:26)
[2019-10-23] MEDS: INSULIN LISPRO 300 UNITS/3 ML VIAL. SQ SCH ×3 (08:28→17:00)
[2019-10-23] MEDS: LACTOBACILLUS RHAMNOSUS GG 1 CAPSULE. PO SCH ×2 (08:29→21:13)
[2019-10-23] MEDS: DIVALPROEX 125 MG CAP.SPRINK PO SCH ×4 (08:30→21:11)
[2019-10-23] MEDS: buPROPion SR 150 MG TABLET.SA PO SCH (08:30)
[2019-10-23] MEDS: GABAPENTIN 400 MG CAPSULE. PO SCH ×2 (08:30→21:12)
[2019-10-23] MEDS: FLUoxetine HCL 20 MG CAPSULE PO SCH (08:30)
[2019-10-23] MEDS: FERROUS SULFATE 325 MG TABLET. PO SCH (08:30)
[2019-10-23] MEDS: FUROSEMIDE 40 MG TABLET PO SCH (08:30)
[2019-10-23] MEDS: clonazePAM 1 MG TABLET PO SCH ×3 (08:35→21:12)
[2019-10-23] MEDS: DICLOFENAC SODIUM 1% TOPICAL GEL 100GM TUBE. TP SCH ×2 (09:00→21:22)
[2019-10-23] MEDS ORDERED: clonazePAM 1 MG TABLET PO SCH (09:00)
[2019-10-23] MEDS: VITS A & D/LANOLIN TOPICAL OINTMENT 42GM TUBE. TP SCH ×2 (09:00→21:22)
[2019-10-23] MEDS: CLOBETASOL EMOLLIENT 0.05% TOPICAL CREAM 15GM TUBE. TP SCH ×2 (09:00→21:22)
--- NOTE | 2019-10-23 13:53 | TX PLAN ---
Interdisciplinary Tx Plan Admission Information October 20, 2019 at 02:07 Legal Status (on Admission): Voluntary DPOA/Guardian Name: Tatiana Wright Contact Other Contact Name: Arslan Rodriguez Other Contact Verified Code Status: DNR Allergies: Coded Allergies: MARÍA Inhibitors (Verified Allergy, Intermediate, 10/18/17) codeine (Verified Allergy, Intermediate, Itching, 02/01/15) olanzapine (Verified Allergy, Intermediate, 10/20/19) penicillin (Verified Allergy, Intermediate, Itching, 02/01/15) quetiapine (Verified Allergy, Intermediate, 10/18/17) Diagnoses Primary Diagnosis: MDD, Anxiety D/O unspecified, Impulse Control D/O unspecified Reasons for Admission: Aggressive, Poor impulse control Problem in Patient's Words: She seems just really confused and needs to be evaluated. Additional Admission Comments: According to the intake, pt was yelling, calling staff "whores", attempting to remove catheter, refused cares, called police to change her catheter, threatening and calling staff names. Problems Active Problems: Yelling out Irritability Confusion Potential UTI Inactive Problems: Medication Management Pt Strengths/Limitations Ability for Sargent: Poor Cognitive Functioning/Ability: Fair Communication Skills/Ability: Fair Financial Resources: Fair Insight/Judgement: Poor Intellectual Ability: Fair Physical Health: Poor Social Skills: Poor Stability in Family: Fair Stability in School/Work: Poor Verbal Skills: Fair Discharge Criteria Discharge Criteria: Adequate arrangements @DC, Improved behavior, Improved mood/thought Other Discharge Comments: may need recommendations for outpt PT and OT. Preliminary Discharge Plan Preliminary DC Plan: Current Living Arrange. Special Precautions Fall Risk: Moderate Initial D/C Plan Pt will plan to [facility] to [facility] upon discharge. Identified Discharge Needs: Psychiatrist Counseling Primary Care Physician Currently Utilized Resources Currently Utilized Resources/P: None Referrals Community Resources: Will need referral for mental health services. Identified Problems/Hx/Goals Objectives/Short-Term Goals Short Term Goals: Dec. Aggression, Dec. Outbursts, Improved Social Skills, Medication Stabilization, Promote Coping Skill Short Term Goals in Patient's: N/A Interventions/Frequency Staff Interventions/Frequency&: Psychiatrist to assess pt at least 3x per week. Manager Relocation to assess pt at least 2x per week. Nursing assess and complete 15 minute checks daily. Encourage group participation in activities; if not 1:1 time based of goals during the Activity assessment. 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 She always had problems with other people "not doing their jobs". Eventually in the end, she ended up being the one fired for "starting trouble". Education: Did graduate high school Community Follow-up Community Provider/Family Inpu: She needs to be assessed with her confusion and re-evaluate her medications. Treatment Plan Explained Patient/Operations Forester had this treatment plan explained to him/her as indicated by the signature below and has been given the opportunity to ask questions and make suggestions: Date: Patient/Operations Forester Signature: Patient/Operations Forester Decline: LORE Dave October 23, 2019 13:53
[2019-10-23] MEDS ORDERED: CHOLECALCIFEROL (VITAMIN D3) 1,000 UNIT TABLET PO SCH (16:00)
[2019-10-23 16:43] VITALS: BP 121/77
[2019-10-23] MEDS ORDERED: POTASSIUM CHLORIDE 20 MEQ TABLET.ER. PO ONE (17:00)
[2019-10-23] MEDS: traZODone 150 MG TABLET. PO SCH (21:11)
[2019-10-23] MEDS: FAMOTIDINE 20 MG TABLET PO SCH (21:12)
[2019-10-23] MEDS: oxyCODONE/APAP 5/325 1 TAB TABLET PO PRN (21:12)
[2019-10-23] MEDS: risperiDONE 0.25 MG TABLET. PO SCH (21:12)
[2019-10-23] MEDS: SENNOSIDES/DOCUSATE 8.6/50MG TABLET. PO SCH (21:12)
[2019-10-23] MEDS: INSULIN GLARGINE SYRINGE. SQ SCH (21:20)
--- NOTE | 2019-10-23 21:59 | PDOC ---
Exam Note: Laureano Note: Please also refer to the separate dictated note~for this date of service dictated separately.~Patient seen individually. Discussed the patient with Nursing staff reviewed the chart.~Reviewed interim history and current functioning. Reviewed vital signs,~Labs/ Radiology~and current medications noted below. Continue current treatment with the changes noted in the dictated addendum note Assessment: Vital Signs/I&O: Vital Signs Date Time Temp Pulse Resp B/P (MAP) Pulse Ox O2 Delivery O2 Flow Rate FiO2 10/23/19 21:12 97 10/23/19 16:43 97.8 80 18 121/77 (92) 10/21/19 15:32 Nasal Cannula 2.0 I & O 10/22/19 10/22/19 10/23/19 15:00 23:00 07:00 Intake Total 720 ml 540 ml Output Total 1600 ml Balance 720 ml -1060 ml Labs: Laboratory Tests Test 10/23/19 06:30 10/23/19 07:43 10/23/19 11:54 10/23/19 17:28 White Blood Count 6.3 x10^3/uL (4.0-11.0) Red Blood Count 3.93 x10^6/uL (3.50-5.40) Hemoglobin 12.1 g/dL (12.0-15.5) Hematocrit 36.9 % (36.0-47.0) Mean Corpuscular Volume 94 fL (79-100) Mean Corpuscular Hemoglobin 31 pg (25-35) Mean Corpuscular Hemoglobin Concent 33 g/dL (31-37) Red Cell Distribution Width 15.8 % (11.5-14.5) H Platelet Count 218 x10^3/uL (140-400) Neutrophils (%) (Auto) 55 % (31-73) Lymphocytes (%) (Auto) 29 % (24-48) Monocytes (%) (Auto) 11 % (0-9) H Eosinophils (%) (Auto) 5 % (0-3) H Basophils (%) (Auto) 1 % (0-3) Neutrophils # (Auto) 3.4 x10^3uL (1.8-7.7) Lymphocytes # (Auto) 1.8 x10^3/uL (1.0-4.8) Monocytes # (Auto) 0.7 x10^3/uL (0.0-1.1) Eosinophils # (Auto) 0.3 x10^3/uL (0.0-0.7) Basophils # (Auto) 0.1 x10^3/uL (0.0-0.2) Sodium Level 139 mmol/L (136-145) Potassium Level 3.4 mmol/L (3.5-5.1) L Chloride Level 102 mmol/L (98-107) Carbon Dioxide Level 28 mmol/L (21-32) Anion Gap 9 (6-14) Blood Urea Nitrogen 27 mg/dL (7-20) H Creatinine 1.2 mg/dL (0.6-1.0) H Estimated GFR (Cockcroft-Gault) 44.5 BUN/Creatinine Ratio 23 (6-20) H Glucose Level 113 mg/dL (70-99) H Calcium Level 8.6 mg/dL (8.5-10.1) Total Bilirubin 0.2 mg/dL (0.2-1.0) Aspartate Amino Transferase (AST) 14 U/L (15-37) L Alanine Aminotransferase (ALT) 12 U/L (14-59) L Alkaline Phosphatase 82 U/L (46-116) Total Protein 6.8 g/dL (6.4-8.2) Albumin 2.5 g/dL (3.4-5.0) L Albumin/Globulin Ratio 0.6 (1.0-1.7) L Glucose (Fingerstick) 110 mg/dL (70-99) H 115 mg/dL (70-99) H 109 mg/dL (70-99) H Test 10/23/19 19:03 Glucose (Fingerstick) 162 mg/dL (70-99) H Current Medications: Meds: Current Medications Medications (Trade) Dose Ordered Sig/Julia Route PRN Reason Start Time Stop Time Status Last Admin Dose Admin Insulin Human Lispro (HumaLOG) 8 units TIDWMEALS SQ 10/23/19 08:00 10/23/19 12:34 Clonazepam (KlonoPIN) 2.5 mg DAILYWLUN PO 10/23/19 12:00 10/23/19 12:33 Potassium Chloride (Klor-Con) 40 meq 1X ONCE PO 10/23/19 17:00 10/23/19 17:01 DC 10/23/19 17:26 Divalproex Sodium (Depakote Sprinkles) 250 mg HS PO 10/23/19 21:00 10/23/19 21:11 Risperidone (RisperDAL) 0.25 mg HS PO 10/23/19 21:00 10/23/19 21:12 I have reviewed the current psychotropics carefully including drug interactions. Risk benefit ratio favors no change other than as noted in my dictated progress note. Diagnosis: Problems: (1) Major depression (2) Anxiety disorder (3) Impulse control disorder (4) Major depressive disorder, recurrent episode (5) Mild cognitive impairment ROMINA SORTO MD October 23, 2019 21:59
--- NOTE | 2019-10-23 22:44 | PN ---
DATE: 10/22/2019 PSYCHIATRIC PROGRESS NOTE This late entry 10/22/2019 covers elements not covered in my initial note. SUBJECTIVE: I met with the patient evening of 10/22/2019. Per DIVYA Barber, urine C and S shows normal rachael though there were greater than 100,000 per mL. She was irritable in the morning, received p.r.n. Atarax. Blood sugars have been varying. We will defer to Dr. Fong. She has been somewhat delusional, talking about having driven here for back surgery. REVIEW OF SYSTEMS: Positive for tiredness, vague somatic symptoms. No CV, , pulmonary, eye system symptoms on review. MENTAL STATUS EXAM: Oriented to herself and situation. Speech is coherent, has some latency. Abstraction fair, computation impaired, language function intact, attention span short. Mood and affect remains somewhat labile, anxious, still depressed, paranoid. LABORATORY DATA: Reviewed. IMPRESSION: Major depressive disorder with psychotic features; mild cognitive impairment; anxiety disorder, unspecified; impulse control disorder, unspecified. PLAN: Continue psychotropics from initial note. Klonopin is 3 mg t.i.d. rather heavy dosage. We will reduce the a.m. dosage to 2.5 mg. Continue rest unchanged. Reduce further gradually. Maintain Wellbutrin, Neurontin, Prozac, trazodone. Depakote is 125 mg t.i.d. We will check labs and level. Consider increasing it in the next day or so. ROMINA SORTO MD DR: TOD/moris JOB#: [id number] / [id number]
--- NOTE | 2019-10-23 23:09 | PN ---
DATE: 10/23/2019 PSYCHIATRIC PROGRESS NOTE SUBJECTIVE: This patient was seen on rounds evening of 10/22 and staffed at a treatment team meeting with the entire team morning of 10/22 with DIVYA Torres. In the evening, discussed the patient with DIVYA Henderson. The patient slept 7 hours previous night. Appetite 75%, was somewhat confused previous night, remains paranoid and suspicious. REVIEW OF SYSTEMS: Ambulation impaired, in wheelchair/Broda chair. No CV, , pulmonary, eye system symptoms on review. MENTAL STATUS EXAM: Oriented to herself and situation. Speech has some latency, coherent. Abstraction fair, computation impaired, language function intact, attention span short. Mood and affect: Somewhat anxious, withdrawn, paranoid. LABORATORY DATA: Reviewed. IMPRESSION: Major depressive disorder with psychotic features; impulse control disorder; anxiety disorder, unspecified. PLAN: Valproic acid level subtherapeutic at 36 on Depakote 125 t.i.d. We will increase to 125 b.i.d., 250 mg at bedtime. Check CBC, CMP, valproic acid level in 3 days. She has been paranoid, suspicious. We will start Risperdal 0.25 mg at bedtime. Maintain Prozac 40 mg a day, Neurontin 400 mg b.i.d.. Klonopin is being tapered from 3 mg t.i.d., down to 2.5 mg a.m. and 3 mg b.i.d. Trazodone is 150 mg at bedtime, Atarax p.r.n. Adjust further as clinically indicated. ROMINA SORTO MD DR: TOD/moris JOB#: [id number] / [id number]
[2019-10-24] MEDS: oxyCODONE/APAP 5/325 1 TAB TABLET PO PRN ×2 (05:21→12:41)
[2019-10-24 05:48] VITALS: BP 102/66
[2019-10-24 06:10] LABS: CALCIUM 8.9 mg/dL (8.5-10.1); CREATININE 1.4 mg/dL (0.6-1.0); GFR 37.3; POTASSIUM 3.5 mmol/L (3.5-5.1)
[2019-10-24] MEDS: LUBIPROSTONE 24 MCG CAPSULE PO SCH ×2 (08:49→17:15)
[2019-10-24] MEDS: buPROPion SR 150 MG TABLET.SA PO SCH (08:49)
[2019-10-24] MEDS: FERROUS SULFATE 325 MG TABLET. PO SCH (08:49)
[2019-10-24] MEDS: clonazePAM 1 MG TABLET PO SCH ×3 (08:49→21:02)
[2019-10-24] MEDS: LACTOBACILLUS RHAMNOSUS GG 1 CAPSULE. PO SCH ×2 (08:50→19:45)
[2019-10-24] MEDS: FLUoxetine HCL 20 MG CAPSULE PO SCH (08:50)
[2019-10-24] MEDS: DIVALPROEX 125 MG CAP.SPRINK PO SCH ×3 (08:50→19:45)
[2019-10-24] MEDS: GABAPENTIN 400 MG CAPSULE. PO SCH ×2 (08:50→19:45)
[2019-10-24] MEDS: FUROSEMIDE 40 MG TABLET PO SCH (08:51)
[2019-10-24] MEDS: IPRATROPIUM/ALBUTEROL 20/100mcg/INH INHALER. INH SCH ×4 (08:51→19:45)
[2019-10-24] MEDS: DICLOFENAC SODIUM 1% TOPICAL GEL 100GM TUBE. TP SCH ×2 (08:52→20:54)
[2019-10-24] MEDS: CLOBETASOL EMOLLIENT 0.05% TOPICAL CREAM 15GM TUBE. TP SCH ×2 (08:53→20:54)
[2019-10-24] MEDS: VITS A & D/LANOLIN TOPICAL OINTMENT 42GM TUBE. TP SCH ×2 (08:53→20:54)
[2019-10-24] MEDS: INSULIN LISPRO 300 UNITS/3 ML VIAL. SQ SCH ×3 (09:03→17:17)
[2019-10-24 16:06] VITALS: BP 118/76
[2019-10-24] MEDS: traZODone 150 MG TABLET. PO SCH (19:46)
[2019-10-24] MEDS: SENNOSIDES/DOCUSATE 8.6/50MG TABLET. PO SCH (19:46)
[2019-10-24] MEDS: risperiDONE 0.25 MG TABLET. PO SCH (19:46)
[2019-10-24] MEDS: FAMOTIDINE 20 MG TABLET PO SCH (19:46)
[2019-10-24] MEDS: INSULIN GLARGINE SYRINGE. SQ SCH (21:01)
--- NOTE | 2019-10-24 22:14 | PDOC ---
Exam Note: Laureano Note: Please also refer to the separate dictated note~for this date of service dictated separately.~Patient seen individually. Discussed the patient with Nursing staff reviewed the chart.~Reviewed interim history and current functioning. Reviewed vital signs,~Labs/ Radiology~and current medications noted below. Continue current treatment with the changes noted in the dictated addendum note Assessment: Vital Signs/I&O: Vital Signs Date Time Temp Pulse Resp B/P (MAP) Pulse Ox O2 Delivery O2 Flow Rate FiO2 10/24/19 20:35 97.9 96 10/24/19 16:06 80 16 118/76 (90) 10/24/19 15:26 Room Air 10/21/19 15:32 2.0 I & O 10/23/19 10/23/19 10/24/19 14:59 22:59 06:59 Intake Total 840 ml 240 ml Output Total 1100 ml 600 ml Balance 840 ml -860 ml -600 ml Labs: Laboratory Tests Test 10/24/19 05:49 10/24/19 07:33 10/24/19 11:53 10/24/19 16:37 Sodium Level 139 mmol/L (136-145) Potassium Level 3.5 mmol/L (3.5-5.1) Chloride Level 102 mmol/L (98-107) Carbon Dioxide Level 29 mmol/L (21-32) Anion Gap 8 (6-14) Blood Urea Nitrogen 28 mg/dL (7-20) H Creatinine 1.4 mg/dL (0.6-1.0) H Estimated GFR (Cockcroft-Gault) 37.3 Glucose Level 224 mg/dL (70-99) H Calcium Level 8.9 mg/dL (8.5-10.1) Glucose (Fingerstick) 229 mg/dL (70-99) H 153 mg/dL (70-99) H 129 mg/dL (70-99) H Test 10/24/19 19:32 Glucose (Fingerstick) 148 mg/dL (70-99) H Current Medications: I have reviewed the current psychotropics carefully including drug interactions. Risk benefit ratio favors no change other than as noted in my dictated progress note. Diagnosis: Problems: (1) Major depression (2) Anxiety disorder (3) Impulse control disorder (4) Major depressive disorder, recurrent episode (5) Mild cognitive impairment ROMINA SORTO MD October 24, 2019 22:14
[2019-10-25 06:21] VITALS: BP 138/73
[2019-10-25] MEDS: LACTOBACILLUS RHAMNOSUS GG 1 CAPSULE. PO SCH ×2 (10:00→20:05)
[2019-10-25] MEDS: buPROPion SR 150 MG TABLET.SA PO SCH (10:00)
[2019-10-25] MEDS: LUBIPROSTONE 24 MCG CAPSULE PO SCH ×2 (10:00→17:28)
[2019-10-25] MEDS: IPRATROPIUM/ALBUTEROL 20/100mcg/INH INHALER. INH SCH ×4 (10:00→20:04)
[2019-10-25] MEDS: GABAPENTIN 400 MG CAPSULE. PO SCH ×2 (10:01→20:05)
[2019-10-25] MEDS: clonazePAM 1 MG TABLET PO SCH ×3 (10:01→21:00)
[2019-10-25] MEDS: FLUoxetine HCL 20 MG CAPSULE PO SCH (10:01)
[2019-10-25] MEDS: FUROSEMIDE 40 MG TABLET PO SCH (10:01)
[2019-10-25] MEDS: DIVALPROEX 125 MG CAP.SPRINK PO SCH ×3 (10:01→20:04)
[2019-10-25] MEDS: VITS A & D/LANOLIN TOPICAL OINTMENT 42GM TUBE. TP SCH ×2 (10:02→20:05)
[2019-10-25] MEDS: FERROUS SULFATE 325 MG TABLET. PO SCH (10:02)
[2019-10-25] MEDS: CLOBETASOL EMOLLIENT 0.05% TOPICAL CREAM 15GM TUBE. TP SCH ×2 (10:03→20:05)
[2019-10-25] MEDS: NYSTATIN/TRIAMCIN TOPICAL CREAM 15GM TUBE. TP PRN (10:03)
[2019-10-25] MEDS: DICLOFENAC SODIUM 1% TOPICAL GEL 100GM TUBE. TP SCH ×2 (10:03→20:05)
[2019-10-25] MEDS: oxyCODONE/APAP 5/325 1 TAB TABLET PO PRN (10:06)
[2019-10-25] MEDS: INSULIN LISPRO 300 UNITS/3 ML VIAL. SQ SCH ×3 (10:17→17:49)
[2019-10-25 15:46] VITALS: BP 107/71
[2019-10-25] MEDS: FAMOTIDINE 20 MG TABLET PO SCH (20:04)
[2019-10-25] MEDS: risperiDONE 0.25 MG TABLET. PO SCH (20:04)
[2019-10-25] MEDS: SENNOSIDES/DOCUSATE 8.6/50MG TABLET. PO SCH (20:05)
[2019-10-25] MEDS: INSULIN GLARGINE SYRINGE. SQ SCH (20:08)
[2019-10-25] MEDS: traZODone 150 MG TABLET. PO SCH (21:00)
--- NOTE | 2019-10-25 21:52 | PDOC ---
Exam Note: Laureano Note: Please also refer to the separate dictated note~for this date of service dictated separately.~Patient seen individually. Discussed the patient with Nursing staff reviewed the chart.~Reviewed interim history and current functioning. Reviewed vital signs,~Labs/ Radiology~and current medications noted below. Continue current treatment with the changes noted in the dictated addendum note Assessment: Vital Signs/I&O: Vital Signs Date Time Temp Pulse Resp B/P (MAP) Pulse Ox O2 Delivery O2 Flow Rate FiO2 10/25/19 20:16 97.9 96 10/25/19 15:46 79 16 107/71 (83) 10/25/19 06:21 Room Air 10/21/19 15:32 2.0 I & O 10/24/19 10/24/19 10/25/19 15:00 23:00 07:00 Intake Total 780 ml 540 ml Output Total 800 ml Balance 780 ml -260 ml Labs: Laboratory Tests Test 10/25/19 07:31 10/25/19 12:02 10/25/19 17:03 10/25/19 19:01 Glucose (Fingerstick) 258 mg/dL (70-99) H 118 mg/dL (70-99) H 198 mg/dL (70-99) H 250 mg/dL (70-99) H Current Medications: I have reviewed the current psychotropics carefully including drug interactions. Risk benefit ratio favors no change other than as noted in my dictated progress note. Diagnosis: Problems: (1) Major depression (2) Anxiety disorder (3) Impulse control disorder (4) Major depressive disorder, recurrent episode (5) Mild cognitive impairment ROMINA SORTO MD October 25, 2019 21:52
[2019-10-26 05:19] VITALS: BP 111/71
[2019-10-26 06:04] LABS: BASO # 0.1 x10^3/uL (0.0-0.2); BASO % 1 % (0-3); EOS # 0.3 x10^3/uL (0.0-0.7); EOS % 5 % (0-3); HEMATOCRIT 37.2 % (36.0-47.0); HEMOGLOBIN 12.3 g/dL (12.0-15.5); LYMPH # 1.4 x10^3/uL (1.0-4.8); LYMPH % 23 % (24-48); MEAN CORPUSCULAR HEMOGLOBIN 31 pg (25-35); MEAN CORPUSCULAR HGB CONC 33 g/dL (31-37); MEAN CORPUSCULAR VOLUME 95 fL (79-100); MONO # 0.6 x10^3/uL (0.0-1.1); MONO % 10 % (0-9); NEUT # 3.9 x10^3uL (1.8-7.7); NEUT % 62 % (31-73); PLATELET COUNT 204 x10^3/uL (140-400); RED BLOOD COUNT 3.93 x10^6/uL (3.50-5.40); RED CELL DISTRIBUTION WIDTH 16.3 % (11.5-14.5); WHITE BLOOD COUNT 6.3 x10^3/uL (4.0-11.0)
[2019-10-26 06:18] LABS: ALBUMIN 2.5 g/dL (3.4-5.0); ALBUMIN/GLOBULIN RATIO 0.5 (1.0-1.7); ALK PHOS 89 U/L (46-116); ALT (SGPT) 12 U/L (14-59); ANION GAP 9 (6-14); AST (SGOT) 17 U/L (15-37); BLOOD UREA NITROGEN 32 mg/dL (7-20); BUN/CREATININE RATIO 27 (6-20); CALCIUM 8.8 mg/dL (8.5-10.1); CARBON DIOXIDE 26 mmol/L (21-32); CHLORIDE 105 mmol/L (98-107); CREATININE 1.2 mg/dL (0.6-1.0); GFR 44.5; GLUCOSE 189 mg/dL (70-99); POTASSIUM 3.2 mmol/L (3.5-5.1); SODIUM 140 mmol/L (136-145); TOTAL BILIRUBIN 0.2 mg/dL (0.2-1.0); TOTAL PROTEIN 7.3 g/dL (6.4-8.2); VAL ACID 58 mcg/mL (50-100)
[2019-10-26] MEDS ORDERED: POTASSIUM CHLORIDE 20 MEQ TABLET.ER. PO ONE (07:30)
[2019-10-26] MEDS: IPRATROPIUM/ALBUTEROL 20/100mcg/INH INHALER. INH SCH ×4 (08:20→20:56)
[2019-10-26] MEDS: LUBIPROSTONE 24 MCG CAPSULE PO SCH ×2 (08:20→17:00)
[2019-10-26] MEDS: DIVALPROEX 125 MG CAP.SPRINK PO SCH ×3 (08:21→20:56)
[2019-10-26] MEDS: LACTOBACILLUS RHAMNOSUS GG 1 CAPSULE. PO SCH ×2 (08:21→20:56)
[2019-10-26] MEDS: FERROUS SULFATE 325 MG TABLET. PO SCH (08:21)
[2019-10-26] MEDS: FUROSEMIDE 40 MG TABLET PO SCH (08:22)
[2019-10-26] MEDS: clonazePAM 1 MG TABLET PO SCH ×3 (08:22→20:57)
[2019-10-26] MEDS: GABAPENTIN 400 MG CAPSULE. PO SCH ×2 (08:22→20:57)
[2019-10-26] MEDS: FLUoxetine HCL 20 MG CAPSULE PO SCH (08:22)
[2019-10-26] MEDS: buPROPion SR 150 MG TABLET.SA PO SCH (08:23)
[2019-10-26] MEDS: CLOBETASOL EMOLLIENT 0.05% TOPICAL CREAM 15GM TUBE. TP SCH ×2 (08:23→21:19)
[2019-10-26] MEDS: VITS A & D/LANOLIN TOPICAL OINTMENT 42GM TUBE. TP SCH ×2 (08:23→21:19)
[2019-10-26] MEDS: DICLOFENAC SODIUM 1% TOPICAL GEL 100GM TUBE. TP SCH ×2 (08:24→21:20)
[2019-10-26] MEDS: INSULIN LISPRO 300 UNITS/3 ML VIAL. SQ SCH ×3 (08:25→17:00)
[2019-10-26 15:31] VITALS: BP 124/86
[2019-10-26] MEDS: traZODone 150 MG TABLET. PO SCH (20:56)
[2019-10-26] MEDS: SENNOSIDES/DOCUSATE 8.6/50MG TABLET. PO SCH (20:57)
[2019-10-26] MEDS: FAMOTIDINE 20 MG TABLET PO SCH (20:57)
[2019-10-26] MEDS: risperiDONE 0.25 MG TABLET. PO SCH (20:57)
[2019-10-26] MEDS: INSULIN GLARGINE SYRINGE. SQ SCH (21:20)
--- NOTE | 2019-10-26 21:21 | PN ---
DATE: 10/24/2019 This late entry 10/23 covers elements not covered in my initial note. SUBJECTIVE: I met with the patient evening of 10/23. I saw the patient on audiovisual rounds. Per DIVYA De Luna, the patient slept 5-1/4 hours previous night. At times, she appears alert, oriented x 4 and other times, appears quite confused, forgetful, talking about living with cinnamon at [facility]. She remains somewhat delusional, fixated that she cannot walk by herself and does not need any help from anyone. REVIEW OF SYSTEMS: She was lying in bed, impaired ambulation, which she has problems recognizing. No CV, , pulmonary, eye system symptoms on review. MENTAL STATUS EXAM: Oriented as above. Speech has some latency, coherent. Abstraction fair, computation impaired, language function intact, attention span short. Mood and affect still depressed, anxious, withdrawn. LABORATORY DATA: Reviewed. IMPRESSION: Unchanged from initial note. PLAN: No change from initial note. ROMINA SORTO MD DR: TOD/moris JOB#: [id number] / [id number]
--- NOTE | 2019-10-26 21:24 | PN ---
DATE: 10/25/2019 PSYCHIATRIC PROGRESS NOTE This late entry 10/24/2018 covers elements not covered in my initial note. SUBJECTIVE: I met with the patient evening of 10/25/2019. Discussed with DIVYA De Luna. The patient has speech that is less clear than before per nursing report. She slept 10 in the morning, slept 7-1/2 hours previous night, asking for Jackie. REVIEW OF SYSTEMS: Ambulation impaired. No CV, , pulmonary, eye system symptoms on review. She minimizes with impaired ambulation. MENTAL STATUS EXAMINATION: Oriented to herself and situation. Speech has some latency, coherent. Abstraction fair, computation impaired. Language function intact, attention span short. Mood and affect still depressed, anxious. LABORATORY DATA: Reviewed. IMPRESSION: Major depressive disorder in partial remission; anxiety disorder, unspecified; impulse control disorder, unspecified. PLAN: No change from initial note. Maintain Wellbutrin, Klonopin has been reduced. Continue gabapentin, Prozac, trazodone, Depakote. Follow labs level. Adjust as clinically indicated. MAN Yamilex SORTO MD DR: TOD/moris JOB#: [id number] / [id number]
--- NOTE | 2019-10-26 21:56 | PDOC ---
Exam Note: Laureano Note: Please also refer to the separate dictated note~for this date of service dictated separately.~Patient seen individually. Discussed the patient with Nursing staff reviewed the chart.~Reviewed interim history and current functioning. Reviewed vital signs,~Labs/ Radiology~and current medications noted below. Continue current treatment with the changes noted in the dictated addendum note Assessment: Vital Signs/I&O: Vital Signs Date Time Temp Pulse Resp B/P (MAP) Pulse Ox O2 Delivery O2 Flow Rate FiO2 10/26/19 20:50 97.9 95 Nasal Cannula 10/26/19 15:31 88 18 124/86 (99) 10/21/19 15:32 2.0 I & O 10/25/19 10/25/19 10/26/19 15:00 23:00 07:00 Intake Total 120 ml 360 ml Output Total 600 ml 375 ml Balance 120 ml -240 ml -375 ml Labs: Laboratory Tests Test 10/26/19 05:43 10/26/19 07:44 10/26/19 11:59 10/26/19 16:36 White Blood Count 6.3 x10^3/uL (4.0-11.0) Red Blood Count 3.93 x10^6/uL (3.50-5.40) Hemoglobin 12.3 g/dL (12.0-15.5) Hematocrit 37.2 % (36.0-47.0) Mean Corpuscular Volume 95 fL (79-100) Mean Corpuscular Hemoglobin 31 pg (25-35) Mean Corpuscular Hemoglobin Concent 33 g/dL (31-37) Red Cell Distribution Width 16.3 % (11.5-14.5) H Platelet Count 204 x10^3/uL (140-400) Neutrophils (%) (Auto) 62 % (31-73) Lymphocytes (%) (Auto) 23 % (24-48) L Monocytes (%) (Auto) 10 % (0-9) H Eosinophils (%) (Auto) 5 % (0-3) H Basophils (%) (Auto) 1 % (0-3) Neutrophils # (Auto) 3.9 x10^3uL (1.8-7.7) Lymphocytes # (Auto) 1.4 x10^3/uL (1.0-4.8) Monocytes # (Auto) 0.6 x10^3/uL (0.0-1.1) Eosinophils # (Auto) 0.3 x10^3/uL (0.0-0.7) Basophils # (Auto) 0.1 x10^3/uL (0.0-0.2) Sodium Level 140 mmol/L (136-145) Potassium Level 3.2 mmol/L (3.5-5.1) L Chloride Level 105 mmol/L (98-107) Carbon Dioxide Level 26 mmol/L (21-32) Anion Gap 9 (6-14) Blood Urea Nitrogen 32 mg/dL (7-20) H Creatinine 1.2 mg/dL (0.6-1.0) H Estimated GFR (Cockcroft-Gault) 44.5 BUN/Creatinine Ratio 27 (6-20) H Glucose Level 189 mg/dL (70-99) H Calcium Level 8.8 mg/dL (8.5-10.1) Total Bilirubin 0.2 mg/dL (0.2-1.0) Aspartate Amino Transferase (AST) 17 U/L (15-37) Alanine Aminotransferase (ALT) 12 U/L (14-59) L Alkaline Phosphatase 89 U/L (46-116) Total Protein 7.3 g/dL (6.4-8.2) Albumin 2.5 g/dL (3.4-5.0) L Albumin/Globulin Ratio 0.5 (1.0-1.7) L Valproic Acid Level 58 mcg/mL (50-100) Valproic Acid Last Dose Date 10/25/2019 Valproic Acid Last Dose Time 2100 Glucose (Fingerstick) 168 mg/dL (70-99) H 145 mg/dL (70-99) H 155 mg/dL (70-99) H Test 10/26/19 19:01 Glucose (Fingerstick) 252 mg/dL (70-99) H Current Medications: Meds: Current Medications Medications (Trade) Dose Ordered Sig/Julia Route PRN Reason Start Time Stop Time Status Last Admin Dose Admin Potassium Chloride (Klor-Con) 40 meq 1X ONCE PO 10/26/19 07:30 10/26/19 07:33 DC 10/26/19 08:20 I have reviewed the current psychotropics carefully including drug interactions. Risk benefit ratio favors no change other than as noted in my dictated progress note. Diagnosis: Problems: (1) Anxiety disorder (2) Impulse control disorder (3) Major depressive disorder, recurrent episode (4) Mild cognitive impairment (5) Major depressive disorder in partial remission ROMINA SORTO MD October 26, 2019 21:56
--- NOTE | 2019-10-26 23:47 | PN ---
DATE: 10/26/2019 This note covers elements not covered in my initial note 10/26/2019. SUBJECTIVE: I met with the patient evening of 10/26/2019 on audiovisual rounds and staffed at a treatment team meeting with the entire team in the morning with DIVYA Murguia. The patient slept 6-1/2 hours previous night. Per manager social work report and report from activity therapist, Renita, the patient has been attending groups, compliant with treatment. She has been anxious, restless, feels she can ambulate, but limited insight into her lack of ambulation. REVIEW OF SYSTEMS: No CV, , pulmonary, eye system symptoms on review. MENTAL STATUS EXAM: Oriented to herself and situation. Speech has some latency, coherent. Abstraction fair, computation impaired, language function intact. Mood and affect depressed, less so than before. No suicidal ideation. LABORATORY DATA: Reviewed. IMPRESSION: Major depressive disorder, recurrent, in partial remission; anxiety disorder, unspecified; impulse control disorder, unspecified. PLAN: Continue Depakote 125 mg b.i.d., 250 mg at bedtime. Check labs level, adjust as indicated. Continue to taper the Klonopin. Maintain Wellbutrin 150 mg a day. Klonopin reduced to 2.5 mg a.m. and 3 mg b.i.d. She has been on 9 mg a day chronically for about 5 years or so for anxiety and we are trying to reduce it. Maintain Neurontin 400 t.i.d. ____, Prozac 40 mg a day, trazodone 150 mg at bedtime, Atarax p.r.n. ROMINA SORTO MD DR: TOD/moris JOB#: [id number] / [id number]
[2019-10-27 06:11] VITALS: BP 91/58
[2019-10-27] MEDS: clonazePAM 1 MG TABLET PO SCH ×3 (07:41→19:54)
[2019-10-27] MEDS: GABAPENTIN 400 MG CAPSULE. PO SCH ×2 (07:41→19:54)
[2019-10-27] MEDS: FUROSEMIDE 40 MG TABLET PO SCH (07:41)
[2019-10-27] MEDS: DIVALPROEX 125 MG CAP.SPRINK PO SCH ×3 (07:41→19:54)
[2019-10-27] MEDS: FERROUS SULFATE 325 MG TABLET. PO SCH (07:41)
[2019-10-27] MEDS: LACTOBACILLUS RHAMNOSUS GG 1 CAPSULE. PO SCH ×2 (07:42→19:53)
[2019-10-27] MEDS: CLOBETASOL EMOLLIENT 0.05% TOPICAL CREAM 15GM TUBE. TP SCH ×2 (07:42→21:32)
[2019-10-27] MEDS: IPRATROPIUM/ALBUTEROL 20/100mcg/INH INHALER. INH SCH ×4 (07:42→19:53)
[2019-10-27] MEDS: FLUoxetine HCL 20 MG CAPSULE PO SCH (07:42)
[2019-10-27] MEDS: LUBIPROSTONE 24 MCG CAPSULE PO SCH ×2 (07:42→17:16)
[2019-10-27] MEDS: buPROPion SR 150 MG TABLET.SA PO SCH (07:42)
[2019-10-27] MEDS: DICLOFENAC SODIUM 1% TOPICAL GEL 100GM TUBE. TP SCH ×2 (07:43→21:31)
[2019-10-27] MEDS: VITS A & D/LANOLIN TOPICAL OINTMENT 42GM TUBE. TP SCH ×2 (07:43→21:31)
[2019-10-27] MEDS: CHOLECALCIFEROL (VITAMIN D3) 50,000 UNIT CAPSULE PO SCH (07:44)
[2019-10-27] MEDS: INSULIN LISPRO 300 UNITS/3 ML VIAL. SQ SCH ×3 (08:00→17:00)
[2019-10-27 16:20] VITALS: BP 118/56
[2019-10-27] MEDS: hydrOXYzine HCL 25 MG TABLET PO PRN (17:16)
[2019-10-27] MEDS: FAMOTIDINE 20 MG TABLET PO SCH (19:53)
[2019-10-27] MEDS: traZODone 150 MG TABLET. PO SCH (19:54)
[2019-10-27] MEDS: risperiDONE 0.25 MG TABLET. PO SCH (19:54)
[2019-10-27] MEDS: SENNOSIDES/DOCUSATE 8.6/50MG TABLET. PO SCH (19:54)
[2019-10-27] MEDS: INSULIN GLARGINE SYRINGE. SQ SCH (19:59)
--- NOTE | 2019-10-27 22:06 | PDOC ---
Exam Note: Laureano Note: Please also refer to the separate dictated note~for this date of service dictated separately.~Patient seen individually. Discussed the patient with Nursing staff reviewed the chart.~Reviewed interim history and current functioning. Reviewed vital signs,~Labs/ Radiology~and current medications noted below. Continue current treatment with the changes noted in the dictated addendum note Assessment: Vital Signs/I&O: Vital Signs Date Time Temp Pulse Resp B/P (MAP) Pulse Ox O2 Delivery O2 Flow Rate FiO2 10/27/19 20:00 98.0 94 Room Air 10/27/19 16:20 74 18 118/56 (76) 10/21/19 15:32 2.0 I & O 10/26/19 10/26/19 10/27/19 15:00 23:00 07:00 Intake Total 360 ml Output Total 1200 ml 200 ml Balance 360 ml -1200 ml -200 ml Labs: Laboratory Tests Test 10/27/19 07:53 10/27/19 12:18 10/27/19 17:15 10/27/19 19:27 Glucose (Fingerstick) 171 mg/dL (70-99) H 134 mg/dL (70-99) H 78 mg/dL (70-99) 215 mg/dL (70-99) H Current Medications: Meds: Current Medications Medications (Trade) Dose Ordered Sig/Julia Route PRN Reason Start Time Stop Time Status Last Admin Dose Admin Clonazepam (KlonoPIN) 3 mg HS PO 10/27/19 21:00 10/27/19 19:54 Hydroxyzine HCl (Atarax) 25 mg PRN Q2HR PRN PO ANXIETY / AGITATION 10/27/19 17:15 10/27/19 17:16 I have reviewed the current psychotropics carefully including drug interactions. Risk benefit ratio favors no change other than as noted in my dictated progress note. Diagnosis: Problems: (1) Major depressive disorder in partial remission (2) Anxiety disorder (3) Impulse control disorder (4) Major depressive disorder, recurrent episode (5) Mild cognitive impairment ROMINA SORTO MD October 27, 2019 22:06
[2019-10-28 06:22] VITALS: BP 117/73
[2019-10-28] MEDS: IPRATROPIUM/ALBUTEROL 20/100mcg/INH INHALER. INH SCH ×4 (07:34→20:17)
[2019-10-28] MEDS: VITS A & D/LANOLIN TOPICAL OINTMENT 42GM TUBE. TP SCH ×2 (07:34→20:17)
[2019-10-28] MEDS: DICLOFENAC SODIUM 1% TOPICAL GEL 100GM TUBE. TP SCH ×2 (07:34→20:18)
[2019-10-28] MEDS: CLOBETASOL EMOLLIENT 0.05% TOPICAL CREAM 15GM TUBE. TP SCH ×2 (07:34→20:18)
[2019-10-28] MEDS: FLUoxetine HCL 20 MG CAPSULE PO SCH (07:35)
[2019-10-28] MEDS: FUROSEMIDE 40 MG TABLET PO SCH (07:35)
[2019-10-28] MEDS: GABAPENTIN 400 MG CAPSULE. PO SCH ×2 (07:35→20:19)
[2019-10-28] MEDS: DIVALPROEX 125 MG CAP.SPRINK PO SCH ×3 (07:35→20:18)
[2019-10-28] MEDS: FERROUS SULFATE 325 MG TABLET. PO SCH (07:36)
[2019-10-28] MEDS: LACTOBACILLUS RHAMNOSUS GG 1 CAPSULE. PO SCH ×2 (07:36→20:19)
[2019-10-28] MEDS: buPROPion SR 150 MG TABLET.SA PO SCH (07:36)
[2019-10-28] MEDS: clonazePAM 1 MG TABLET PO SCH ×3 (07:38→20:18)
[2019-10-28] MEDS: LUBIPROSTONE 24 MCG CAPSULE PO SCH ×2 (07:40→17:00)
[2019-10-28] MEDS: INSULIN LISPRO 300 UNITS/3 ML VIAL. SQ SCH ×3 (08:00→17:00)
[2019-10-28] MEDS: hydrOXYzine HCL 25 MG TABLET PO PRN (12:34)
[2019-10-28 15:59] VITALS: BP 129/80
[2019-10-28] MEDS: risperiDONE 0.25 MG TABLET. PO SCH (20:19)
[2019-10-28] MEDS: SENNOSIDES/DOCUSATE 8.6/50MG TABLET. PO SCH (20:19)
[2019-10-28] MEDS: FAMOTIDINE 20 MG TABLET PO SCH (20:19)
[2019-10-28] MEDS: traZODone 150 MG TABLET. PO SCH (20:19)
[2019-10-28] MEDS: INSULIN GLARGINE SYRINGE. SQ SCH (20:24)
--- NOTE | 2019-10-28 22:14 | PDOC ---
Exam Note: Laureano Note: Please also refer to the separate dictated note~for this date of service dictated separately.~Patient seen individually. Discussed the patient with Nursing staff reviewed the chart.~Reviewed interim history and current functioning. Reviewed vital signs,~Labs/ Radiology~and current medications noted below. Continue current treatment with the changes noted in the dictated addendum note Assessment: Vital Signs/I&O: Vital Signs Date Time Temp Pulse Resp B/P (MAP) Pulse Ox O2 Delivery O2 Flow Rate FiO2 10/28/19 20:24 98.1 99 10/28/19 15:59 83 16 129/80 (96) Room Air I & O 10/27/19 10/27/19 10/28/19 15:00 23:00 07:00 Intake Total 120 ml 480 ml Output Total 800 ml 300 ml Balance 120 ml -320 ml -300 ml Labs: Laboratory Tests Test 10/28/19 08:01 10/28/19 12:00 10/28/19 16:59 10/28/19 19:20 Glucose (Fingerstick) 123 mg/dL (70-99) H 190 mg/dL (70-99) H 132 mg/dL (70-99) H 115 mg/dL (70-99) H Current Medications: Meds: Current Medications Medications (Trade) Dose Ordered Sig/Julia Route PRN Reason Start Time Stop Time Status Last Admin Dose Admin Clonazepam (KlonoPIN) 2.5 mg DAILY PO 10/28/19 09:00 10/28/19 07:38 I have reviewed the current psychotropics carefully including drug interactions. Risk benefit ratio favors no change other than as noted in my dictated progress note. Diagnosis: Problems: (1) Major depressive disorder in partial remission (2) Anxiety disorder (3) Impulse control disorder (4) Major depressive disorder, recurrent episode (5) Mild cognitive impairment ROMINA SORTO MD October 28, 2019 22:14
[2019-10-29 05:41] VITALS: BP 104/68
[2019-10-29] MEDS: DICLOFENAC SODIUM 1% TOPICAL GEL 100GM TUBE. TP SCH ×2 (07:40→20:33)
[2019-10-29] MEDS: buPROPion SR 150 MG TABLET.SA PO SCH (07:40)
[2019-10-29] MEDS: FERROUS SULFATE 325 MG TABLET. PO SCH (07:40)
[2019-10-29] MEDS: CLOBETASOL EMOLLIENT 0.05% TOPICAL CREAM 15GM TUBE. TP SCH ×2 (07:40→20:34)
[2019-10-29] MEDS: VITS A & D/LANOLIN TOPICAL OINTMENT 42GM TUBE. TP SCH ×2 (07:40→20:33)
[2019-10-29] MEDS: LUBIPROSTONE 24 MCG CAPSULE PO SCH ×2 (07:40→17:37)
[2019-10-29] MEDS: IPRATROPIUM/ALBUTEROL 20/100mcg/INH INHALER. INH SCH ×4 (07:40→20:32)
[2019-10-29] MEDS: LACTOBACILLUS RHAMNOSUS GG 1 CAPSULE. PO SCH ×2 (07:41→20:32)
[2019-10-29] MEDS: FUROSEMIDE 40 MG TABLET PO SCH (07:41)
[2019-10-29] MEDS: FLUoxetine HCL 20 MG CAPSULE PO SCH (07:41)
[2019-10-29] MEDS: DIVALPROEX 125 MG CAP.SPRINK PO SCH ×3 (07:41→20:32)
[2019-10-29] MEDS: GABAPENTIN 400 MG CAPSULE. PO SCH ×2 (07:41→20:31)
[2019-10-29] MEDS: clonazePAM 1 MG TABLET PO SCH ×3 (07:43→20:31)
[2019-10-29] MEDS: INSULIN LISPRO 300 UNITS/3 ML VIAL. SQ SCH ×3 (08:00→17:00)
[2019-10-29] MEDS: HYDROCORTISONE 1% TOPICAL OINTMENT 30GM TUBE. TP SCH ×2 (09:00→20:34)
[2019-10-29 16:08] VITALS: BP 120/76
[2019-10-29] MEDS: hydrOXYzine HCL 25 MG TABLET PO PRN (17:42)
--- NOTE | 2019-10-29 19:45 | PN ---
DATE: 10/28/2019 PSYCHIATRIC PROGRESS NOTE This late entry 10/28/2019 covers elements not covered in my initial note. SUBJECTIVE: I met with the patient evening of 10/28/2019 on telehealth rounds. Per DIVYA Barber, the patient slept 7 hours previous night. She has been dozing off and on, somewhat sarcastic at times. She remains a fall risk, but insistent on getting up and walking on her own. REVIEW OF SYSTEMS: No CV, , pulmonary, eye system symptoms on review. MENTAL STATUS EXAM: Oriented to herself and situation. Speech has some latency, coherent. Abstraction fair, computation impaired, language function intact, attention span short. Mood and affect less depressed, less withdrawn than before, less irritable. LABORATORY DATA: Reviewed. IMPRESSION: Unchanged from initial note. PLAN: No change from initial note. MAN Yamilex SORTO MD DR: TOD/moris JOB#: [id number] / [id number]
--- NOTE | 2019-10-29 19:45 | PN ---
DATE: 10/27/2019 PSYCHIATRIC PROGRESS NOTE This late entry 10/27/2019 covers elements not covered in my initial note. SUBJECTIVE: I met with the patient evening of 10/27/2019 on telehealth rounds. Per DIVYA Barber, the patient slept 7-1/4 hours previous night. She was irritable in the morning, somewhat drowsy in the evening. Labs on 10/26/2019 showed a valproic acid level therapeutic at 58. REVIEW OF SYSTEMS: Complains of some tiredness, impaired ambulation, but insistent that she can walk "on my own." Nursing staff try and restrict this because she is a fall risk and she blames the staff at times, but in fact she has been doing better even with this blaming today. No CV, , pulmonary, eye system symptoms on review. MENTAL STATUS EXAM: Oriented to herself and situation. Speech is coherent, has some latency. Abstraction fair, computation impaired, language function intact, attention span short. Mood and affect still remains depressed, withdrawn, anxious, but less so than before. LABORATORY DATA: Reviewed. IMPRESSION: Unchanged from initial note. PLAN: Klonopin is currently 2.5 mg once a day, 3 mg twice a day. We will taper it further to 2.5 mg twice a day, 3 mg at bedtime. She does get anxious and is on Atarax. We will increase it to 25 mg q. 2 hours p.r.n. anxiety, max 100 mg in 24 hours. Continue Neurontin, Prozac, Wellbutrin, trazodone at current dosage along with Depakote level is therapeutic. MAN Yamilex SORTO MD DR: TOD/moris JOB#: [id number] / [id number]
[2019-10-29] MEDS: traZODone 150 MG TABLET. PO SCH (20:31)
[2019-10-29] MEDS: risperiDONE 0.25 MG TABLET. PO SCH (20:32)
[2019-10-29] MEDS: FAMOTIDINE 20 MG TABLET PO SCH (20:32)
[2019-10-29] MEDS: SENNOSIDES/DOCUSATE 8.6/50MG TABLET. PO SCH (20:32)
[2019-10-29] MEDS: INSULIN GLARGINE SYRINGE. SQ SCH (20:39)
--- NOTE | 2019-10-29 22:16 | PDOC ---
Exam Note: Laureano Note: Please also refer to the separate dictated note~for this date of service dictated separately.~Patient seen individually. Discussed the patient with Nursing staff reviewed the chart.~Reviewed interim history and current functioning. Reviewed vital signs,~Labs/ Radiology~and current medications noted below. Continue current treatment with the changes noted in the dictated addendum note Assessment: Vital Signs/I&O: Vital Signs Date Time Temp Pulse Resp B/P (MAP) Pulse Ox O2 Delivery O2 Flow Rate FiO2 10/29/19 21:19 97.9 91 10/29/19 16:08 86 20 120/76 (91) Room Air I & O 10/28/19 10/28/19 10/29/19 15:00 23:00 07:00 Intake Total 960 ml 480 ml Output Total 500 ml 350 ml Balance 960 ml -20 ml -350 ml Labs: Laboratory Tests Test 10/29/19 08:34 10/29/19 11:14 10/29/19 16:36 10/29/19 19:47 Glucose (Fingerstick) 98 mg/dL (70-99) 144 mg/dL (70-99) H 56 mg/dL (70-99) L 234 mg/dL (70-99) H Current Medications: Meds: Current Medications Medications (Trade) Dose Ordered Sig/Julia Route PRN Reason Start Time Stop Time Status Last Admin Dose Admin Hydrocortisone (Cortaid) 1 joey BID TP 10/29/19 09:00 10/29/19 20:34 I have reviewed the current psychotropics carefully including drug interactions. Risk benefit ratio favors no change other than as noted in my dictated progress note. Diagnosis: Problems: (1) Major depressive disorder in partial remission (2) Anxiety disorder (3) Impulse control disorder (4) Major depressive disorder, recurrent episode (5) Mild cognitive impairment ROMINA SORTO MD October 29, 2019 22:16
[2019-10-30 05:50] VITALS: BP 100/61
[2019-10-30 06:41] LABS: BASO # 0.1 x10^3/uL (0.0-0.2); BASO % 1 % (0-3); EOS # 0.3 x10^3/uL (0.0-0.7); EOS % 5 % (0-3); HEMATOCRIT 36.4 % (36.0-47.0); LYMPH # 1.6 x10^3/uL (1.0-4.8); LYMPH % 25 % (24-48); MEAN CORPUSCULAR HEMOGLOBIN 31 pg (25-35); MEAN CORPUSCULAR HGB CONC 33 g/dL (31-37); MEAN CORPUSCULAR VOLUME 94 fL (79-100); MONO # 0.7 x10^3/uL (0.0-1.1); MONO % 12 % (0-9); NEUT # 3.6 x10^3uL (1.8-7.7); NEUT % 58 % (31-73); PLATELET COUNT 279 x10^3/uL (140-400); RED BLOOD COUNT 3.86 x10^6/uL (3.50-5.40); RED CELL DISTRIBUTION WIDTH 16.2 % (11.5-14.5); WHITE BLOOD COUNT 6.2 x10^3/uL (4.0-11.0)
[2019-10-30 06:58] LABS: ALBUMIN 2.4 g/dL (3.4-5.0); ALBUMIN/GLOBULIN RATIO 0.5 (1.0-1.7); CALCIUM 8.3 mg/dL (8.5-10.1); CREATININE 1.3 mg/dL (0.6-1.0); GFR 40.6; POTASSIUM 3.4 mmol/L (3.5-5.1); TOTAL BILIRUBIN 0.3 mg/dL (0.2-1.0); TOTAL PROTEIN 6.9 g/dL (6.4-8.2)
[2019-10-30] MEDS: HYDROCORTISONE 1% TOPICAL OINTMENT 30GM TUBE. TP SCH ×2 (08:11→20:57)
[2019-10-30] MEDS: IPRATROPIUM/ALBUTEROL 20/100mcg/INH INHALER. INH SCH ×4 (08:11→20:56)
[2019-10-30] MEDS: LACTOBACILLUS RHAMNOSUS GG 1 CAPSULE. PO SCH ×2 (08:12→20:56)
[2019-10-30] MEDS: LUBIPROSTONE 24 MCG CAPSULE PO SCH ×2 (08:12→17:00)
[2019-10-30] MEDS: VITS A & D/LANOLIN TOPICAL OINTMENT 42GM TUBE. TP SCH ×2 (08:12→20:57)
[2019-10-30] MEDS: CLOBETASOL EMOLLIENT 0.05% TOPICAL CREAM 15GM TUBE. TP SCH ×2 (08:12→20:58)
[2019-10-30] MEDS: DICLOFENAC SODIUM 1% TOPICAL GEL 100GM TUBE. TP SCH ×2 (08:12→20:57)
[2019-10-30] MEDS: DIVALPROEX 125 MG CAP.SPRINK PO SCH ×3 (08:13→20:55)
[2019-10-30] MEDS: buPROPion SR 150 MG TABLET.SA PO SCH (08:13)
[2019-10-30] MEDS: FERROUS SULFATE 325 MG TABLET. PO SCH (08:14)
[2019-10-30] MEDS: clonazePAM 1 MG TABLET PO SCH ×3 (08:14→20:55)
[2019-10-30] MEDS: FUROSEMIDE 40 MG TABLET PO SCH (08:14)
[2019-10-30] MEDS: FLUoxetine HCL 20 MG CAPSULE PO SCH (08:14)
[2019-10-30] MEDS: GABAPENTIN 400 MG CAPSULE. PO SCH ×2 (08:14→20:55)
[2019-10-30] MEDS: INSULIN LISPRO 300 UNITS/3 ML VIAL. SQ SCH ×3 (08:28→17:00)
--- NOTE | 2019-10-30 12:02 | TX PLAN ---
Interdisciplinary Tx Plan Admission Information October 20, 2019 at 02:07 Legal Status (on Admission): Voluntary DPOA/Guardian Name: Tatiana Wright Contact Other Contact Name: Arslan Rodriguez Other Contact Verified Code Status: DNR Allergies: Coded Allergies: MARÍA Inhibitors (Verified Allergy, Intermediate, 10/18/17) codeine (Verified Allergy, Intermediate, Itching, 02/01/15) olanzapine (Verified Allergy, Intermediate, 10/20/19) penicillin (Verified Allergy, Intermediate, Itching, 02/01/15) quetiapine (Verified Allergy, Intermediate, 10/18/17) Diagnoses Primary Diagnosis: MDD, Anxiety D/O unspecified, Impulse Control D/O unspecified Reasons for Admission: Aggressive, Poor impulse control Problem in Patient's Words: She seems just really confused and needs to be evaluated. Additional Admission Comments: According to the intake, pt was yelling, calling staff "whores", attempting to remove catheter, refused cares, called police to change her catheter, threatening and calling staff names. Problems Active Problems: Yelling out Irritability Confusion Potential UTI Inactive Problems: Medication Management Pt Strengths/Limitations Ability for B[place]soe: Poor Cognitive Functioning/Ability: Fair Communication Skills/Ability: Fair Financial Resources: Fair Insight/Judgement: Poor Intellectual Ability: Fair Physical Health: Poor Social Skills: Poor Stability in Family: Fair Stability in School/Work: Poor Verbal Skills: Fair Discharge Criteria Discharge Criteria: Adequate arrangements @DC, Improved behavior, Improved mood/thought Other Discharge Comments: may need recommendations for outpt PT and OT. Preliminary Discharge Plan Preliminary DC Plan: Current Living Arrange. Special Precautions Fall Risk: Moderate Initial D/C Plan Pt [facility] discharge. Identified Discharge Needs: Psychiatrist Counseling Primary Care Physician Currently Utilized Resources Currently Utilized Resources/P: None Referrals Community Resources: Will need referral for mental health services. Identified Problems/Hx/Goals Objectives/Short-Term Goals Short Term Goals: Dec. Aggression, Dec. Outbursts, Improved Social Skills, Medication Stabilization, Promote Coping Skill Short Term Goals in Patient's: N/A Interventions/Frequency Staff Interventions/Frequency&: Psychiatrist to assess pt at least 3x per week. Granulizing Machine Operator to assess pt at least 2x per week. Nursing assess and complete 15 minute checks daily. Encourage group participation in activities; if not 1:1 time based of goals during the Activity assessment. 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 She always had problems with other people "not doing their jobs". Eventually in the end, she ended up being the one fired for "starting trouble". Education: Did graduate high school Community Follow-up Community Provider/Family Inpu: She needs to be assessed with her confusion and re-evaluate her medications. Treatment Plan Explained Patient/Industrial X Ray Operator had this treatment plan explained to him/her as indicated by the signature below and has been given the opportunity to ask questions and make suggestions: Date: Patient/Industrial X Ray Operator Signature: Status Update Update Pt is eating roughly 50% of meals and sleeping 7 hours on average. Pt is compliant with medications; however, she still remains somewhat irritable and yells out to staff. Pt is focused on leaving and even reports that she wants to walk, drive and do things that she has not been able to do for some time. Pt will have an extra dose of Risperdal .25mg q AM. Pt Klonopin also continues to be decreased as pt came in on a significant amount. Pt will look at discharge during the early part of next week. SW to follow up with pt sister and facility about those arrangements. LORE SIDDIQI October 30, 2019 12:02
[2019-10-30 16:10] VITALS: BP 97/57
[2019-10-30] MEDS: SENNOSIDES/DOCUSATE 8.6/50MG TABLET. PO SCH (20:55)
[2019-10-30] MEDS: traZODone 150 MG TABLET. PO SCH (20:55)
[2019-10-30] MEDS: FAMOTIDINE 20 MG TABLET PO SCH (20:55)
[2019-10-30] MEDS: risperiDONE 0.25 MG TABLET. PO SCH (20:55)
[2019-10-30] MEDS: INSULIN GLARGINE SYRINGE. SQ SCH (20:56)
--- NOTE | 2019-10-30 22:09 | PDOC ---
Exam Note: Laureano Note: Please also refer to the separate dictated note~for this date of service dictated separately.~Patient seen individually. Discussed the patient with Nursing staff reviewed the chart.~Reviewed interim history and current functioning. Reviewed vital signs,~Labs/ Radiology~and current medications noted below. Continue current treatment with the changes noted in the dictated addendum note Assessment: Vital Signs/I&O: Vital Signs Date Time Temp Pulse Resp B/P (MAP) Pulse Ox O2 Delivery O2 Flow Rate FiO2 10/30/19 21:53 98.0 95 10/30/19 16:10 70 20 97/57 (70) 10/29/19 16:08 Room Air I & O 10/29/19 10/29/19 10/30/19 15:00 23:00 07:00 Intake Total 240 ml 460 ml Output Total 600 ml 350 ml Balance 240 ml -140 ml -350 ml Labs: Laboratory Tests Test 10/30/19 06:10 10/30/19 07:04 10/30/19 11:51 10/30/19 16:50 White Blood Count 6.2 x10^3/uL (4.0-11.0) Red Blood Count 3.86 x10^6/uL (3.50-5.40) Hemoglobin 12.0 g/dL (12.0-15.5) Hematocrit 36.4 % (36.0-47.0) Mean Corpuscular Volume 94 fL (79-100) Mean Corpuscular Hemoglobin 31 pg (25-35) Mean Corpuscular Hemoglobin Concent 33 g/dL (31-37) Red Cell Distribution Width 16.2 % (11.5-14.5) H Platelet Count 279 x10^3/uL (140-400) Neutrophils (%) (Auto) 58 % (31-73) Lymphocytes (%) (Auto) 25 % (24-48) Monocytes (%) (Auto) 12 % (0-9) H Eosinophils (%) (Auto) 5 % (0-3) H Basophils (%) (Auto) 1 % (0-3) Neutrophils # (Auto) 3.6 x10^3uL (1.8-7.7) Lymphocytes # (Auto) 1.6 x10^3/uL (1.0-4.8) Monocytes # (Auto) 0.7 x10^3/uL (0.0-1.1) Eosinophils # (Auto) 0.3 x10^3/uL (0.0-0.7) Basophils # (Auto) 0.1 x10^3/uL (0.0-0.2) Sodium Level 140 mmol/L (136-145) Potassium Level 3.4 mmol/L (3.5-5.1) L Chloride Level 103 mmol/L (98-107) Carbon Dioxide Level 29 mmol/L (21-32) Anion Gap 8 (6-14) Blood Urea Nitrogen 24 mg/dL (7-20) H Creatinine 1.3 mg/dL (0.6-1.0) H Estimated GFR (Cockcroft-Gault) 40.6 BUN/Creatinine Ratio 18 (6-20) Glucose Level 136 mg/dL (70-99) H Calcium Level 8.3 mg/dL (8.5-10.1) L Total Bilirubin 0.3 mg/dL (0.2-1.0) Aspartate Amino Transferase (AST) 11 U/L (15-37) L Alanine Aminotransferase (ALT) 13 U/L (14-59) L Alkaline Phosphatase 95 U/L (46-116) Total Protein 6.9 g/dL (6.4-8.2) Albumin 2.4 g/dL (3.4-5.0) L Albumin/Globulin Ratio 0.5 (1.0-1.7) L Glucose (Fingerstick) 122 mg/dL (70-99) H 72 mg/dL (70-99) 112 mg/dL (70-99) H Test 10/30/19 19:13 Glucose (Fingerstick) 115 mg/dL (70-99) H Current Medications: Meds: Current Medications Medications (Trade) Dose Ordered Sig/Julia Route PRN Reason Start Time Stop Time Status Last Admin Dose Admin Risperidone (RisperDAL) 0.25 mg BID PO 10/30/19 21:00 10/30/19 20:55 I have reviewed the current psychotropics carefully including drug interactions. Risk benefit ratio favors no change other than as noted in my dictated progress note. Diagnosis: Problems: (1) Major depressive disorder in partial remission (2) Anxiety disorder (3) Impulse control disorder (4) Major depressive disorder, recurrent episode (5) Mild cognitive impairment ROMINA SORTO MD October 30, 2019 22:09
[2019-10-31 06:14] VITALS: BP 94/56
[2019-10-31] MEDS: INSULIN LISPRO 300 UNITS/3 ML VIAL. SQ SCH ×3 (08:00→17:59)
[2019-10-31] MEDS: LUBIPROSTONE 24 MCG CAPSULE PO SCH ×2 (10:19→17:51)
[2019-10-31] MEDS: risperiDONE 0.25 MG TABLET. PO SCH ×2 (10:19→20:19)
[2019-10-31] MEDS: GABAPENTIN 400 MG CAPSULE. PO SCH ×2 (10:19→20:19)
[2019-10-31] MEDS: FLUoxetine HCL 20 MG CAPSULE PO SCH (10:20)
[2019-10-31] MEDS: clonazePAM 1 MG TABLET PO SCH ×3 (10:20→20:20)
[2019-10-31] MEDS: buPROPion SR 150 MG TABLET.SA PO SCH (10:21)
[2019-10-31] MEDS: DIVALPROEX 125 MG CAP.SPRINK PO SCH ×3 (10:21→20:19)
[2019-10-31] MEDS: LACTOBACILLUS RHAMNOSUS GG 1 CAPSULE. PO SCH ×2 (10:21→20:19)
[2019-10-31] MEDS: FERROUS SULFATE 325 MG TABLET. PO SCH (10:21)
[2019-10-31] MEDS: FUROSEMIDE 40 MG TABLET PO SCH (10:22)
[2019-10-31] MEDS: IPRATROPIUM/ALBUTEROL 20/100mcg/INH INHALER. INH SCH ×4 (10:23→20:24)
[2019-10-31] MEDS: VITS A & D/LANOLIN TOPICAL OINTMENT 42GM TUBE. TP SCH ×2 (10:25→20:23)
[2019-10-31] MEDS: DICLOFENAC SODIUM 1% TOPICAL GEL 100GM TUBE. TP SCH ×2 (10:25→20:23)
[2019-10-31] MEDS: CLOBETASOL EMOLLIENT 0.05% TOPICAL CREAM 15GM TUBE. TP SCH ×2 (10:26→20:23)
[2019-10-31] MEDS: HYDROCORTISONE 1% TOPICAL OINTMENT 30GM TUBE. TP SCH ×2 (10:26→20:24)
[2019-10-31] MEDS: oxyCODONE/APAP 5/325 1 TAB TABLET PO PRN (10:44)
[2019-10-31] MEDS ORDERED: POTASSIUM CHLORIDE 20 MEQ TABLET.ER. PO ONE (11:00)
[2019-10-31 15:34] VITALS: BP 107/69
[2019-10-31] MEDS: traZODone 150 MG TABLET. PO SCH (20:19)
[2019-10-31] MEDS: FAMOTIDINE 20 MG TABLET PO SCH (20:20)
[2019-10-31] MEDS: SENNOSIDES/DOCUSATE 8.6/50MG TABLET. PO SCH (20:20)
[2019-10-31] MEDS: INSULIN GLARGINE SYRINGE. SQ SCH (20:22)
--- NOTE | 2019-10-31 21:27 | PN ---
DATE: 10/29/2019 PSYCHIATRIC PROGRESS NOTE This late entry 10/29/2019 covers elements not covered in my initial note. SUBJECTIVE: The patient was seen on telehealth rounds. The patient slept 7-1/4 hours previous night. Per DIVYA Barber, she has been sarcastic, somewhat demanding per nursing staff, talking about wanting to go to the parking lot and driving off in her car. Reportedly, she spoke to her sister, Tatiana, about this and Tatiana was concerned. Nevertheless, this and similar statements are what prompted the patient's admission initially from [facility] with some of her bizarre behaviors including psychotic symptoms. REVIEW OF SYSTEMS: Ambulation impaired. No CV, , pulmonary, eye system symptoms on review. MENTAL STATUS EXAMINATION: Oriented to herself and situation. Speech is coherent, has some latency. Abstraction fair, computation impaired. Language function intact. Mood and affect remains anxious, somewhat labile. LABORATORY DATA: Reviewed. IMPRESSION: Unchanged from initial note. PLAN: No change from initial note. ROMINA SORTO MD DR: TOD/moris JOB#: [id number] / [id number]
--- NOTE | 2019-10-31 22:04 | PDOC ---
Exam Note: Laureano Note: Please also refer to the separate dictated note~for this date of service dictated separately.~Patient seen individually. Discussed the patient with Nursing staff reviewed the chart.~Reviewed interim history and current functioning. Reviewed vital signs,~Labs/ Radiology~and current medications noted below. Continue current treatment with the changes noted in the dictated addendum note Assessment: Vital Signs/I&O: Vital Signs Date Time Temp Pulse Resp B/P (MAP) Pulse Ox O2 Delivery O2 Flow Rate FiO2 10/31/19 18:44 98.3 10/31/19 15:34 75 18 107/69 (82) 91 10/31/19 06:14 Room Air I & O 10/30/19 10/30/19 10/31/19 15:00 23:00 07:00 Intake Total 720 ml 100 ml Output Total 300 ml Balance 720 ml 100 ml -300 ml Labs: Laboratory Tests Test 10/31/19 07:43 10/31/19 11:34 10/31/19 16:57 10/31/19 20:36 Glucose (Fingerstick) 94 mg/dL (70-99) 264 mg/dL (70-99) H 132 mg/dL (70-99) H 47 mg/dL (70-99) L Test 10/31/19 20:58 10/31/19 21:47 Glucose (Fingerstick) 58 mg/dL (70-99) L 116 mg/dL (70-99) H Current Medications: Meds: Current Medications Medications (Trade) Dose Ordered Sig/Julia Route PRN Reason Start Time Stop Time Status Last Admin Dose Admin Potassium Chloride (Klor-Con) 20 meq 1X ONCE PO 10/31/19 11:00 10/31/19 11:08 DC 10/31/19 12:45 I have reviewed the current psychotropics carefully including drug interactions. Risk benefit ratio favors no change other than as noted in my dictated progress note. Diagnosis: Problems: (1) Major depressive disorder in partial remission (2) Anxiety disorder (3) Impulse control disorder (4) Major depressive disorder, recurrent episode (5) Mild cognitive impairment ROMINA SORTO MD October 31, 2019 22:04
--- NOTE | 2019-10-31 22:22 | PN ---
DATE: 10/30/2019 PSYCHIATRIC PROGRESS NOTE This late entry 10/30/2019 covers elements not covered in my initial note. SUBJECTIVE: I met with the patient evening of 10/30/2019 and staffed at a treatment team meeting with the entire team in the morning with DIVYA Cabrera. The patient slept 7-3/4 hours previous night. She was calm in the morning, then agitated, asking staff to go away from her. Remains paranoid. REVIEW OF SYSTEMS: Ambulation impaired. No CV, , pulmonary, eye system symptoms on review. MENTAL STATUS EXAM: Oriented to herself and situation. Speech is coherent, has some latency. Abstraction fair, computation impaired, language function intact, attention span short. Mood and affect remains withdrawn, labile. LABORATORY DATA: Reviewed. IMPRESSION: Unchanged from initial note. PLAN: The patient remains paranoid. We will add Risperdal 0.25 mg a.m. Continue 0.25 mg at bedtime. Rest of the psychotropics unchanged from initial note. Klonopin is being tapered. Check CBC, CMP. Per DIVYA Cabrera on rounds evening of 10/30/2019, patient was quite abrasive using profanities at nursing staff, calling the POSITION DESCRIPTION MANAGER "messi." I addressed this with the patient at some length individually with limited insight on her behalf. ROMINA SORTO MD DR: TOD/moris JOB#: [id number] / [id number]
[2019-11-01 06:40] VITALS: BP 96/60
--- NOTE | 2019-11-01 09:17 | PDOC ---
Exam Note: Laureano Note: This note is a late entry for 10/31/2019 covers elements not covered in my initial note. SUBECTIVE: The patient was seen on Telehealth rounds in the evening of 10/31/2019. Nursing report with Annamarie STOKES. Discussed the patient with nursing staff reviewed the chart. She slept 7-1/2 hours previous night. She has been talking about walking to the parking lot, getting a gold car that is [employer]. She wants to drive off to work. Potassium is low. We will defer to Dr. Segal. She is less labile but still withdrawn. REVIEW OF SYSTEMS: Ambulation impaired. No CV,, Pulmonary, Eye system symptoms on review. MENTAL STATUS EXAM: Oriented to herself and situation. Speech is coherent, has some latency. Abstraction is fair. Computation is impaired. Language function intact. Attention span is short. Mood and affect remains labile, withdrawn. LABORATORY DATA: Reviewed. IMPRESSION: Unchanged from initial note. PLAN: Make further adjustments as clinically indicated and further reduce Klonopin gradually. Rest unchanged from initial note. Assessment: Vital Signs/I&O: Vital Signs Date Time Temp Pulse Resp B/P (MAP) Pulse Ox O2 Delivery O2 Flow Rate FiO2 11/01/19 08:00 98.1 93 11/01/19 06:40 72 20 96/60 (72) 10/31/19 06:14 Room Air I & O 10/31/19 10/31/19 11/01/19 15:00 23:00 07:00 Intake Total 960 ml 840 ml Output Total 425 ml Balance 960 ml 840 ml -425 ml Labs: Laboratory Tests Test 10/31/19 11:34 10/31/19 16:57 10/31/19 20:36 10/31/19 20:58 Glucose (Fingerstick) 264 mg/dL (70-99) H 132 mg/dL (70-99) H 47 mg/dL (70-99) L 58 mg/dL (70-99) L Test 10/31/19 21:47 11/01/19 07:16 Glucose (Fingerstick) 116 mg/dL (70-99) H 107 mg/dL (70-99) H Current Medications: Meds: Current Medications Medications (Trade) Dose Ordered Sig/Julia Route PRN Reason Start Time Stop Time Status Last Admin Dose Admin Potassium Chloride (Klor-Con) 20 meq 1X ONCE PO 10/31/19 11:00 10/31/19 11:08 DC 10/31/19 12:45 I have reviewed the current psychotropics carefully including drug interactions. Risk benefit ratio favors no change other than as noted in my dictated progress note. Diagnosis: Problems: (1) Major depressive disorder in partial remission (2) Anxiety disorder (3) Impulse control disorder (4) Major depressive disorder, recurrent episode (5) Mild cognitive impairment ROMINA SORTO MD November 01, 2019 09:17
[2019-11-01] MEDS: IPRATROPIUM/ALBUTEROL 20/100mcg/INH INHALER. INH SCH ×4 (09:53→21:24)
[2019-11-01] MEDS: FLUoxetine HCL 20 MG CAPSULE PO SCH (09:53)
[2019-11-01] MEDS: buPROPion SR 150 MG TABLET.SA PO SCH (09:53)
[2019-11-01] MEDS: POTASSIUM CHLORIDE 20 MEQ TABLET.ER. PO SCH (09:53)
[2019-11-01] MEDS: DIVALPROEX 125 MG CAP.SPRINK PO SCH ×3 (09:53→21:21)
[2019-11-01] MEDS: clonazePAM 1 MG TABLET PO SCH ×3 (09:54→21:21)
[2019-11-01] MEDS: risperiDONE 0.25 MG TABLET. PO SCH (09:54)
[2019-11-01] MEDS: LACTOBACILLUS RHAMNOSUS GG 1 CAPSULE. PO SCH ×2 (09:54→21:21)
[2019-11-01] MEDS: FERROUS SULFATE 325 MG TABLET. PO SCH (09:54)
[2019-11-01] MEDS: FUROSEMIDE 40 MG TABLET PO SCH (09:54)
[2019-11-01] MEDS: GABAPENTIN 400 MG CAPSULE. PO SCH ×2 (09:55→21:21)
[2019-11-01] MEDS: CLOBETASOL EMOLLIENT 0.05% TOPICAL CREAM 15GM TUBE. TP SCH ×2 (09:55→21:22)
[2019-11-01] MEDS: LUBIPROSTONE 24 MCG CAPSULE PO SCH ×2 (09:55→17:39)
[2019-11-01] MEDS: DICLOFENAC SODIUM 1% TOPICAL GEL 100GM TUBE. TP SCH ×3 (09:56→21:22)
[2019-11-01] MEDS: HYDROCORTISONE 1% TOPICAL OINTMENT 30GM TUBE. TP SCH ×2 (09:57→21:22)
[2019-11-01] MEDS: VITS A & D/LANOLIN TOPICAL OINTMENT 42GM TUBE. TP SCH ×2 (09:57→21:00)
[2019-11-01] MEDS: INSULIN LISPRO 300 UNITS/3 ML VIAL. SQ SCH ×3 (10:12→17:00)
[2019-11-01] MEDS: oxyCODONE/APAP 5/325 1 TAB TABLET PO PRN (13:39)
[2019-11-01 15:41] LABS: BASO # 0.1 x10^3/uL (0.0-0.2); BASO % 1 % (0-3); EOS # 0.4 x10^3/uL (0.0-0.7); EOS % 6 % (0-3); HEMATOCRIT 40.1 % (36.0-47.0); LYMPH # 1.9 x10^3/uL (1.0-4.8); LYMPH % 28 % (24-48); MEAN CORPUSCULAR HEMOGLOBIN 31 pg (25-35); MEAN CORPUSCULAR HGB CONC 32 g/dL (31-37); MEAN CORPUSCULAR VOLUME 96 fL (79-100); MONO # 0.8 x10^3/uL (0.0-1.1); MONO % 12 % (0-9); NEUT # 3.7 x10^3uL (1.8-7.7); NEUT % 54 % (31-73); PLATELET COUNT 251 x10^3/uL (140-400); RED BLOOD COUNT 4.19 x10^6/uL (3.50-5.40); RED CELL DISTRIBUTION WIDTH 16.4 % (11.5-14.5); WHITE BLOOD COUNT 6.8 x10^3/uL (4.0-11.0)
[2019-11-01 15:55] LABS: ALBUMIN 2.6 g/dL (3.4-5.0); ALBUMIN/GLOBULIN RATIO 0.6 (1.0-1.7); CALCIUM 8.9 mg/dL (8.5-10.1); CREATININE 1.2 mg/dL (0.6-1.0); GFR 44.5; POTASSIUM 3.7 mmol/L (3.5-5.1); TOTAL BILIRUBIN 0.2 mg/dL (0.2-1.0); TOTAL PROTEIN 7.2 g/dL (6.4-8.2)
[2019-11-01 15:58] VITALS: BP 99/54
[2019-11-01] MEDS: DEXTROSE ORAL GEL 15 GM TUBE. PO PRN ×2 (16:02→16:14)
[2019-11-01] MEDS ORDERED: DEXTROSE 50% 25 GM / 50ML DISP.SYRIN. IV ONE (16:15)
[2019-11-01] MEDS: traZODone 150 MG TABLET. PO SCH (21:20)
[2019-11-01] MEDS: SENNOSIDES/DOCUSATE 8.6/50MG TABLET. PO SCH (21:20)
[2019-11-01] MEDS: FAMOTIDINE 20 MG TABLET PO SCH (21:21)
[2019-11-01] MEDS: risperiDONE 0.5 MG TABLET. PO SCH (21:24)
--- NOTE | 2019-11-01 22:03 | PDOC ---
Exam Note: Laureano Note: Please also refer to the separate dictated note~for this date of service dictated separately.~Patient seen individually. Discussed the patient with Nursing staff reviewed the chart.~Reviewed interim history and current functioning. Reviewed vital signs,~Labs/ Radiology~and current medications noted below. Continue current treatment with the changes noted in the dictated addendum note Assessment: Vital Signs/I&O: Vital Signs Date Time Temp Pulse Resp B/P (MAP) Pulse Ox O2 Delivery O2 Flow Rate FiO2 11/01/19 20:37 97.7 94 11/01/19 15:58 79 18 99/54 (69) 11/01/19 15:24 Room Air I & O 10/31/19 10/31/19 11/01/19 15:00 23:00 07:00 Intake Total 960 ml 840 ml Output Total 425 ml Balance 960 ml 840 ml -425 ml Labs: Laboratory Tests Test 11/01/19 07:16 11/01/19 11:48 11/01/19 15:34 11/01/19 16:22 Glucose (Fingerstick) 107 mg/dL (70-99) H 216 mg/dL (70-99) H 41 mg/dL (70-99) L White Blood Count 6.8 x10^3/uL (4.0-11.0) Red Blood Count 4.19 x10^6/uL (3.50-5.40) Hemoglobin 13.0 g/dL (12.0-15.5) Hematocrit 40.1 % (36.0-47.0) Mean Corpuscular Volume 96 fL (79-100) Mean Corpuscular Hemoglobin 31 pg (25-35) Mean Corpuscular Hemoglobin Concent 32 g/dL (31-37) Red Cell Distribution Width 16.4 % (11.5-14.5) H Platelet Count 251 x10^3/uL (140-400) Neutrophils (%) (Auto) 54 % (31-73) Lymphocytes (%) (Auto) 28 % (24-48) Monocytes (%) (Auto) 12 % (0-9) H Eosinophils (%) (Auto) 6 % (0-3) H Basophils (%) (Auto) 1 % (0-3) Neutrophils # (Auto) 3.7 x10^3uL (1.8-7.7) Lymphocytes # (Auto) 1.9 x10^3/uL (1.0-4.8) Monocytes # (Auto) 0.8 x10^3/uL (0.0-1.1) Eosinophils # (Auto) 0.4 x10^3/uL (0.0-0.7) Basophils # (Auto) 0.1 x10^3/uL (0.0-0.2) Sodium Level 140 mmol/L (136-145) Potassium Level 3.7 mmol/L (3.5-5.1) Chloride Level 102 mmol/L (98-107) Carbon Dioxide Level 30 mmol/L (21-32) Anion Gap 8 (6-14) Blood Urea Nitrogen 24 mg/dL (7-20) H Creatinine 1.2 mg/dL (0.6-1.0) H Estimated GFR (Cockcroft-Gault) 44.5 BUN/Creatinine Ratio 20 (6-20) Glucose Level 35 mg/dL (70-99) *L Calcium Level 8.9 mg/dL (8.5-10.1) Total Bilirubin 0.2 mg/dL (0.2-1.0) Aspartate Amino Transferase (AST) 12 U/L (15-37) L Alanine Aminotransferase (ALT) 12 U/L (14-59) L Alkaline Phosphatase 109 U/L (46-116) Total Protein 7.2 g/dL (6.4-8.2) Albumin 2.6 g/dL (3.4-5.0) L Albumin/Globulin Ratio 0.6 (1.0-1.7) L Test 11/01/19 16:34 11/01/19 16:47 11/01/19 19:01 Glucose (Fingerstick) 66 mg/dL (70-99) L 84 mg/dL (70-99) 228 mg/dL (70-99) H Current Medications: Meds: Current Medications Medications (Trade) Dose Ordered Sig/Julia Route PRN Reason Start Time Stop Time Status Last Admin Dose Admin Potassium Chloride (Klor-Con) 20 meq DAILY PO 11/01/19 09:00 11/01/19 09:53 Risperidone (RisperDAL) 0.5 mg HS PO 11/01/19 21:00 11/01/19 21:24 I have reviewed the current psychotropics carefully including drug interactions. Risk benefit ratio favors no change other than as noted in my dictated progress note. Diagnosis: Problems: (1) Major depressive disorder in partial remission (2) Major depression (3) Anxiety disorder (4) Impulse control disorder (5) Major depressive disorder, recurrent episode (6) Mild cognitive impairment ROMINA SORTO MD November 01, 2019 22:03
[2019-11-01] MEDS: INSULIN GLARGINE SYRINGE. SQ SCH (22:29)
--- NOTE | 2019-11-01 22:32 | PN ---
DATE: 11/01/2019 PSYCHIATRIC PROGRESS NOTE This note covers elements not covered in my initial note, 11/01/2019. SUBJECTIVE: I met with the patient evening of 11/01/2019. Per Ganesh RN, the patient slept 8-1/4 hours previous night. She has been anxious, restless, labile in her mood. I received a message from [facility] staff that the patient's sister is concerned about her worsening confusion, delusions where the patient is looking for her car, etc., and wants a CT head and a UA done. We will go ahead and do this. The patient remains somewhat delusional, grandiose, asking for her daughter, Jackie. Her blood sugar did drop down to 35, Dr. Fong is managing this. REVIEW OF SYSTEMS: Ambulation impaired, in bed, met with her in her room. No CV, , pulmonary, eye system symptoms on review. Does admit to being tired. MENTAL STATUS EXAM: Oriented to herself and situation. Speech has some latency, coherent, often responses monosyllabic. Abstraction fair, computation impaired, language function intact. Mood and affect withdrawn, paranoid. LABORATORY DATA: Reviewed. IMPRESSION: Major depressive disorder with psychotic features; anxiety disorder, unspecified; mild cognitive impairment. PLAN: Check CT head and UA. Defer medical management to Dr. Fong. Continue current psychotropics. Klonopin has been reduced and we will increase the Risperdal from 0.25 mg b.i.d. to 0.25 mg a.m. and 0.5 mg at bedtime. Rest unchanged for now. MAN Yamilex SORTO MD DR: TOD/moris JOB#: [id number] / [id number]
[2019-11-01 23:23] LABS: BILIRUBIN,URINE NEG (NEG); CLARITY,URINE CLOUDY; COLOR,URINE YELLOW; GLUCOSE,URINE 500 mg/dL (NEG); NITRITE,URINE POS (NEG); RBC,URINE 0 /HPF (0-2); UROBILINOGEN,URINE 0.2 mg/dL (0.2 mg/dL); WBC,URINE >40 /HPF (0-4)
[2019-11-01 23:24] LABS: BACTERIA,URINE MANY /HPF (0-FEW); SQUAMOUS EPITHELIAL CELL,UR OCC /LPF
[2019-11-02 06:13] VITALS: BP 115/70
--- NOTE | 2019-11-02 07:56 | RAD ---
CT brain without contrast. HISTORY: Acute mental status CT scan of the brain was done without contrast. Comparison is made with a study from October 18. Sinuses are clear. There are changes from sinus surgery. A skull fracture is not identified. There is motion artifact on the images. There is no intracranial hemorrhage. A subdural hematomas is not identified. This study is limited by the motion artifact. There is no shift of the midline. An acute CVA is not definitively identified. IMPRESSION: 1. Limited study due to motion artifact. 2. No intracranial hemorrhage or definite acute finding. PQRS Compliance Statement: One or more of the following individualized dose reduction techniques were utilized for this examination: 1. Automated exposure control 2. Adjustment of the mA and/or kV according to patient size 3. Use of iterative reconstruction technique Electronically signed by: Kevin Hunter MD (11/02/2019 7:53 AM) [id number]
[2019-11-02] MEDS: INSULIN LISPRO 300 UNITS/3 ML VIAL. SQ SCH ×3 (08:00→17:59)
[2019-11-02] MEDS ORDERED: methylPREDNISolone ACETATE 40 MG/ML VIAL. INT ART ONE ×2 (09:00→17:00)
[2019-11-02] MEDS: VITS A & D/LANOLIN TOPICAL OINTMENT 42GM TUBE. TP SCH ×2 (09:00→19:43)
[2019-11-02] MEDS: DICLOFENAC SODIUM 1% TOPICAL GEL 100GM TUBE. TP SCH ×2 (10:46→19:43)
[2019-11-02] MEDS: HYDROCORTISONE 1% TOPICAL OINTMENT 30GM TUBE. TP SCH ×2 (10:47→19:43)
[2019-11-02] MEDS: CLOBETASOL EMOLLIENT 0.05% TOPICAL CREAM 15GM TUBE. TP SCH ×2 (10:47→19:43)
[2019-11-02] MEDS: IPRATROPIUM/ALBUTEROL 20/100mcg/INH INHALER. INH SCH ×4 (10:51→19:46)
[2019-11-02] MEDS: risperiDONE 0.25 MG TABLET. PO SCH (10:53)
[2019-11-02] MEDS: DIVALPROEX 125 MG CAP.SPRINK PO SCH ×3 (10:53→19:47)
[2019-11-02] MEDS: FUROSEMIDE 40 MG TABLET PO SCH (10:53)
[2019-11-02] MEDS: FLUoxetine HCL 20 MG CAPSULE PO SCH (10:53)
[2019-11-02] MEDS: LACTOBACILLUS RHAMNOSUS GG 1 CAPSULE. PO SCH ×2 (10:54→19:48)
[2019-11-02] MEDS: GABAPENTIN 400 MG CAPSULE. PO SCH ×2 (10:54→19:46)
[2019-11-02] MEDS: POTASSIUM CHLORIDE 20 MEQ TABLET.ER. PO SCH (10:54)
[2019-11-02] MEDS: FERROUS SULFATE 325 MG TABLET. PO SCH (10:54)
[2019-11-02] MEDS: LUBIPROSTONE 24 MCG CAPSULE PO SCH ×2 (10:54→16:05)
[2019-11-02] MEDS: clonazePAM 1 MG TABLET PO SCH ×3 (10:55→19:47)
[2019-11-02] MEDS: buPROPion SR 150 MG TABLET.SA PO SCH (11:01)
[2019-11-02 15:34] VITALS: BP 121/79
[2019-11-02] MEDS ORDERED: LIDOCAINE 1% Multi-Dose 20 ML VIAL. IJ ONE (17:00)
[2019-11-02] MEDS: risperiDONE 0.5 MG TABLET. PO SCH (19:47)
[2019-11-02] MEDS: SENNOSIDES/DOCUSATE 8.6/50MG TABLET. PO SCH (19:47)
[2019-11-02] MEDS: traZODone 150 MG TABLET. PO SCH (19:47)
[2019-11-02] MEDS: FAMOTIDINE 20 MG TABLET PO SCH (19:47)
[2019-11-02] MEDS: INSULIN GLARGINE SYRINGE. SQ SCH (21:00)
--- NOTE | 2019-11-02 21:58 | PN ---
DATE: 11/02/2019 PSYCHIATRIC PROGRESS NOTE This note covers elements not covered in my initial note 11/02/2019. SUBJECTIVE: The patient was seen on telehealth rounds evening of 11/02/2019 and staffed at a treatment team meeting with the entire team in the morning. Per DIVYA Brown, the patient slept 6-3/4 hours previous night. She spends much time in bed, quite anxious and irritable. CT head shows no acute changes. The patient remains anxious, restless, delusional. UA has reflux to culture and sensitivity and this may account for some of her psychiatric symptoms. She remains delusional, believes that her daughter was here, was wanting to drive her car to her home. Trying to get out of bed and ambulate on her own, is a fall risk. REVIEW OF SYSTEMS: Ambulation impaired as noted. No CV, , pulmonary, eye system symptoms on review. MENTAL STATUS EXAM: Oriented to herself and situation. Speech is coherent, has some latency. Abstraction fair, computation impaired, language function intact, attention span short. Mood and affect remain somewhat withdrawn. LABORATORY DATA: Reviewed. IMPRESSION: Major depressive disorder, recurrent with psychotic features, mild cognitive impairment, urinary tract infection. Rest unchanged. PLAN: Continue current psychotropics. Treat the UTI. Taper the Klonopin further. Maintain Wellbutrin, Prozac, gabapentin, trazodone, Depakote, Atarax p.r.n., Risperdal at current dosage. ROMINA SORTO MD DR: TOD/moris JOB#: [id number] / [id number]
--- NOTE | 2019-11-02 22:01 | PDOC ---
Exam Note: Laureano Note: Please also refer to the separate dictated note~for this date of service dictated separately.~Patient seen individually. Discussed the patient with Nursing staff reviewed the chart.~Reviewed interim history and current functioning. Reviewed vital signs,~Labs/ Radiology~and current medications noted below. Continue current treatment with the changes noted in the dictated addendum note Assessment: Vital Signs/I&O: Vital Signs Date Time Temp Pulse Resp B/P (MAP) Pulse Ox O2 Delivery O2 Flow Rate FiO2 11/02/19 20:19 97.8 96 11/02/19 15:34 76 18 121/79 (93) 11/01/19 15:24 Room Air I & O 11/01/19 11/01/19 11/02/19 15:00 23:00 07:00 Intake Total 900 ml 480 ml Output Total 425 ml Balance 900 ml 480 ml -425 ml Labs: Laboratory Tests Test 11/01/19 22:26 11/01/19 22:40 11/02/19 06:07 11/02/19 07:19 Glucose (Fingerstick) 352 mg/dL (70-99) H 149 mg/dL (70-99) H 131 mg/dL (70-99) H Urine Collection Type Unknown Urine Color Yellow Urine Clarity Cloudy Urine pH 6.0 Urine Specific [place] 1.015 Urine Protein Neg (NEG-TRACE) Urine Glucose (UA) 500 mg/dL (NEG) Urine Ketones (Stick) Neg mg/dL (NEG) Urine Blood Trace (NEG) Urine Nitrite Pos (NEG) Urine Bilirubin Neg (NEG) Urine Urobilinogen Dipstick 0.2 mg/dL (0.2 mg/dL) Urine Leukocyte Esterase Large (NEG) Urine RBC 0 /HPF (0-2) Urine WBC >40 /HPF (0-4) Urine Squamous Epithelial Cells Occ /LPF Urine Bacteria Many /HPF (0-FEW) Test 11/02/19 17:20 11/02/19 19:27 Glucose (Fingerstick) 182 mg/dL (70-99) H 112 mg/dL (70-99) H Current Medications: Meds: Current Medications Medications (Trade) Dose Ordered Sig/Julia Route PRN Reason Start Time Stop Time Status Last Admin Dose Admin Risperidone (RisperDAL) 0.25 mg DAILY PO 11/02/19 09:00 11/02/19 10:53 I have reviewed the current psychotropics carefully including drug interactions. Risk benefit ratio favors no change other than as noted in my dictated progress note. Diagnosis: Problems: (1) Major depressive disorder in partial remission (2) Anxiety disorder (3) Impulse control disorder (4) Major depressive disorder, recurrent episode (5) Mild cognitive impairment ROMINA SORTO MD November 02, 2019 22:01
[2019-11-03 06:16] VITALS: BP 106/62
[2019-11-03] MEDS: IPRATROPIUM/ALBUTEROL 20/100mcg/INH INHALER. INH SCH ×4 (07:47→19:41)
[2019-11-03] MEDS: DICLOFENAC SODIUM 1% TOPICAL GEL 100GM TUBE. TP SCH ×2 (07:47→19:42)
[2019-11-03] MEDS: VITS A & D/LANOLIN TOPICAL OINTMENT 42GM TUBE. TP SCH ×2 (07:47→19:41)
[2019-11-03] MEDS: CLOBETASOL EMOLLIENT 0.05% TOPICAL CREAM 15GM TUBE. TP SCH ×2 (07:47→19:42)
[2019-11-03] MEDS: buPROPion SR 150 MG TABLET.SA PO SCH (07:48)
[2019-11-03] MEDS: risperiDONE 0.25 MG TABLET. PO SCH (07:48)
[2019-11-03] MEDS: HYDROCORTISONE 1% TOPICAL OINTMENT 30GM TUBE. TP SCH ×2 (07:48→19:42)
[2019-11-03] MEDS: FUROSEMIDE 40 MG TABLET PO SCH (07:48)
[2019-11-03] MEDS: FERROUS SULFATE 325 MG TABLET. PO SCH (07:48)
[2019-11-03] MEDS: LUBIPROSTONE 24 MCG CAPSULE PO SCH ×2 (07:48→17:00)
[2019-11-03] MEDS: DIVALPROEX 125 MG CAP.SPRINK PO SCH ×3 (07:48→19:43)
[2019-11-03] MEDS: LACTOBACILLUS RHAMNOSUS GG 1 CAPSULE. PO SCH ×2 (07:48→19:43)
[2019-11-03] MEDS: FLUoxetine HCL 20 MG CAPSULE PO SCH (07:49)
[2019-11-03] MEDS: POTASSIUM CHLORIDE 20 MEQ TABLET.ER. PO SCH (07:49)
[2019-11-03] MEDS: INSULIN LISPRO 300 UNITS/3 ML VIAL. SQ SCH ×3 (07:51→17:00)
[2019-11-03] MEDS: clonazePAM 1 MG TABLET PO SCH ×3 (07:53→19:43)
[2019-11-03] MEDS: GABAPENTIN 400 MG CAPSULE. PO SCH ×2 (07:53→19:43)
[2019-11-03] MEDS: CHOLECALCIFEROL (VITAMIN D3) 50,000 UNIT CAPSULE PO SCH (07:54)
[2019-11-03] MEDS ORDERED: LIDOCAINE 1% Multi-Dose 20 ML VIAL. IJ ONE (09:00)
[2019-11-03] MEDS ORDERED: methylPREDNISolone ACETATE 40 MG/ML VIAL. INT ART ONE ×2 (09:00)
[2019-11-03 15:00] VITALS: BP 106/59
--- NOTE | 2019-11-03 19:40 | PN ---
DATE: 11/03/2019 SUBJECTIVE: The patient is a 69-year-old female patient who has complained that she has severe pain in her both knee joints and right shoulder joint. She stated that she has been admitted before from steroid injection and would like to be injected. PHYSICAL EXAMINATION: GENERAL: When I examined her, the patient looked well and was clearly in no apparent distress. No pallor, jaundice, cyanosis or thyromegaly. No jugular venous distention. No limb edema. VITAL SIGNS: Her heart rate was 87, blood pressure was 106/62, temperature was 97.6, respiratory rate 20, and oxygen saturation was 93%. HEAD, EYES, EARS, NOSE AND THROAT: Normocephalic, atraumatic. NECK: Supple. HEART: Showed normal first and second heart sounds. No gallop or murmur. CHEST: Clear to auscultation. No crepitation or rhonchi. ABDOMEN: Distended, soft, nontender. NEUROLOGIC: She is somewhat sleepy but arousable. All cranial nerves intact. She is post-polio. She has wry neck. Examination of her both knee joints showed no evidence of any redness or swelling. There is no effusion. There is no localized tenderness. Under strict aseptic technique after cleaning the skin with Betadine and using sterile needles, sterile gloves, 10 mL of 1% lidocaine with 40 mg of Solu-Medrol injected in each knee without difficulty. She tolerated the procedure well and there were no immediate complication. The patient and nursing staff were instructed that if the patient develop any redness, tenderness or swelling, or fever, I should be contacted immediately. ELOY RIVERA MD DR: RACHEL/moris JOB#: [id number] / [id number]
[2019-11-03] MEDS: SENNOSIDES/DOCUSATE 8.6/50MG TABLET. PO SCH (19:43)
[2019-11-03] MEDS: risperiDONE 0.5 MG TABLET. PO SCH (19:43)
[2019-11-03] MEDS: FAMOTIDINE 20 MG TABLET PO SCH (19:43)
[2019-11-03] MEDS: traZODone 150 MG TABLET. PO SCH (19:43)
[2019-11-03] MEDS: INSULIN GLARGINE SYRINGE. SQ SCH (21:37)
--- NOTE | 2019-11-03 21:52 | PDOC ---
Exam Note: Laureano Note: Please also refer to the separate dictated note~for this date of service dictated separately.~Patient seen individually. Discussed the patient with Nursing staff reviewed the chart.~Reviewed interim history and current functioning. Reviewed vital signs,~Labs/ Radiology~and current medications noted below. Continue current treatment with the changes noted in the dictated addendum note Assessment: Vital Signs/I&O: Vital Signs Date Time Temp Pulse Resp B/P (MAP) Pulse Ox O2 Delivery O2 Flow Rate FiO2 11/03/19 21:13 98.0 97 11/03/19 15:00 81 18 106/59 (75) Room Air I & O 11/02/19 11/02/19 11/03/19 15:00 23:00 07:00 Intake Total 720 ml 200 ml Output Total 850 ml Balance 720 ml 200 ml -850 ml Labs: Laboratory Tests Test 11/03/19 07:55 11/03/19 12:13 11/03/19 16:58 11/03/19 19:23 Glucose (Fingerstick) 145 mg/dL (70-99) H 151 mg/dL (70-99) H 153 mg/dL (70-99) H 214 mg/dL (70-99) H Current Medications: Meds: Current Medications Medications (Trade) Dose Ordered Sig/Julia Route PRN Reason Start Time Stop Time Status Last Admin Dose Admin Lidocaine HCl 20 ml 1X ONCE IJ 11/03/19 09:00 11/03/19 09:01 DC 11/03/19 15:45 Methylprednisolone Acetate (DEPO-Medrol IM) 40 mg 1X ONCE INT ART 11/03/19 09:00 11/03/19 09:01 DC 11/03/19 15:45 Methylprednisolone Acetate (DEPO-Medrol IM) 40 mg 1X ONCE INT ART 11/03/19 09:00 11/03/19 09:01 DC 11/03/19 15:45 I have reviewed the current psychotropics carefully including drug interactions. Risk benefit ratio favors no change other than as noted in my dictated progress note. Diagnosis: Problems: (1) Major depressive disorder in partial remission (2) Anxiety disorder (3) Impulse control disorder (4) Major depressive disorder, recurrent episode (5) Mild cognitive impairment ROMINA SORTO MD November 03, 2019 21:52
[2019-11-04 05:58] VITALS: BP 118/77
[2019-11-04] MEDS: VITS A & D/LANOLIN TOPICAL OINTMENT 42GM TUBE. TP SCH ×2 (07:44→20:24)
[2019-11-04] MEDS: CLOBETASOL EMOLLIENT 0.05% TOPICAL CREAM 15GM TUBE. TP SCH ×2 (07:44→20:24)
[2019-11-04] MEDS: HYDROCORTISONE 1% TOPICAL OINTMENT 30GM TUBE. TP SCH ×2 (07:44→20:27)
[2019-11-04] MEDS: DICLOFENAC SODIUM 1% TOPICAL GEL 100GM TUBE. TP SCH ×2 (07:44→20:25)
[2019-11-04] MEDS: IPRATROPIUM/ALBUTEROL 20/100mcg/INH INHALER. INH SCH ×4 (07:44→20:24)
[2019-11-04] MEDS: LACTOBACILLUS RHAMNOSUS GG 1 CAPSULE. PO SCH ×2 (07:45→20:26)
[2019-11-04] MEDS: DIVALPROEX 125 MG CAP.SPRINK PO SCH ×3 (07:45→20:26)
[2019-11-04] MEDS: risperiDONE 0.25 MG TABLET. PO SCH (07:45)
[2019-11-04] MEDS: LUBIPROSTONE 24 MCG CAPSULE PO SCH ×2 (07:45→17:00)
[2019-11-04] MEDS: FUROSEMIDE 40 MG TABLET PO SCH (07:46)
[2019-11-04] MEDS: POTASSIUM CHLORIDE 20 MEQ TABLET.ER. PO SCH (07:46)
[2019-11-04] MEDS: FLUoxetine HCL 20 MG CAPSULE PO SCH (07:46)
[2019-11-04] MEDS: FERROUS SULFATE 325 MG TABLET. PO SCH (07:46)
[2019-11-04] MEDS: buPROPion SR 150 MG TABLET.SA PO SCH (07:46)
[2019-11-04] MEDS: INSULIN LISPRO 300 UNITS/3 ML VIAL. SQ SCH ×3 (07:49→17:00)
[2019-11-04] MEDS: clonazePAM 1 MG TABLET PO SCH ×3 (07:50→20:25)
[2019-11-04] MEDS: GABAPENTIN 400 MG CAPSULE. PO SCH ×2 (07:50→20:26)
[2019-11-04 08:43] LABS: BASO # 0.1 x10^3/uL (0.0-0.2); BASO % 1 % (0-3); EOS # 0.1 x10^3/uL (0.0-0.7); EOS % 1 % (0-3); HEMATOCRIT 41.8 % (36.0-47.0); HEMOGLOBIN 13.5 g/dL (12.0-15.5); LYMPH # 1.1 x10^3/uL (1.0-4.8); LYMPH % 21 % (24-48); MEAN CORPUSCULAR HEMOGLOBIN 31 pg (25-35); MEAN CORPUSCULAR HGB CONC 32 g/dL (31-37); MEAN CORPUSCULAR VOLUME 96 fL (79-100); MONO # 0.4 x10^3/uL (0.0-1.1); MONO % 9 % (0-9); NEUT # 3.6 x10^3uL (1.8-7.7); NEUT % 68 % (31-73); PLATELET COUNT 310 x10^3/uL (140-400); RED BLOOD COUNT 4.38 x10^6/uL (3.50-5.40); RED CELL DISTRIBUTION WIDTH 16.6 % (11.5-14.5); WHITE BLOOD COUNT 5.3 x10^3/uL (4.0-11.0)
[2019-11-04 08:49] LABS: ALBUMIN 2.9 g/dL (3.4-5.0); ALBUMIN/GLOBULIN RATIO 0.6 (1.0-1.7); CALCIUM 9.3 mg/dL (8.5-10.1); CREATININE 1.3 mg/dL (0.6-1.0); GFR 40.6; POTASSIUM 4.2 mmol/L (3.5-5.1); TOTAL BILIRUBIN 0.2 mg/dL (0.2-1.0)
[2019-11-04 16:10] VITALS: BP 106/72
[2019-11-04] MEDS: INSULIN GLARGINE SYRINGE. SQ SCH (20:21)
[2019-11-04] MEDS: risperiDONE 0.5 MG TABLET. PO SCH (20:26)
[2019-11-04] MEDS: traZODone 150 MG TABLET. PO SCH (20:26)
[2019-11-04] MEDS: FAMOTIDINE 20 MG TABLET PO SCH (20:26)
[2019-11-04] MEDS: SENNOSIDES/DOCUSATE 8.6/50MG TABLET. PO SCH (20:27)
--- NOTE | 2019-11-04 22:24 | PDOC ---
Exam Note: Laureano Note: Please also refer to the separate dictated note~for this date of service dictated separately.~Patient seen individually. Discussed the patient with Nursing staff reviewed the chart.~Reviewed interim history and current functioning. Reviewed vital signs,~Labs/ Radiology~and current medications noted below. Continue current treatment with the changes noted in the dictated addendum note Assessment: Vital Signs/I&O: Vital Signs Date Time Temp Pulse Resp B/P (MAP) Pulse Ox O2 Delivery O2 Flow Rate FiO2 11/04/19 20:59 95 11/04/19 16:10 97.3 80 18 106/72 (83) Room Air I & O 11/03/19 11/03/19 11/04/19 15:00 23:00 07:00 Intake Total 480 ml 240 ml Output Total 1050 ml Balance 480 ml 240 ml -1050 ml Labs: Laboratory Tests Test 11/04/19 07:29 11/04/19 08:16 11/04/19 11:39 11/04/19 17:19 Glucose (Fingerstick) 194 mg/dL (70-99) H 205 mg/dL (70-99) H 166 mg/dL (70-99) H White Blood Count 5.3 x10^3/uL (4.0-11.0) Red Blood Count 4.38 x10^6/uL (3.50-5.40) Hemoglobin 13.5 g/dL (12.0-15.5) Hematocrit 41.8 % (36.0-47.0) Mean Corpuscular Volume 96 fL (79-100) Mean Corpuscular Hemoglobin 31 pg (25-35) Mean Corpuscular Hemoglobin Concent 32 g/dL (31-37) Red Cell Distribution Width 16.6 % (11.5-14.5) H Platelet Count 310 x10^3/uL (140-400) Neutrophils (%) (Auto) 68 % (31-73) Lymphocytes (%) (Auto) 21 % (24-48) L Monocytes (%) (Auto) 9 % (0-9) Eosinophils (%) (Auto) 1 % (0-3) Basophils (%) (Auto) 1 % (0-3) Neutrophils # (Auto) 3.6 x10^3uL (1.8-7.7) Lymphocytes # (Auto) 1.1 x10^3/uL (1.0-4.8) Monocytes # (Auto) 0.4 x10^3/uL (0.0-1.1) Eosinophils # (Auto) 0.1 x10^3/uL (0.0-0.7) Basophils # (Auto) 0.1 x10^3/uL (0.0-0.2) Sodium Level 141 mmol/L (136-145) Potassium Level 4.2 mmol/L (3.5-5.1) Chloride Level 103 mmol/L (98-107) Carbon Dioxide Level 32 mmol/L (21-32) Anion Gap 6 (6-14) Blood Urea Nitrogen 24 mg/dL (7-20) H Creatinine 1.3 mg/dL (0.6-1.0) H Estimated GFR (Cockcroft-Gault) 40.6 BUN/Creatinine Ratio 18 (6-20) Glucose Level 224 mg/dL (70-99) H Calcium Level 9.3 mg/dL (8.5-10.1) Total Bilirubin 0.2 mg/dL (0.2-1.0) Aspartate Amino Transferase (AST) 11 U/L (15-37) L Alanine Aminotransferase (ALT) 13 U/L (14-59) L Alkaline Phosphatase 120 U/L (46-116) H Total Protein 8.0 g/dL (6.4-8.2) Albumin 2.9 g/dL (3.4-5.0) L Albumin/Globulin Ratio 0.6 (1.0-1.7) L Test 11/04/19 19:33 Glucose (Fingerstick) 115 mg/dL (70-99) H Current Medications: I have reviewed the current psychotropics carefully including drug interactions. Risk benefit ratio favors no change other than as noted in my dictated progress note. Diagnosis: Problems: (1) Major depressive disorder in partial remission (2) Anxiety disorder (3) Impulse control disorder (4) Major depressive disorder, recurrent episode (5) Mild cognitive impairment ROMINA SORTO MD November 04, 2019 22:24
[2019-11-05 06:37] VITALS: BP 126/80
--- NOTE | 2019-11-05 07:38 | PDOC ---
Exam Note: Laureano Note: This note is a late entry for 11/03/2019 covers elements not covered in my initial note. Subjective: The patient was seen face to face in the evening of 11/03/2019. Nursing report was with Nohemy STOKES. Discussed the patient with nursing staff reviewed the chart. She slept 5-1/2 hours previous night. She has been somewhat sleepy during the day. Urine culture shows mixed rachael indicative of colonization since she has a catheter in place. CT head shows motion artifact. No acute changes. She does complain of impaired ambulation. She was lying in bed as I met with her in the evening. She has had knee injury x2. She remains anxious, restless, somewhat paranoid, suspicious, still wanting to drive her car. Review of Systems: No CV, GI/, Eye system symptoms on review. Mental Status Exam: Oriented to herself and situation. Speech is coherent, has some latency. Abstraction is fair. Computation impaired. Language function intact. Attention span is short. Mood and affect remains somewhat withdrawn. Laboratory Data: Reviewed. Impression: Major depressive disorder recurrent with psychotic features. Mild cognitive impairment. Urinary tract infection. Rest unchanged. Plan: No change from initial note. Assessment: Vital Signs/I&O: Vital Signs Date Time Temp Pulse Resp B/P (MAP) Pulse Ox O2 Delivery O2 Flow Rate FiO2 11/05/19 06:37 97.5 70 20 126/80 (95) 94 11/04/19 16:10 Room Air I & O 11/04/19 11/04/19 11/05/19 15:00 23:00 07:00 Intake Total 840 ml 120 ml Output Total 600 ml 450 ml Balance 840 ml -480 ml -450 ml Labs: Laboratory Tests Test 11/04/19 08:16 11/04/19 11:39 11/04/19 17:19 11/04/19 19:33 White Blood Count 5.3 x10^3/uL (4.0-11.0) Red Blood Count 4.38 x10^6/uL (3.50-5.40) Hemoglobin 13.5 g/dL (12.0-15.5) Hematocrit 41.8 % (36.0-47.0) Mean Corpuscular Volume 96 fL (79-100) Mean Corpuscular Hemoglobin 31 pg (25-35) Mean Corpuscular Hemoglobin Concent 32 g/dL (31-37) Red Cell Distribution Width 16.6 % (11.5-14.5) H Platelet Count 310 x10^3/uL (140-400) Neutrophils (%) (Auto) 68 % (31-73) Lymphocytes (%) (Auto) 21 % (24-48) L Monocytes (%) (Auto) 9 % (0-9) Eosinophils (%) (Auto) 1 % (0-3) Basophils (%) (Auto) 1 % (0-3) Neutrophils # (Auto) 3.6 x10^3uL (1.8-7.7) Lymphocytes # (Auto) 1.1 x10^3/uL (1.0-4.8) Monocytes # (Auto) 0.4 x10^3/uL (0.0-1.1) Eosinophils # (Auto) 0.1 x10^3/uL (0.0-0.7) Basophils # (Auto) 0.1 x10^3/uL (0.0-0.2) Sodium Level 141 mmol/L (136-145) Potassium Level 4.2 mmol/L (3.5-5.1) Chloride Level 103 mmol/L (98-107) Carbon Dioxide Level 32 mmol/L (21-32) Anion Gap 6 (6-14) Blood Urea Nitrogen 24 mg/dL (7-20) H Creatinine 1.3 mg/dL (0.6-1.0) H Estimated GFR (Cockcroft-Gault) 40.6 BUN/Creatinine Ratio 18 (6-20) Glucose Level 224 mg/dL (70-99) H Calcium Level 9.3 mg/dL (8.5-10.1) Total Bilirubin 0.2 mg/dL (0.2-1.0) Aspartate Amino Transferase (AST) 11 U/L (15-37) L Alanine Aminotransferase (ALT) 13 U/L (14-59) L Alkaline Phosphatase 120 U/L (46-116) H Total Protein 8.0 g/dL (6.4-8.2) Albumin 2.9 g/dL (3.4-5.0) L Albumin/Globulin Ratio 0.6 (1.0-1.7) L Glucose (Fingerstick) 205 mg/dL (70-99) H 166 mg/dL (70-99) H 115 mg/dL (70-99) H Test 11/05/19 05:45 Glucose (Fingerstick) 124 mg/dL (70-99) H Current Medications: I have reviewed the current psychotropics carefully including drug interactions. Risk benefit ratio favors no change other than as noted in my dictated progress note. Diagnosis: Problems: (1) Major depressive disorder in partial remission (2) Anxiety disorder (3) Impulse control disorder (4) Major depressive disorder, recurrent episode (5) Mild cognitive impairment ROMINA SORTO MD November 05, 2019 07:38
--- NOTE | 2019-11-05 07:40 | PDOC ---
Exam Note: Laureano Note: This note is a late entry for 11/04/2019 covers elements not covered in my initial note. Subjective: The patient was seen face to face in the evening. Nursing report was with Nohemy STOKES. Discussed the patient with nursing staff reviewed the chart. She slept 7 hours previous night. She was lying in bed as I met with her in the evening of 11/04/2019 in her room. She has had some loose stools during the day. She does have irritable bowel syndrome and is on Amitiza. Review of Systems: Ambulation impaired. No CV, GI/, Pulmonary, Eye system symptoms on review. Mental Status Exam: Oriented to herself and situation. She is anxious, restless, stated she had not been given her supper even though it was right after supper when I met her and I did talk to the nursing staff and they were going to give her supper in her room. Speech is coherent, has some latency. Abstraction is fair. Computation impaired. Language function intact. At tention span is short. Mood and affect remains somewhat withdrawn. Laboratory Data: Reviewed. Impression: Major depressive disorder recurrent with psychotic features. Mild cognitive impairment. Urinary tract infection. Rest unchanged. Plan: No change from initial note. Assessment: Vital Signs/I&O: Vital Signs Date Time Temp Pulse Resp B/P (MAP) Pulse Ox O2 Delivery O2 Flow Rate FiO2 11/05/19 06:37 97.5 70 20 126/80 (95) 94 11/04/19 16:10 Room Air I & O 11/04/19 11/04/19 11/05/19 15:00 23:00 07:00 Intake Total 840 ml 120 ml Output Total 600 ml 450 ml Balance 840 ml -480 ml -450 ml Labs: Laboratory Tests Test 11/04/19 08:16 11/04/19 11:39 11/04/19 17:19 11/04/19 19:33 White Blood Count 5.3 x10^3/uL (4.0-11.0) Red Blood Count 4.38 x10^6/uL (3.50-5.40) Hemoglobin 13.5 g/dL (12.0-15.5) Hematocrit 41.8 % (36.0-47.0) Mean Corpuscular Volume 96 fL (79-100) Mean Corpuscular Hemoglobin 31 pg (25-35) Mean Corpuscular Hemoglobin Concent 32 g/dL (31-37) Red Cell Distribution Width 16.6 % (11.5-14.5) H Platelet Count 310 x10^3/uL (140-400) Neutrophils (%) (Auto) 68 % (31-73) Lymphocytes (%) (Auto) 21 % (24-48) L Monocytes (%) (Auto) 9 % (0-9) Eosinophils (%) (Auto) 1 % (0-3) Basophils (%) (Auto) 1 % (0-3) Neutrophils # (Auto) 3.6 x10^3uL (1.8-7.7) Lymphocytes # (Auto) 1.1 x10^3/uL (1.0-4.8) Monocytes # (Auto) 0.4 x10^3/uL (0.0-1.1) Eosinophils # (Auto) 0.1 x10^3/uL (0.0-0.7) Basophils # (Auto) 0.1 x10^3/uL (0.0-0.2) Sodium Level 141 mmol/L (136-145) Potassium Level 4.2 mmol/L (3.5-5.1) Chloride Level 103 mmol/L (98-107) Carbon Dioxide Level 32 mmol/L (21-32) Anion Gap 6 (6-14) Blood Urea Nitrogen 24 mg/dL (7-20) H Creatinine 1.3 mg/dL (0.6-1.0) H Estimated GFR (Cockcroft-Gault) 40.6 BUN/Creatinine Ratio 18 (6-20) Glucose Level 224 mg/dL (70-99) H Calcium Level 9.3 mg/dL (8.5-10.1) Total Bilirubin 0.2 mg/dL (0.2-1.0) Aspartate Amino Transferase (AST) 11 U/L (15-37) L Alanine Aminotransferase (ALT) 13 U/L (14-59) L Alkaline Phosphatase 120 U/L (46-116) H Total Protein 8.0 g/dL (6.4-8.2) Albumin 2.9 g/dL (3.4-5.0) L Albumin/Globulin Ratio 0.6 (1.0-1.7) L Glucose (Fingerstick) 205 mg/dL (70-99) H 166 mg/dL (70-99) H 115 mg/dL (70-99) H Test 11/05/19 05:45 Glucose (Fingerstick) 124 mg/dL (70-99) H Current Medications: I have reviewed the current psychotropics carefully including drug interactions. Risk benefit ratio favors no change other than as noted in my dictated progress note. Diagnosis: Problems: (1) Major depressive disorder in partial remission (2) Anxiety disorder (3) Impulse control disorder (4) Major depressive disorder, recurrent episode (5) Mild cognitive impairment ROMINA SORTO MD November 05, 2019 07:40
[2019-11-05] MEDS: FUROSEMIDE 40 MG TABLET PO SCH (07:50)
[2019-11-05] MEDS: LACTOBACILLUS RHAMNOSUS GG 1 CAPSULE. PO SCH ×2 (07:50→19:51)
[2019-11-05] MEDS: FLUoxetine HCL 20 MG CAPSULE PO SCH (07:50)
[2019-11-05] MEDS: FERROUS SULFATE 325 MG TABLET. PO SCH (07:51)
[2019-11-05] MEDS: GABAPENTIN 400 MG CAPSULE. PO SCH ×2 (07:51→19:52)
[2019-11-05] MEDS: IPRATROPIUM/ALBUTEROL 20/100mcg/INH INHALER. INH SCH ×4 (07:51→19:51)
[2019-11-05] MEDS: risperiDONE 0.25 MG TABLET. PO SCH (07:51)
[2019-11-05] MEDS: DIVALPROEX 125 MG CAP.SPRINK PO SCH ×3 (07:51→19:52)
[2019-11-05] MEDS: POTASSIUM CHLORIDE 20 MEQ TABLET.ER. PO SCH (07:51)
[2019-11-05] MEDS: buPROPion SR 150 MG TABLET.SA PO SCH (07:51)
[2019-11-05] MEDS: VITS A & D/LANOLIN TOPICAL OINTMENT 42GM TUBE. TP SCH ×2 (07:52→19:53)
[2019-11-05] MEDS: CLOBETASOL EMOLLIENT 0.05% TOPICAL CREAM 15GM TUBE. TP SCH ×2 (07:52→19:53)
[2019-11-05] MEDS: DICLOFENAC SODIUM 1% TOPICAL GEL 100GM TUBE. TP SCH ×2 (07:52→19:53)
[2019-11-05] MEDS: HYDROCORTISONE 1% TOPICAL OINTMENT 30GM TUBE. TP SCH ×2 (07:52→19:53)
[2019-11-05] MEDS: LUBIPROSTONE 24 MCG CAPSULE PO SCH ×2 (07:55→17:00)
[2019-11-05] MEDS: INSULIN LISPRO 300 UNITS/3 ML VIAL. SQ SCH ×3 (07:56→17:00)
[2019-11-05] MEDS: clonazePAM 1 MG TABLET PO SCH ×3 (07:57→19:52)
[2019-11-05] MEDS: hydrOXYzine HCL 25 MG TABLET PO PRN (07:59)
[2019-11-05 15:58] VITALS: BP 102/68
[2019-11-05] MEDS: FAMOTIDINE 20 MG TABLET PO SCH (19:52)
[2019-11-05] MEDS: SENNOSIDES/DOCUSATE 8.6/50MG TABLET. PO SCH (19:52)
[2019-11-05] MEDS: risperiDONE 0.5 MG TABLET. PO SCH (19:52)
[2019-11-05] MEDS: traZODone 150 MG TABLET. PO SCH (19:52)
[2019-11-05] MEDS: INSULIN GLARGINE SYRINGE. SQ SCH (19:55)
--- NOTE | 2019-11-05 21:54 | PDOC ---
Exam Note: Laureano Note: Please also refer to the separate dictated note~for this date of service dictated separately.~Patient seen individually. Discussed the patient with Nursing staff reviewed the chart.~Reviewed interim history and current functioning. Reviewed vital signs,~Labs/ Radiology~and current medications noted below. Continue current treatment with the changes noted in the dictated addendum note Assessment: Vital Signs/I&O: Vital Signs Date Time Temp Pulse Resp B/P (MAP) Pulse Ox O2 Delivery O2 Flow Rate FiO2 11/05/19 18:00 97.1 11/05/19 15:58 84 20 102/68 (79) 94 Room Air I & O 11/04/19 11/04/19 11/05/19 14:59 22:59 06:59 Intake Total 840 ml 120 ml Output Total 600 ml 450 ml Balance 840 ml -480 ml -450 ml Labs: Laboratory Tests Test 11/05/19 05:45 11/05/19 07:43 11/05/19 11:45 11/05/19 17:09 Glucose (Fingerstick) 124 mg/dL (70-99) H 115 mg/dL (70-99) H 216 mg/dL (70-99) H 115 mg/dL (70-99) H Test 11/05/19 19:55 Glucose (Fingerstick) 68 mg/dL (70-99) L Current Medications: I have reviewed the current psychotropics carefully including drug interactions. Risk benefit ratio favors no change other than as noted in my dictated progress note. Diagnosis: Problems: (1) Major depressive disorder in partial remission (2) Anxiety disorder (3) Impulse control disorder (4) Major depressive disorder, recurrent episode (5) Mild cognitive impairment ROMINA SORTO MD November 05, 2019 21:54
[2019-11-06 06:14] VITALS: BP 113/74
--- NOTE | 2019-11-06 06:55 | PDOC ---
Exam Note: Laureano Note: This note is a late entry for 11/05/2019 covers elements not covered in my initial note. Subjective: The patient was seen face to face in the evening of 11/05/2019. Nursing report was with Elisabeth STOKES. Discussed the patient with nursing staff reviewed the chart. She slept 8-3/4 hours previous night. Stool for C. difficile is negative. She has been anxious, restless, constantly complaining about nursing resources to help her. I met with her in her room in the evening. Review of Systems: Ambulation impaired. No CV, , Pulmonary, Eye system symptoms on review. She has vague somatic symptoms. Mental Status Exam: Reasonably oriented. She is anxious, restless. Speech is coherent, has some latency. Abstraction is fair. Computation impaired. Language function intact. Attention span is short. Mood and affect remains anxious, labile. No suicidal or homicidal ideation. Laboratory Data: Reviewed. Impression: Major depressive disorder recurrent with psychotic features. Mild cognitive impairment. Urinary tract infection. Rest unchanged. Plan: No change from initial note. Assessment: Vital Signs/I&O: Vital Signs Date Time Temp Pulse Resp B/P (MAP) Pulse Ox O2 Delivery O2 Flow Rate FiO2 11/06/19 06:14 97.3 71 16 113/74 (87) 93 11/05/19 15:58 Room Air I & O 11/05/19 11/05/19 11/06/19 15:00 23:00 07:00 Intake Total 720 ml 360 ml Output Total 1100 ml 375 ml Balance 720 ml -740 ml -375 ml Labs: Laboratory Tests Test 11/05/19 07:43 11/05/19 11:45 11/05/19 17:09 11/05/19 19:55 Glucose (Fingerstick) 115 mg/dL (70-99) H 216 mg/dL (70-99) H 115 mg/dL (70-99) H 68 mg/dL (70-99) L Test 11/06/19 05:45 Glucose (Fingerstick) 115 mg/dL (70-99) H Current Medications: I have reviewed the current psychotropics carefully including drug interactions. Risk benefit ratio favors no change other than as noted in my dictated progress note. Diagnosis: Problems: (1) Major depressive disorder in partial remission (2) Anxiety disorder (3) Impulse control disorder (4) Major depressive disorder, recurrent episode (5) Mild cognitive impairment ROMINA SORTO MD November 06, 2019 06:55
[2019-11-06 07:11] LABS: BASO # 0.1 x10^3/uL (0.0-0.2); BASO % 1 % (0-3); EOS # 0.3 x10^3/uL (0.0-0.7); EOS % 5 % (0-3); HEMATOCRIT 39.1 % (36.0-47.0); HEMOGLOBIN 12.7 g/dL (12.0-15.5); LYMPH # 1.9 x10^3/uL (1.0-4.8); LYMPH % 36 % (24-48); MEAN CORPUSCULAR HEMOGLOBIN 31 pg (25-35); MEAN CORPUSCULAR HGB CONC 32 g/dL (31-37); MEAN CORPUSCULAR VOLUME 97 fL (79-100); MONO # 0.4 x10^3/uL (0.0-1.1); MONO % 8 % (0-9); NEUT # 2.7 x10^3uL (1.8-7.7); NEUT % 50 % (31-73); PLATELET COUNT 282 x10^3/uL (140-400); RED BLOOD COUNT 4.03 x10^6/uL (3.50-5.40); RED CELL DISTRIBUTION WIDTH 16.7 % (11.5-14.5); WHITE BLOOD COUNT 5.4 x10^3/uL (4.0-11.0)
[2019-11-06 07:28] LABS: ALBUMIN 2.7 g/dL (3.4-5.0); ALBUMIN/GLOBULIN RATIO 0.6 (1.0-1.7); CALCIUM 8.9 mg/dL (8.5-10.1); CREATININE 1.2 mg/dL (0.6-1.0); GFR 44.5; POTASSIUM 3.9 mmol/L (3.5-5.1); TOTAL BILIRUBIN 0.2 mg/dL (0.2-1.0); TOTAL PROTEIN 7.3 g/dL (6.4-8.2)
[2019-11-06] MEDS: VITS A & D/LANOLIN TOPICAL OINTMENT 42GM TUBE. TP SCH ×2 (09:00→20:41)
[2019-11-06] MEDS: CLOBETASOL EMOLLIENT 0.05% TOPICAL CREAM 15GM TUBE. TP SCH ×2 (09:01→20:33)
[2019-11-06] MEDS: DICLOFENAC SODIUM 1% TOPICAL GEL 100GM TUBE. TP SCH ×2 (09:01→20:33)
[2019-11-06] MEDS: HYDROCORTISONE 1% TOPICAL OINTMENT 30GM TUBE. TP SCH ×2 (09:01→20:33)
[2019-11-06] MEDS: IPRATROPIUM/ALBUTEROL 20/100mcg/INH INHALER. INH SCH ×4 (09:01→20:33)
[2019-11-06] MEDS: DIVALPROEX 125 MG CAP.SPRINK PO SCH ×3 (09:02→20:32)
[2019-11-06] MEDS: clonazePAM 1 MG TABLET PO SCH ×3 (09:02→20:33)
[2019-11-06] MEDS: GABAPENTIN 400 MG CAPSULE. PO SCH ×2 (09:02→20:32)
[2019-11-06] MEDS: FERROUS SULFATE 325 MG TABLET. PO SCH (09:02)
[2019-11-06] MEDS: risperiDONE 0.25 MG TABLET. PO SCH (09:02)
[2019-11-06] MEDS: FUROSEMIDE 40 MG TABLET PO SCH (09:03)
[2019-11-06] MEDS: LACTOBACILLUS RHAMNOSUS GG 1 CAPSULE. PO SCH ×2 (09:03→20:32)
[2019-11-06] MEDS: buPROPion SR 150 MG TABLET.SA PO SCH (09:03)
[2019-11-06] MEDS: FLUoxetine HCL 20 MG CAPSULE PO SCH (09:03)
[2019-11-06] MEDS: POTASSIUM CHLORIDE 20 MEQ TABLET.ER. PO SCH (09:03)
[2019-11-06] MEDS: INSULIN LISPRO 300 UNITS/3 ML VIAL. SQ SCH ×3 (09:07→17:00)
[2019-11-06] MEDS: oxyCODONE/APAP 5/325 1 TAB TABLET PO PRN (14:31)
[2019-11-06 14:42] LABS: BILIRUBIN,URINE NEG (NEG); CLARITY,URINE CLOUDY; COLOR,URINE YELLOW; GLUCOSE,URINE NEG (NEG); UROBILINOGEN,URINE 0.2 mg/dL (0.2 mg/dL)
[2019-11-06 14:43] LABS: BACTERIA,URINE MANY /HPF (0-FEW); NITRITE,URINE POS (NEG); WBC,URINE >40 /HPF (0-4)
[2019-11-06] MEDS: hydrOXYzine HCL 25 MG TABLET PO PRN (16:09)
[2019-11-06 16:13] VITALS: BP 117/75
[2019-11-06] MEDS: risperiDONE 0.5 MG TABLET. PO SCH (20:32)
[2019-11-06] MEDS: traZODone 150 MG TABLET. PO SCH (20:32)
[2019-11-06] MEDS: FAMOTIDINE 20 MG TABLET PO SCH (20:33)
[2019-11-06] MEDS: INSULIN GLARGINE SYRINGE. SQ SCH (20:36)
[2019-11-07 05:38] VITALS: BP 151/68
[2019-11-07] MEDS: INSULIN LISPRO 300 UNITS/3 ML VIAL. SQ SCH ×3 (08:00→17:00)
--- NOTE | 2019-11-07 08:13 | PDOC ---
Exam Note: Laureano Note: This is a late entry for DOS 11/06/2019. Please also refer to the separate dictated note~for this date of service dictated separately.~Patient seen individually. Discussed the patient with Nursing staff reviewed the chart.~Reviewed interim history and current functioning. Reviewed vital signs,~Labs/ Radiology~and current medications noted below. Continue current treatment with the changes noted in the dictated addendum note Assessment: Vital Signs/I&O: Vital Signs Date Time Temp Pulse Resp B/P (MAP) Pulse Ox O2 Delivery O2 Flow Rate FiO2 11/07/19 05:38 97.5 74 20 151/68 (95) 92 Room Air I & O 11/06/19 11/06/19 11/07/19 15:00 23:00 07:00 Intake Total 360 ml 340 ml Output Total 350 ml Balance 360 ml 340 ml -350 ml Labs: Laboratory Tests Test 11/06/19 11:56 11/06/19 14:15 11/06/19 16:52 11/06/19 20:18 Glucose (Fingerstick) 171 mg/dL (70-99) H 81 mg/dL (70-99) 271 mg/dL (70-99) H Urine Collection Type U cath Urine Color Yellow Urine Clarity Cloudy Urine pH 6.5 Urine Specific [place] 1.015 Urine Protein Neg (NEG-TRACE) Urine Glucose (UA) Neg mg/dL (NEG) Urine Ketones (Stick) Neg mg/dL (NEG) Urine Blood Small (NEG) Urine Nitrite Pos (NEG) Urine Bilirubin Neg (NEG) Urine Urobilinogen Dipstick 0.2 mg/dL (0.2 mg/dL) Urine Leukocyte Esterase Large (NEG) Urine RBC 1-2 /HPF (0-2) Urine WBC >40 /HPF (0-4) Urine Bacteria Many /HPF (0-FEW) Test 11/07/19 07:57 Glucose (Fingerstick) 97 mg/dL (70-99) Current Medications: I have reviewed the current psychotropics carefully including drug interactions. Risk benefit ratio favors no change other than as noted in my dictated progress note. Diagnosis: Problems: (1) Major depressive disorder in partial remission (2) Anxiety disorder (3) Impulse control disorder (4) Major depressive disorder, recurrent episode (5) Mild cognitive impairment ROMINA SORTO MD November 07, 2019 08:13
[2019-11-07] MEDS: clonazePAM 1 MG TABLET PO SCH ×3 (08:55→19:39)
[2019-11-07] MEDS: IPRATROPIUM/ALBUTEROL 20/100mcg/INH INHALER. INH SCH ×4 (08:55→19:37)
[2019-11-07] MEDS: FLUoxetine HCL 20 MG CAPSULE PO SCH (08:55)
[2019-11-07] MEDS: FERROUS SULFATE 325 MG TABLET. PO SCH (08:55)
[2019-11-07] MEDS: DIVALPROEX 125 MG CAP.SPRINK PO SCH ×3 (08:56→19:38)
[2019-11-07] MEDS: GABAPENTIN 400 MG CAPSULE. PO SCH ×2 (08:57→19:38)
[2019-11-07] MEDS: risperiDONE 0.25 MG TABLET. PO SCH (08:57)
[2019-11-07] MEDS: LACTOBACILLUS RHAMNOSUS GG 1 CAPSULE. PO SCH ×2 (08:57→19:39)
[2019-11-07] MEDS: POTASSIUM CHLORIDE 20 MEQ TABLET.ER. PO SCH (08:57)
[2019-11-07] MEDS: FUROSEMIDE 40 MG TABLET PO SCH (08:57)
[2019-11-07] MEDS: CLOBETASOL EMOLLIENT 0.05% TOPICAL CREAM 15GM TUBE. TP SCH ×2 (08:58→19:37)
[2019-11-07] MEDS: HYDROCORTISONE 1% TOPICAL OINTMENT 30GM TUBE. TP SCH ×2 (08:58→19:37)
[2019-11-07] MEDS: DICLOFENAC SODIUM 1% TOPICAL GEL 100GM TUBE. TP SCH ×2 (08:58→19:37)
[2019-11-07] MEDS: VITS A & D/LANOLIN TOPICAL OINTMENT 42GM TUBE. TP SCH ×2 (08:59→19:39)
--- NOTE | 2019-11-07 15:30 | TX PLAN ---
Interdisciplinary Tx Plan Admission Information October 20, 2019 at 02:07 Legal Status (on Admission): Voluntary DPOA/Guardian Name: Tatiana Wright Contact Other Contact Name: Arslan Rodriguez Other Contact Verified Code Status: DNR Allergies: Coded Allergies: MARÍA Inhibitors (Verified Allergy, Intermediate, 10/18/17) codeine (Verified Allergy, Intermediate, Itching, 02/01/15) olanzapine (Verified Allergy, Intermediate, 10/20/19) penicillin (Verified Allergy, Intermediate, Itching, 02/01/15) quetiapine (Verified Allergy, Intermediate, 10/18/17) Diagnoses Primary Diagnosis: MDD, Anxiety D/O unspecified, Impulse Control D/O unspecified Reasons for Admission: Aggressive, Poor impulse control Problem in Patient's Words: She seems just really confused and needs to be evaluated. Additional Admission Comments: According to the intake, pt was yelling, calling staff "whores", attempting to remove catheter, refused cares, called police to change her catheter, threatening and calling staff names. Problems Active Problems: Yelling out Irritability Confusion Potential UTI Inactive Problems: Medication Management Pt Strengths/Limitations Ability for Emanuel: Poor Cognitive Functioning/Ability: Fair Communication Skills/Ability: Fair Financial Resources: Fair Insight/Judgement: Poor Intellectual Ability: Fair Physical Health: Poor Social Skills: Poor Stability in Family: Fair Stability in School/Work: Poor Verbal Skills: Fair Discharge Criteria Discharge Criteria: Adequate arrangements @DC, Improved behavior, Improved mood/thought Other Discharge Comments: may need recommendations for outpt PT and OT. Preliminary Discharge Plan Preliminary DC Plan: Current Living Arrange. Special Precautions Fall Risk: Moderate Initial D/C Plan Pt will plan to return to [facility] upon discharge. Identified Discharge Needs: Psychiatrist Counseling Primary Care Physician Currently Utilized Resources Currently Utilized Resources/P: None Referrals Community Resources: Will need referral for mental health services. Identified Problems/Hx/Goals Objectives/Short-Term Goals Short Term Goals: Dec. Aggression, Dec. Outbursts, Improved Social Skills, Medication Stabilization, Promote Coping Skill Short Term Goals in Patient's: N/A Interventions/Frequency Staff Interventions/Frequency&: Psychiatrist to assess pt at least 3x per week. Youth Services Librarian to assess pt at least 2x per week. Nursing assess and complete 15 minute checks daily. Encourage group participation in activities; if not 1:1 time based of goals during the Activity assessment. 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 She always had problems with other people "not doing their jobs". Eventually in the end, she ended up being the one fired for "starting trouble". Education: Did graduate high school Community Follow-up Community Provider/Family Inpu: She needs to be assessed with her confusion and re-evaluate her medications. 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 Pt is compliant with medications and cares. However, pt appears to continue to have delusions about people being in her house and paranoia, thinking people are trying to trick her. A UA was collected and it appears that pt has 3 organisms in her urine. Nursing staff will plan to meet with the hospitalist to see what options are available and potentially get a new catheter for pt. Initial discharge plan was for 11/08; however, based on pt medical recomm endations, pt discharge will be on hold. will keep all parties up to date. LORE SIDDIQI November 07, 2019 15:30
[2019-11-07 15:54] VITALS: BP 121/72
[2019-11-07] MEDS: risperiDONE 0.5 MG TABLET. PO SCH (19:38)
[2019-11-07] MEDS: FAMOTIDINE 20 MG TABLET PO SCH (19:38)
[2019-11-07] MEDS: traZODone 150 MG TABLET. PO SCH (19:38)
[2019-11-07] MEDS: INSULIN GLARGINE SYRINGE. SQ SCH (20:42)
--- NOTE | 2019-11-07 22:03 | PDOC ---
Exam Note: Laureano Note: Please also refer to the separate dictated note~for this date of service dictated separately.~Patient seen individually. Discussed the patient with Nursing staff reviewed the chart.~Reviewed interim history and current functioning. Reviewed vital signs,~Labs/ Radiology~and current medications noted below. Continue current treatment with the changes noted in the dictated addendum note Assessment: Vital Signs/I&O: Vital Signs Date Time Temp Pulse Resp B/P (MAP) Pulse Ox O2 Delivery O2 Flow Rate FiO2 11/07/19 18:34 97.6 11/07/19 15:54 78 16 121/72 (88) 94 11/07/19 05:38 Room Air I & O 11/06/19 11/06/19 11/07/19 15:00 23:00 07:00 Intake Total 360 ml 340 ml Output Total 350 ml Balance 360 ml 340 ml -350 ml Labs: Laboratory Tests Test 11/07/19 07:57 11/07/19 11:46 11/07/19 17:01 11/07/19 19:17 Glucose (Fingerstick) 97 mg/dL (70-99) 197 mg/dL (70-99) H 60 mg/dL (70-99) L 189 mg/dL (70-99) H Test 11/07/19 20:58 Glucose (Fingerstick) 174 mg/dL (70-99) H Current Medications: I have reviewed the current psychotropics carefully including drug interactions. Risk benefit ratio favors no change other than as noted in my dictated progress note. Diagnosis: Problems: (1) Major depressive disorder in partial remission (2) Anxiety disorder (3) Impulse control disorder (4) Major depressive disorder, recurrent episode (5) Mild cognitive impairment ROMINA SORTO MD November 07, 2019 22:03
[2019-11-08 05:28] VITALS: BP 101/48
--- NOTE | 2019-11-08 07:36 | PDOC ---
Exam Note: Laureano Note: This note is a late entry for 11/06/2019 covers elements not covered in my initial note. Subjective: The patient was seen face to face in the evening of 11/06/2019. Nursing report was with Ganesh STOKES. Discussed the patient with nursing staff reviewed the chart. She slept 8-3/4 hours previous night. I met with her in her room. She is trying to get out of bed, wanting to walk, very persistent and obsessive, repetitive that she can ambulate and will not fall. Later she agreed to be in a wheelchair and I have discussed with the nursing aid who was standing by her and they will attempt this. We will check a UA for UTI since she has chronic catheter and at last check urine was very cloudy, infected but grew a mixed rachael. BUN and creatinine are elevated, will defer to Dr. Fong. Review of Systems: Ambulation impaired. No CV, , Pulmonary, Eye system symptoms on review. Mental Status Exam: Reasonably oriented. She is anxious, restless. Speech is coherent, has some latency. Abstraction is fair. Computation impaired. Language function intact. Attention span is short. Mood and affect remains anxious, labile. No suicidal or homicidal ideation. Laboratory Data: Reviewed. Impression: Major depressive disorder recurrent with psychotic features. Mild cognitive impairment. Urinary tract infection. Rest unchanged. Plan: We will stop the Wellbutrin 150 mg a day since this could be worsening her irritability. Rest medications to be continued. Assessment: Vital Signs/I&O: Vital Signs Date Time Temp Pulse Resp B/P (MAP) Pulse Ox O2 Delivery O2 Flow Rate FiO2 11/08/19 05:28 97.5 69 16 101/48 (65) 94 Room Air I & O 11/07/19 11/07/19 11/08/19 15:00 23:00 07:00 Intake Total 600 ml 600 ml Output Total 1600 ml 250 ml Balance 600 ml -1000 ml -250 ml Labs: Laboratory Tests Test 11/07/19 07:57 11/07/19 11:46 11/07/19 17:01 11/07/19 19:17 Glucose (Fingerstick) 97 mg/dL (70-99) 197 mg/dL (70-99) H 60 mg/dL (70-99) L 189 mg/dL (70-99) H Test 11/07/19 20:58 11/08/19 07:19 Glucose (Fingerstick) 174 mg/dL (70-99) H 103 mg/dL (70-99) H Current Medications: I have reviewed the current psychotropics carefully including drug interactions. Risk benefit ratio favors no change other than as noted in my dictated progress note. Diagnosis: Problems: (1) Major depressive disorder in partial remission (2) Anxiety disorder (3) Impulse control disorder (4) Major depressive disorder, recurrent episode (5) Mild cognitive impairment ROMINA SORTO MD November 08, 2019 07:36
--- NOTE | 2019-11-08 07:57 | PDOC ---
Exam Note: Laureano Note: This note is a late entry for 11/07/2019 covers elements not covered in my initial note. Subjective: The patient was seen face to face with the treatment team in the morning including Brea Sykes, and Ching (social sciences department chair), Renita, Activity Therapy. Nursing report was with Ganesh STOKES. Discussed the patient with nursing staff in the evening reviewed the chart. She slept 9-1/2 hours previous night. Her UA is hazy and initially was mixed culture. She does have catheter and we will defer to Dr. Fong for further interventions. She has been telling nursing staff that people are trying to trick her that they are in her house and this place is her house. I met with the patient in the evening in her room at length. She remains somewhat delusional part of this could well be the UTI. Review of Systems: She was lying in bed. Ambulation impaired. No CV, , Pulmonary, Eye system symptoms on review. Mental Status Exam: Alert and oriented. Speech is coherent, rapid at times. Abstraction is fair. Computation impaired. Language function intact. Attention span is short. Mood and affect remains somewhat irritable, labile. She is very upset that nursing staff do not let her walk and do not let her be in the wheelchair and she is lying in bed all day which she resents. Nursing staff are trying to be as flexible as possible to accommodate her needs. Laboratory Data: Reviewed. Impression: Major depressive disorder recurrent with psychotic features. Mild cognitive impairment. Urinary tract infection. Rest unchanged. Plan: Follow up on the UA. Defer to Dr. Fong. Rest unchanged. Assessment: Vital Signs/I&O: Vital Signs Date Time Temp Pulse Resp B/P (MAP) Pulse Ox O2 Delivery O2 Flow Rate FiO2 11/08/19 05:28 97.5 69 16 101/48 (65) 94 Room Air I & O 11/07/19 11/07/19 11/08/19 15:00 23:00 07:00 Intake Total 600 ml 600 ml Output Total 1600 ml 250 ml Balance 600 ml -1000 ml -250 ml Labs: Laboratory Tests Test 11/07/19 07:57 11/07/19 11:46 11/07/19 17:01 11/07/19 19:17 Glucose (Fingerstick) 97 mg/dL (70-99) 197 mg/dL (70-99) H 60 mg/dL (70-99) L 189 mg/dL (70-99) H Test 11/07/19 20:58 11/08/19 07:19 Glucose (Fingerstick) 174 mg/dL (70-99) H 103 mg/dL (70-99) H Current Medications: I have reviewed the current psychotropics carefully including drug interactions. Risk benefit ratio favors no change other than as noted in my dictated progress note. Diagnosis: Problems: (1) Major depressive disorder in partial remission (2) Anxiety disorder (3) Impulse control disorder (4) Major depressive disorder, recurrent episode (5) Mild cognitive impairment ROMINA SORTO MD November 08, 2019 07:57
[2019-11-08] MEDS: oxyCODONE/APAP 5/325 1 TAB TABLET PO PRN (07:58)
[2019-11-08] MEDS: clonazePAM 1 MG TABLET PO SCH ×3 (07:58→21:06)
[2019-11-08] MEDS: HYDROCORTISONE 1% TOPICAL OINTMENT 30GM TUBE. TP SCH ×2 (09:00→21:07)
[2019-11-08] MEDS: DICLOFENAC SODIUM 1% TOPICAL GEL 100GM TUBE. TP SCH ×2 (09:10→21:07)
[2019-11-08] MEDS: CLOBETASOL EMOLLIENT 0.05% TOPICAL CREAM 15GM TUBE. TP SCH ×2 (09:10→21:07)
[2019-11-08] MEDS: IPRATROPIUM/ALBUTEROL 20/100mcg/INH INHALER. INH SCH ×4 (09:10→21:05)
[2019-11-08] MEDS: FUROSEMIDE 40 MG TABLET PO SCH (09:11)
[2019-11-08] MEDS: FERROUS SULFATE 325 MG TABLET. PO SCH (09:11)
[2019-11-08] MEDS: risperiDONE 0.25 MG TABLET. PO SCH (09:11)
[2019-11-08] MEDS: GABAPENTIN 400 MG CAPSULE. PO SCH ×2 (09:11→21:06)
[2019-11-08] MEDS: POTASSIUM CHLORIDE 20 MEQ TABLET.ER. PO SCH (09:11)
[2019-11-08] MEDS: LACTOBACILLUS RHAMNOSUS GG 1 CAPSULE. PO SCH ×2 (09:11→21:06)
[2019-11-08] MEDS: DIVALPROEX 125 MG CAP.SPRINK PO SCH ×3 (09:11→21:06)
[2019-11-08] MEDS: FLUoxetine HCL 20 MG CAPSULE PO SCH (09:11)
[2019-11-08] MEDS: VITS A & D/LANOLIN TOPICAL OINTMENT 42GM TUBE. TP SCH ×2 (09:12→21:00)
[2019-11-08] MEDS: INSULIN LISPRO 300 UNITS/3 ML VIAL. SQ SCH ×3 (09:16→17:21)
[2019-11-08 10:24] LABS: BASO % 1 % (0-3); EOS # 0.3 x10^3/uL (0.0-0.7); EOS % 5 % (0-3); HEMATOCRIT 39.8 % (36.0-47.0); HEMOGLOBIN 12.9 g/dL (12.0-15.5); LYMPH % 19 % (24-48); MEAN CORPUSCULAR HEMOGLOBIN 31 pg (25-35); MEAN CORPUSCULAR HGB CONC 32 g/dL (31-37); MEAN CORPUSCULAR VOLUME 97 fL (79-100); MONO # 0.4 x10^3/uL (0.0-1.1); MONO % 7 % (0-9); NEUT # 3.5 x10^3uL (1.8-7.7); NEUT % 69 % (31-73); PLATELET COUNT 246 x10^3/uL (140-400); RED BLOOD COUNT 4.12 x10^6/uL (3.50-5.40); RED CELL DISTRIBUTION WIDTH 16.6 % (11.5-14.5); WHITE BLOOD COUNT 5.1 x10^3/uL (4.0-11.0)
[2019-11-08 10:33] LABS: ALBUMIN 2.8 g/dL (3.4-5.0); ALBUMIN/GLOBULIN RATIO 0.6 (1.0-1.7); CALCIUM 8.4 mg/dL (8.5-10.1); CREATININE 1.5 mg/dL (0.6-1.0); GFR 34.4; POTASSIUM 3.7 mmol/L (3.5-5.1); TOTAL BILIRUBIN 0.1 mg/dL (0.2-1.0); TOTAL PROTEIN 7.4 g/dL (6.4-8.2)
[2019-11-08] MEDS: ACETAMINOPHEN 325 MG TABLET PO PRN (12:35)
[2019-11-08 15:46] VITALS: BP 134/81
[2019-11-08] MEDS: FAMOTIDINE 20 MG TABLET PO SCH (21:06)
[2019-11-08] MEDS: traZODone 150 MG TABLET. PO SCH (21:06)
[2019-11-08] MEDS: risperiDONE 0.5 MG TABLET. PO SCH (21:06)
[2019-11-08] MEDS: INSULIN GLARGINE SYRINGE. SQ SCH (21:08)
--- NOTE | 2019-11-08 22:04 | PDOC ---
Exam Note: Laureano Note: Please also refer to the separate dictated note~for this date of service dictated separately.~Patient seen individually. Discussed the patient with Nursing staff reviewed the chart.~Reviewed interim history and current functioning. Reviewed vital signs,~Labs/ Radiology~and current medications noted below. Continue current treatment with the changes noted in the dictated addendum note Assessment: Vital Signs/I&O: Vital Signs Date Time Temp Pulse Resp B/P (MAP) Pulse Ox O2 Delivery O2 Flow Rate FiO2 11/08/19 20:32 97.5 93 11/08/19 15:46 80 19 134/81 (98) 11/08/19 09:45 Room Air I & O 11/07/19 11/07/19 11/08/19 15:00 23:00 07:00 Intake Total 600 ml 600 ml Output Total 1600 ml 250 ml Balance 600 ml -1000 ml -250 ml Labs: Laboratory Tests Test 11/08/19 07:19 11/08/19 10:00 11/08/19 12:06 11/08/19 16:58 Glucose (Fingerstick) 103 mg/dL (70-99) H 127 mg/dL (70-99) H 125 mg/dL (70-99) H White Blood Count 5.1 x10^3/uL (4.0-11.0) Red Blood Count 4.12 x10^6/uL (3.50-5.40) Hemoglobin 12.9 g/dL (12.0-15.5) Hematocrit 39.8 % (36.0-47.0) Mean Corpuscular Volume 97 fL (79-100) Mean Corpuscular Hemoglobin 31 pg (25-35) Mean Corpuscular Hemoglobin Concent 32 g/dL (31-37) Red Cell Distribution Width 16.6 % (11.5-14.5) H Platelet Count 246 x10^3/uL (140-400) Neutrophils (%) (Auto) 69 % (31-73) Lymphocytes (%) (Auto) 19 % (24-48) L Monocytes (%) (Auto) 7 % (0-9) Eosinophils (%) (Auto) 5 % (0-3) H Basophils (%) (Auto) 1 % (0-3) Neutrophils # (Auto) 3.5 x10^3uL (1.8-7.7) Lymphocytes # (Auto) 1.0 x10^3/uL (1.0-4.8) Monocytes # (Auto) 0.4 x10^3/uL (0.0-1.1) Eosinophils # (Auto) 0.3 x10^3/uL (0.0-0.7) Basophils # (Auto) 0.0 x10^3/uL (0.0-0.2) Sodium Level 139 mmol/L (136-145) Potassium Level 3.7 mmol/L (3.5-5.1) Chloride Level 102 mmol/L (98-107) Carbon Dioxide Level 30 mmol/L (21-32) Anion Gap 7 (6-14) Blood Urea Nitrogen 27 mg/dL (7-20) H Creatinine 1.5 mg/dL (0.6-1.0) H Estimated GFR (Cockcroft-Gault) 34.4 BUN/Creatinine Ratio 18 (6-20) Glucose Level 170 mg/dL (70-99) H Calcium Level 8.4 mg/dL (8.5-10.1) L Total Bilirubin 0.1 mg/dL (0.2-1.0) L Aspartate Amino Transferase (AST) 10 U/L (15-37) L Alanine Aminotransferase (ALT) 13 U/L (14-59) L Alkaline Phosphatase 114 U/L (46-116) Total Protein 7.4 g/dL (6.4-8.2) Albumin 2.8 g/dL (3.4-5.0) L Albumin/Globulin Ratio 0.6 (1.0-1.7) L Test 11/08/19 19:22 Glucose (Fingerstick) 170 mg/dL (70-99) H Current Medications: I have reviewed the current psychotropics carefully including drug interactions. Risk benefit ratio favors no change other than as noted in my dictated progress note. Diagnosis: Problems: (1) Major depressive disorder in partial remission (2) Anxiety disorder (3) Impulse control disorder (4) Major depressive disorder, recurrent episode (5) Mild cognitive impairment ROMINA SORTO MD November 08, 2019 22:04
[2019-11-09 06:07] VITALS: BP 125/70
[2019-11-09] MEDS: IPRATROPIUM/ALBUTEROL 20/100mcg/INH INHALER. INH SCH ×4 (08:00→20:54)
[2019-11-09] MEDS: FERROUS SULFATE 325 MG TABLET. PO SCH (08:49)
[2019-11-09] MEDS: LACTOBACILLUS RHAMNOSUS GG 1 CAPSULE. PO SCH ×2 (08:49→20:50)
[2019-11-09] MEDS: DIVALPROEX 125 MG CAP.SPRINK PO SCH ×3 (08:49→20:50)
[2019-11-09] MEDS: FLUoxetine HCL 20 MG CAPSULE PO SCH (08:49)
[2019-11-09] MEDS: POTASSIUM CHLORIDE 20 MEQ TABLET.ER. PO SCH (08:50)
[2019-11-09] MEDS: FUROSEMIDE 40 MG TABLET PO SCH (08:50)
[2019-11-09] MEDS: risperiDONE 0.25 MG TABLET. PO SCH (08:50)
[2019-11-09] MEDS: GABAPENTIN 400 MG CAPSULE. PO SCH ×2 (08:50→20:51)
[2019-11-09] MEDS: HYDROCORTISONE 1% TOPICAL OINTMENT 30GM TUBE. TP SCH ×2 (08:51→20:51)
[2019-11-09] MEDS: CLOBETASOL EMOLLIENT 0.05% TOPICAL CREAM 15GM TUBE. TP SCH ×2 (08:51→21:00)
[2019-11-09] MEDS: DICLOFENAC SODIUM 1% TOPICAL GEL 100GM TUBE. TP SCH ×2 (08:52→20:51)
[2019-11-09] MEDS: clonazePAM 1 MG TABLET PO SCH ×3 (09:00→20:50)
[2019-11-09] MEDS: VITS A & D/LANOLIN TOPICAL OINTMENT 42GM TUBE. TP SCH ×2 (09:00→21:00)
--- NOTE | 2019-11-09 10:21 | RAD ---
CT Abdomen and Pelvis without contrast History: Polymicrobial urinary tract infection Technique: Noncontrast CT imaging was performed of the abdomen and pelvis. Multiplanar images are reviewed. Exposure: One or more of the following individualized dose reduction techniques were utilized for this examination: 1. Automated exposure control 2. Adjustment of the mA and/or kV according to patient size 3. Use of iterative reconstruction technique. Comparison: None Findings: There is some motion. There is mild right renal pelviectasis. There is no renal or ureteral calculus on either side.There is suprapubic catheter, urinary bladder decompressed without discernible gas in the urinary bladder lumen. There is no discernible fistula contrast with the adjacent sigmoid colon. Evaluation of bowel is somewhat limited without oral contrast. There is no bowel dilatation, free air, or free fluid. There is appearance of possible long segment wall thickening of the sigmoid colon to the rectum. There is sigmoid diverticulosis, not associated with adjacent inflammatory-type change of the fat. There is mild bibasilar atelectasis.Accurate evaluation of abdominal visceral organs is limited without intravenous contrast. There is no obvious abnormality of the spleen, liver, or pancreas. There has been cholecystectomy. There is no adrenal nodularity. There is mild to moderate lumbar levoscoliosis. There is bone demineralization. There is compression deformity greater inferiorly of what is considered within the T12 vertebral body, also mild superior height loss of neural foramina compromise greatest bilaterally at T10-11 and on the right at T9-T10. There is probable fairly severe spinal stenosis at L4-5, more significant bilateral recess stenosis at L3-4, and probable at least mild if not moderate spinal stenosis at L2-3. There is multilevel thoracolumbar neural foramina compromise, more significant narrowing bilaterally at T10-T11, on the right at T9-T10, bilaterally at L3-4, and on the left at L4-5. There is intramedullary kierra and nail of the proximal right femur, not fully evaluated. There is scattered calcified plaque of the abdominal aorta and branches. Impression: 1. There is suprapubic catheter without discernible fistula communication with the adjacent colon. There is sigmoid diverticulosis. Difficult to exclude wall thickening of the sigmoid colon and the rectum as can be seen with colitis in the appropriate clinical setting although findings could be related to incomplete distention. 2. There is bone demineralization. There is age indeterminate T12 and T11 compression deformity, correlation with any point tenderness recommended. 3. There is multilevel lumbar spinal stenosis and thoracolumbar neural foramina compromise. Electronically signed by: Carlos Jacobsen MD (11/09/2019 10:19 AM) [id number]
[2019-11-09] MEDS: INSULIN LISPRO 300 UNITS/3 ML VIAL. SQ SCH ×3 (10:44→17:35)
[2019-11-09 16:07] VITALS: BP 136/80
[2019-11-09] MEDS: traZODone 150 MG TABLET. PO SCH (20:50)
[2019-11-09] MEDS: FAMOTIDINE 20 MG TABLET PO SCH (20:50)
[2019-11-09] MEDS: risperiDONE 0.5 MG TABLET. PO SCH (20:51)
[2019-11-09] MEDS: INSULIN GLARGINE SYRINGE. SQ SCH (21:00)
--- NOTE | 2019-11-09 21:58 | PDOC ---
Exam Note: Laureano Note: Please also refer to the separate dictated note~for this date of service dictated separately.~Patient seen individually. Discussed the patient with Nursing staff reviewed the chart.~Reviewed interim history and current functioning. Reviewed vital signs,~Labs/ Radiology~and current medications noted below. Continue current treatment with the changes noted in the dictated addendum note Assessment: Vital Signs/I&O: Vital Signs Date Time Temp Pulse Resp B/P (MAP) Pulse Ox O2 Delivery O2 Flow Rate FiO2 11/09/19 16:07 98.2 91 20 136/80 (98) 96 11/08/19 09:45 Room Air I & O 11/08/19 11/08/19 11/09/19 15:00 23:00 07:00 Intake Total 0 ml 480 ml Output Total 750 ml 350 ml Balance 0 ml -270 ml -350 ml Labs: Laboratory Tests Test 11/09/19 05:19 11/09/19 07:50 11/09/19 11:44 11/09/19 16:47 Glucose (Fingerstick) 127 mg/dL (70-99) H 109 mg/dL (70-99) H 163 mg/dL (70-99) H 183 mg/dL (70-99) H Test 11/09/19 19:07 Glucose (Fingerstick) 124 mg/dL (70-99) H Current Medications: I have reviewed the current psychotropics carefully including drug interactions. Risk benefit ratio favors no change other than as noted in my dictated progress note. Diagnosis: Problems: (1) Major depressive disorder in partial remission (2) Anxiety disorder (3) Impulse control disorder (4) Major depressive disorder, recurrent episode (5) Mild cognitive impairment ROMINA SORTO MD November 09, 2019 21:58
[2019-11-10 05:45] VITALS: BP 128/75
--- NOTE | 2019-11-10 07:21 | PDOC ---
Exam Note: Laureano Note: This note is a late entry for 11/08/2019 covers elements not covered in my initial note. Subjective: The patient was seen face to face in the evening of 11/08/2019. Nursing report was with Ganesh STOKES. Discussed the patient with nursing staff reviewed the chart. She has been refusing the contrast for the abdominal CT for workup of her fistula. She was aggressive and uncooperative in the morning. She complains of pain. Received Percocet, did better after breakfast. Foleys catheter was changed by Dr. Fong. Review of Systems: She has vague somatic symptoms. Ambulation impaired. No CV, , Pulmonary, Eye system symptoms on review. Mental Status Exam: Alert and oriented. She is quite irritable, anxious, repetitive, demanding as I met with her at some length wanting me to stay at an extended period of time individually in her room. I have a lot to talk about. They are in my house. They need to get out. My mother is here. Speech is coherent, rapid at times. Abstraction is fair. Computation impaired. Language function intact. Attention span is short. Laboratory Data: Reviewed. Impression: Major depressive disorder recurrent with psychotic features. Mild cognitive impairment. Urinary tract infection. Rest unchanged. Plan: We will await resolution of UTI and workup for this with Dr. Fong. Make further adjustments of psychotropics after that. Assessment: Vital Signs/I&O: Vital Signs Date Time Temp Pulse Resp B/P (MAP) Pulse Ox O2 Delivery O2 Flow Rate FiO2 11/10/19 05:45 97.5 75 18 128/75 (92) 95 11/08/19 09:45 Room Air I & O 11/09/19 11/09/19 11/10/19 14:59 22:59 06:59 Intake Total 840 ml 360 ml Output Total 650 ml 750 ml Balance 190 ml 360 ml -750 ml Labs: Laboratory Tests Test 11/09/19 07:50 11/09/19 11:44 11/09/19 16:47 11/09/19 19:07 Glucose (Fingerstick) 109 mg/dL (70-99) H 163 mg/dL (70-99) H 183 mg/dL (70-99) H 124 mg/dL (70-99) H Current Medications: I have reviewed the current psychotropics carefully including drug interactions. Risk benefit ratio favors no change other than as noted in my dictated progress note. Diagnosis: Problems: (1) Major depressive disorder in partial remission (2) Anxiety disorder (3) Impulse control disorder (4) Major depressive disorder, recurrent episode (5) Mild cognitive impairment ROMINA SORTO MD November 10, 2019 07:21
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
[2019-11-10] MEDS: LACTOBACILLUS RHAMNOSUS GG 1 CAPSULE. PO SCH ×2 (07:59→19:56)
[2019-11-10] MEDS: POTASSIUM CHLORIDE 20 MEQ TABLET.ER. PO SCH (07:59)
[2019-11-10] MEDS: GABAPENTIN 400 MG CAPSULE. PO SCH ×2 (07:59→19:56)
[2019-11-10] MEDS: FERROUS SULFATE 325 MG TABLET. PO SCH (07:59)
[2019-11-10] MEDS: FLUoxetine HCL 20 MG CAPSULE PO SCH (07:59)
[2019-11-10] MEDS: risperiDONE 0.25 MG TABLET. PO SCH (07:59)
[2019-11-10] MEDS: FUROSEMIDE 40 MG TABLET PO SCH (08:00)
[2019-11-10] MEDS: IPRATROPIUM/ALBUTEROL 20/100mcg/INH INHALER. INH SCH ×2 (08:00→12:00)
[2019-11-10] MEDS: DIVALPROEX 125 MG CAP.SPRINK PO SCH ×3 (08:00→19:56)
[2019-11-10] MEDS: VITS A & D/LANOLIN TOPICAL OINTMENT 42GM TUBE. TP SCH (08:02)
[2019-11-10] MEDS: HYDROCORTISONE 1% TOPICAL OINTMENT 30GM TUBE. TP SCH (08:02)
[2019-11-10] MEDS: CLOBETASOL EMOLLIENT 0.05% TOPICAL CREAM 15GM TUBE. TP SCH (08:02)
[2019-11-10] MEDS: DICLOFENAC SODIUM 1% TOPICAL GEL 100GM TUBE. TP SCH ×2 (08:02→21:00)
[2019-11-10] MEDS: clonazePAM 1 MG TABLET PO SCH ×3 (08:15→19:56)
[2019-11-10] MEDS: CHOLECALCIFEROL (VITAMIN D3) 50,000 UNIT CAPSULE PO SCH (08:15)
[2019-11-10] MEDS: INSULIN LISPRO 300 UNITS/3 ML VIAL. SQ SCH ×3 (08:21→17:02)
[2019-11-10 10:00] LABS: BASO # 0.1 x10^3/uL (0.0-0.2); BASO % 1 % (0-3); EOS # 0.3 x10^3/uL (0.0-0.7); EOS % 6 % (0-3); HEMATOCRIT 40.3 % (36.0-47.0); HEMOGLOBIN 13.2 g/dL (12.0-15.5); LYMPH % 20 % (24-48); MEAN CORPUSCULAR HEMOGLOBIN 32 pg (25-35); MEAN CORPUSCULAR HGB CONC 33 g/dL (31-37); MEAN CORPUSCULAR VOLUME 97 fL (79-100); MONO # 0.4 x10^3/uL (0.0-1.1); MONO % 9 % (0-9); NEUT # 3.3 x10^3uL (1.8-7.7); NEUT % 65 % (31-73); PLATELET COUNT 233 x10^3/uL (140-400); RED BLOOD COUNT 4.16 x10^6/uL (3.50-5.40); RED CELL DISTRIBUTION WIDTH 16.6 % (11.5-14.5); WHITE BLOOD COUNT 5.1 x10^3/uL (4.0-11.0)
[2019-11-10 10:13] LABS: ALBUMIN 2.9 g/dL (3.4-5.0); ALBUMIN/GLOBULIN RATIO 0.6 (1.0-1.7); CALCIUM 8.9 mg/dL (8.5-10.1); CREATININE 1.5 mg/dL (0.6-1.0); GFR 34.4; POTASSIUM 3.9 mmol/L (3.5-5.1); TOTAL BILIRUBIN 0.1 mg/dL (0.2-1.0); TOTAL PROTEIN 7.8 g/dL (6.4-8.2)
[2019-11-10] MEDS ORDERED: IPRATROPIUM/ALBUTEROL 20/100mcg/INH INHALER. INH PRN (14:30)
[2019-11-10] MEDS ORDERED: VITS A & D/LANOLIN TOPICAL OINTMENT 42GM TUBE. TP PRN (14:30)
[2019-11-10] MEDS ORDERED: HYDROCORTISONE 1% TOPICAL OINTMENT 30GM TUBE. TP PRN (14:30)
[2019-11-10] MEDS ORDERED: CLOBETASOL EMOLLIENT 0.05% TOPICAL CREAM 15GM TUBE. TP PRN (14:30)
[2019-11-10 15:17] VITALS: BP 116/72
[2019-11-10] MEDS: risperiDONE 0.5 MG TABLET. PO SCH (19:56)
[2019-11-10] MEDS: traZODone 150 MG TABLET. PO SCH (19:56)
[2019-11-10] MEDS: FAMOTIDINE 20 MG TABLET PO SCH (19:56)
[2019-11-10] MEDS: INSULIN GLARGINE SYRINGE. SQ SCH (20:00)
--- NOTE | 2019-11-10 21:47 | PDOC ---
Exam Note: Laureano Note: Please also refer to the separate dictated note~for this date of service dictated separately.~Patient seen individually. Discussed the patient with Nursing staff reviewed the chart.~Reviewed interim history and current functioning. Reviewed vital signs,~Labs/ Radiology~and current medications noted below. Continue current treatment with the changes noted in the dictated addendum note Assessment: Vital Signs/I&O: Vital Signs Date Time Temp Pulse Resp B/P (MAP) Pulse Ox O2 Delivery O2 Flow Rate FiO2 11/10/19 20:50 97.6 93 11/10/19 15:17 79 20 116/72 (87) 11/08/19 09:45 Room Air I & O 11/09/19 11/09/19 11/10/19 14:59 22:59 06:59 Intake Total 840 ml 360 ml Output Total 650 ml 750 ml Balance 190 ml 360 ml -750 ml Labs: Laboratory Tests Test 11/10/19 07:24 11/10/19 09:49 11/10/19 12:06 11/10/19 16:59 Glucose (Fingerstick) 145 mg/dL (70-99) H 122 mg/dL (70-99) H 232 mg/dL (70-99) H White Blood Count 5.1 x10^3/uL (4.0-11.0) Red Blood Count 4.16 x10^6/uL (3.50-5.40) Hemoglobin 13.2 g/dL (12.0-15.5) Hematocrit 40.3 % (36.0-47.0) Mean Corpuscular Volume 97 fL (79-100) Mean Corpuscular Hemoglobin 32 pg (25-35) Mean Corpuscular Hemoglobin Concent 33 g/dL (31-37) Red Cell Distribution Width 16.6 % (11.5-14.5) H Platelet Count 233 x10^3/uL (140-400) Neutrophils (%) (Auto) 65 % (31-73) Lymphocytes (%) (Auto) 20 % (24-48) L Monocytes (%) (Auto) 9 % (0-9) Eosinophils (%) (Auto) 6 % (0-3) H Basophils (%) (Auto) 1 % (0-3) Neutrophils # (Auto) 3.3 x10^3uL (1.8-7.7) Lymphocytes # (Auto) 1.0 x10^3/uL (1.0-4.8) Monocytes # (Auto) 0.4 x10^3/uL (0.0-1.1) Eosinophils # (Auto) 0.3 x10^3/uL (0.0-0.7) Basophils # (Auto) 0.1 x10^3/uL (0.0-0.2) Sodium Level 139 mmol/L (136-145) Potassium Level 3.9 mmol/L (3.5-5.1) Chloride Level 102 mmol/L (98-107) Carbon Dioxide Level 31 mmol/L (21-32) Anion Gap 6 (6-14) Blood Urea Nitrogen 32 mg/dL (7-20) H Creatinine 1.5 mg/dL (0.6-1.0) H Estimated GFR (Cockcroft-Gault) 34.4 BUN/Creatinine Ratio 21 (6-20) H Glucose Level 210 mg/dL (70-99) H Calcium Level 8.9 mg/dL (8.5-10.1) Total Bilirubin 0.1 mg/dL (0.2-1.0) L Aspartate Amino Transferase (AST) 10 U/L (15-37) L Alanine Aminotransferase (ALT) 11 U/L (14-59) L Alkaline Phosphatase 121 U/L (46-116) H Total Protein 7.8 g/dL (6.4-8.2) Albumin 2.9 g/dL (3.4-5.0) L Albumin/Globulin Ratio 0.6 (1.0-1.7) L Test 11/10/19 19:08 Glucose (Fingerstick) 146 mg/dL (70-99) H Current Medications: I have reviewed the current psychotropics carefully including drug interactions. Risk benefit ratio favors no change other than as noted in my dictated progress note. Diagnosis: Problems: (1) Major depressive disorder in partial remission (2) Anxiety disorder (3) Impulse control disorder (4) Major depressive disorder, recurrent episode (5) Mild cognitive impairment ROMINA SORTO MD November 10, 2019 21:47
[2019-11-11 05:58] VITALS: BP 131/71
[2019-11-11] MEDS: INSULIN LISPRO 300 UNITS/3 ML VIAL. SQ SCH ×3 (08:19→16:57)
[2019-11-11] MEDS: FERROUS SULFATE 325 MG TABLET. PO SCH (08:20)
[2019-11-11] MEDS: LACTOBACILLUS RHAMNOSUS GG 1 CAPSULE. PO SCH ×2 (08:20→20:30)
[2019-11-11] MEDS: DIVALPROEX 125 MG CAP.SPRINK PO SCH ×3 (08:20→20:30)
[2019-11-11] MEDS: POTASSIUM CHLORIDE 20 MEQ TABLET.ER. PO SCH (08:31)
[2019-11-11] MEDS: clonazePAM 1 MG TABLET PO SCH ×3 (08:31→20:29)
[2019-11-11] MEDS: risperiDONE 0.25 MG TABLET. PO SCH (08:32)
[2019-11-11] MEDS: FLUoxetine HCL 20 MG CAPSULE PO SCH (08:32)
[2019-11-11] MEDS: FUROSEMIDE 40 MG TABLET PO SCH (08:32)
[2019-11-11] MEDS: GABAPENTIN 400 MG CAPSULE. PO SCH ×2 (08:32→20:30)
--- NOTE | 2019-11-11 08:46 | PDOC ---
Exam Note: Laureano Note: This note is a late entry for 11/10/2019 covers elements not covered in my initial note. Subjective: The patient was seen face to face in the evening of 11/10/2019. Nursing report was with Shantal STOKES. Discussed the patient with nursing staff reviewed the chart. She slept 6-3/4 hours previous night. The patients CT abdomen/pelvis did not show evidence of fistula. I will again defer this to Dr. Segal/Dr. Fong for her recurrent UTI. She did show sigmoid diverticulosis on the CT. Overall per nursing report the patient remains anxious, irritable, less labile. Review of Systems: Ambulation impaired in Broda chair. No CV, , Pulmonary, Eye system symptoms on review. She has vague somatic symptoms. Mental Status Exam: Alert and oriented. She is irritable, anxious, alert, oriented, demanding that I sit down with her after I had spent some time with her she wanted to talk a lot more because I have a lot to talk about. She was blaming staff for different things. Speech is coherent, rapid at times. Abstraction is fair. Computation impaired. Language function intact. Attention span is short. Mood and affect remains irritable, labile. Laboratory Data: Reviewed. Impression: Major depressive disorder recurrent with psychotic features. Mild cognitive impairment. Urinary tract infection. Rest unchanged. Plan: Continue psychotropics from initial note. Assessment: Vital Signs/I&O: Vital Signs Date Time Temp Pulse Resp B/P (MAP) Pulse Ox O2 Delivery O2 Flow Rate FiO2 11/11/19 08:31 97.4 96 11/11/19 05:58 86 14 131/71 (91) 11/08/19 09:45 Room Air I & O 11/10/19 11/10/19 11/11/19 14:59 22:59 06:59 Intake Total 480 ml 368 ml 0 ml Output Total 400 ml Balance 480 ml 368 ml -400 ml Labs: Laboratory Tests Test 11/10/19 09:49 11/10/19 12:06 11/10/19 16:59 11/10/19 19:08 White Blood Count 5.1 x10^3/uL (4.0-11.0) Red Blood Count 4.16 x10^6/uL (3.50-5.40) Hemoglobin 13.2 g/dL (12.0-15.5) Hematocrit 40.3 % (36.0-47.0) Mean Corpuscular Volume 97 fL (79-100) Mean Corpuscular Hemoglobin 32 pg (25-35) Mean Corpuscular Hemoglobin Concent 33 g/dL (31-37) Red Cell Distribution Width 16.6 % (11.5-14.5) H Platelet Count 233 x10^3/uL (140-400) Neutrophils (%) (Auto) 65 % (31-73) Lymphocytes (%) (Auto) 20 % (24-48) L Monocytes (%) (Auto) 9 % (0-9) Eosinophils (%) (Auto) 6 % (0-3) H Basophils (%) (Auto) 1 % (0-3) Neutrophils # (Auto) 3.3 x10^3uL (1.8-7.7) Lymphocytes # (Auto) 1.0 x10^3/uL (1.0-4.8) Monocytes # (Auto) 0.4 x10^3/uL (0.0-1.1) Eosinophils # (Auto) 0.3 x10^3/uL (0.0-0.7) Basophils # (Auto) 0.1 x10^3/uL (0.0-0.2) Sodium Level 139 mmol/L (136-145) Potassium Level 3.9 mmol/L (3.5-5.1) Chloride Level 102 mmol/L (98-107) Carbon Dioxide Level 31 mmol/L (21-32) Anion Gap 6 (6-14) Blood Urea Nitrogen 32 mg/dL (7-20) H Creatinine 1.5 mg/dL (0.6-1.0) H Estimated GFR (Cockcroft-Gault) 34.4 BUN/Creatinine Ratio 21 (6-20) H Glucose Level 210 mg/dL (70-99) H Calcium Level 8.9 mg/dL (8.5-10.1) Total Bilirubin 0.1 mg/dL (0.2-1.0) L Aspartate Amino Transferase (AST) 10 U/L (15-37) L Alanine Aminotransferase (ALT) 11 U/L (14-59) L Alkaline Phosphatase 121 U/L (46-116) H Total Protein 7.8 g/dL (6.4-8.2) Albumin 2.9 g/dL (3.4-5.0) L Albumin/Globulin Ratio 0.6 (1.0-1.7) L Glucose (Fingerstick) 122 mg/dL (70-99) H 232 mg/dL (70-99) H 146 mg/dL (70-99) H Test 11/11/19 07:39 Glucose (Fingerstick) 152 mg/dL (70-99) H Current Medications: I have reviewed the current psychotropics carefully including drug interactions. Risk benefit ratio favors no change other than as noted in my dictated progress note. Diagnosis: Problems: (1) Major depressive disorder in partial remission (2) Anxiety disorder (3) Impulse control disorder (4) Major depressive disorder, recurrent episode (5) Mild cognitive impairment ROMINA SORTO MD November 11, 2019 08:45
[2019-11-11] MEDS: DICLOFENAC SODIUM 1% TOPICAL GEL 100GM TUBE. TP SCH ×2 (09:00→20:26)
[2019-11-11] MEDS: hydrOXYzine HCL 25 MG TABLET PO PRN (14:01)
[2019-11-11 15:25] VITALS: BP 129/83
[2019-11-11] MEDS: FAMOTIDINE 20 MG TABLET PO SCH (20:29)
[2019-11-11] MEDS: traZODone 150 MG TABLET. PO SCH (20:30)
[2019-11-11] MEDS: risperiDONE 0.5 MG TABLET. PO SCH (20:30)
[2019-11-11] MEDS: INSULIN GLARGINE SYRINGE. SQ SCH (20:35)
--- NOTE | 2019-11-11 21:52 | PDOC ---
Exam Note: Laureano Note: Please also refer to the separate dictated note~for this date of service dictated separately.~Patient seen individually. Discussed the patient with Nursing staff reviewed the chart.~Reviewed interim history and current functioning. Reviewed vital signs,~Labs/ Radiology~and current medications noted below. Continue current treatment with the changes noted in the dictated addendum note Assessment: Vital Signs/I&O: Vital Signs Date Time Temp Pulse Resp B/P (MAP) Pulse Ox O2 Delivery O2 Flow Rate FiO2 11/11/19 20:57 97.5 96 11/11/19 15:25 82 18 129/83 (98) 11/08/19 09:45 Room Air I & O 11/10/19 11/10/19 11/11/19 14:59 22:59 06:59 Intake Total 480 ml 368 ml 0 ml Output Total 400 ml Balance 480 ml 368 ml -400 ml Labs: Laboratory Tests Test 11/11/19 07:39 11/11/19 11:46 11/11/19 16:50 11/11/19 17:32 Glucose (Fingerstick) 152 mg/dL (70-99) H 177 mg/dL (70-99) H 42 mg/dL (70-99) L 111 mg/dL (70-99) H Test 11/11/19 19:08 Glucose (Fingerstick) 236 mg/dL (70-99) H Current Medications: I have reviewed the current psychotropics carefully including drug interactions. Risk benefit ratio favors no change other than as noted in my dictated progress note. Diagnosis: Problems: (1) Major depressive disorder in partial remission (2) Anxiety disorder (3) Impulse control disorder (4) Major depressive disorder, recurrent episode (5) Mild cognitive impairment ROMINA SORTO MD November 11, 2019 21:52
[2019-11-12 05:56] VITALS: BP 121/79
[2019-11-12] MEDS: INSULIN LISPRO 300 UNITS/3 ML VIAL. SQ SCH ×3 (08:21→17:54)
[2019-11-12] MEDS: LACTOBACILLUS RHAMNOSUS GG 1 CAPSULE. PO SCH ×2 (08:21→20:32)
[2019-11-12] MEDS: DIVALPROEX 125 MG CAP.SPRINK PO SCH ×3 (08:23→20:32)
[2019-11-12] MEDS: FERROUS SULFATE 325 MG TABLET. PO SCH (08:23)
[2019-11-12] MEDS: FUROSEMIDE 40 MG TABLET PO SCH (08:25)
[2019-11-12] MEDS: POTASSIUM CHLORIDE 20 MEQ TABLET.ER. PO SCH (08:25)
[2019-11-12] MEDS: GABAPENTIN 400 MG CAPSULE. PO SCH ×2 (08:25→20:32)
[2019-11-12] MEDS: FLUoxetine HCL 20 MG CAPSULE PO SCH (08:26)
[2019-11-12] MEDS: risperiDONE 0.25 MG TABLET. PO SCH (08:26)
[2019-11-12] MEDS: DICLOFENAC SODIUM 1% TOPICAL GEL 100GM TUBE. TP SCH ×2 (08:30→20:33)
[2019-11-12] MEDS: clonazePAM 1 MG TABLET PO SCH ×3 (08:30→20:32)
[2019-11-12 10:37] LABS: BASO # 0.1 x10^3/uL (0.0-0.2); BASO % 1 % (0-3); EOS # 0.3 x10^3/uL (0.0-0.7); EOS % 5 % (0-3); HEMATOCRIT 42.4 % (36.0-47.0); HEMOGLOBIN 13.6 g/dL (12.0-15.5); LYMPH # 1.1 x10^3/uL (1.0-4.8); LYMPH % 19 % (24-48); MEAN CORPUSCULAR HEMOGLOBIN 31 pg (25-35); MEAN CORPUSCULAR HGB CONC 32 g/dL (31-37); MEAN CORPUSCULAR VOLUME 98 fL (79-100); MONO # 0.5 x10^3/uL (0.0-1.1); MONO % 9 % (0-9); NEUT # 3.8 x10^3uL (1.8-7.7); NEUT % 66 % (31-73); PLATELET COUNT 195 x10^3/uL (140-400); RED BLOOD COUNT 4.34 x10^6/uL (3.50-5.40); RED CELL DISTRIBUTION WIDTH 16.9 % (11.5-14.5); WHITE BLOOD COUNT 5.9 x10^3/uL (4.0-11.0)
[2019-11-12 11:03] LABS: ALBUMIN/GLOBULIN RATIO 0.6 (1.0-1.7); CALCIUM 9.2 mg/dL (8.5-10.1); CREATININE 1.6 mg/dL (0.6-1.0); POTASSIUM 4.2 mmol/L (3.5-5.1); TOTAL BILIRUBIN 0.2 mg/dL (0.2-1.0); TOTAL PROTEIN 8.1 g/dL (6.4-8.2)
[2019-11-12] MEDS: hydrOXYzine HCL 25 MG TABLET PO PRN (16:08)
[2019-11-12 16:14] VITALS: BP 121/81
[2019-11-12] MEDS ORDERED: ZINC OXIDE 20% TOPICAL OINTMENT 28GM TUBE. TP PRN (16:15)
[2019-11-12] MEDS ORDERED: NYSTATIN 100,000 UNIT/GM TOPICAL CREAM 15GM TUBE. TP PRN (16:15)
[2019-11-12] MEDS: traZODone 150 MG TABLET. PO SCH (20:32)
[2019-11-12] MEDS: FAMOTIDINE 20 MG TABLET PO SCH (20:32)
[2019-11-12] MEDS: risperiDONE 0.5 MG TABLET. PO SCH (20:32)
[2019-11-12] MEDS: INSULIN GLARGINE SYRINGE. SQ SCH (20:33)
--- NOTE | 2019-11-12 22:03 | PDOC ---
Exam Note: Laureano Note: Please also refer to the separate dictated note~for this date of service dictated separately.~Patient seen individually. Discussed the patient with Nursing staff reviewed the chart.~Reviewed interim history and current functioning. Reviewed vital signs,~Labs/ Radiology~and current medications noted below. Continue current treatment with the changes noted in the dictated addendum note Assessment: Vital Signs/I&O: Vital Signs Date Time Temp Pulse Resp B/P (MAP) Pulse Ox O2 Delivery O2 Flow Rate FiO2 11/12/19 21:05 97.6 96 11/12/19 16:14 76 20 121/81 (94) 11/08/19 09:45 Room Air I & O 11/11/19 11/11/19 11/12/19 15:00 23:00 07:00 Intake Total 960 ml 480 ml Output Total 400 ml Balance 960 ml 480 ml -400 ml Labs: Laboratory Tests Test 11/12/19 08:08 11/12/19 09:55 11/12/19 11:44 11/12/19 16:27 Glucose (Fingerstick) 137 mg/dL (70-99) H 103 mg/dL (70-99) H 166 mg/dL (70-99) H White Blood Count 5.9 x10^3/uL (4.0-11.0) Red Blood Count 4.34 x10^6/uL (3.50-5.40) Hemoglobin 13.6 g/dL (12.0-15.5) Hematocrit 42.4 % (36.0-47.0) Mean Corpuscular Volume 98 fL (79-100) Mean Corpuscular Hemoglobin 31 pg (25-35) Mean Corpuscular Hemoglobin Concent 32 g/dL (31-37) Red Cell Distribution Width 16.9 % (11.5-14.5) H Platelet Count 195 x10^3/uL (140-400) Neutrophils (%) (Auto) 66 % (31-73) Lymphocytes (%) (Auto) 19 % (24-48) L Monocytes (%) (Auto) 9 % (0-9) Eosinophils (%) (Auto) 5 % (0-3) H Basophils (%) (Auto) 1 % (0-3) Neutrophils # (Auto) 3.8 x10^3uL (1.8-7.7) Lymphocytes # (Auto) 1.1 x10^3/uL (1.0-4.8) Monocytes # (Auto) 0.5 x10^3/uL (0.0-1.1) Eosinophils # (Auto) 0.3 x10^3/uL (0.0-0.7) Basophils # (Auto) 0.1 x10^3/uL (0.0-0.2) Sodium Level 142 mmol/L (136-145) Potassium Level 4.2 mmol/L (3.5-5.1) Chloride Level 103 mmol/L (98-107) Carbon Dioxide Level 29 mmol/L (21-32) Anion Gap 10 (6-14) Blood Urea Nitrogen 39 mg/dL (7-20) H Creatinine 1.6 mg/dL (0.6-1.0) H Estimated GFR (Cockcroft-Gault) 32.0 BUN/Creatinine Ratio 24 (6-20) H Glucose Level 170 mg/dL (70-99) H Calcium Level 9.2 mg/dL (8.5-10.1) Total Bilirubin 0.2 mg/dL (0.2-1.0) Aspartate Amino Transferase (AST) 12 U/L (15-37) L Alanine Aminotransferase (ALT) 10 U/L (14-59) L Alkaline Phosphatase 118 U/L (46-116) H Total Protein 8.1 g/dL (6.4-8.2) Albumin 3.0 g/dL (3.4-5.0) L Albumin/Globulin Ratio 0.6 (1.0-1.7) L Test 11/12/19 20:22 Glucose (Fingerstick) 190 mg/dL (70-99) H Current Medications: I have reviewed the current psychotropics carefully including drug interactions. Risk benefit ratio favors no change other than as noted in my dictated progress note. Diagnosis: Problems: (1) Major depressive disorder in partial remission (2) Anxiety disorder (3) Impulse control disorder (4) Major depressive disorder, recurrent episode (5) Mild cognitive impairment ROMINA SORTO MD November 12, 2019 22:03
[2019-11-13 06:10] VITALS: BP 124/80
--- NOTE | 2019-11-13 07:42 | PDOC ---
Exam Note: Laureano Note: This note is a late entry for 11/11/2019 covers elements not covered in my initial note. Subjective: The patient was seen face to face in the evening of 11/11/2019. Nursing report was with Melissa STOKES. Discussed the patient with nursing staff reviewed the chart. She slept 8 hours previous night. She was angry, irritable previous night stating that the CNAs work 24 hours a day and they are overworked, cannot help her. She was somewhat delusional per nursing report that Foleys is draining water and not her urine. She did receive Atarax at 2 p.m. because she was yelling, anxious, labile, then did better. She is better after injection to her knee. Review of Systems: Ambulation impaired in Broda chair. No CV, , Pulmonary, Eye system symptoms on review. She has vague somatic symptoms. Mental Status Exam: Alert and oriented. She is irritable, withdrawn, anxious as I met with her, still somewhat depressed, delusional. No suicidal or homicidal ideation. Attention span is short. Abstraction is fair. Computation impaired. Mood and affect remains irritable, labile. Laboratory Data: Reviewed. Impression: Major depressive disorder recurrent with psychotic features. Mild cognitive impairment. Urinary tract infection. Rest unchanged. Plan: Continue psychotropics from initial note. Assessment: Vital Signs/I&O: Vital Signs Date Time Temp Pulse Resp B/P (MAP) Pulse Ox O2 Delivery O2 Flow Rate FiO2 11/13/19 06:10 97.2 72 20 124/80 (95) 95 11/08/19 09:45 Room Air I & O 11/12/19 11/12/19 11/13/19 15:00 23:00 07:00 Intake Total 1080 ml 960 ml Output Total 1000 ml 700 ml Balance 1080 ml -40 ml -700 ml Labs: Laboratory Tests Test 11/12/19 08:08 11/12/19 09:55 11/12/19 11:44 11/12/19 16:27 Glucose (Fingerstick) 137 mg/dL (70-99) H 103 mg/dL (70-99) H 166 mg/dL (70-99) H White Blood Count 5.9 x10^3/uL (4.0-11.0) Red Blood Count 4.34 x10^6/uL (3.50-5.40) Hemoglobin 13.6 g/dL (12.0-15.5) Hematocrit 42.4 % (36.0-47.0) Mean Corpuscular Volume 98 fL (79-100) Mean Corpuscular Hemoglobin 31 pg (25-35) Mean Corpuscular Hemoglobin Concent 32 g/dL (31-37) Red Cell Distribution Width 16.9 % (11.5-14.5) H Platelet Count 195 x10^3/uL (140-400) Neutrophils (%) (Auto) 66 % (31-73) Lymphocytes (%) (Auto) 19 % (24-48) L Monocytes (%) (Auto) 9 % (0-9) Eosinophils (%) (Auto) 5 % (0-3) H Basophils (%) (Auto) 1 % (0-3) Neutrophils # (Auto) 3.8 x10^3uL (1.8-7.7) Lymphocytes # (Auto) 1.1 x10^3/uL (1.0-4.8) Monocytes # (Auto) 0.5 x10^3/uL (0.0-1.1) Eosinophils # (Auto) 0.3 x10^3/uL (0.0-0.7) Basophils # (Auto) 0.1 x10^3/uL (0.0-0.2) Sodium Level 142 mmol/L (136-145) Potassium Level 4.2 mmol/L (3.5-5.1) Chloride Level 103 mmol/L (98-107) Carbon Dioxide Level 29 mmol/L (21-32) Anion Gap 10 (6-14) Blood Urea Nitrogen 39 mg/dL (7-20) H Creatinine 1.6 mg/dL (0.6-1.0) H Estimated GFR (Cockcroft-Gault) 32.0 BUN/Creatinine Ratio 24 (6-20) H Glucose Level 170 mg/dL (70-99) H Calcium Level 9.2 mg/dL (8.5-10.1) Total Bilirubin 0.2 mg/dL (0.2-1.0) Aspartate Amino Transferase (AST) 12 U/L (15-37) L Alanine Aminotransferase (ALT) 10 U/L (14-59) L Alkaline Phosphatase 118 U/L (46-116) H Total Protein 8.1 g/dL (6.4-8.2) Albumin 3.0 g/dL (3.4-5.0) L Albumin/Globulin Ratio 0.6 (1.0-1.7) L Test 11/12/19 20:22 11/13/19 07:29 Glucose (Fingerstick) 190 mg/dL (70-99) H 123 mg/dL (70-99) H Current Medications: I have reviewed the current psychotropics carefully including drug interactions. Risk benefit ratio favors no change other than as noted in my dictated progress note. Diagnosis: Problems: (1) Major depressive disorder in partial remission (2) Anxiety disorder (3) Impulse control disorder (4) Major depressive disorder, recurrent episode (5) Mild cognitive impairment ROMINA SORTO MD Nov 13, 2019 07:42
[2019-11-13] MEDS: INSULIN LISPRO 300 UNITS/3 ML VIAL. SQ SCH ×3 (08:30→17:00)
[2019-11-13] MEDS: DIVALPROEX 125 MG CAP.SPRINK PO SCH ×3 (08:32→20:33)
[2019-11-13] MEDS: LACTOBACILLUS RHAMNOSUS GG 1 CAPSULE. PO SCH ×2 (08:32→20:33)
[2019-11-13] MEDS: FLUoxetine HCL 20 MG CAPSULE PO SCH (08:33)
[2019-11-13] MEDS: FERROUS SULFATE 325 MG TABLET. PO SCH (08:33)
[2019-11-13] MEDS: risperiDONE 0.25 MG TABLET. PO SCH (08:33)
[2019-11-13] MEDS: FUROSEMIDE 40 MG TABLET PO SCH (08:33)
[2019-11-13] MEDS: POTASSIUM CHLORIDE 20 MEQ TABLET.ER. PO SCH (08:33)
[2019-11-13] MEDS: GABAPENTIN 400 MG CAPSULE. PO SCH ×2 (08:33→20:33)
[2019-11-13] MEDS: clonazePAM 1 MG TABLET PO SCH ×3 (08:35→20:33)
[2019-11-13] MEDS: DICLOFENAC SODIUM 1% TOPICAL GEL 100GM TUBE. TP SCH ×2 (09:00→21:00)
[2019-11-13 15:39] VITALS: BP 121/79
--- NOTE | 2019-11-13 16:38 | TX PLAN ---
Interdisciplinary Tx Plan Admission Information October 20, 2019 at 02:07 Legal Status (on Admission): Voluntary DPOA/Guardian Name: Tatiana Wright Contact Other Contact Name: Arslan Rodriguez Other Contact Verified Code Status: DNR Allergies: Coded Allergies: MARÍA Inhibitors (Verified Allergy, Intermediate, 10/18/17) codeine (Verified Allergy, Intermediate, Itching, 02/01/15) olanzapine (Verified Allergy, Intermediate, 10/20/19) penicillin (Verified Allergy, Intermediate, Itching, 02/01/15) quetiapine (Verified Allergy, Intermediate, 10/18/17) Diagnoses Primary Diagnosis: MDD, Anxiety D/O unspecified, Impulse Control D/O unspecified Reasons for Admission: Aggressive, Poor impulse control Problem in Patient's Words: She seems just really confused and needs to be evaluated. Additional Admission Comments: According to the intake, pt was yelling, calling staff "whores", attempting to remove catheter, refused cares, called police to change her catheter, threatening and calling staff names. Problems Active Problems: Yelling out Irritability Confusion UTI (3 organisms in urine) Inactive Problems: Medication Management Pt Strengths/Limitations Ability for [place]: Poor Cognitive Functioning/Ability: Fair Communication Skills/Ability: Fair Financial Resources: Fair Insight/Judgement: Poor Intellectual Ability: Fair Physical Health: Poor Social Skills: Poor Stability in Family: Fair Stability in School/Work: Poor Verbal Skills: Fair Discharge Criteria Discharge Criteria: Adequate arrangements @DC, Improved behavior, Improved mood/thought Other Discharge Comments: may need recommendations for outpt PT and OT. Preliminary Discharge Plan Preliminary DC Plan: Current Living Arrange. Special Precautions Fall Risk: Moderate Initial D/C Plan Pt will plan to return to [facility] upon discharge. Identified Discharge Needs: Psychiatrist Counseling Primary Care Physician Currently Utilized Resources Currently Utilized Resources/P: None Referrals Community Resources: Will need referral for mental health services. Identified Problems/Hx/Goals Objectives/Short-Term Goals Short Term Goals: Dec. Aggression, Dec. Outbursts, Improved Social Skills, Medication Stabilization, Promote Coping Skill Short Term Goals in Patient's: N/A Interventions/Frequency Staff Interventions/Frequency&: Psychiatrist to assess pt at least 3x per week. Spool Cleaner Hand to assess pt at least 2x per week. Nursing assess and complete 15 minute checks daily. Encourage group participation in activities; if not 1:1 time based of goals during the Activity assessment. 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 She always had problems with other people "not doing their jobs". Eventually in the end, she ended up being the one fired for "starting trouble". Education: Did graduate high school Community Follow-up Community Provider/Family Inpu: She needs to be assessed with her confusion and re-evaluate her medications. Treatment Plan Explained Patient/Esol Instructor had this treatment plan explained to him/her as indicated by the signature below and has been given the opportunity to ask questions and make suggestions: Date: Patient/Esol Instructor Signature: Status Update Update Pt is eating roughly 50% of meals and sleeping on average 8.25 hours per night. Pt continues to be delusional, thinking that people are in her house. Last week, pt received a call from her sister and pt stated "that's not from my sister. She wouldn't send me something like that". Pt is often irritable and has periods of drowsiness during the mid to late afternoon hours. Pt will have her morning Clonopin dose decreased to 2mg. ELOS for of this week. LORE SIDDIQI Nov 13, 2019 16:38
[2019-11-13] MEDS: traZODone 150 MG TABLET. PO SCH (20:33)
[2019-11-13] MEDS: risperiDONE 0.5 MG TABLET. PO SCH (20:33)
[2019-11-13] MEDS: FAMOTIDINE 20 MG TABLET PO SCH (20:33)
[2019-11-13] MEDS: INSULIN GLARGINE SYRINGE. SQ SCH (20:38)
--- NOTE | 2019-11-13 22:01 | PDOC ---
Exam Note: Laureano Note: Please also refer to the separate dictated note~for this date of service dictated separately.~Patient seen individually. Discussed the patient with Nursing staff reviewed the chart.~Reviewed interim history and current functioning. Reviewed vital signs,~Labs/ Radiology~and current medications noted below. Continue current treatment with the changes noted in the dictated addendum note Assessment: Vital Signs/I&O: Vital Signs Date Time Temp Pulse Resp B/P (MAP) Pulse Ox O2 Delivery O2 Flow Rate FiO2 11/13/19 18:31 97.2 11/13/19 15:39 70 16 121/79 (93) 98 11/08/19 09:45 Room Air I & O 11/12/19 11/12/19 11/13/19 15:00 23:00 07:00 Intake Total 1080 ml 960 ml Output Total 1000 ml 700 ml Balance 1080 ml -40 ml -700 ml Labs: Laboratory Tests Test 11/13/19 07:29 11/13/19 11:49 11/13/19 19:19 Glucose (Fingerstick) 123 mg/dL (70-99) H 116 mg/dL (70-99) H 213 mg/dL (70-99) H Current Medications: I have reviewed the current psychotropics carefully including drug interactions. Risk benefit ratio favors no change other than as noted in my dictated progress note. Diagnosis: Problems: (1) Major depressive disorder in partial remission (2) Anxiety disorder (3) Impulse control disorder (4) Major depressive disorder, recurrent episode (5) Mild cognitive impairment ROMINA SORTO MD Nov 13, 2019 22:01
[2019-11-14 06:29] VITALS: BP 108/69
--- NOTE | 2019-11-14 06:40 | PDOC ---
Exam Note: Laureano Note: This note is a late entry for 11/12/2019 covers elements not covered in my initial note. Subjective: The patient was seen face to face in the evening of 11/12/2019. Nursing report was with Melissa STOKES. Discussed the patient with nursing staff reviewed the chart. She slept 9-3/4 hours previous night. She was irritable previous night, quite irritable, anxious, demanding of nursing staff, blaming nursing staff for not putting her in the chair, has difficulty recognizing that her skin integrity is compromised and she is on an airbed that staff are trying to encourage. Review of Systems: She minimizes her inability to walk. No CV, , Pulmonary, Eye system symptoms on review. She has vague somatic symptoms. Mental Status Exam: Alert and oriented. She is irritable, anxious as I met with her, demanding towards nursing staff. No suicidal or homicidal ideation. Attention span is short. Abstraction is fair. Computation impaired. Mood and affect remains irritable, labile. Laboratory Data: Reviewed. Impression: Major depressive disorder recurrent with psychotic features. Mild cognitive impairment. Urinary tract infection. Rest unchanged. Plan: Continue psychotropics from initial note. Assessment: Vital Signs/I&O: Vital Signs Date Time Temp Pulse Resp B/P (MAP) Pulse Ox O2 Delivery O2 Flow Rate FiO2 11/14/19 06:29 97.6 75 18 108/69 (82) 97 11/08/19 09:45 Room Air I & O 11/13/19 11/13/19 11/14/19 15:00 23:00 07:00 Intake Total 840 ml 480 ml Output Total 350 ml 500 ml 500 ml Balance 490 ml -20 ml -500 ml Labs: Laboratory Tests Test 11/13/19 07:29 11/13/19 11:49 11/13/19 19:19 Glucose (Fingerstick) 123 mg/dL (70-99) H 116 mg/dL (70-99) H 213 mg/dL (70-99) H Current Medications: I have reviewed the current psychotropics carefully including drug interactions. Risk benefit ratio favors no change other than as noted in my dictated progress note. Diagnosis: Problems: (1) Major depressive disorder in partial remission (2) Anxiety disorder (3) Impulse control disorder (4) Major depressive disorder, recurrent episode (5) Mild cognitive impairment ROMINA SORTO MD Nov 14, 2019 06:39
[2019-11-14 06:50] LABS: BASO % 1 % (0-3); EOS # 0.2 x10^3/uL (0.0-0.7); EOS % 3 % (0-3); HEMATOCRIT 38.7 % (36.0-47.0); HEMOGLOBIN 12.6 g/dL (12.0-15.5); LYMPH # 1.6 x10^3/uL (1.0-4.8); LYMPH % 26 % (24-48); MEAN CORPUSCULAR HEMOGLOBIN 32 pg (25-35); MEAN CORPUSCULAR HGB CONC 33 g/dL (31-37); MEAN CORPUSCULAR VOLUME 97 fL (79-100); MONO # 0.6 x10^3/uL (0.0-1.1); MONO % 10 % (0-9); NEUT # 3.7 x10^3uL (1.8-7.7); NEUT % 61 % (31-73); PLATELET COUNT 198 x10^3/uL (140-400); RED BLOOD COUNT 4.01 x10^6/uL (3.50-5.40); RED CELL DISTRIBUTION WIDTH 16.3 % (11.5-14.5); WHITE BLOOD COUNT 6.1 x10^3/uL (4.0-11.0)
[2019-11-14 06:52] LABS: ALBUMIN 2.7 g/dL (3.4-5.0); ALBUMIN/GLOBULIN RATIO 0.6 (1.0-1.7); CREATININE 1.6 mg/dL (0.6-1.0); POTASSIUM 4.7 mmol/L (3.5-5.1); TOTAL BILIRUBIN 0.2 mg/dL (0.2-1.0); TOTAL PROTEIN 7.2 g/dL (6.4-8.2)
[2019-11-14] MEDS ORDERED: clonazePAM 2 MG TABLET PO SCH (09:00)
[2019-11-14] MEDS: FLUoxetine HCL 20 MG CAPSULE PO SCH (09:33)
[2019-11-14] MEDS: LACTOBACILLUS RHAMNOSUS GG 1 CAPSULE. PO SCH ×2 (09:33→20:08)
[2019-11-14] MEDS: risperiDONE 0.25 MG TABLET. PO SCH (09:34)
[2019-11-14] MEDS: FUROSEMIDE 40 MG TABLET PO SCH (09:34)
[2019-11-14] MEDS: DIVALPROEX 125 MG CAP.SPRINK PO SCH ×3 (09:34→20:08)
[2019-11-14] MEDS: FERROUS SULFATE 325 MG TABLET. PO SCH (09:34)
[2019-11-14] MEDS: GABAPENTIN 400 MG CAPSULE. PO SCH ×2 (09:34→20:09)
[2019-11-14] MEDS: POTASSIUM CHLORIDE 20 MEQ TABLET.ER. PO SCH (09:34)
[2019-11-14] MEDS: INSULIN LISPRO 300 UNITS/3 ML VIAL. SQ SCH ×3 (09:42→17:26)
[2019-11-14] MEDS: DICLOFENAC SODIUM 1% TOPICAL GEL 100GM TUBE. TP SCH ×2 (09:46→20:10)
[2019-11-14] MEDS: clonazePAM 1 MG TABLET PO SCH (12:47)
--- NOTE | 2019-11-14 13:13 | RAD ---
PORTABLE CHEST 1V History: Reason: increased wheezing and cough / Spl. Instructions: / History: Comparison: October 19, 2019 Findings: Patchy right mid and basilar opacities, unchanged. Increased density of the right lateral lower lung likely related to external structures. No pleural effusion. Normal heart size. No pneumothorax. Impression: 1. Patchy right mid and basilar opacities, unchanged. Electronically signed by: Davin Mendoza DO (11/14/2019 1:10 PM) [facility]
[2019-11-14] MEDS: IPRATROPIUM/ALBUTEROL 20/100mcg/INH INHALER. INH SCH ×3 (13:38→20:09)
[2019-11-14 15:52] VITALS: BP 117/74
[2019-11-14] MEDS: FAMOTIDINE 20 MG TABLET PO SCH (20:09)
[2019-11-14] MEDS: risperiDONE 0.5 MG TABLET. PO SCH (20:09)
[2019-11-14] MEDS: clonazePAM 2 MG TABLET PO SCH (20:11)
[2019-11-14] MEDS: traZODone 150 MG TABLET. PO SCH (21:00)
--- NOTE | 2019-11-14 21:33 | PDOC ---
Exam Note: Laureano Note: Please also refer to the separate dictated note~for this date of service dictated separately.~Patient seen individually. Discussed the patient with Nursing staff reviewed the chart.~Reviewed interim history and current functioning. Reviewed vital signs,~Labs/ Radiology~and current medications noted below. Continue current treatment with the changes noted in the dictated addendum note Assessment: Vital Signs/I&O: Vital Signs Date Time Temp Pulse Resp B/P (MAP) Pulse Ox O2 Delivery O2 Flow Rate FiO2 11/14/19 18:14 97.4 11/14/19 15:52 82 16 117/74 (88) 95 11/08/19 09:45 Room Air I & O 11/13/19 11/13/19 11/14/19 15:00 23:00 07:00 Intake Total 840 ml 480 ml Output Total 350 ml 500 ml 500 ml Balance 490 ml -20 ml -500 ml Labs: Laboratory Tests Test 11/14/19 05:53 11/14/19 07:54 11/14/19 12:18 11/14/19 16:34 White Blood Count 6.1 x10^3/uL (4.0-11.0) Red Blood Count 4.01 x10^6/uL (3.50-5.40) Hemoglobin 12.6 g/dL (12.0-15.5) Hematocrit 38.7 % (36.0-47.0) Mean Corpuscular Volume 97 fL (79-100) Mean Corpuscular Hemoglobin 32 pg (25-35) Mean Corpuscular Hemoglobin Concent 33 g/dL (31-37) Red Cell Distribution Width 16.3 % (11.5-14.5) H Platelet Count 198 x10^3/uL (140-400) Neutrophils (%) (Auto) 61 % (31-73) Lymphocytes (%) (Auto) 26 % (24-48) Monocytes (%) (Auto) 10 % (0-9) H Eosinophils (%) (Auto) 3 % (0-3) Basophils (%) (Auto) 1 % (0-3) Neutrophils # (Auto) 3.7 x10^3uL (1.8-7.7) Lymphocytes # (Auto) 1.6 x10^3/uL (1.0-4.8) Monocytes # (Auto) 0.6 x10^3/uL (0.0-1.1) Eosinophils # (Auto) 0.2 x10^3/uL (0.0-0.7) Basophils # (Auto) 0.0 x10^3/uL (0.0-0.2) Sodium Level 142 mmol/L (136-145) Potassium Level 4.7 mmol/L (3.5-5.1) Chloride Level 104 mmol/L (98-107) Carbon Dioxide Level 35 mmol/L (21-32) H Anion Gap 3 (6-14) L Blood Urea Nitrogen 49 mg/dL (7-20) H Creatinine 1.6 mg/dL (0.6-1.0) H Estimated GFR (Cockcroft-Gault) 32.0 BUN/Creatinine Ratio 31 (6-20) H Glucose Level 131 mg/dL (70-99) H Calcium Level 9.0 mg/dL (8.5-10.1) Total Bilirubin 0.2 mg/dL (0.2-1.0) Aspartate Amino Transferase (AST) 10 U/L (15-37) L Alanine Aminotransferase (ALT) 10 U/L (14-59) L Alkaline Phosphatase 104 U/L (46-116) Total Protein 7.2 g/dL (6.4-8.2) Albumin 2.7 g/dL (3.4-5.0) L Albumin/Globulin Ratio 0.6 (1.0-1.7) L Glucose (Fingerstick) 106 mg/dL (70-99) H 345 mg/dL (70-99) H 186 mg/dL (70-99) H Test 11/14/19 19:07 Glucose (Fingerstick) 196 mg/dL (70-99) H Current Medications: Meds: Current Medications Medications (Trade) Dose Ordered Sig/Julia Route PRN Reason Start Time Stop Time Status Last Admin Dose Admin Clonazepam (KlonoPIN) 2 mg DAILY PO 11/14/19 09:00 11/14/19 18:13 DC 11/14/19 09:34 Albuterol/ Ipratropium (Combivent Respimat 20-100 Mcg) 1 puff QID INH 11/14/19 13:00 11/14/19 20:09 Clonazepam (KlonoPIN) 2 mg HS PO 11/14/19 21:00 11/14/19 20:11 I have reviewed the current psychotropics carefully including drug interactions. Risk benefit ratio favors no change other than as noted in my dictated progress note. Diagnosis: Problems: (1) Major depressive disorder in partial remission (2) Anxiety disorder (3) Impulse control disorder (4) Major depressive disorder, recurrent episode (5) Mild cognitive impairment ROMINA SORTO MD Nov 14, 2019 21:33
[2019-11-14] MEDS: INSULIN GLARGINE SYRINGE. SQ SCH (21:58)
[2019-11-15 05:58] VITALS: BP 105/68
--- NOTE | 2019-11-15 07:10 | PDOC ---
Exam Note: Laureano Note: This note is a late entry for 11/13/2019 covers elements not covered in my initial note. Subjective: The patient was seen face to face with the treatment team in the morning of 11/13/2019 including Brea Zuniga, and Ching (sr. social media & mobile manager), Renita, Activity Therapy. Nursing report was with Melissa STOKES. Discussed the patients progress, diagnoses, psychosocial history, current psychotropics, discharge plans, current behaviors, sleep and appetite intake and social interactions. She slept 8-1/4 hours previous night. Appetite is 50%. She has been irritable, demanding, somewhat sedated during the day. She is on Klonopin 2.5 mg in the morning and 12 oclock and 3 mg h.s. and we will reduce the morning dosage down to 2 mg and do further dose reduction gradually since I would not like to reduce the benzodiazepines rapidly. Review of Systems: Ambulation impaired, lying in bed. She wants to be up in the Broda chair or wheelchair but skin integrity is compromised and nursing staff keep her on the airbed as much as possible and the patient resents this. No specific CV, , Pulmonary system symptoms on review. She has vague somatic symptoms. Mental Status Exam: Alert and oriented. I met with her in the evening. She was lying in bed, withdrawn, irritable complaining about the nursing staff. No suicidal or homicidal ideation. Attention span is short. Abstraction is fair. Computation impaired. Mood and affect remains irritable, labile. Laboratory Data: Reviewed. Impression: Major depressive disorder recurrent with psychotic features. Mild cognitive impairment. Urinary tract infection. Rest unchanged. Plan: As noted above. We will reduce the Klonopin. Maintain the gabapentin, Prozac, trazodone, Depakote and valproic acid level is therapeutic at 58. Continue Atarax p.r.n., Risperdal for psychotic symptoms 0.25 mg a.m. and 0.5 mg h.s. Assessment: Vital Signs/I&O: Vital Signs Date Time Temp Pulse Resp B/P (MAP) Pulse Ox O2 Delivery O2 Flow Rate FiO2 11/15/19 05:58 98.3 75 20 105/68 (80) 95 I & O 11/14/19 11/14/19 11/15/19 15:00 23:00 07:00 Intake Total 840 ml 360 ml Output Total 650 ml 650 ml Balance 840 ml -290 ml -650 ml Labs: Laboratory Tests Test 11/14/19 07:54 11/14/19 12:18 11/14/19 16:34 11/14/19 19:07 Glucose (Fingerstick) 106 mg/dL (70-99) H 345 mg/dL (70-99) H 186 mg/dL (70-99) H 196 mg/dL (70-99) H Current Medications: Meds: Current Medications Medications (Trade) Dose Ordered Sig/Julia Route PRN Reason Start Time Stop Time Status Last Admin Dose Admin Clonazepam (KlonoPIN) 2 mg DAILY PO 11/14/19 09:00 11/14/19 18:13 DC 11/14/19 09:34 Albuterol/ Ipratropium (Combivent Respimat 20-100 Mcg) 1 puff QID INH 11/14/19 13:00 11/14/19 20:09 Clonazepam (KlonoPIN) 2 mg HS PO 11/14/19 21:00 11/14/19 20:11 I have reviewed the current psychotropics carefully including drug interactions. Risk benefit ratio favors no change other than as noted in my dictated progress note. Diagnosis: Problems: (1) Major depressive disorder in partial remission (2) Anxiety disorder (3) Impulse control disorder (4) Major depressive disorder, recurrent episode (5) Mild cognitive impairment ROMINA SORTO MD Nov 15, 2019 07:10
[2019-11-15] MEDS: GABAPENTIN 400 MG CAPSULE. PO SCH ×2 (08:40→20:46)
[2019-11-15] MEDS: FLUoxetine HCL 20 MG CAPSULE PO SCH (08:40)
[2019-11-15] MEDS: risperiDONE 0.25 MG TABLET. PO SCH (08:41)
[2019-11-15] MEDS: DIVALPROEX 125 MG CAP.SPRINK PO SCH ×3 (08:41→20:46)
[2019-11-15] MEDS: LACTOBACILLUS RHAMNOSUS GG 1 CAPSULE. PO SCH ×2 (08:41→20:46)
[2019-11-15] MEDS: clonazePAM 1 MG TABLET PO SCH ×2 (08:41→12:23)
[2019-11-15] MEDS: FERROUS SULFATE 325 MG TABLET. PO SCH (08:41)
[2019-11-15] MEDS: FUROSEMIDE 40 MG TABLET PO SCH (08:41)
[2019-11-15] MEDS: POTASSIUM CHLORIDE 20 MEQ TABLET.ER. PO SCH (08:41)
[2019-11-15] MEDS: DICLOFENAC SODIUM 1% TOPICAL GEL 100GM TUBE. TP SCH (08:42)
[2019-11-15] MEDS: IPRATROPIUM/ALBUTEROL 20/100mcg/INH INHALER. INH SCH ×4 (08:42→20:45)
[2019-11-15] MEDS: INSULIN LISPRO 300 UNITS/3 ML VIAL. SQ SCH ×3 (08:44→17:00)
[2019-11-15 16:10] VITALS: BP 113/75
[2019-11-15] MEDS ORDERED: DICLOFENAC SODIUM 1% TOPICAL GEL 100GM TUBE. TP PRN (18:45)
[2019-11-15] MEDS: risperiDONE 0.5 MG TABLET. PO SCH (20:46)
[2019-11-15] MEDS: traZODone 150 MG TABLET. PO SCH (20:46)
[2019-11-15] MEDS: FAMOTIDINE 20 MG TABLET PO SCH (20:46)
[2019-11-15] MEDS: clonazePAM 2 MG TABLET PO SCH (20:46)
[2019-11-15] MEDS: INSULIN GLARGINE SYRINGE. SQ SCH (20:53)
--- NOTE | 2019-11-15 21:54 | PDOC ---
Exam Note: Laureano Note: This note is a late entry for 11/14/2019 covers elements not covered in my initial note. Subjective: The patient was seen face to face in the evening of 11/14/2019. Nursing report was with Ganesh STOKES. She slept 7-3/4 hours previous night. She remains withdrawn, somewhat sedated during the day. We have been reducing the Klonopin. She remains on 2 mg a.m. and 2.5 mg noon and 3 mg h.s. and was previously on 3 mg t.i.d. We will reduce it further down to 1.5 mg in the morning and 2 mg at night and maintain the 2.5 mg at noon. She is also on Depakote, which should minimize any chance of breakthrough seizures from the benzodiazepine withdrawal since she has been on Klonopin for extended period of time. Nevertheless, the sedation makes it where we should try and reduce the Klonopin. BUN and creatinine was somewhat elevated. She was evaluated by Dr. Segal and also was having wheezing and cough. Chest x-ray was done, inhaler was started and I will defer the medical management to Dr. Segal/Dr. Fong. Review of Systems: Ambulation impaired, generally in a Broda chair lying in bed. She has skin integrity problems on her bottom. No specific CV, , system symptoms on review. She does have cough and wheezing. Mental Status Exam: Alert and oriented. She is withdrawn. Often response is monosyllabic, somewhat irritable and sarcastic with nursing staff. Attention span is short. Abstraction is fair. Computation impaired. Mood and affect remains irritable, labile. No suicidal or homicidal ideation. Laboratory Data: Reviewed. Impression: Major depressive disorder recurrent with psychotic features. Mild cognitive impairment. Urinary tract infection. Rest unchanged. Plan: As noted above we are reducing the Klonopin. Maintain the gabapentin, Prozac, trazodone, Depakote along with Risperdal and Atarax p.r.n. Assessment: Vital Signs/I&O: Vital Signs Date Time Temp Pulse Resp B/P (MAP) Pulse Ox O2 Delivery O2 Flow Rate FiO2 11/15/19 20:12 97.5 94 11/15/19 16:10 80 18 113/75 (88) I & O 11/14/19 11/14/19 11/15/19 15:00 23:00 07:00 Intake Total 840 ml 360 ml Output Total 650 ml 650 ml Balance 840 ml -290 ml -650 ml Labs: Laboratory Tests Test 11/15/19 08:03 11/15/19 11:47 11/15/19 16:57 11/15/19 19:06 Glucose (Fingerstick) 118 mg/dL (70-99) H 100 mg/dL (70-99) H 133 mg/dL (70-99) H 101 mg/dL (70-99) H Current Medications: Meds: Current Medications Medications (Trade) Dose Ordered Sig/Julia Route PRN Reason Start Time Stop Time Status Last Admin Dose Admin Clonazepam (KlonoPIN) 1.5 mg DAILY PO 11/15/19 09:00 11/15/19 08:41 I have reviewed the current psychotropics carefully including drug interactions. Risk benefit ratio favors no change other than as noted in my dictated progress note. Diagnosis: Problems: (1) Major depressive disorder in partial remission (2) Anxiety disorder (3) Impulse control disorder (4) Major depressive disorder, recurrent episode (5) Mild cognitive impairment ROMINA SORTO MD Nov 15, 2019 21:54
--- NOTE | 2019-11-15 21:55 | PDOC ---
Exam Note: Laureano Note: Please also refer to the separate dictated note~for this date of service dictated separately.~Patient seen individually. Discussed the patient with Nursing staff reviewed the chart.~Reviewed interim history and current functioning. Reviewed vital signs,~Labs/ Radiology~and current medications noted below. Continue current treatment with the changes noted in the dictated addendum note Assessment: Vital Signs/I&O: Vital Signs Date Time Temp Pulse Resp B/P (MAP) Pulse Ox O2 Delivery O2 Flow Rate FiO2 11/15/19 20:12 97.5 94 11/15/19 16:10 80 18 113/75 (88) I & O 11/14/19 11/14/19 11/15/19 15:00 23:00 07:00 Intake Total 840 ml 360 ml Output Total 650 ml 650 ml Balance 840 ml -290 ml -650 ml Labs: Laboratory Tests Test 11/15/19 08:03 11/15/19 11:47 11/15/19 16:57 11/15/19 19:06 Glucose (Fingerstick) 118 mg/dL (70-99) H 100 mg/dL (70-99) H 133 mg/dL (70-99) H 101 mg/dL (70-99) H Current Medications: Meds: Current Medications Medications (Trade) Dose Ordered Sig/Julia Route PRN Reason Start Time Stop Time Status Last Admin Dose Admin Clonazepam (KlonoPIN) 1.5 mg DAILY PO 11/15/19 09:00 11/15/19 08:41 I have reviewed the current psychotropics carefully including drug interactions. Risk benefit ratio favors no change other than as noted in my dictated progress note. Diagnosis: Problems: (1) Major depressive disorder in partial remission (2) Anxiety disorder (3) Impulse control disorder (4) Major depressive disorder, recurrent episode (5) Mild cognitive impairment ROMINA SORTO MD Nov 15, 2019 21:55
[2019-11-16 05:20] VITALS: BP 109/65
[2019-11-16] MEDS: INSULIN LISPRO 300 UNITS/3 ML VIAL. SQ SCH ×3 (08:00→17:19)
[2019-11-16] MEDS: POTASSIUM CHLORIDE 20 MEQ TABLET.ER. PO SCH (08:39)
[2019-11-16] MEDS: LACTOBACILLUS RHAMNOSUS GG 1 CAPSULE. PO SCH ×2 (08:39→21:26)
[2019-11-16] MEDS: risperiDONE 0.25 MG TABLET. PO SCH (08:39)
[2019-11-16] MEDS: FLUoxetine HCL 20 MG CAPSULE PO SCH (08:39)
[2019-11-16] MEDS: GABAPENTIN 400 MG CAPSULE. PO SCH ×2 (08:39→21:27)
[2019-11-16] MEDS: clonazePAM 1 MG TABLET PO SCH ×2 (08:40→12:40)
[2019-11-16] MEDS: FERROUS SULFATE 325 MG TABLET. PO SCH (08:40)
[2019-11-16] MEDS: DIVALPROEX 125 MG CAP.SPRINK PO SCH ×3 (08:40→21:27)
[2019-11-16] MEDS: FUROSEMIDE 40 MG TABLET PO SCH (08:40)
[2019-11-16] MEDS: IPRATROPIUM/ALBUTEROL 20/100mcg/INH INHALER. INH SCH ×4 (08:42→21:26)
[2019-11-16 10:40] LABS: BASO # 0.1 x10^3/uL (0.0-0.2); BASO % 1 % (0-3); EOS # 0.2 x10^3/uL (0.0-0.7); EOS % 3 % (0-3); HEMATOCRIT 41.1 % (36.0-47.0); HEMOGLOBIN 13.3 g/dL (12.0-15.5); LYMPH # 1.2 x10^3/uL (1.0-4.8); LYMPH % 21 % (24-48); MEAN CORPUSCULAR HEMOGLOBIN 32 pg (25-35); MEAN CORPUSCULAR HGB CONC 32 g/dL (31-37); MEAN CORPUSCULAR VOLUME 97 fL (79-100); MONO # 0.6 x10^3/uL (0.0-1.1); MONO % 11 % (0-9); NEUT # 3.8 x10^3uL (1.8-7.7); NEUT % 65 % (31-73); PLATELET COUNT 182 x10^3/uL (140-400); RED BLOOD COUNT 4.22 x10^6/uL (3.50-5.40); RED CELL DISTRIBUTION WIDTH 16.7 % (11.5-14.5); WHITE BLOOD COUNT 5.9 x10^3/uL (4.0-11.0)
[2019-11-16 10:47] LABS: ALBUMIN 3.1 g/dL (3.4-5.0); GFR 29.8; POTASSIUM 3.6 mmol/L (3.5-5.1)
[2019-11-16 11:05] LABS: ALBUMIN/GLOBULIN RATIO 0.6 (1.0-1.7); CALCIUM 9.2 mg/dL (8.5-10.1); CREATININE 1.7 mg/dL (0.6-1.0); TOTAL BILIRUBIN 0.2 mg/dL (0.2-1.0); TOTAL PROTEIN 8.1 g/dL (6.4-8.2)
[2019-11-16 15:39] VITALS: BP 107/72
[2019-11-16] MEDS: risperiDONE 0.5 MG TABLET. PO SCH (21:27)
[2019-11-16] MEDS: traZODone 150 MG TABLET. PO SCH (21:27)
[2019-11-16] MEDS: FAMOTIDINE 20 MG TABLET PO SCH (21:27)
[2019-11-16] MEDS: clonazePAM 2 MG TABLET PO SCH (21:27)
[2019-11-16] MEDS: INSULIN GLARGINE SYRINGE. SQ SCH (21:31)
--- NOTE | 2019-11-16 21:58 | PDOC ---
Exam Note: Laureano Note: Please also refer to the separate dictated note~for this date of service dictated separately.~Patient seen individually. Discussed the patient with Nursing staff reviewed the chart.~Reviewed interim history and current functioning. Reviewed vital signs,~Labs/ Radiology~and current medications noted below. Continue current treatment with the changes noted in the dictated addendum note Assessment: Vital Signs/I&O: Vital Signs Date Time Temp Pulse Resp B/P (MAP) Pulse Ox O2 Delivery O2 Flow Rate FiO2 11/16/19 21:38 98.4 92 11/16/19 15:39 86 107/72 (84) 11/16/19 05:20 18 I & O 11/15/19 11/15/19 11/16/19 15:00 23:00 07:00 Intake Total 480 ml 120 ml Output Total 1200 ml 850 ml Balance -720 ml 120 ml -850 ml Labs: Laboratory Tests Test 11/16/19 07:52 11/16/19 10:10 11/16/19 12:10 11/16/19 17:07 Glucose (Fingerstick) 188 mg/dL (70-99) H 237 mg/dL (70-99) H 274 mg/dL (70-99) H White Blood Count 5.9 x10^3/uL (4.0-11.0) Red Blood Count 4.22 x10^6/uL (3.50-5.40) Hemoglobin 13.3 g/dL (12.0-15.5) Hematocrit 41.1 % (36.0-47.0) Mean Corpuscular Volume 97 fL (79-100) Mean Corpuscular Hemoglobin 32 pg (25-35) Mean Corpuscular Hemoglobin Concent 32 g/dL (31-37) Red Cell Distribution Width 16.7 % (11.5-14.5) H Platelet Count 182 x10^3/uL (140-400) Neutrophils (%) (Auto) 65 % (31-73) Lymphocytes (%) (Auto) 21 % (24-48) L Monocytes (%) (Auto) 11 % (0-9) H Eosinophils (%) (Auto) 3 % (0-3) Basophils (%) (Auto) 1 % (0-3) Neutrophils # (Auto) 3.8 x10^3uL (1.8-7.7) Lymphocytes # (Auto) 1.2 x10^3/uL (1.0-4.8) Monocytes # (Auto) 0.6 x10^3/uL (0.0-1.1) Eosinophils # (Auto) 0.2 x10^3/uL (0.0-0.7) Basophils # (Auto) 0.1 x10^3/uL (0.0-0.2) Sodium Level 142 mmol/L (136-145) Potassium Level 3.6 mmol/L (3.5-5.1) Chloride Level 104 mmol/L (98-107) Carbon Dioxide Level 29 mmol/L (21-32) Anion Gap 9 (6-14) Blood Urea Nitrogen 54 mg/dL (7-20) H Creatinine 1.7 mg/dL (0.6-1.0) H Estimated GFR (Cockcroft-Gault) 29.8 BUN/Creatinine Ratio 32 (6-20) H Glucose Level 146 mg/dL (70-99) H Calcium Level 9.2 mg/dL (8.5-10.1) Total Bilirubin 0.2 mg/dL (0.2-1.0) Aspartate Amino Transferase (AST) 11 U/L (15-37) L Alanine Aminotransferase (ALT) 12 U/L (14-59) L Alkaline Phosphatase 119 U/L (46-116) H Total Protein 8.1 g/dL (6.4-8.2) Albumin 3.1 g/dL (3.4-5.0) L Albumin/Globulin Ratio 0.6 (1.0-1.7) L Test 11/16/19 19:23 Glucose (Fingerstick) 131 mg/dL (70-99) H Current Medications: I have reviewed the current psychotropics carefully including drug interactions. Risk benefit ratio favors no change other than as noted in my dictated progress note. Diagnosis: Problems: (1) Major depressive disorder in partial remission (2) Anxiety disorder (3) Impulse control disorder (4) Major depressive disorder, recurrent episode (5) Mild cognitive impairment ROMINA SORTO MD Nov 16, 2019 21:58
[2019-11-17 06:29] VITALS: BP 138/79
--- NOTE | 2019-11-17 07:30 | PDOC ---
Exam Note: Laureano Note: This note is a late entry for 11/15/2019 covers elements not covered in my initial note. Subjective: The patient was seen face to face in the evening of 11/15/2019. Nursing report was with Ganesh STOKES. She slept 6-3/4 hours previous night. She was more awake but remains delusional. She states she owns this place. Her house people are intruding in it. I tried to process this with her with limited insight. Review of Systems: Ambulation impaired, generally in a Broda chair lying in bed. She has skin integrity problems on her bottom and stays on the airbed a lot of the time which she resents. No specific CV, , pulmonary, eye system symptoms on review. She has vague somatic symptoms. Mental Status Exam: Alert and oriented. Often response is monosyllabic. Attention span is short. Abstraction is fair. Computation impaired. Mood and affect remains irritable, labile, paranoid, delusional. No suicidal or homicidal ideation. Laboratory Data: Reviewed. Impression: Major depressive disorder recurrent with psychotic features. Mild cognitive impairment. Urinary tract infection. Rest unchanged. Plan: No change from initial note. Assessment: Vital Signs/I&O: Vital Signs Date Time Temp Pulse Resp B/P (MAP) Pulse Ox O2 Delivery O2 Flow Rate FiO2 11/17/19 06:29 98.0 89 20 138/79 (98) 96 I & O 11/16/19 11/16/19 11/17/19 15:00 23:00 07:00 Intake Total 440 ml 320 ml Output Total 1550 ml Balance 440 ml 320 ml -1550 ml Labs: Laboratory Tests Test 11/16/19 07:52 11/16/19 10:10 11/16/19 12:10 11/16/19 17:07 Glucose (Fingerstick) 188 mg/dL (70-99) H 237 mg/dL (70-99) H 274 mg/dL (70-99) H White Blood Count 5.9 x10^3/uL (4.0-11.0) Red Blood Count 4.22 x10^6/uL (3.50-5.40) Hemoglobin 13.3 g/dL (12.0-15.5) Hematocrit 41.1 % (36.0-47.0) Mean Corpuscular Volume 97 fL (79-100) Mean Corpuscular Hemoglobin 32 pg (25-35) Mean Corpuscular Hemoglobin Concent 32 g/dL (31-37) Red Cell Distribution Width 16.7 % (11.5-14.5) H Platelet Count 182 x10^3/uL (140-400) Neutrophils (%) (Auto) 65 % (31-73) Lymphocytes (%) (Auto) 21 % (24-48) L Monocytes (%) (Auto) 11 % (0-9) H Eosinophils (%) (Auto) 3 % (0-3) Basophils (%) (Auto) 1 % (0-3) Neutrophils # (Auto) 3.8 x10^3uL (1.8-7.7) Lymphocytes # (Auto) 1.2 x10^3/uL (1.0-4.8) Monocytes # (Auto) 0.6 x10^3/uL (0.0-1.1) Eosinophils # (Auto) 0.2 x10^3/uL (0.0-0.7) Basophils # (Auto) 0.1 x10^3/uL (0.0-0.2) Sodium Level 142 mmol/L (136-145) Potassium Level 3.6 mmol/L (3.5-5.1) Chloride Level 104 mmol/L (98-107) Carbon Dioxide Level 29 mmol/L (21-32) Anion Gap 9 (6-14) Blood Urea Nitrogen 54 mg/dL (7-20) H Creatinine 1.7 mg/dL (0.6-1.0) H Estimated GFR (Cockcroft-Gault) 29.8 BUN/Creatinine Ratio 32 (6-20) H Glucose Level 146 mg/dL (70-99) H Calcium Level 9.2 mg/dL (8.5-10.1) Total Bilirubin 0.2 mg/dL (0.2-1.0) Aspartate Amino Transferase (AST) 11 U/L (15-37) L Alanine Aminotransferase (ALT) 12 U/L (14-59) L Alkaline Phosphatase 119 U/L (46-116) H Total Protein 8.1 g/dL (6.4-8.2) Albumin 3.1 g/dL (3.4-5.0) L Albumin/Globulin Ratio 0.6 (1.0-1.7) L Test 11/16/19 19:23 Glucose (Fingerstick) 131 mg/dL (70-99) H Current Medications: I have reviewed the current psychotropics carefully including drug interactions. Risk benefit ratio favors no change other than as noted in my dictated progress note. Diagnosis: Problems: (1) Major depressive disorder in partial remission (2) Anxiety disorder (3) Impulse control disorder (4) Major depressive disorder, recurrent episode (5) Mild cognitive impairment ROMINA SORTO MD Nov 17, 2019 07:30
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
[2019-11-17 09:15] VITALS: BP 139/78
[2019-11-17 09:32] LABS: BASO # 0.1 x10^3/uL (0.0-0.2); BASO % 1 % (0-3); EOS # 0.1 x10^3/uL (0.0-0.7); EOS % 2 % (0-3); HEMATOCRIT 37.8 % (36.0-47.0); HEMOGLOBIN 12.4 g/dL (12.0-15.5); LYMPH # 1.3 x10^3/uL (1.0-4.8); LYMPH % 19 % (24-48); MEAN CORPUSCULAR HEMOGLOBIN 32 pg (25-35); MEAN CORPUSCULAR HGB CONC 33 g/dL (31-37); MEAN CORPUSCULAR VOLUME 97 fL (79-100); MONO # 0.7 x10^3/uL (0.0-1.1); MONO % 10 % (0-9); NEUT # 4.7 x10^3uL (1.8-7.7); NEUT % 68 % (31-73); PLATELET COUNT 178 x10^3/uL (140-400); RED BLOOD COUNT 3.91 x10^6/uL (3.50-5.40); RED CELL DISTRIBUTION WIDTH 16.5 % (11.5-14.5); WHITE BLOOD COUNT 6.9 x10^3/uL (4.0-11.0)
[2019-11-17 09:42] LABS: CREATININE 1.6 mg/dL (0.6-1.0); POTASSIUM 3.6 mmol/L (3.5-5.1)
--- NOTE | 2019-11-17 09:43 | RAD ---
Single AP view of the chest. Comparison: 11/14/2019. Indication: Cough and difficulty breathing Findings: Aorta is tortuous with persistent mild widening of the mediastinum. The heart is not enlarged. There is no pneumothorax or effusion. New patchy interstitial airspace disease in the right midlung. Stable left midlung platelike atelectasis and/or scarring. Stable diffuse osteopenia. Impression: 1. New patchy right midlung interstitial opacity may represent atypical infection. Electronically signed by: Philipp Evans MD (11/17/2019 9:40 AM) [id number]
[2019-11-17 09:47] LABS: ALBUMIN 2.8 g/dL (3.4-5.0); ALBUMIN/GLOBULIN RATIO 0.6 (1.0-1.7); TOTAL BILIRUBIN 0.3 mg/dL (0.2-1.0); TOTAL PROTEIN 7.4 g/dL (6.4-8.2)
[2019-11-17] MEDS: FERROUS SULFATE 325 MG TABLET. PO SCH (10:18)
[2019-11-17] MEDS: clonazePAM 1 MG TABLET PO SCH ×2 (10:18→12:39)
[2019-11-17] MEDS: DIVALPROEX 125 MG CAP.SPRINK PO SCH ×3 (10:18→20:23)
[2019-11-17] MEDS: LACTOBACILLUS RHAMNOSUS GG 1 CAPSULE. PO SCH ×2 (10:18→20:24)
[2019-11-17] MEDS: IPRATROPIUM/ALBUTEROL 20/100mcg/INH INHALER. INH SCH ×4 (10:18→20:23)
[2019-11-17] MEDS: FUROSEMIDE 40 MG TABLET PO SCH (10:19)
[2019-11-17] MEDS: POTASSIUM CHLORIDE 20 MEQ TABLET.ER. PO SCH (10:19)
[2019-11-17] MEDS: GABAPENTIN 400 MG CAPSULE. PO SCH ×2 (10:19→20:24)
[2019-11-17] MEDS: FLUoxetine HCL 20 MG CAPSULE PO SCH (10:19)
[2019-11-17] MEDS: risperiDONE 0.25 MG TABLET. PO SCH (10:19)
[2019-11-17] MEDS: MULTIVITAMIN with MINERAL TABLET. PO SCH (10:20)
[2019-11-17] MEDS: CHOLECALCIFEROL (VITAMIN D3) 50,000 UNIT CAPSULE PO SCH (10:20)
[2019-11-17] MEDS: ASCORBIC ACID 500 MG TABLET PO SCH (10:20)
[2019-11-17] MEDS: INSULIN LISPRO 300 UNITS/3 ML VIAL. SQ SCH ×3 (10:28→18:28)
[2019-11-17 16:17] VITALS: BP 100/65
[2019-11-17] MEDS: FAMOTIDINE 20 MG TABLET PO SCH (20:23)
[2019-11-17] MEDS: risperiDONE 0.5 MG TABLET. PO SCH (20:23)
[2019-11-17] MEDS: traZODone 150 MG TABLET. PO SCH (20:23)
[2019-11-17] MEDS: clonazePAM 2 MG TABLET PO SCH (20:28)
--- NOTE | 2019-11-17 22:10 | PDOC ---
Exam Note: Laureano Note: Please also refer to the separate dictated note~for this date of service dictated separately.~Patient seen individually. Discussed the patient with Nursing staff reviewed the chart.~Reviewed interim history and current functioning. Reviewed vital signs,~Labs/ Radiology~and current medications noted below. Continue current treatment with the changes noted in the dictated addendum note Assessment: Vital Signs/I&O: Vital Signs Date Time Temp Pulse Resp B/P (MAP) Pulse Ox O2 Delivery O2 Flow Rate FiO2 11/17/19 21:39 98.2 97 11/17/19 16:17 66 16 100/65 (77) I & O 11/16/19 11/16/19 11/17/19 15:00 23:00 07:00 Intake Total 440 ml 320 ml Output Total 1550 ml Balance 440 ml 320 ml -1550 ml Labs: Laboratory Tests Test 11/17/19 07:54 11/17/19 09:08 11/17/19 12:02 11/17/19 16:48 Glucose (Fingerstick) 155 mg/dL (70-99) H 155 mg/dL (70-99) H 123 mg/dL (70-99) H White Blood Count 6.9 x10^3/uL (4.0-11.0) Red Blood Count 3.91 x10^6/uL (3.50-5.40) Hemoglobin 12.4 g/dL (12.0-15.5) Hematocrit 37.8 % (36.0-47.0) Mean Corpuscular Volume 97 fL (79-100) Mean Corpuscular Hemoglobin 32 pg (25-35) Mean Corpuscular Hemoglobin Concent 33 g/dL (31-37) Red Cell Distribution Width 16.5 % (11.5-14.5) H Platelet Count 178 x10^3/uL (140-400) Neutrophils (%) (Auto) 68 % (31-73) Lymphocytes (%) (Auto) 19 % (24-48) L Monocytes (%) (Auto) 10 % (0-9) H Eosinophils (%) (Auto) 2 % (0-3) Basophils (%) (Auto) 1 % (0-3) Neutrophils # (Auto) 4.7 x10^3uL (1.8-7.7) Lymphocytes # (Auto) 1.3 x10^3/uL (1.0-4.8) Monocytes # (Auto) 0.7 x10^3/uL (0.0-1.1) Eosinophils # (Auto) 0.1 x10^3/uL (0.0-0.7) Basophils # (Auto) 0.1 x10^3/uL (0.0-0.2) Sodium Level 141 mmol/L (136-145) Potassium Level 3.6 mmol/L (3.5-5.1) Chloride Level 103 mmol/L (98-107) Carbon Dioxide Level 30 mmol/L (21-32) Anion Gap 8 (6-14) Blood Urea Nitrogen 56 mg/dL (7-20) H Creatinine 1.6 mg/dL (0.6-1.0) H Estimated GFR (Cockcroft-Gault) 32.0 BUN/Creatinine Ratio 35 (6-20) H Glucose Level 154 mg/dL (70-99) H Calcium Level 9.0 mg/dL (8.5-10.1) Total Bilirubin 0.3 mg/dL (0.2-1.0) Aspartate Amino Transferase (AST) 12 U/L (15-37) L Alanine Aminotransferase (ALT) 12 U/L (14-59) L Alkaline Phosphatase 102 U/L (46-116) Total Protein 7.4 g/dL (6.4-8.2) Albumin 2.8 g/dL (3.4-5.0) L Albumin/Globulin Ratio 0.6 (1.0-1.7) L Test 11/17/19 19:11 Glucose (Fingerstick) 224 mg/dL (70-99) H Current Medications: Meds: Current Medications Medications (Trade) Dose Ordered Sig/Julia Route PRN Reason Start Time Stop Time Status Last Admin Dose Admin Multivitamins/ Calcium (Thera-M Plus) 1 tab DAILY PO 11/17/19 09:00 11/17/19 10:20 Ascorbic Acid (Vitamin C) 500 mg DAILY PO 11/17/19 09:00 11/17/19 10:20 I have reviewed the current psychotropics carefully including drug interactions. Risk benefit ratio favors no change other than as noted in my dictated progress note. Diagnosis: Problems: (1) Major depressive disorder in partial remission (2) Anxiety disorder (3) Impulse control disorder (4) Major depressive disorder, recurrent episode (5) Mild cognitive impairment ROMINA SORTO MD Nov 17, 2019 22:10
[2019-11-17] MEDS: INSULIN GLARGINE SYRINGE. SQ SCH (22:37)
[2019-11-18 05:57] VITALS: BP 125/51
[2019-11-18 06:17] LABS: BASO # 0.1 x10^3/uL (0.0-0.2); BASO % 1 % (0-3); EOS # 0.1 x10^3/uL (0.0-0.7); EOS % 1 % (0-3); HEMATOCRIT 38.5 % (36.0-47.0); HEMOGLOBIN 12.6 g/dL (12.0-15.5); LYMPH # 0.7 x10^3/uL (1.0-4.8); LYMPH % 6 % (24-48); MEAN CORPUSCULAR HEMOGLOBIN 32 pg (25-35); MEAN CORPUSCULAR HGB CONC 33 g/dL (31-37); MEAN CORPUSCULAR VOLUME 96 fL (79-100); MONO # 1.3 x10^3/uL (0.0-1.1); MONO % 10 % (0-9); NEUT # 10.2 x10^3uL (1.8-7.7); NEUT % 83 % (31-73); PLATELET COUNT 171 x10^3/uL (140-400); RED BLOOD COUNT 3.99 x10^6/uL (3.50-5.40); RED CELL DISTRIBUTION WIDTH 16.6 % (11.5-14.5); WHITE BLOOD COUNT 12.4 x10^3/uL (4.0-11.0)
[2019-11-18 06:24] LABS: CALCIUM 8.6 mg/dL (8.5-10.1); CREATININE 1.5 mg/dL (0.6-1.0); GFR 34.4; POTASSIUM 4.2 mmol/L (3.5-5.1)
[2019-11-18 06:30] LABS: ALBUMIN 2.7 g/dL (3.4-5.0); ALBUMIN/GLOBULIN RATIO 0.5 (1.0-1.7); TOTAL BILIRUBIN 0.3 mg/dL (0.2-1.0); TOTAL PROTEIN 7.7 g/dL (6.4-8.2)
[2019-11-18 07:17] LABS: % BANDS 4 % (0-9); % LYMPHS 10 % (24-48); % MONOS 8 % (0-10); % SEGS 78 % (35-66); PLT ESTIMATE ADEQUATE (ADEQUATE)
[2019-11-18 07:18] LABS: TOXIC VACUOLATION PRESENT
[2019-11-18] MEDS: INSULIN LISPRO 300 UNITS/3 ML VIAL. SQ SCH ×3 (08:14→17:00)
[2019-11-18] MEDS: FERROUS SULFATE 325 MG TABLET. PO SCH (08:15)
[2019-11-18] MEDS: LACTOBACILLUS RHAMNOSUS GG 1 CAPSULE. PO SCH ×2 (08:15→20:20)
[2019-11-18] MEDS: DIVALPROEX 125 MG CAP.SPRINK PO SCH ×3 (08:15→20:20)
[2019-11-18] MEDS: FLUoxetine HCL 20 MG CAPSULE PO SCH (08:15)
[2019-11-18] MEDS: POTASSIUM CHLORIDE 20 MEQ TABLET.ER. PO SCH (08:15)
[2019-11-18] MEDS: risperiDONE 0.25 MG TABLET. PO SCH (08:16)
[2019-11-18] MEDS: FUROSEMIDE 40 MG TABLET PO SCH (08:16)
[2019-11-18] MEDS: GABAPENTIN 400 MG CAPSULE. PO SCH ×2 (08:16→20:20)
[2019-11-18] MEDS: ASCORBIC ACID 500 MG TABLET PO SCH (08:16)
[2019-11-18] MEDS: MULTIVITAMIN with MINERAL TABLET. PO SCH (08:16)
[2019-11-18] MEDS: clonazePAM 1 MG TABLET PO SCH ×2 (08:17→12:11)
[2019-11-18] MEDS: IPRATROPIUM/ALBUTEROL 20/100mcg/INH INHALER. INH SCH ×4 (08:17→20:19)
[2019-11-18 15:50] VITALS: BP 114/75
[2019-11-18] MEDS: risperiDONE 0.5 MG TABLET. PO SCH (20:19)
[2019-11-18] MEDS: FAMOTIDINE 20 MG TABLET PO SCH (20:20)
[2019-11-18] MEDS: clonazePAM 2 MG TABLET PO SCH (20:20)
[2019-11-18] MEDS: traZODone 150 MG TABLET. PO SCH (20:20)
--- NOTE | 2019-11-18 21:30 | PN ---
DATE: 11/18/2019 SUBJECTIVE: The patient was seen today at the request of nursing staff as she seemed to be excessively sedated. She is not eating or drinking. She did spike temperature yesterday up to 100.7 and her white cell count went up to 12,400. Her chemistry showed that her BUN and creatinine are steadily rising. PHYSICAL EXAMINATION: GENERAL: When I examined her, she was pale, not jaundiced or cyanosed. No lymphadenopathy, no thyromegaly. No jugular venous distention. No limb edema. VITAL SIGNS: Her heart rate was 94, blood pressure was 114/75, temperature 97.9, respiratory rate 20, and oxygen saturation was 97%. HEAD, EYES, EARS, NOSE AND THROAT: Normocephalic, atraumatic. NECK: Supple. HEART: Showed normal first and second heart sounds. No gallop, rub or murmur. CHEST: Clear to auscultation. No crepitation or rhonchi. ABDOMEN: Distended, soft, nontender with suprapubic catheter in place. NEUROLOGIC: She is lethargic, but arousable. All cranial nerves are intact. She has fixed flexion contraction of all 4 limbs. She has postpolio syndrome. LABORATORY DATA: Showed a white cell count 12,400, hemoglobin 12.6, hematocrit 38.5, MCV 96, and platelet count of 171,000. Her chemistry showed a serum sodium 138, potassium 4.2, chloride 100, bicarbonate 28, anion gap of 10, BUN 49, creatinine 1.5, estimated GFR was 54 mL per minute. Her glucose 177, calcium was 8.6. Total bilirubin, AST, ALT, alkaline phosphatase were normal. Total protein 7.7, albumin was 2.7. Her prothrombin time, INR and aPTT are all normal. ASSESSMENT: The patient seemed to be excessively sedated. Looking at her medication, she is on clonazepam for a total of 6 mg a day that is an improvement as when she came she was in 3 mg 3 times a day. She is also on Lasix and her BUN is steadily rising. She is not eating and she is getting dehydrated, so in discussion with Dr. Hill, we cut down her clonazepam 1 mg __, so she is now on 1 mg in the morning, 2 in the afternoon and 2 at night time. I have discontinued her Lasix. We will keep an eye on her and if she spiked a temperature again, we might have eventually to transfer her down, start her on IV fluid and IV antibiotic. ELOY RIVERA MD DR: RACHEL/moris JOB#: [id number] / [id number]
--- NOTE | 2019-11-18 21:50 | PDOC ---
Exam Note: Laureano Note: Please also refer to the separate dictated note~for this date of service dictated separately.~Patient seen individually. Discussed the patient with Nursing staff reviewed the chart.~Reviewed interim history and current functioning. Reviewed vital signs,~Labs/ Radiology~and current medications noted below. Continue current treatment with the changes noted in the dictated addendum note Assessment: Vital Signs/I&O: Vital Signs Date Time Temp Pulse Resp B/P (MAP) Pulse Ox O2 Delivery O2 Flow Rate FiO2 11/18/19 15:50 97.9 94 20 114/75 (88) 97 Room Air I & O 11/17/19 11/17/19 11/18/19 15:00 23:00 07:00 Intake Total 560 ml 240 ml Output Total 1500 ml Balance 560 ml 240 ml -1500 ml Labs: Laboratory Tests Test 11/18/19 06:00 11/18/19 07:40 11/18/19 12:09 11/18/19 17:11 White Blood Count 12.4 x10^3/uL (4.0-11.0) H Red Blood Count 3.99 x10^6/uL (3.50-5.40) Hemoglobin 12.6 g/dL (12.0-15.5) Hematocrit 38.5 % (36.0-47.0) Mean Corpuscular Volume 96 fL (79-100) Mean Corpuscular Hemoglobin 32 pg (25-35) Mean Corpuscular Hemoglobin Concent 33 g/dL (31-37) Red Cell Distribution Width 16.6 % (11.5-14.5) H Platelet Count 171 x10^3/uL (140-400) Neutrophils (%) (Auto) 83 % (31-73) H Lymphocytes (%) (Auto) 6 % (24-48) L Monocytes (%) (Auto) 10 % (0-9) H Eosinophils (%) (Auto) 1 % (0-3) Basophils (%) (Auto) 1 % (0-3) Neutrophils # (Auto) 10.2 x10^3uL (1.8-7.7) H Lymphocytes # (Auto) 0.7 x10^3/uL (1.0-4.8) L Monocytes # (Auto) 1.3 x10^3/uL (0.0-1.1) H Eosinophils # (Auto) 0.1 x10^3/uL (0.0-0.7) Basophils # (Auto) 0.1 x10^3/uL (0.0-0.2) Segmented Neutrophils % 78 % (35-66) H Band Neutrophils % 4 % (0-9) Lymphocytes % 10 % (24-48) L Monocytes % 8 % (0-10) Toxic Vacuolation Present Platelet Estimate Adequate (ADEQUATE) Sodium Level 138 mmol/L (136-145) Potassium Level 4.2 mmol/L (3.5-5.1) Chloride Level 100 mmol/L (98-107) Carbon Dioxide Level 28 mmol/L (21-32) Anion Gap 10 (6-14) Blood Urea Nitrogen 49 mg/dL (7-20) H Creatinine 1.5 mg/dL (0.6-1.0) H Estimated GFR (Cockcroft-Gault) 34.4 BUN/Creatinine Ratio 33 (6-20) H Glucose Level 177 mg/dL (70-99) H Lactic Acid Level 0.9 mmol/L (0.4-2.0) Calcium Level 8.6 mg/dL (8.5-10.1) Total Bilirubin 0.3 mg/dL (0.2-1.0) Aspartate Amino Transferase (AST) 10 U/L (15-37) L Alanine Aminotransferase (ALT) 10 U/L (14-59) L Alkaline Phosphatase 103 U/L (46-116) Total Protein 7.7 g/dL (6.4-8.2) Albumin 2.7 g/dL (3.4-5.0) L Albumin/Globulin Ratio 0.5 (1.0-1.7) L Glucose (Fingerstick) 149 mg/dL (70-99) H 120 mg/dL (70-99) H 121 mg/dL (70-99) H Test 11/18/19 19:27 Glucose (Fingerstick) 264 mg/dL (70-99) H Current Medications: I have reviewed the current psychotropics carefully including drug interactions. Risk benefit ratio favors no change other than as noted in my dictated progress note. Diagnosis: Problems: (1) Major depressive disorder in partial remission (2) Anxiety disorder (3) Impulse control disorder (4) Major depressive disorder, recurrent episode (5) Mild cognitive impairment ROMINA SORTO MD Nov 18, 2019 21:50
[2019-11-18] MEDS: INSULIN GLARGINE SYRINGE. SQ SCH (22:37)
[2019-11-19] MEDS: ACETAMINOPHEN 325 MG TABLET PO PRN (05:50)
[2019-11-19 06:22] VITALS: BP 110/71
--- NOTE | 2019-11-19 07:27 | PDOC ---
Exam Note: Laureano Note: This note is a late entry for 11/17/2019 covers elements not covered in my initial note. Subjective: The patient was seen face to face in the evening of 11/17/2019. Nursing report was with Xiomara STOKES. She slept 7-1/2 hours previous night. She has been a little medically compromised, dehydrated. O2 saturation 90-92%. Creatinine is elevated. She is making statements to the nursing staff that she thinks she has Alzheimers. She has been anxious, restless, frequently calling out for nursing staff. Review of Systems: Ambulation impaired, lying in bed. She is on an airbed because of skin integrity problems and again resents this, want to be in a wheelchair. Nursing staff try and avoid this so as not to worsen her skin problems. No specific CV, , pulmonary, eye system symptoms on review. Mental Status Exam: Alert and oriented. Often response is monosyllabic. Attention span is short. Abstraction is fair. Computation impaired. Mood and affect anxious, labile, yelling at times, wanting staff to clear the table after her supper. No suicidal or homicidal ideation. Laboratory Data: Reviewed. Impression: Major depressive disorder recurrent with psychotic features. Mild cognitive impairment. Rest unchanged. Plan: Continue psychotropics from initial note. We will consider reducing Klonopin. We will defer medical management to Dr. Fong. Assessment: Vital Signs/I&O: Vital Signs Date Time Temp Pulse Resp B/P (MAP) Pulse Ox O2 Delivery O2 Flow Rate FiO2 11/19/19 06:22 98.0 85 110/71 (84) 92 11/18/19 15:50 20 Room Air I & O 11/18/19 11/18/19 11/19/19 15:00 23:00 07:00 Intake Total 480 ml 120 ml Output Total 1200 ml 450 ml Balance 480 ml -1080 ml -450 ml Labs: Laboratory Tests Test 11/18/19 07:40 11/18/19 12:09 11/18/19 17:11 11/18/19 19:27 Glucose (Fingerstick) 149 mg/dL (70-99) H 120 mg/dL (70-99) H 121 mg/dL (70-99) H 264 mg/dL (70-99) H Test 11/19/19 07:16 Glucose (Fingerstick) 168 mg/dL (70-99) H Current Medications: I have reviewed the current psychotropics carefully including drug interactions. Risk benefit ratio favors no change other than as noted in my dictated progress note. Diagnosis: Problems: (1) Major depressive disorder in partial remission (2) Anxiety disorder (3) Impulse control disorder (4) Major depressive disorder, recurrent episode (5) Mild cognitive impairment ROMINA SORTO MD Nov 19, 2019 07:27
--- NOTE | 2019-11-19 07:45 | PDOC ---
Exam Note: Laureano Note: This note is a late entry for 11/18/2019 covers elements not covered in my initial note. Subjective: The patient was seen face to face in the evening of 11/18/2019. Nursing report was with Chapo STOKES. Overall the patient remains somewhat withdrawn, sedated at times, had a good day. Had a brief period of fever, being febrile this morning and then it has been normal. I discussed the patient with Dr. Fong in the evening. She is still sedated. Currently she is on a total of 6 mg a day of Klonopin and was on 9 mg at admission and the 9 mg a day is what she has taken for 5 years. We will go ahead and drop it down to 5 mg a day. She remains on Depakote with a therapeutic level as a prophylaxis, again any benzodiazepine withdrawal seizures. Review of Systems: Ambulation impaired, lying in bed. She has skin integrity problems. No specific CV, , pulmonary, eye system symptoms on review. She has vague somatic symptoms. Mental Status Exam: Alert and oriented. Often response is monosyllabic. Attention span is short. Abstraction is fair. Computation impaired. Mood and affect anxious, labile, yelling at times, wanting staff to clear the table after her supper. No suicidal or homicidal ideation. Laboratory Data: Reviewed. Impression: Major depressive disorder recurrent with psychotic features. Mild cognitive impairment. Rest unchanged. Plan: Currently she is on a total of 6 mg a day of Klonopin and was on 9 mg at admission and the 9 mg a day is what she has taken for 5 years. We will go ahead and drop it down to 5 mg a day. Continue rest psychotropics unchanged. Assessment: Vital Signs/I&O: Vital Signs Date Time Temp Pulse Resp B/P (MAP) Pulse Ox O2 Delivery O2 Flow Rate FiO2 11/19/19 06:22 98.0 85 110/71 (84) 92 11/18/19 15:50 20 Room Air I & O 11/18/19 11/18/19 11/19/19 15:00 23:00 07:00 Intake Total 480 ml 120 ml Output Total 1200 ml 450 ml Balance 480 ml -1080 ml -450 ml Labs: Laboratory Tests Test 11/18/19 12:09 11/18/19 17:11 11/18/19 19:27 11/19/19 07:16 Glucose (Fingerstick) 120 mg/dL (70-99) H 121 mg/dL (70-99) H 264 mg/dL (70-99) H 168 mg/dL (70-99) H Current Medications: I have reviewed the current psychotropics carefully including drug interactions. Risk benefit ratio favors no change other than as noted in my dictated progress note. Diagnosis: Problems: (1) Major depressive disorder in partial remission (2) Anxiety disorder (3) Impulse control disorder (4) Major depressive disorder, recurrent episode (5) Mild cognitive impairment ROMINA SORTO MD Nov 19, 2019 07:45
[2019-11-19] MEDS: risperiDONE 0.25 MG TABLET. PO SCH (08:14)
[2019-11-19] MEDS: DIVALPROEX 125 MG CAP.SPRINK PO SCH ×3 (08:14→20:24)
[2019-11-19] MEDS: ASCORBIC ACID 500 MG TABLET PO SCH (08:14)
[2019-11-19] MEDS: LACTOBACILLUS RHAMNOSUS GG 1 CAPSULE. PO SCH ×2 (08:14→20:23)
[2019-11-19] MEDS: GABAPENTIN 400 MG CAPSULE. PO SCH ×2 (08:14→20:23)
[2019-11-19] MEDS: MULTIVITAMIN with MINERAL TABLET. PO SCH (08:14)
[2019-11-19] MEDS: FERROUS SULFATE 325 MG TABLET. PO SCH (08:15)
[2019-11-19] MEDS: POTASSIUM CHLORIDE 20 MEQ TABLET.ER. PO SCH (08:15)
[2019-11-19] MEDS: FLUoxetine HCL 20 MG CAPSULE PO SCH (08:15)
[2019-11-19] MEDS: clonazePAM 1 MG TABLET PO SCH ×2 (08:15→12:17)
[2019-11-19] MEDS: IPRATROPIUM/ALBUTEROL 20/100mcg/INH INHALER. INH SCH ×4 (08:17→20:23)
[2019-11-19] MEDS: INSULIN LISPRO 300 UNITS/3 ML VIAL. SQ SCH ×3 (08:17→17:22)
[2019-11-19 15:55] VITALS: BP 107/66
[2019-11-19] MEDS: FAMOTIDINE 20 MG TABLET PO SCH (20:23)
[2019-11-19] MEDS: risperiDONE 0.5 MG TABLET. PO SCH (20:24)
[2019-11-19] MEDS: traZODone 150 MG TABLET. PO SCH (20:24)
[2019-11-19] MEDS: clonazePAM 2 MG TABLET PO SCH (20:24)
[2019-11-19] MEDS: INSULIN GLARGINE SYRINGE. SQ SCH (20:29)
[2019-11-20 05:58] VITALS: BP 121/76
--- NOTE | 2019-11-20 06:37 | PDOC ---
Exam Note: Laureano Note: This note is a late entry for 11/19/2019 covers elements not covered in my initial note. Subjective: The patient was seen face to face in the evening of 11/19/2019. Nursing report was with Chapo STOKES. She slept 6-1/2 hours previous night. The patients Klonopin was reduced from 6 mg a day down to 5 mg a day. In the past, she had been on 9 mg a day for many years and we have done a gradual dose reduction and I had discussed this with Dr. Fong yesterday. Today, she has been much less sedated, coming out for activities. She did complain of headaches at 6 a.m. Received Tylenol, has been in the dayroom. Review of Systems: Ambulation impaired, in Broda chair. No CV, , pulmonary, eye system symptoms on review. She has vague somatic symptoms. Mental Status Exam: Reasonably oriented. Speech coherent, much less irritable but somewhat talking negatively about staff as I met with her. Mood is dysphoric, anxious. Affect is mood congruent. No suicidal or homicidal ideation. She remains somewhat paranoid. Laboratory Data: Reviewed. Impression: Major depressive disorder recurrent with psychotic features. Mild cognitive impairment. Rest unchanged. Plan: Continue current psychotropics with Klonopin at current dosage, we may reduce it further; gabapentin, Prozac, trazodone, Depakote level therapeutic at 58. Atarax p.r.n., Risperdal 0.25 mg a.m. and 0.5 mg h.s. Assessment: Vital Signs/I&O: Vital Signs Date Time Temp Pulse Resp B/P (MAP) Pulse Ox O2 Delivery O2 Flow Rate FiO2 11/20/19 05:58 98.0 88 18 121/76 (91) 96 11/19/19 15:55 Room Air I & O 11/19/19 11/19/19 11/20/19 15:00 23:00 07:00 Intake Total 840 ml 600 ml Output Total 550 ml 350 ml Balance 840 ml 50 ml -350 ml Labs: Laboratory Tests Test 11/19/19 07:16 11/19/19 12:13 11/19/19 16:26 11/19/19 19:24 Glucose (Fingerstick) 168 mg/dL (70-99) H 167 mg/dL (70-99) H 246 mg/dL (70-99) H 189 mg/dL (70-99) H Current Medications: Meds: Current Medications Medications (Trade) Dose Ordered Sig/Julia Route PRN Reason Start Time Stop Time Status Last Admin Dose Admin Clonazepam (KlonoPIN) 1 mg DAILY PO 11/19/19 09:00 11/19/19 08:15 Clonazepam (KlonoPIN) 2 mg DAILYWLUN PO 11/19/19 12:00 11/19/19 12:17 I have reviewed the current psychotropics carefully including drug interactions. Risk benefit ratio favors no change other than as noted in my dictated progress note. Diagnosis: Problems: (1) Major depressive disorder in partial remission (2) Anxiety disorder (3) Impulse control disorder (4) Major depressive disorder, recurrent episode (5) Mild cognitive impairment ROMINA SORTO MD Nov 20, 2019 06:37
[2019-11-20] MEDS: INSULIN LISPRO 300 UNITS/3 ML VIAL. SQ SCH ×3 (08:51→17:38)
[2019-11-20] MEDS: MULTIVITAMIN with MINERAL TABLET. PO SCH (08:53)
[2019-11-20] MEDS: FERROUS SULFATE 325 MG TABLET. PO SCH (08:53)
[2019-11-20] MEDS: DIVALPROEX 125 MG CAP.SPRINK PO SCH ×3 (08:53→21:16)
[2019-11-20] MEDS: POTASSIUM CHLORIDE 20 MEQ TABLET.ER. PO SCH (08:53)
[2019-11-20] MEDS: FLUoxetine HCL 20 MG CAPSULE PO SCH (08:53)
[2019-11-20] MEDS: risperiDONE 0.25 MG TABLET. PO SCH (08:53)
[2019-11-20] MEDS: ASCORBIC ACID 500 MG TABLET PO SCH (08:53)
[2019-11-20] MEDS: clonazePAM 1 MG TABLET PO SCH ×2 (08:53→12:58)
[2019-11-20] MEDS: LACTOBACILLUS RHAMNOSUS GG 1 CAPSULE. PO SCH ×2 (08:53→21:16)
[2019-11-20] MEDS: IPRATROPIUM/ALBUTEROL 20/100mcg/INH INHALER. INH SCH ×4 (08:54→21:16)
[2019-11-20] MEDS: GABAPENTIN 400 MG CAPSULE. PO SCH ×2 (08:54→21:17)
[2019-11-20 11:03] LABS: BASO % 0 % (0-3); EOS # 0.3 x10^3/uL (0.0-0.7); EOS % 4 % (0-3); HEMATOCRIT 38.9 % (36.0-47.0); HEMOGLOBIN 12.6 g/dL (12.0-15.5); LYMPH % 11 % (24-48); MEAN CORPUSCULAR HEMOGLOBIN 32 pg (25-35); MEAN CORPUSCULAR HGB CONC 32 g/dL (31-37); MEAN CORPUSCULAR VOLUME 98 fL (79-100); MONO # 0.8 x10^3/uL (0.0-1.1); MONO % 10 % (0-9); NEUT # 6.5 x10^3uL (1.8-7.7); NEUT % 75 % (31-73); PLATELET COUNT 185 x10^3/uL (140-400); RED BLOOD COUNT 3.95 x10^6/uL (3.50-5.40); RED CELL DISTRIBUTION WIDTH 16.9 % (11.5-14.5); WHITE BLOOD COUNT 8.7 x10^3/uL (4.0-11.0)
[2019-11-20 11:22] LABS: ALBUMIN 2.8 g/dL (3.4-5.0); ALBUMIN/GLOBULIN RATIO 0.5 (1.0-1.7); CALCIUM 9.2 mg/dL (8.5-10.1); CREATININE 1.5 mg/dL (0.6-1.0); GFR 34.4; POTASSIUM 4.1 mmol/L (3.5-5.1); TOTAL BILIRUBIN 0.3 mg/dL (0.2-1.0)
--- NOTE | 2019-11-20 14:00 | TX PLAN ---
Interdisciplinary Tx Plan Admission Information October 20, 2019 at 02:07 Legal Status (on Admission): Voluntary DPOA/Guardian Name: Tatiana Wright Contact Other Contact Name: Arslan Rodriguez Other Contact Verified Code Status: DNR Allergies: Coded Allergies: MARÍA Inhibitors (Verified Allergy, Intermediate, 10/18/17) codeine (Verified Allergy, Intermediate, Itching, 02/01/15) olanzapine (Verified Allergy, Intermediate, 10/20/19) penicillin (Verified Allergy, Intermediate, Itching, 02/01/15) quetiapine (Verified Allergy, Intermediate, 10/18/17) Diagnoses Primary Diagnosis: MDD, Anxiety D/O unspecified, Impulse Control D/O unspecified Reasons for Admission: Aggressive, Poor impulse control Problem in Patient's Words: She seems just really confused and needs to be evaluated. Additional Admission Comments: According to the intake, pt was yelling, calling staff "whores", attempting to remove catheter, refused cares, called police to change her catheter, threatening and calling staff names. Problems Active Problems: Yelling out Irritability Confusion UTI (3 organisms in urine) Inactive Problems: Medication Management Pt Strengths/Limitations Ability for Brown: Poor Cognitive Functioning/Ability: Fair Communication Skills/Ability: Fair Financial Resources: Fair Insight/Judgement: Poor Intellectual Ability: Fair Physical Health: Poor Social Skills: Poor Stability in Family: Fair Stability in School/Work: Poor Verbal Skills: Fair Discharge Criteria Discharge Criteria: Adequate arrangements @DC, Improved behavior, Improved mood/thought Other Discharge Comments: may need recommendations for outpt PT and OT. Preliminary Discharge Plan Preliminary DC Plan: Current Living Arrange. Special Precautions Fall Risk: Moderate Initial D/C Plan Pt will plan to return to [facility] upon discharge. Identified Discharge Needs: Psychiatrist Counseling Primary Care Physician Currently Utilized Resources Currently Utilized Resources/P: None Referrals Community Resources: Will need referral for mental health services. Identified Problems/Hx/Goals Objectives/Short-Term Goals Short Term Goals: Dec. Aggression, Dec. Outbursts, Improved Social Skills, Medication Stabilization, Promote Coping Skill Short Term Goals in Patient's: N/A Interventions/Frequency Staff Interventions/Frequency&: Psychiatrist to assess pt at least 3x per week. Land Law Examiner to assess pt at least 2x per week. Nursing assess and complete 15 minute checks daily. Encourage group participation in activities; if not 1:1 time based of goals during the Activity assessment. 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 She always had problems with other people "not doing their jobs". Eventually in the end, she ended up being the one fired for "starting trouble". Education: Did graduate high school Community Follow-up Community Provider/Family Inpu: She needs to be assessed with her confusion and re-evaluate her medications. Treatment Plan Explained Patient/Nursing Tech had this treatment plan explained to him/her as indicated by the signature below and has been given the opportunity to ask questions and make suggestions: Date: Patient/Nursing Tech Signature: Status Update Update Pt is eating roughly 75% of meals and sleeping on average 7.5 hours on average. Pt is doing better behaviorally. She is calm, compliant and cooperative with medications; as well as having less outbursts and complaints about staff. Pt will continue to have her Clonazepam tapered; in which she is currently on 5mg and will taper down to 4.5mg. Pt has been accepted to [facility] in [place], [place] for Wednesday11/29/2019. The psychiatrist will continue to decrease pt Clonazepam as she tolerates it. SW will continue to work with pt sister and the facility to finalize all discharge plans. LORE SIDDIQI Nov 20, 2019 14:00
[2019-11-20 15:55] VITALS: BP 119/78
[2019-11-20] MEDS: traZODone 150 MG TABLET. PO SCH (21:16)
[2019-11-20] MEDS: risperiDONE 0.5 MG TABLET. PO SCH (21:17)
[2019-11-20] MEDS: clonazePAM 2 MG TABLET PO SCH (21:17)
[2019-11-20] MEDS: FAMOTIDINE 20 MG TABLET PO SCH (21:17)
[2019-11-20] MEDS: INSULIN GLARGINE SYRINGE. SQ SCH (21:19)
--- NOTE | 2019-11-20 22:01 | PDOC ---
Exam Note: Laureano Note: Please also refer to the separate dictated note~for this date of service dictated separately.~Patient seen individually. Discussed the patient with Nursing staff reviewed the chart.~Reviewed interim history and current functioning. Reviewed vital signs,~Labs/ Radiology~and current medications noted below. Continue current treatment with the changes noted in the dictated addendum note Assessment: Vital Signs/I&O: Vital Signs Date Time Temp Pulse Resp B/P (MAP) Pulse Ox O2 Delivery O2 Flow Rate FiO2 11/20/19 15:55 98.3 90 18 119/78 (92) 92 11/19/19 15:55 Room Air I & O 11/19/19 11/19/19 11/20/19 15:00 23:00 07:00 Intake Total 840 ml 600 ml Output Total 550 ml 350 ml Balance 840 ml 50 ml -350 ml Labs: Laboratory Tests Test 11/20/19 07:46 11/20/19 10:19 11/20/19 12:46 11/20/19 17:32 Glucose (Fingerstick) 117 mg/dL (70-99) H 180 mg/dL (70-99) H 220 mg/dL (70-99) H White Blood Count 8.7 x10^3/uL (4.0-11.0) Red Blood Count 3.95 x10^6/uL (3.50-5.40) Hemoglobin 12.6 g/dL (12.0-15.5) Hematocrit 38.9 % (36.0-47.0) Mean Corpuscular Volume 98 fL (79-100) Mean Corpuscular Hemoglobin 32 pg (25-35) Mean Corpuscular Hemoglobin Concent 32 g/dL (31-37) Red Cell Distribution Width 16.9 % (11.5-14.5) H Platelet Count 185 x10^3/uL (140-400) Neutrophils (%) (Auto) 75 % (31-73) H Lymphocytes (%) (Auto) 11 % (24-48) L Monocytes (%) (Auto) 10 % (0-9) H Eosinophils (%) (Auto) 4 % (0-3) H Basophils (%) (Auto) 0 % (0-3) Neutrophils # (Auto) 6.5 x10^3uL (1.8-7.7) Lymphocytes # (Auto) 1.0 x10^3/uL (1.0-4.8) Monocytes # (Auto) 0.8 x10^3/uL (0.0-1.1) Eosinophils # (Auto) 0.3 x10^3/uL (0.0-0.7) Basophils # (Auto) 0.0 x10^3/uL (0.0-0.2) Sodium Level 138 mmol/L (136-145) Potassium Level 4.1 mmol/L (3.5-5.1) Chloride Level 100 mmol/L (98-107) Carbon Dioxide Level 28 mmol/L (21-32) Anion Gap 10 (6-14) Blood Urea Nitrogen 53 mg/dL (7-20) H Creatinine 1.5 mg/dL (0.6-1.0) H Estimated GFR (Cockcroft-Gault) 34.4 BUN/Creatinine Ratio 35 (6-20) H Glucose Level 177 mg/dL (70-99) H Calcium Level 9.2 mg/dL (8.5-10.1) Total Bilirubin 0.3 mg/dL (0.2-1.0) Aspartate Amino Transferase (AST) 11 U/L (15-37) L Alanine Aminotransferase (ALT) 11 U/L (14-59) L Alkaline Phosphatase 108 U/L (46-116) Total Protein 8.0 g/dL (6.4-8.2) Albumin 2.8 g/dL (3.4-5.0) L Albumin/Globulin Ratio 0.5 (1.0-1.7) L Test 11/20/19 19:31 Glucose (Fingerstick) 156 mg/dL (70-99) H Current Medications: Meds: Current Medications Medications (Trade) Dose Ordered Sig/Julia Route PRN Reason Start Time Stop Time Status Last Admin Dose Admin Clonazepam (KlonoPIN) 2 mg HS PO 11/20/19 21:00 11/22/19 21:01 11/20/19 21:17 I have reviewed the current psychotropics carefully including drug interactions. Risk benefit ratio favors no change other than as noted in my dictated progress note. Diagnosis: Problems: (1) Major depressive disorder in partial remission (2) Anxiety disorder (3) Impulse control disorder (4) Major depressive disorder, recurrent episode (5) Mild cognitive impairment ROMINA SORTO MD Nov 20, 2019 22:01
[2019-11-21 05:22] VITALS: BP 132/77
[2019-11-21] MEDS: DIVALPROEX 125 MG CAP.SPRINK PO SCH ×3 (08:35→20:02)
[2019-11-21] MEDS: ASCORBIC ACID 500 MG TABLET PO SCH (08:35)
[2019-11-21] MEDS: clonazePAM 1 MG TABLET PO SCH ×2 (08:35→12:18)
[2019-11-21] MEDS: MULTIVITAMIN with MINERAL TABLET. PO SCH (08:35)
[2019-11-21] MEDS: POTASSIUM CHLORIDE 20 MEQ TABLET.ER. PO SCH (08:36)
[2019-11-21] MEDS: FLUoxetine HCL 20 MG CAPSULE PO SCH (08:36)
[2019-11-21] MEDS: risperiDONE 0.25 MG TABLET. PO SCH (08:36)
[2019-11-21] MEDS: FERROUS SULFATE 325 MG TABLET. PO SCH (08:36)
[2019-11-21] MEDS: GABAPENTIN 400 MG CAPSULE. PO SCH ×2 (08:36→20:02)
[2019-11-21] MEDS: LACTOBACILLUS RHAMNOSUS GG 1 CAPSULE. PO SCH ×2 (08:36→20:02)
[2019-11-21] MEDS: IPRATROPIUM/ALBUTEROL 20/100mcg/INH INHALER. INH SCH ×4 (08:36→20:01)
[2019-11-21] MEDS: INSULIN LISPRO 300 UNITS/3 ML VIAL. SQ SCH ×3 (08:45→17:08)
[2019-11-21 15:54] VITALS: BP 146/75
[2019-11-21] MEDS: traZODone 150 MG TABLET. PO SCH (20:02)
[2019-11-21] MEDS: clonazePAM 2 MG TABLET PO SCH (20:02)
[2019-11-21] MEDS: risperiDONE 0.5 MG TABLET. PO SCH (20:03)
[2019-11-21] MEDS: FAMOTIDINE 20 MG TABLET PO SCH (20:03)
[2019-11-21] MEDS: INSULIN GLARGINE SYRINGE. SQ SCH (21:17)
--- NOTE | 2019-11-21 21:41 | PDOC ---
Exam Note: Larueano Note: Please also refer to the separate dictated note~for this date of service dictated separately.~Patient seen individually. Discussed the patient with Nursing staff reviewed the chart.~Reviewed interim history and current functioning. Reviewed vital signs,~Labs/ Radiology~and current medications noted below. Continue current treatment with the changes noted in the dictated addendum note Assessment: Vital Signs/I&O: Vital Signs Date Time Temp Pulse Resp B/P (MAP) Pulse Ox O2 Delivery O2 Flow Rate FiO2 11/21/19 15:54 98.7 87 20 146/75 (98) 93 11/19/19 15:55 Room Air I & O 11/20/19 11/20/19 11/21/19 15:00 23:00 07:00 Intake Total 1320 ml 600 ml Output Total 725 ml Balance 1320 ml -125 ml Labs: Laboratory Tests Test 11/21/19 07:44 11/21/19 11:39 11/21/19 16:33 11/21/19 19:06 Glucose (Fingerstick) 150 mg/dL (70-99) H 126 mg/dL (70-99) H 150 mg/dL (70-99) H 133 mg/dL (70-99) H Current Medications: Meds: Current Medications Medications (Trade) Dose Ordered Sig/Julia Route PRN Reason Start Time Stop Time Status Last Admin Dose Admin Clonazepam (KlonoPIN) 1.5 mg DAILYWLUN PO 11/21/19 12:00 11/21/19 12:18 I have reviewed the current psychotropics carefully including drug interactions. Risk benefit ratio favors no change other than as noted in my dictated progress note. Diagnosis: Problems: (1) Major depressive disorder in partial remission (2) Anxiety disorder (3) Impulse control disorder (4) Major depressive disorder, recurrent episode (5) Mild cognitive impairment ROMINA SORTO MD Nov 21, 2019 21:41
[2019-11-22 05:53] VITALS: BP 111/69
--- NOTE | 2019-11-22 07:13 | PDOC ---
Exam Note: Laureano Note: This note is a late entry for 11/20/2019 covers elements not covered in my initial note. Subjective: The patient was seen face to face in the morning of 11/20/2019 for treatment team meeting with Ching Zuniga, and Brea (social service staff). Nadia social service staff addressed that if the patient can be discharged early next week, she can do directly to [facility] but if the discharge is prior to that she will have to go back to [facility] for a few days and then onto [facility]. We are reducing her Klonopin and we feel the extra few days will be greatly therapeutically beneficial for her here in the hospital and then direct transition to [facility] would be preferable. Nursing report was with Cheyenne STOKES. She slept 8 hours previous night. The patient has been coming out more and being around other patients common areas and spending less time in his room. She seems to be doing better. She is also less sedated as we have reduced the Klonopin. Review of Systems: Ambulation impaired, in Broda chair. No CV, , pulmonary, eye system symptoms on review. She has vague somatic symptoms. Mental Status Exam: Reasonably oriented. She is pleasant, smiling, interactive, appreciative of her care here which is an improvement for her, less labile in her mood. Speech coherent, much less irritable. Affect is mood congruent. No suicidal or homicidal ideation. Laboratory Data: Reviewed. Impression: Major depressive disorder recurrent with psychotic features. Mild cognitive impairment. Rest unchanged. Plan: No change from initial note. Assessment: Vital Signs/I&O: Vital Signs Date Time Temp Pulse Resp B/P (MAP) Pulse Ox O2 Delivery O2 Flow Rate FiO2 11/22/19 05:53 97.5 78 16 111/69 (83) 91 11/19/19 15:55 Room Air I & O 11/21/19 11/21/19 11/22/19 15:00 23:00 07:00 Intake Total 960 ml 580 ml Output Total 650 ml 600 ml Balance 960 ml -70 ml -600 ml Labs: Laboratory Tests Test 11/21/19 07:44 11/21/19 11:39 11/21/19 16:33 11/21/19 19:06 Glucose (Fingerstick) 150 mg/dL (70-99) H 126 mg/dL (70-99) H 150 mg/dL (70-99) H 133 mg/dL (70-99) H Current Medications: Meds: Current Medications Medications (Trade) Dose Ordered Sig/Julia Route PRN Reason Start Time Stop Time Status Last Admin Dose Admin Clonazepam (KlonoPIN) 1.5 mg DAILYWLUN PO 11/21/19 12:00 11/21/19 12:18 I have reviewed the current psychotropics carefully including drug interactions. Risk benefit ratio favors no change other than as noted in my dictated progress note. Diagnosis: Problems: (1) Major depressive disorder in partial remission (2) Anxiety disorder (3) Impulse control disorder (4) Major depressive disorder, recurrent episode (5) Mild cognitive impairment ROMINA SORTO MD Nov 22, 2019 07:13
--- NOTE | 2019-11-22 07:14 | PDOC ---
Exam Note: Laureano Note: This note is a late entry for 11/21/2019 covers elements not covered in my initial note. Subjective: The patient was seen face to face in the evening of 11/21/2019. Nursing report was with Cheyenne STOKES. She slept 7 hours previous night. She did well previous night, less yelling, has done better during the day today per nursing report. We are still tapering her Klonopin and it will drop down to 4 mg a day on 11/22. I met with the patient in her room in the evening. She was verbal, interactive, pleasant, smiling, asking me how my day was. She knew the discharge plans for her were for next week and she is happy with this. Review of Systems: Ambulation impaired, in Broda chair. No CV, , pulmonary, eye system symptoms on review. She has vague somatic symptoms. Mental Status Exam: Reasonably oriented. Speech coherent. She is interactive, verbal, pleasant. Mood is dysphoric, anxious. Affect is mood congruent. No suicidal or homicidal ideation. Laboratory Data: Reviewed. Impression: Major depressive disorder recurrent with psychotic features. Mild cognitive impairment. Rest unchanged. Plan: No change from initial note. Assessment: Vital Signs/I&O: Vital Signs Date Time Temp Pulse Resp B/P (MAP) Pulse Ox O2 Delivery O2 Flow Rate FiO2 11/22/19 05:53 97.5 78 16 111/69 (83) 91 11/19/19 15:55 Room Air I & O 11/21/19 11/21/19 11/22/19 15:00 23:00 07:00 Intake Total 960 ml 580 ml Output Total 650 ml 600 ml Balance 960 ml -70 ml -600 ml Labs: Laboratory Tests Test 11/21/19 07:44 11/21/19 11:39 11/21/19 16:33 11/21/19 19:06 Glucose (Fingerstick) 150 mg/dL (70-99) H 126 mg/dL (70-99) H 150 mg/dL (70-99) H 133 mg/dL (70-99) H Current Medications: Meds: Current Medications Medications (Trade) Dose Ordered Sig/Julia Route PRN Reason Start Time Stop Time Status Last Admin Dose Admin Clonazepam (KlonoPIN) 1.5 mg DAILYWLUN PO 11/21/19 12:00 11/21/19 12:18 I have reviewed the current psychotropics carefully including drug interactions. Risk benefit ratio favors no change other than as noted in my dictated progress note. Diagnosis: Problems: (1) Major depressive disorder in partial remission (2) Anxiety disorder (3) Impulse control disorder (4) Major depressive disorder, recurrent episode (5) Mild cognitive impairment ROMINA SORTO MD Nov 22, 2019 07:14
[2019-11-22] MEDS: IPRATROPIUM/ALBUTEROL 20/100mcg/INH INHALER. INH SCH ×4 (08:33→19:15)
[2019-11-22] MEDS: DIVALPROEX 125 MG CAP.SPRINK PO SCH ×3 (08:33→19:15)
[2019-11-22] MEDS: MULTIVITAMIN with MINERAL TABLET. PO SCH (08:33)
[2019-11-22] MEDS: LACTOBACILLUS RHAMNOSUS GG 1 CAPSULE. PO SCH ×2 (08:33→19:15)
[2019-11-22] MEDS: clonazePAM 1 MG TABLET PO SCH ×2 (08:34→13:03)
[2019-11-22] MEDS: POTASSIUM CHLORIDE 20 MEQ TABLET.ER. PO SCH (08:34)
[2019-11-22] MEDS: GABAPENTIN 400 MG CAPSULE. PO SCH ×2 (08:34→19:15)
[2019-11-22] MEDS: ASCORBIC ACID 500 MG TABLET PO SCH (08:36)
[2019-11-22] MEDS: FLUoxetine HCL 20 MG CAPSULE PO SCH (08:36)
[2019-11-22] MEDS: risperiDONE 0.25 MG TABLET. PO SCH (08:36)
[2019-11-22] MEDS: FERROUS SULFATE 325 MG TABLET. PO SCH (08:36)
[2019-11-22] MEDS: INSULIN LISPRO 300 UNITS/3 ML VIAL. SQ SCH ×3 (08:40→17:00)
[2019-11-22 09:32] LABS: BASO # 0.1 x10^3/uL (0.0-0.2); BASO % 1 % (0-3); EOS # 0.3 x10^3/uL (0.0-0.7); EOS % 5 % (0-3); HEMATOCRIT 33.8 % (36.0-47.0); HEMOGLOBIN 11.2 g/dL (12.0-15.5); LYMPH # 1.2 x10^3/uL (1.0-4.8); LYMPH % 20 % (24-48); MEAN CORPUSCULAR HEMOGLOBIN 33 pg (25-35); MEAN CORPUSCULAR HGB CONC 33 g/dL (31-37); MEAN CORPUSCULAR VOLUME 98 fL (79-100); MONO # 0.6 x10^3/uL (0.0-1.1); MONO % 10 % (0-9); NEUT # 3.9 x10^3uL (1.8-7.7); NEUT % 65 % (31-73); PLATELET COUNT 204 x10^3/uL (140-400); RED BLOOD COUNT 3.44 x10^6/uL (3.50-5.40); RED CELL DISTRIBUTION WIDTH 16.3 % (11.5-14.5); WHITE BLOOD COUNT 6.1 x10^3/uL (4.0-11.0)
[2019-11-22 09:46] LABS: ALBUMIN 2.6 g/dL (3.4-5.0); ALBUMIN/GLOBULIN RATIO 0.5 (1.0-1.7); CALCIUM 8.6 mg/dL (8.5-10.1); CREATININE 1.6 mg/dL (0.6-1.0); POTASSIUM 4.4 mmol/L (3.5-5.1); TOTAL BILIRUBIN 0.3 mg/dL (0.2-1.0); TOTAL PROTEIN 7.7 g/dL (6.4-8.2)
[2019-11-22 15:42] VITALS: BP 125/75
[2019-11-22] MEDS: traZODone 150 MG TABLET. PO SCH (19:15)
[2019-11-22] MEDS: clonazePAM 2 MG TABLET PO SCH (19:15)
[2019-11-22] MEDS: FAMOTIDINE 20 MG TABLET PO SCH (19:15)
[2019-11-22] MEDS: risperiDONE 0.5 MG TABLET. PO SCH (19:15)
[2019-11-22] MEDS: INSULIN GLARGINE SYRINGE. SQ SCH (20:23)
--- NOTE | 2019-11-22 22:01 | PDOC ---
Exam Note: Laureano Note: Please also refer to the separate dictated note~for this date of service dictated separately.~Patient seen individually. Discussed the patient with Nursing staff reviewed the chart.~Reviewed interim history and current functioning. Reviewed vital signs,~Labs/ Radiology~and current medications noted below. Continue current treatment with the changes noted in the dictated addendum note Assessment: Vital Signs/I&O: Vital Signs Date Time Temp Pulse Resp B/P (MAP) Pulse Ox O2 Delivery O2 Flow Rate FiO2 11/22/19 15:42 97.4 86 18 125/75 (92) 95 11/19/19 15:55 Room Air I & O 11/21/19 11/21/19 11/22/19 15:00 23:00 07:00 Intake Total 960 ml 580 ml Output Total 650 ml 600 ml Balance 960 ml -70 ml -600 ml Labs: Laboratory Tests Test 11/22/19 07:17 11/22/19 09:08 11/22/19 12:04 11/22/19 17:13 Glucose (Fingerstick) 160 mg/dL (70-99) H 102 mg/dL (70-99) H 108 mg/dL (70-99) H White Blood Count 6.1 x10^3/uL (4.0-11.0) Red Blood Count 3.44 x10^6/uL (3.50-5.40) L Hemoglobin 11.2 g/dL (12.0-15.5) L Hematocrit 33.8 % (36.0-47.0) L Mean Corpuscular Volume 98 fL (79-100) Mean Corpuscular Hemoglobin 33 pg (25-35) Mean Corpuscular Hemoglobin Concent 33 g/dL (31-37) Red Cell Distribution Width 16.3 % (11.5-14.5) H Platelet Count 204 x10^3/uL (140-400) Neutrophils (%) (Auto) 65 % (31-73) Lymphocytes (%) (Auto) 20 % (24-48) L Monocytes (%) (Auto) 10 % (0-9) H Eosinophils (%) (Auto) 5 % (0-3) H Basophils (%) (Auto) 1 % (0-3) Neutrophils # (Auto) 3.9 x10^3uL (1.8-7.7) Lymphocytes # (Auto) 1.2 x10^3/uL (1.0-4.8) Monocytes # (Auto) 0.6 x10^3/uL (0.0-1.1) Eosinophils # (Auto) 0.3 x10^3/uL (0.0-0.7) Basophils # (Auto) 0.1 x10^3/uL (0.0-0.2) Sodium Level 138 mmol/L (136-145) Potassium Level 4.4 mmol/L (3.5-5.1) Chloride Level 102 mmol/L (98-107) Carbon Dioxide Level 30 mmol/L (21-32) Anion Gap 6 (6-14) Blood Urea Nitrogen 46 mg/dL (7-20) H Creatinine 1.6 mg/dL (0.6-1.0) H Estimated GFR (Cockcroft-Gault) 32.0 BUN/Creatinine Ratio 29 (6-20) H Glucose Level 247 mg/dL (70-99) H Calcium Level 8.6 mg/dL (8.5-10.1) Total Bilirubin 0.3 mg/dL (0.2-1.0) Aspartate Amino Transferase (AST) 11 U/L (15-37) L Alanine Aminotransferase (ALT) 11 U/L (14-59) L Alkaline Phosphatase 88 U/L (46-116) Total Protein 7.7 g/dL (6.4-8.2) Albumin 2.6 g/dL (3.4-5.0) L Albumin/Globulin Ratio 0.5 (1.0-1.7) L Test 11/22/19 19:02 Glucose (Fingerstick) 174 mg/dL (70-99) H Current Medications: I have reviewed the current psychotropics carefully including drug interactions. Risk benefit ratio favors no change other than as noted in my dictated progress note. Diagnosis: Problems: (1) Major depressive disorder in partial remission (2) Anxiety disorder (3) Impulse control disorder (4) Major depressive disorder, recurrent episode (5) Mild cognitive impairment ROMINA SORTO MD Nov 22, 2019 22:01
[2019-11-23 05:16] VITALS: BP 128/83
--- NOTE | 2019-11-23 07:00 | PN ---
DATE: 11/22/2019 PSYCHIATRIC PROGRESS NOTE This late entry 11/21 covers elements not covered in my initial note. SUBJECTIVE: I met with the patient in the evening. The patient slept 6-1/2 hours previous night. Per DIVYA See, the patient has had increased yelling, mood lability, somewhat delusional. She states she wants to walk and she has a significant fall risk. I addressed this with her at length individually in her room. She believes this is her mother's house not a hospital. At lunchtime, she was quite agitated, threw her lunch on the floor and at the nursing aides. Klonopin is being gradually tapered and will drop down to 4 mg a day on the . REVIEW OF SYSTEMS: Ambulation impaired. She was lying in bed as I met with her on 2 separate occasions. No CV, , pulmonary, eye system symptoms on review. She has vague somatic symptoms. MENTAL STATUS EXAM: Oriented to herself and situation. Speech coherent, can be rapid at times. Abstraction fair, computation impaired, language function intact, attention span short. Mood and affect remain somewhat labile, paranoid. LABORATORY DATA: Reviewed. IMPRESSION: Unchanged from initial note. PLAN: Continue to taper the Klonopin, but given her marked psychotic symptoms, we will increase the Risperdal from 0.25 mg a.m. and 0.5 mg at bedtime to 0.5 mg twice a day. Rest unchanged for now. ROMINA SORTO MD DR: TOD/moris JOB#: [id number] / [id number]
[2019-11-23] MEDS: DIVALPROEX 125 MG CAP.SPRINK PO SCH ×3 (08:20→19:51)
[2019-11-23] MEDS: risperiDONE 0.5 MG TABLET. PO SCH ×2 (08:20→19:51)
[2019-11-23] MEDS: MULTIVITAMIN with MINERAL TABLET. PO SCH (08:20)
[2019-11-23] MEDS: FERROUS SULFATE 325 MG TABLET. PO SCH (08:20)
[2019-11-23] MEDS: GABAPENTIN 400 MG CAPSULE. PO SCH ×2 (08:20→19:51)
[2019-11-23] MEDS: POTASSIUM CHLORIDE 20 MEQ TABLET.ER. PO SCH (08:21)
[2019-11-23] MEDS: clonazePAM 1 MG TABLET PO SCH ×2 (08:21→12:07)
[2019-11-23] MEDS: LACTOBACILLUS RHAMNOSUS GG 1 CAPSULE. PO SCH ×2 (08:21→19:51)
[2019-11-23] MEDS: ASCORBIC ACID 500 MG TABLET PO SCH (08:21)
[2019-11-23] MEDS: FLUoxetine HCL 20 MG CAPSULE PO SCH (08:21)
[2019-11-23] MEDS: INSULIN LISPRO 300 UNITS/3 ML VIAL. SQ SCH ×3 (08:24→17:00)
[2019-11-23] MEDS: IPRATROPIUM/ALBUTEROL 20/100mcg/INH INHALER. INH SCH ×4 (08:32→19:51)
[2019-11-23] MEDS: ACETAMINOPHEN 325 MG TABLET PO PRN (08:35)
[2019-11-23 15:26] VITALS: BP 111/58
[2019-11-23] MEDS: traZODone 150 MG TABLET. PO SCH (19:51)
[2019-11-23] MEDS: FAMOTIDINE 20 MG TABLET PO SCH (19:51)
[2019-11-23] MEDS: clonazePAM 2 MG TABLET PO SCH (19:52)
[2019-11-23] MEDS: INSULIN GLARGINE SYRINGE. SQ SCH (20:53)
--- NOTE | 2019-11-23 22:17 | PDOC ---
Exam Note: Laureano Note: Please also refer to the separate dictated note~for this date of service dictated separately.~Patient seen individually. Discussed the patient with Nursing staff reviewed the chart.~Reviewed interim history and current functioning. Reviewed vital signs,~Labs/ Radiology~and current medications noted below. Continue current treatment with the changes noted in the dictated addendum note Assessment: Vital Signs/I&O: Vital Signs Date Time Temp Pulse Resp B/P (MAP) Pulse Ox O2 Delivery O2 Flow Rate FiO2 11/23/19 15:26 97.6 80 18 111/58 (75) 96 11/23/19 05:16 Room Air I & O 11/22/19 11/22/19 11/23/19 15:00 23:00 07:00 Intake Total 600 ml 240 ml Output Total 550 ml 550 ml Balance 600 ml -310 ml -550 ml Labs: Laboratory Tests Test 11/23/19 07:37 11/23/19 11:56 11/23/19 16:47 11/23/19 19:14 Glucose (Fingerstick) 123 mg/dL (70-99) H 251 mg/dL (70-99) H 151 mg/dL (70-99) H 159 mg/dL (70-99) H Current Medications: Meds: Current Medications Medications (Trade) Dose Ordered Sig/Julia Route PRN Reason Start Time Stop Time Status Last Admin Dose Admin Clonazepam (KlonoPIN) 1.5 mg HS PO 11/23/19 21:00 11/23/19 19:52 Risperidone (RisperDAL) 0.5 mg DAILY PO 11/23/19 09:00 11/23/19 08:20 I have reviewed the current psychotropics carefully including drug interactions. Risk benefit ratio favors no change other than as noted in my dictated progress note. Diagnosis: Problems: (1) Major depressive disorder in partial remission (2) Anxiety disorder (3) Impulse control disorder (4) Major depressive disorder, recurrent episode (5) Mild cognitive impairment ROMINA SORTO MD Nov 23, 2019 22:16
[2019-11-24 05:41] VITALS: BP 112/66
[2019-11-24] MEDS: IPRATROPIUM/ALBUTEROL 20/100mcg/INH INHALER. INH SCH ×4 (08:48→19:36)
[2019-11-24] MEDS: ASCORBIC ACID 500 MG TABLET PO SCH (08:48)
[2019-11-24] MEDS: GABAPENTIN 400 MG CAPSULE. PO SCH ×2 (08:48→19:36)
[2019-11-24] MEDS: LACTOBACILLUS RHAMNOSUS GG 1 CAPSULE. PO SCH ×2 (08:48→19:36)
[2019-11-24] MEDS: clonazePAM 1 MG TABLET PO SCH ×2 (08:48→12:22)
[2019-11-24] MEDS: FERROUS SULFATE 325 MG TABLET. PO SCH (08:48)
[2019-11-24] MEDS: CHOLECALCIFEROL (VITAMIN D3) 50,000 UNIT CAPSULE PO SCH (08:48)
[2019-11-24] MEDS: MULTIVITAMIN with MINERAL TABLET. PO SCH (08:49)
[2019-11-24] MEDS: risperiDONE 0.5 MG TABLET. PO SCH ×2 (08:49→19:36)
[2019-11-24] MEDS: DIVALPROEX 125 MG CAP.SPRINK PO SCH ×3 (08:49→19:36)
[2019-11-24] MEDS: POTASSIUM CHLORIDE 20 MEQ TABLET.ER. PO SCH (08:49)
[2019-11-24] MEDS: FLUoxetine HCL 20 MG CAPSULE PO SCH (08:49)
[2019-11-24] MEDS: INSULIN LISPRO 300 UNITS/3 ML VIAL. SQ SCH ×3 (08:57→17:18)
[2019-11-24 14:43] LABS: BASO % 0 % (0-3); EOS # 0.4 x10^3/uL (0.0-0.7); EOS % 6 % (0-3); HEMATOCRIT 32.8 % (36.0-47.0); HEMOGLOBIN 10.6 g/dL (12.0-15.5); LYMPH % 17 % (24-48); MEAN CORPUSCULAR HEMOGLOBIN 32 pg (25-35); MEAN CORPUSCULAR HGB CONC 32 g/dL (31-37); MEAN CORPUSCULAR VOLUME 98 fL (79-100); MONO # 0.7 x10^3/uL (0.0-1.1); MONO % 11 % (0-9); NEUT # 4.1 x10^3uL (1.8-7.7); NEUT % 66 % (31-73); PLATELET COUNT 222 x10^3/uL (140-400); RED BLOOD COUNT 3.35 x10^6/uL (3.50-5.40); RED CELL DISTRIBUTION WIDTH 16.4 % (11.5-14.5); WHITE BLOOD COUNT 6.2 x10^3/uL (4.0-11.0)
[2019-11-24 15:32] VITALS: BP 118/74
[2019-11-24 16:02] LABS: ALBUMIN 2.5 g/dL (3.4-5.0); ALBUMIN/GLOBULIN RATIO 0.5 (1.0-1.7); CALCIUM 8.6 mg/dL (8.5-10.1); CREATININE 1.4 mg/dL (0.6-1.0); GFR 37.3; POTASSIUM 5.2 mmol/L (3.5-5.1); TOTAL BILIRUBIN 0.2 mg/dL (0.2-1.0); TOTAL PROTEIN 7.2 g/dL (6.4-8.2)
[2019-11-24] MEDS: traZODone 150 MG TABLET. PO SCH (19:36)
[2019-11-24] MEDS: FAMOTIDINE 20 MG TABLET PO SCH (19:36)
[2019-11-24] MEDS: clonazePAM 2 MG TABLET PO SCH (19:37)
[2019-11-24] MEDS: oxyCODONE/APAP 5/325 1 TAB TABLET PO PRN (20:43)
[2019-11-24] MEDS: INSULIN GLARGINE SYRINGE. SQ SCH (20:45)
--- NOTE | 2019-11-24 22:14 | PDOC ---
Exam Note: Laureano Note: Please also refer to the separate dictated note~for this date of service dictated separately.~Patient seen individually. Discussed the patient with Nursing staff reviewed the chart.~Reviewed interim history and current functioning. Reviewed vital signs,~Labs/ Radiology~and current medications noted below. Continue current treatment with the changes noted in the dictated addendum note Assessment: Vital Signs/I&O: Vital Signs Date Time Temp Pulse Resp B/P (MAP) Pulse Ox O2 Delivery O2 Flow Rate FiO2 11/24/19 21:43 93 11/24/19 15:32 97.6 85 16 118/74 (89) 11/23/19 05:16 Room Air I & O 11/23/19 11/23/19 11/24/19 15:00 23:00 07:00 Intake Total 600 ml 480 ml Output Total 550 ml Balance 600 ml 480 ml -550 ml Labs: Laboratory Tests Test 11/24/19 07:14 11/24/19 11:41 11/24/19 14:32 11/24/19 15:31 Glucose (Fingerstick) 88 mg/dL (70-99) 214 mg/dL (70-99) H White Blood Count 6.2 x10^3/uL (4.0-11.0) Red Blood Count 3.35 x10^6/uL (3.50-5.40) L Hemoglobin 10.6 g/dL (12.0-15.5) L Hematocrit 32.8 % (36.0-47.0) L Mean Corpuscular Volume 98 fL (79-100) Mean Corpuscular Hemoglobin 32 pg (25-35) Mean Corpuscular Hemoglobin Concent 32 g/dL (31-37) Red Cell Distribution Width 16.4 % (11.5-14.5) H Platelet Count 222 x10^3/uL (140-400) Neutrophils (%) (Auto) 66 % (31-73) Lymphocytes (%) (Auto) 17 % (24-48) L Monocytes (%) (Auto) 11 % (0-9) H Eosinophils (%) (Auto) 6 % (0-3) H Basophils (%) (Auto) 0 % (0-3) Neutrophils # (Auto) 4.1 x10^3uL (1.8-7.7) Lymphocytes # (Auto) 1.0 x10^3/uL (1.0-4.8) Monocytes # (Auto) 0.7 x10^3/uL (0.0-1.1) Eosinophils # (Auto) 0.4 x10^3/uL (0.0-0.7) Basophils # (Auto) 0.0 x10^3/uL (0.0-0.2) Sodium Level 137 mmol/L (136-145) Potassium Level 5.2 mmol/L (3.5-5.1) H Chloride Level 103 mmol/L (98-107) Carbon Dioxide Level 27 mmol/L (21-32) Anion Gap 7 (6-14) Blood Urea Nitrogen 40 mg/dL (7-20) H Creatinine 1.4 mg/dL (0.6-1.0) H Estimated GFR (Cockcroft-Gault) 37.3 BUN/Creatinine Ratio 29 (6-20) H Glucose Level 165 mg/dL (70-99) H Calcium Level 8.6 mg/dL (8.5-10.1) Total Bilirubin 0.2 mg/dL (0.2-1.0) Aspartate Amino Transferase (AST) 13 U/L (15-37) L Alanine Aminotransferase (ALT) 12 U/L (14-59) L Alkaline Phosphatase 89 U/L (46-116) Total Protein 7.2 g/dL (6.4-8.2) Albumin 2.5 g/dL (3.4-5.0) L Albumin/Globulin Ratio 0.5 (1.0-1.7) L Test 11/24/19 16:53 11/24/19 19:03 Glucose (Fingerstick) 176 mg/dL (70-99) H 256 mg/dL (70-99) H Current Medications: I have reviewed the current psychotropics carefully including drug interactions. Risk benefit ratio favors no change other than as noted in my dictated progress note. Diagnosis: Problems: (1) Major depressive disorder in partial remission (2) Anxiety disorder (3) Impulse control disorder (4) Major depressive disorder, recurrent episode (5) Mild cognitive impairment ROMINA SORTO MD Nov 24, 2019 22:14
--- NOTE | 2019-11-24 22:16 | PN ---
DATE: 11/23/2019 PSYCHIATRIC PROGRESS NOTE This late entry 11/23/2019 covers elements not covered in my initial note. SUBJECTIVE: I met with the patient in the evening. Per DIVYA Desouza, the patient slept 6-1/4 hours previous night. She has had a better day, though she was yelling in the morning with mood lability, but more "chatty" before lunch. She had a telephone call with her sister in [place] as well. She has been coming out to activities and groups, interacting with others, less sedated. REVIEW OF SYSTEMS: Ambulation impaired, in Broda chair. No CV, , pulmonary, eye system symptoms on review. She has vague somatic symptoms. MENTAL STATUS EXAMINATION: Oriented to herself and situation, though at times she feels the hospital is her house and others are intruding on it. Speech is coherent, has some latency. Abstraction fair, computation impaired. Language function intact. Attention span short. Mood and affect still withdrawn. LABORATORY DATA: Reviewed. IMPRESSION: Unchanged from initial note. PLAN: No change from initial note. ROMINA SORTO MD DR: TOD/moris JOB#: [id number] / [id number]
[2019-11-25 05:54] VITALS: BP 100/61
[2019-11-25] MEDS: POTASSIUM CHLORIDE 20 MEQ TABLET.ER. PO SCH (07:32)
[2019-11-25] MEDS: INSULIN LISPRO 300 UNITS/3 ML VIAL. SQ SCH ×3 (08:00→17:39)
[2019-11-25] MEDS: FLUoxetine HCL 20 MG CAPSULE PO SCH (08:47)
[2019-11-25] MEDS: FERROUS SULFATE 325 MG TABLET. PO SCH (08:47)
[2019-11-25] MEDS: ASCORBIC ACID 500 MG TABLET PO SCH (08:47)
[2019-11-25] MEDS: DIVALPROEX 125 MG CAP.SPRINK PO SCH ×3 (08:47→20:10)
[2019-11-25] MEDS: LACTOBACILLUS RHAMNOSUS GG 1 CAPSULE. PO SCH ×2 (08:48→20:09)
[2019-11-25] MEDS: clonazePAM 1 MG TABLET PO SCH ×2 (08:48→12:12)
[2019-11-25] MEDS: MULTIVITAMIN with MINERAL TABLET. PO SCH (08:48)
[2019-11-25] MEDS: IPRATROPIUM/ALBUTEROL 20/100mcg/INH INHALER. INH SCH ×4 (08:48→20:08)
[2019-11-25] MEDS: risperiDONE 0.5 MG TABLET. PO SCH ×2 (08:48→20:11)
[2019-11-25] MEDS: GABAPENTIN 400 MG CAPSULE. PO SCH ×2 (08:48→20:11)
[2019-11-25] MEDS: oxyCODONE/APAP 5/325 1 TAB TABLET PO PRN ×2 (11:29→20:12)
[2019-11-25 15:50] VITALS: BP 134/78
[2019-11-25] MEDS: traZODone 150 MG TABLET. PO SCH (20:09)
[2019-11-25] MEDS: FAMOTIDINE 20 MG TABLET PO SCH (20:10)
[2019-11-25] MEDS: clonazePAM 2 MG TABLET PO SCH (20:11)
[2019-11-25] MEDS: INSULIN GLARGINE SYRINGE. SQ SCH (20:13)
--- NOTE | 2019-11-25 22:05 | PDOC ---
Exam Note: Laureano Note: Please also refer to the separate dictated note~for this date of service dictated separately.~Patient seen individually. Discussed the patient with Nursing staff reviewed the chart.~Reviewed interim history and current functioning. Reviewed vital signs,~Labs/ Radiology~and current medications noted below. Continue current treatment with the changes noted in the dictated addendum note Assessment: Vital Signs/I&O: Vital Signs Date Time Temp Pulse Resp B/P (MAP) Pulse Ox O2 Delivery O2 Flow Rate FiO2 11/25/19 15:50 98.2 86 18 134/78 (96) 92 11/25/19 12:30 Room Air I & O 11/24/19 11/24/19 11/25/19 15:00 23:00 07:00 Intake Total 1370 ml 360 ml Output Total 650 ml 450 ml Balance 1370 ml -290 ml -450 ml Labs: Laboratory Tests Test 11/25/19 07:14 11/25/19 11:46 11/25/19 17:21 11/25/19 20:00 Glucose (Fingerstick) 106 mg/dL (70-99) H 217 mg/dL (70-99) H 318 mg/dL (70-99) H 304 mg/dL (70-99) H Current Medications: I have reviewed the current psychotropics carefully including drug interactions. Risk benefit ratio favors no change other than as noted in my dictated progress note. Diagnosis: Problems: (1) Major depressive disorder in partial remission (2) Anxiety disorder (3) Impulse control disorder (4) Major depressive disorder, recurrent episode (5) Mild cognitive impairment ROMINA SORTO MD Nov 25, 2019 22:05
[2019-11-26 06:02] VITALS: BP 126/71
[2019-11-26] MEDS: INSULIN LISPRO 300 UNITS/3 ML VIAL. SQ SCH ×3 (08:33→17:20)
[2019-11-26] MEDS: clonazePAM 1 MG TABLET PO SCH ×2 (08:34→12:30)
[2019-11-26] MEDS: ASCORBIC ACID 500 MG TABLET PO SCH (08:34)
[2019-11-26] MEDS: FLUoxetine HCL 20 MG CAPSULE PO SCH (08:34)
[2019-11-26] MEDS: IPRATROPIUM/ALBUTEROL 20/100mcg/INH INHALER. INH SCH ×4 (08:34→19:58)
[2019-11-26] MEDS: FERROUS SULFATE 325 MG TABLET. PO SCH (08:34)
[2019-11-26] MEDS: risperiDONE 0.5 MG TABLET. PO SCH ×2 (08:34→19:57)
[2019-11-26] MEDS: GABAPENTIN 400 MG CAPSULE. PO SCH ×2 (08:35→19:55)
[2019-11-26] MEDS: LACTOBACILLUS RHAMNOSUS GG 1 CAPSULE. PO SCH ×2 (08:35→19:57)
[2019-11-26] MEDS: DIVALPROEX 125 MG CAP.SPRINK PO SCH ×3 (08:35→19:55)
[2019-11-26] MEDS: POTASSIUM CHLORIDE 20 MEQ TABLET.ER. PO SCH (08:35)
[2019-11-26] MEDS: MULTIVITAMIN with MINERAL TABLET. PO SCH (08:35)
--- NOTE | 2019-11-26 12:21 | PN ---
DATE: 11/24/2019 PSYCHIATRIC PROGRESS NOTE This late entry 11/24/2019 covers elements not covered in my initial note. SUBJECTIVE: I met with the patient evening of 11/24/2019. Per nursing report by DIVYA Cabrera, the patient slept 6-3/4 hours previous night. She has been coming out of the day room, attending groups, compliant with medications, all of which is an improvement for her. She still remains somatically preoccupied with vague somatic symptoms, but ambulation is impaired, in a Broda chair. REVIEW OF SYSTEMS: No specific CV, , pulmonary, eye system symptoms on review. MENTAL STATUS EXAM: Oriented to herself, at times to situation, at times she believes this place is her home and people are intruding in it. Speech coherent. Thought processes goal directed. Intellect average. Insight good. Judgment intact. Mood is somewhat dysphoric and anxious, but improved. LABORATORY DATA: Reviewed. IMPRESSION: Unchanged from initial note. PLAN: No change from initial note. MAN Yamilex SORTO MD DR: TOD/moris JOB#: [id number] / [id number]
--- NOTE | 2019-11-26 12:23 | PN ---
DATE: 11/25/2019 PSYCHIATRIC PROGRESS NOTE This is a late entry, date of service 11/30/2019 covers elements, not covered in my initial note. SUBJECTIVE: Per Chapo RN, the patient slept 7 hours previous night. She generally had a better day. Potassium is elevated at 5.2, supplement was held by Dr. Segal. She did receive Percocet for her pain. She remains on Klonopin 1 mg a.m., 1.5 mg after noon and night. We are gradually tapering this and will drop it down to 1 mg a.m. and noon., continue with 1.5 mg at night. REVIEW OF SYSTEMS: Ambulation impaired, in Broda chair. As before, she has vague somatic symptoms, but not specific CV, GI, , pulmonary, eye system symptoms on review. MENTAL STATUS EXAM: Oriented to herself at times, situation at times. She again feels this is her home, people are coming in it. Speech has some latency, coherent. Abstraction fair, computation impaired, language function intact. Mood and affect somewhat withdrawn. LABORATORY DATA: Reviewed. IMPRESSION: Unchanged from initial note. PLAN: No change from initial note. MAN Yamilex SORTO MD DR: TOD/moris JOB#: [id number] / [id number]
[2019-11-26 16:51] VITALS: BP 138/79
[2019-11-26] MEDS: traZODone 150 MG TABLET. PO SCH (19:56)
[2019-11-26] MEDS: FAMOTIDINE 20 MG TABLET PO SCH (19:56)
[2019-11-26] MEDS: clonazePAM 2 MG TABLET PO SCH (19:57)
[2019-11-26] MEDS: oxyCODONE/APAP 5/325 1 TAB TABLET PO PRN (19:57)
[2019-11-26] MEDS: INSULIN GLARGINE SYRINGE. SQ SCH (20:01)
--- NOTE | 2019-11-26 22:08 | PDOC ---
Exam Note: Laureano Note: Please also refer to the separate dictated note~for this date of service dictated separately.~Patient seen individually. Discussed the patient with Nursing staff reviewed the chart.~Reviewed interim history and current functioning. Reviewed vital signs,~Labs/ Radiology~and current medications noted below. Continue current treatment with the changes noted in the dictated addendum note Assessment: Vital Signs/I&O: Vital Signs Date Time Temp Pulse Resp B/P (MAP) Pulse Ox O2 Delivery O2 Flow Rate FiO2 11/26/19 16:51 98.1 81 20 138/79 (98) 98 11/26/19 06:02 Room Air I & O 11/25/19 11/25/19 11/26/19 15:00 23:00 07:00 Intake Total 960 ml 480 ml Output Total 600 ml 550 ml Balance 960 ml -120 ml -550 ml Labs: Laboratory Tests Test 11/26/19 07:43 11/26/19 12:24 11/26/19 16:57 11/26/19 20:10 Glucose (Fingerstick) 133 mg/dL (70-99) H 82 mg/dL (70-99) 181 mg/dL (70-99) H 176 mg/dL (70-99) H Current Medications: Meds: Current Medications Medications (Trade) Dose Ordered Sig/Julia Route PRN Reason Start Time Stop Time Status Last Admin Dose Admin Clonazepam (KlonoPIN) 1 mg DAILYWLUN PO 11/26/19 12:00 11/26/19 12:30 I have reviewed the current psychotropics carefully including drug interactions. Risk benefit ratio favors no change other than as noted in my dictated progress note. Diagnosis: Problems: (1) Major depressive disorder in partial remission (2) Anxiety disorder (3) Impulse control disorder (4) Major depressive disorder, recurrent episode (5) Mild cognitive impairment ROMINA SORTO MD Nov 26, 2019 22:07
--- NOTE | 2019-11-26 22:58 | PDOC ---
Exam Note: Laureano Note: The note under dictation # [id number] is for date of service 11/25/2019 and not 11/30/2019 as mentioned in original note. This note clarifies this error. Please ignore.Please also refer to the separate dictated note~for this date of service dictated separately.~Patient seen individually. Discussed the patient with Nursing staff reviewed the chart.~Reviewed interim history and current functioning. Reviewed vital signs,~Labs/ Radiology~and current medications noted below. Continue current treatment with the changes noted in the dictated addendum note Assessment: Vital Signs/I&O: Vital Signs Date Time Temp Pulse Resp B/P (MAP) Pulse Ox O2 Delivery O2 Flow Rate FiO2 11/26/19 16:51 98.1 81 20 138/79 (98) 98 11/26/19 06:02 Room Air I & O 11/25/19 11/25/19 11/26/19 15:00 23:00 07:00 Intake Total 960 ml 480 ml Output Total 600 ml 550 ml Balance 960 ml -120 ml -550 ml Labs: Laboratory Tests Test 11/26/19 07:43 11/26/19 12:24 11/26/19 16:57 11/26/19 20:10 Glucose (Fingerstick) 133 mg/dL (70-99) H 82 mg/dL (70-99) 181 mg/dL (70-99) H 176 mg/dL (70-99) H Current Medications: Meds: Current Medications Medications (Trade) Dose Ordered Sig/Julia Route PRN Reason Start Time Stop Time Status Last Admin Dose Admin Clonazepam (KlonoPIN) 1 mg DAILYWLUN PO 11/26/19 12:00 11/26/19 12:30 I have reviewed the current psychotropics carefully including drug interactions. Risk benefit ratio favors no change other than as noted in my dictated progress note. Diagnosis: Problems: (1) Major depressive disorder in partial remission (2) Major depression (3) Anxiety disorder (4) Impulse control disorder (5) Major depressive disorder, recurrent episode (6) Mild cognitive impairment ROMINA SORTO MD Nov 26, 2019 22:58
[2019-11-27 05:54] VITALS: BP 123/74
[2019-11-27 06:39] LABS: BASO # 0.1 x10^3/uL (0.0-0.2); BASO % 1 % (0-3); EOS # 0.4 x10^3/uL (0.0-0.7); EOS % 7 % (0-3); HEMATOCRIT 32.1 % (36.0-47.0); HEMOGLOBIN 10.5 g/dL (12.0-15.5); LYMPH # 1.7 x10^3/uL (1.0-4.8); LYMPH % 29 % (24-48); MEAN CORPUSCULAR HEMOGLOBIN 32 pg (25-35); MEAN CORPUSCULAR HGB CONC 33 g/dL (31-37); MEAN CORPUSCULAR VOLUME 98 fL (79-100); MONO # 0.7 x10^3/uL (0.0-1.1); MONO % 12 % (0-9); NEUT % 51 % (31-73); PLATELET COUNT 261 x10^3/uL (140-400); RED BLOOD COUNT 3.27 x10^6/uL (3.50-5.40); RED CELL DISTRIBUTION WIDTH 16.9 % (11.5-14.5); WHITE BLOOD COUNT 5.9 x10^3/uL (4.0-11.0)
[2019-11-27 06:47] LABS: ALBUMIN 2.4 g/dL (3.4-5.0); ALBUMIN/GLOBULIN RATIO 0.5 (1.0-1.7); CALCIUM 8.6 mg/dL (8.5-10.1); CREATININE 1.1 mg/dL (0.6-1.0); GFR 49.2; POTASSIUM 4.7 mmol/L (3.5-5.1); TOTAL BILIRUBIN 0.1 mg/dL (0.2-1.0); TOTAL PROTEIN 6.8 g/dL (6.4-8.2)
[2019-11-27] MEDS: MULTIVITAMIN with MINERAL TABLET. PO SCH (09:00)
[2019-11-27] MEDS: IPRATROPIUM/ALBUTEROL 20/100mcg/INH INHALER. INH SCH ×3 (09:01→17:00)
[2019-11-27] MEDS: GABAPENTIN 400 MG CAPSULE. PO SCH ×2 (09:02→20:47)
[2019-11-27] MEDS: FLUoxetine HCL 20 MG CAPSULE PO SCH (09:02)
[2019-11-27] MEDS: risperiDONE 0.5 MG TABLET. PO SCH ×2 (09:02→20:48)
[2019-11-27] MEDS: clonazePAM 1 MG TABLET PO SCH ×2 (09:02→12:37)
[2019-11-27] MEDS: POTASSIUM CHLORIDE 20 MEQ TABLET.ER. PO SCH (09:02)
[2019-11-27] MEDS: ASCORBIC ACID 500 MG TABLET PO SCH (09:02)
[2019-11-27] MEDS: FERROUS SULFATE 325 MG TABLET. PO SCH (09:02)
[2019-11-27] MEDS: DIVALPROEX 125 MG CAP.SPRINK PO SCH ×3 (09:02→20:48)
[2019-11-27] MEDS: LACTOBACILLUS RHAMNOSUS GG 1 CAPSULE. PO SCH ×2 (09:02→20:58)
[2019-11-27] MEDS: INSULIN LISPRO 300 UNITS/3 ML VIAL. SQ SCH ×3 (09:13→17:21)
[2019-11-27] MEDS: oxyCODONE/APAP 5/325 1 TAB TABLET PO PRN ×2 (09:20→17:17)
--- NOTE | 2019-11-27 12:01 | RAD ---
Single AP view of the chest. Comparison: 11/17/2019. Indication: Shortness of air Findings: The heart is enlarged but stable. There is no pneumothorax or effusion. Mild pulmonary vascular congestion. Impression: 1. Mild pulmonary vascular congestion with stable cardiomegaly. Electronically signed by: Philipp Evans MD (11/27/2019 11:58 AM) [id number]
[2019-11-27] MEDS: IPRATRPIUM/ALBUTEROL 0.5/2.5MG 3 ML NEBU. NEB SCH ×3 (12:47→20:58)
--- NOTE | 2019-11-27 13:34 | TX PLAN ---
Interdisciplinary Tx Plan Admission Information October 20, 2019 at 02:07 Legal Status (on Admission): Voluntary DPOA/Guardian Name: Tatiana Wright Contact Other Contact Name: Arslan Rodriguez Other Contact Verified Code Status: DNR Allergies: Coded Allergies: MARÍA Inhibitors (Verified Allergy, Intermediate, 10/18/17) codeine (Verified Allergy, Intermediate, Itching, 02/01/15) olanzapine (Verified Allergy, Intermediate, 10/20/19) penicillin (Verified Allergy, Intermediate, Itching, 02/01/15) quetiapine (Verified Allergy, Intermediate, 10/18/17) Diagnoses Primary Diagnosis: MDD, Anxiety D/O unspecified, Impulse Control D/O unspecified Reasons for Admission: Aggressive, Poor impulse control Problem in Patient's Words: She seems just really confused and needs to be evaluated. Additional Admission Comments: According to the intake, pt was yelling, calling staff "whores", attempting to remove catheter, refused cares, called police to change her catheter, threatening and calling staff names. Problems Active Problems: Yelling out Irritability Confusion UTI (3 organisms in urine) Inactive Problems: Medication Management Pt Strengths/Limitations Ability for Douglas: Poor Cognitive Functioning/Ability: Fair Communication Skills/Ability: Fair Financial Resources: Fair Insight/Judgement: Poor Intellectual Ability: Fair Physical Health: Poor Social Skills: Poor Stability in Family: Fair Stability in School/Work: Poor Verbal Skills: Fair Discharge Criteria Discharge Criteria: Adequate arrangements @DC, Improved behavior, Improved mood/thought Other Discharge Comments: may need recommendations for outpt PT and OT. Preliminary Discharge Plan Preliminary DC Plan: Current Living Arrange. Special Precautions Fall Risk: Moderate Initial D/C Plan Pt will plan to return to [facility] upon discharge. Identified Discharge Needs: Psychiatrist Counseling Primary Care Physician Currently Utilized Resources Currently Utilized Resources/P: None Referrals Community Resources: Will need referral for mental health services. Identified Problems/Hx/Goals Objectives/Short-Term Goals Short Term Goals: Dec. Aggression, Dec. Outbursts, Improved Social Skills, Medication Stabilization, Promote Coping Skill Short Term Goals in Patient's: N/A Interventions/Frequency Staff Interventions/Frequency&: Psychiatrist to assess pt at least 3x per week. Trouble Shooting Mechanic to assess pt at least 2x per week. Nursing assess and complete 15 minute checks daily. Encourage group participation in activities; if not 1:1 time based of goals during the Activity assessment. 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 She always had problems with other people "not doing their jobs". Eventually in the end, she ended up being the one fired for "starting trouble". Education: Did graduate high school Community Follow-up Community Provider/Family Inpu: She needs to be assessed with her confusion and re-evaluate her medications. Treatment Plan Explained Patient/Architectural Examiner had this treatment plan explained to him/her as indicated by the signature below and has been given the opportunity to ask questions and make suggestions: Date: Patient/Architectural Examiner Signature: Status Update Update Pt is eating 75% of meals and sleeping on average 7 hours. Pt is doing well and will look towards discharging on Wednesday. Pt did have a chest x-ray today and appears to be having some chest congestion. Pt is getting nebulizer treatments and compliant with those and all cares. Pt is calm, cooperative and increased her group attendance to 3x per week. SW will contact pt sister to finalize plans and the facility to make transport and discharge. LORE SIDDIQI Nov 27, 2019 13:34
[2019-11-27 16:07] VITALS: BP 137/75
[2019-11-27] MEDS ORDERED: IPRATROPIUM/ALBUTEROL 20/100mcg/INH INHALER. INH PRN (17:30)
[2019-11-27] MEDS: INSULIN GLARGINE SYRINGE. SQ SCH (20:44)
[2019-11-27] MEDS: traZODone 150 MG TABLET. PO SCH (20:47)
[2019-11-27] MEDS: clonazePAM 2 MG TABLET PO SCH (20:47)
[2019-11-27] MEDS: FAMOTIDINE 20 MG TABLET PO SCH (20:48)
--- NOTE | 2019-11-27 22:07 | PDOC ---
Exam Note: Laureano Note: Please also refer to the separate dictated note~for this date of service dictated separately.~Patient seen individually. Discussed the patient with Nursing staff reviewed the chart.~Reviewed interim history and current functioning. Reviewed vital signs,~Labs/ Radiology~and current medications noted below. Continue current treatment with the changes noted in the dictated addendum note Assessment: Vital Signs/I&O: Vital Signs Date Time Temp Pulse Resp B/P (MAP) Pulse Ox O2 Delivery O2 Flow Rate FiO2 11/27/19 17:17 93 11/27/19 16:07 98.1 78 16 137/75 (95) 11/27/19 09:20 2.0 11/26/19 06:02 Room Air I & O 11/26/19 11/26/19 11/27/19 15:00 23:00 07:00 Intake Total 600 ml 580 ml Output Total 650 ml 425 ml Balance 600 ml -70 ml -425 ml Labs: Laboratory Tests Test 11/27/19 05:45 11/27/19 07:17 11/27/19 11:54 11/27/19 17:03 White Blood Count 5.9 x10^3/uL (4.0-11.0) Red Blood Count 3.27 x10^6/uL (3.50-5.40) L Hemoglobin 10.5 g/dL (12.0-15.5) L Hematocrit 32.1 % (36.0-47.0) L Mean Corpuscular Volume 98 fL (79-100) Mean Corpuscular Hemoglobin 32 pg (25-35) Mean Corpuscular Hemoglobin Concent 33 g/dL (31-37) Red Cell Distribution Width 16.9 % (11.5-14.5) H Platelet Count 261 x10^3/uL (140-400) Neutrophils (%) (Auto) 51 % (31-73) Lymphocytes (%) (Auto) 29 % (24-48) Monocytes (%) (Auto) 12 % (0-9) H Eosinophils (%) (Auto) 7 % (0-3) H Basophils (%) (Auto) 1 % (0-3) Neutrophils # (Auto) 3.0 x10^3uL (1.8-7.7) Lymphocytes # (Auto) 1.7 x10^3/uL (1.0-4.8) Monocytes # (Auto) 0.7 x10^3/uL (0.0-1.1) Eosinophils # (Auto) 0.4 x10^3/uL (0.0-0.7) Basophils # (Auto) 0.1 x10^3/uL (0.0-0.2) Sodium Level 142 mmol/L (136-145) Potassium Level 4.7 mmol/L (3.5-5.1) Chloride Level 109 mmol/L (98-107) H Carbon Dioxide Level 26 mmol/L (21-32) Anion Gap 7 (6-14) Blood Urea Nitrogen 33 mg/dL (7-20) H Creatinine 1.1 mg/dL (0.6-1.0) H Estimated GFR (Cockcroft-Gault) 49.2 BUN/Creatinine Ratio 30 (6-20) H Glucose Level 99 mg/dL (70-99) Calcium Level 8.6 mg/dL (8.5-10.1) Total Bilirubin 0.1 mg/dL (0.2-1.0) L Aspartate Amino Transferase (AST) 13 U/L (15-37) L Alanine Aminotransferase (ALT) 13 U/L (14-59) L Alkaline Phosphatase 75 U/L (46-116) Total Protein 6.8 g/dL (6.4-8.2) Albumin 2.4 g/dL (3.4-5.0) L Albumin/Globulin Ratio 0.5 (1.0-1.7) L Glucose (Fingerstick) 79 mg/dL (70-99) 210 mg/dL (70-99) H 138 mg/dL (70-99) H Test 11/27/19 19:31 Glucose (Fingerstick) 160 mg/dL (70-99) H Current Medications: Meds: Current Medications Medications (Trade) Dose Ordered Sig/Julia Route PRN Reason Start Time Stop Time Status Last Admin Dose Admin Albuterol/ Ipratropium (Duoneb) 3 ml RTQID NEB 11/27/19 12:00 11/27/19 20:58 I have reviewed the current psychotropics carefully including drug interactions. Risk benefit ratio favors no change other than as noted in my dictated progress note. Diagnosis: Problems: (1) Major depressive disorder in partial remission (2) Anxiety disorder (3) Impulse control disorder (4) Major depressive disorder, recurrent episode (5) Mild cognitive impairment ROMINA SORTO MD Nov 27, 2019 22:07
[2019-11-28 06:28] VITALS: BP 121/79
[2019-11-28] MEDS: INSULIN LISPRO 300 UNITS/3 ML VIAL. SQ SCH ×3 (08:00→17:14)
[2019-11-28] MEDS: MULTIVITAMIN with MINERAL TABLET. PO SCH (08:06)
[2019-11-28] MEDS: clonazePAM 1 MG TABLET PO SCH ×3 (08:06→20:57)
[2019-11-28] MEDS: FERROUS SULFATE 325 MG TABLET. PO SCH (08:06)
[2019-11-28] MEDS: FLUoxetine HCL 20 MG CAPSULE PO SCH (08:06)
[2019-11-28] MEDS: LACTOBACILLUS RHAMNOSUS GG 1 CAPSULE. PO SCH ×2 (08:06→20:52)
[2019-11-28] MEDS: risperiDONE 0.5 MG TABLET. PO SCH ×2 (08:07→20:53)
[2019-11-28] MEDS: ASCORBIC ACID 500 MG TABLET PO SCH (08:07)
[2019-11-28] MEDS: GABAPENTIN 400 MG CAPSULE. PO SCH ×2 (08:07→20:53)
[2019-11-28] MEDS: DIVALPROEX 125 MG CAP.SPRINK PO SCH ×3 (08:07→20:52)
[2019-11-28] MEDS: POTASSIUM CHLORIDE 20 MEQ TABLET.ER. PO SCH (08:07)
[2019-11-28] MEDS: oxyCODONE/APAP 5/325 1 TAB TABLET PO PRN ×2 (08:20→20:57)
[2019-11-28] MEDS: IPRATRPIUM/ALBUTEROL 0.5/2.5MG 3 ML NEBU. NEB SCH ×4 (09:10→20:00)
--- NOTE | 2019-11-28 15:15 | PN ---
DATE: 11/27/2019 PSYCHIATRIC PROGRESS NOTE This late entry 11/27/2019 covers elements not covered in my initial note. SUBJECTIVE: I met with the patient evening of 11/27/2019 and staffed a treatment team meeting with the entire team in the morning. Per DIVYA Phillip, the patient slept 6-3/4 hours previous night. She has had some coarse lung sounds, has had some wheezing, remains on 1 liter oxygen. Chest x-ray showed some congestion. She received a nebulizer, will defer medical management to Dr. Bundy. Per Rosalba, activity therapy staff, she has attended 3 groups, overall doing a little better, still delusional at times. At the treatment team meeting, discussed her diagnosis, discharge plans for Wednesday, the . REVIEW OF SYSTEMS: Ambulation impaired, in Broda chair. No CV, , pulmonary, eye system symptoms on review, does complain of some shortness of breath. MENTAL STATUS EXAM: Oriented to herself and situation. Speech has some latency, coherent. Abstraction fair, computation impaired, language function intact, attention span short. Mood and affect withdrawn, but less so than before. Intermittently delusional, but better. LABORATORY DATA: Reviewed. IMPRESSION: Major depressive disorder with psychotic features; anxiety disorder, unspecified; impulse control disorder, unspecified. PLAN: Continue current psychotropics from initial note. After she has been on Klonopin 3.5 mg a day for 3 days, we will reduce it down to 3 mg a day, i.e., 1 mg 3 times a day. Rest unchanged for now. ROMINA SORTO MD DR: TOD/moris JOB#: [id number] / [id number]
[2019-11-28 15:33] VITALS: BP 95/58
--- NOTE | 2019-11-28 15:43 | PN ---
DATE: 11/26/2019 PSYCHIATRIC PROGRESS NOTE This late entry 11/26/2019 covers elements not covered in my initial note. SUBJECTIVE: I met with the patient evening of 11/26/2019. The patient slept 6 hours previous night per DIVYA Cowan. She becomes somewhat delusional, confused, was talking about wanting an airline ticket, said she had a bowel movement, but when nurses checked there was none. Other than than this, she is doing better, little more interactive. REVIEW OF SYSTEMS: Ambulation impaired, in Broda chair. No CV, , pulmonary, eye system symptoms on review. She has vague somatic symptoms. MENTAL STATUS EXAM: Oriented to herself and situation. Speech has some latency, coherent. Abstraction fair, computation impaired, language function intact, attention span short. Mood and affect withdrawn. LABORATORY DATA: Reviewed. IMPRESSION: Unchanged from initial note. PLAN: No change from initial note. ROMINA SORTO MD DR: TOD/moris JOB#: [id number] / [id number]
[2019-11-28] MEDS: INSULIN GLARGINE SYRINGE. SQ SCH (20:51)
[2019-11-28] MEDS: FAMOTIDINE 20 MG TABLET PO SCH (20:53)
[2019-11-28] MEDS: traZODone 150 MG TABLET. PO SCH (20:53)
--- NOTE | 2019-11-28 22:02 | PDOC ---
Exam Note: Laureano Note: Please also refer to the separate dictated note~for this date of service dictated separately.~Patient seen individually. Discussed the patient with Nursing staff reviewed the chart.~Reviewed interim history and current functioning. Reviewed vital signs,~Labs/ Radiology~and current medications noted below. Continue current treatment with the changes noted in the dictated addendum note Assessment: Vital Signs/I&O: Vital Signs Date Time Temp Pulse Resp B/P (MAP) Pulse Ox O2 Delivery O2 Flow Rate FiO2 11/28/19 20:57 93 11/28/19 15:33 97.1 81 18 95/58 (70) 11/28/19 09:26 Room Air 11/27/19 09:20 2.0 I & O 11/27/19 11/27/19 11/28/19 15:00 23:00 07:00 Intake Total 1080 ml 480 ml 100 ml Output Total 500 ml 650 ml Balance 1080 ml -20 ml -550 ml Labs: Laboratory Tests Test 11/28/19 07:05 11/28/19 11:55 11/28/19 17:07 11/28/19 20:55 Glucose (Fingerstick) 76 mg/dL (70-99) 353 mg/dL (70-99) H 245 mg/dL (70-99) H 210 mg/dL (70-99) H Current Medications: Meds: Current Medications Medications (Trade) Dose Ordered Sig/Julia Route PRN Reason Start Time Stop Time Status Last Admin Dose Admin Clonazepam (KlonoPIN) 1 mg TID PO 11/28/19 21:00 11/28/19 20:57 I have reviewed the current psychotropics carefully including drug interactions. Risk benefit ratio favors no change other than as noted in my dictated progress note. Diagnosis: Problems: (1) Major depressive disorder in partial remission (2) Anxiety disorder (3) Impulse control disorder (4) Major depressive disorder, recurrent episode (5) Mild cognitive impairment ROMINA SORTO MD Nov 28, 2019 22:02
--- NOTE | 2019-11-28 22:17 | PN ---
DATE: 11/26/2019 PSYCHIATRIC PROGRESS NOTE This late entry of 11/26/2019 covers the elements not covered in my initial note. SUBJECTIVE: I met with the patient in the evening of 11/26/2019. The patient slept 6-1/2 hours previous night per DIVYA Barber. He remains restless in his wheelchair, up and down the hallway, redirectable, wanting people to get out of his car. REVIEW OF SYSTEMS: No CV, , pulmonary, eye system symptoms on review. Reliability poor. MENTAL STATUS EXAM: Oriented to himself. Insight, judgment, recent and remote memory, attention, concentration, fund of knowledge poor, consistent with his diagnosis mentioned in my initial note. PLAN: No change from initial note. MAN Yamilex SORTO MD DR: TOD/moris JOB#: [id number] / [id number]
[2019-11-28] MEDS ORDERED: DIVA125C2 PO ×2 (23:52→23:53)
[2019-11-28] MEDS ORDERED: RISP0.5T24 PO (23:55)
[2019-11-28] MEDS ORDERED: MULT-480 PO (23:59)
[2019-11-29] MEDS ORDERED: CHOL500021 PO
[2019-11-29] MEDS ORDERED: ASCO500C PO (00:01)
[2019-11-29] MEDS ORDERED: ZINC113C8 TP (00:02)
[2019-11-29] MEDS ORDERED: NYST15CR2 TP (00:04)
[2019-11-29] MEDS ORDERED: LACT1CAP19 PO (00:05)
[2019-11-29] MEDS ORDERED: POTA20TA4 PO (00:06)
[2019-11-29] MEDS ORDERED: CLON1TAB PO (00:08)
[2019-11-29 05:50] VITALS: BP 115/68
[2019-11-29] MEDS ORDERED: IPRA4AER INH (08:05)
[2019-11-29] MEDS ORDERED: POLY15DR20 EACHEYE (08:06)
[2019-11-29] MEDS: risperiDONE 0.5 MG TABLET. PO SCH (09:04)
[2019-11-29] MEDS: IPRATRPIUM/ALBUTEROL 0.5/2.5MG 3 ML NEBU. NEB SCH ×2 (09:04→11:52)
[2019-11-29] MEDS: FLUoxetine HCL 20 MG CAPSULE PO SCH (09:04)
[2019-11-29] MEDS: ASCORBIC ACID 500 MG TABLET PO SCH (09:04)
[2019-11-29] MEDS: GABAPENTIN 400 MG CAPSULE. PO SCH (09:05)
[2019-11-29] MEDS: MULTIVITAMIN with MINERAL TABLET. PO SCH (09:05)
[2019-11-29] MEDS: POTASSIUM CHLORIDE 20 MEQ TABLET.ER. PO SCH (09:05)
[2019-11-29] MEDS: LACTOBACILLUS RHAMNOSUS GG 1 CAPSULE. PO SCH (09:05)
[2019-11-29] MEDS: FERROUS SULFATE 325 MG TABLET. PO SCH (09:05)
[2019-11-29] MEDS: clonazePAM 1 MG TABLET PO SCH ×2 (09:05→13:29)
[2019-11-29] MEDS: DIVALPROEX 125 MG CAP.SPRINK PO SCH ×2 (09:06→13:31)
[2019-11-29] MEDS: INSULIN LISPRO 300 UNITS/3 ML VIAL. SQ SCH ×2 (09:13→11:54)
[2019-11-29] MEDS: oxyCODONE/APAP 5/325 1 TAB TABLET PO PRN (09:14)
[2019-11-29] MEDS ORDERED: clonazePAM 1 MG TABLET PO PRN (21:00)
--- NOTE | 2019-11-29 22:14 | PDOC ---
Exam Note: Laureano Note: Please also refer to the separate dictated note~for this date of service dictated separately.~Patient seen individually. Discussed the patient with Nursing staff reviewed the chart.~Reviewed interim history and current functioning. Reviewed vital signs,~Labs/ Radiology~and current medications noted below. Continue current treatment with the changes noted in the dictated addendum note Assessment: Vital Signs/I&O: Vital Signs Date Time Temp Pulse Resp B/P (MAP) Pulse Ox O2 Delivery O2 Flow Rate FiO2 11/29/19 10:45 16 93 Room Air 11/29/19 05:50 98.8 80 115/68 (84) 11/27/19 09:20 2.0 I & O 0 11/28/19 11/28/19 11/29/19 15:00 23:00 07:00 Intake Total 360 ml 600 ml Output Total 800 ml 250 ml Balance 360 ml -200 ml -250 ml Labs: Laboratory Tests Test 11/29/19 07:46 11/29/19 11:33 Glucose (Fingerstick) 154 mg/dL (70-99) H 109 mg/dL (70-99) H Current Medications: I have reviewed the current psychotropics carefully including drug interactions. Risk benefit ratio favors no change other than as noted in my dictated progress note. Diagnosis: Problems: (1) Major depressive disorder in partial remission (2) Anxiety disorder (3) Impulse control disorder (4) Major depressive disorder, recurrent episode (5) Mild cognitive impairment ROMINA SORTO MD Nov 29, 2019 22:14
--- NOTE | 2019-11-30 08:28 | PDOC ---
Exam Note: Laureano Note: This note is a late entry for 11/28/2019 covers elements not covered in my initial note. Subjective: The patient was seen face to face in the evening of 11/28/2019. Nursing report was with Ganesh STOKES. She slept 6-1/4 hours previous night. She takes mediations whole. Review of Systems: Ambulation impaired, in Broda chair. No CV, , pulmonary, eye system symptoms on review. She has vague somatic symptoms. Mental Status Exam: Reasonably oriented. Speech coherent. She is interactive, verbal, pleasant. Mood is dysphoric, anxious. Affect is mood congruent. No suicidal or homicidal ideation. Laboratory Data: Reviewed. Impression: Major depressive disorder recurrent with psychotic features. Mild cognitive impairment. Rest unchanged. Plan: No change from initial note. Assessment: Vital Signs/I&O: Vital Signs Date Time Temp Pulse Resp B/P (MAP) Pulse Ox O2 Delivery O2 Flow Rate FiO2 11/29/19 10:45 16 93 Room Air 11/29/19 05:50 98.8 80 115/68 (84) 11/27/19 09:20 2.0 I & O 11/29/19 11/29/19 11/30/19 15:00 23:00 07:00 Intake Total 720 ml Balance 720 ml Labs: Laboratory Tests Test 11/29/19 11:33 Glucose (Fingerstick) 109 mg/dL (70-99) H Current Medications: I have reviewed the current psychotropics carefully including drug interactions. Risk benefit ratio favors no change other than as noted in my dictated progress note. Diagnosis: Problems: (1) Major depressive disorder in partial remission (2) Anxiety disorder (3) Impulse control disorder (4) Major depressive disorder, recurrent episode (5) Mild cognitive impairment ROMINA SORTO MD Nov 30, 2019 08:28
--- NOTE | 2019-12-01 21:46 | DS ---
DATE OF DISCHARGE: 11/29/2019 DISCHARGE SUMMARY AND PSYCHIATRIC PROGRESS NOTE This late entry date of service 11/29/2019 covers elements not covered in my initial note. REASON FOR ADMISSION: Please refer to the admission history for details. Briefly, the patient is a 69-year-old female referred to us from [facility] by her primary care physician on account of significant worsening of her depression, agitation, paranoia and confusion. She was yelling out repeatedly calling staff "whores." She was attempting to remove catheter from herself, refusing cares. She called the police to remove the catheter. Behaviors were dangerous, unmanageable at the facility. She had failed outpatient psychiatric intervention resulting in this referral. SIGNIFICANT FINDINGS AND CLINICAL COURSE: Following admission, the patient was seen daily individually by myself from a psychiatric standpoint, medical followup with Dr. Fong/Dr. Segal. The patient was extremely paranoid, withdrawn and isolative. She was on 3 mg of Klonopin 3 times a day, she had been on that for several years. She was extremely sedated and Klonopin was not helping her symptomatically, perhaps worsening with the sedation. Adjustments were made in her psychotropics, Klonopin was tapered down gradually to 1 mg 3 times a day and she stabilized. Additionally, on gabapentin 400 mg b.i.d., Prozac 40 mg a day, trazodone 150 mg at bedtime, Depakote 125 mg b.i.d., 250 mg 2100, Atarax p.r.n., Risperdal 0.5 mg b.i.d. REVIEW OF SYSTEMS: Prior to discharge on 11/29/2019, ambulation impaired, in wheelchair/Broda chair. She has vague somatic symptoms. No CV, , pulmonary, eye system symptoms on review. MENTAL STATUS EXAMINATION: Oriented to herself and situation. Speech moderate latency, often responses monosyllabic. Abstraction fair, computation impaired, language function intact, attention span short. Mood and affect less withdrawn. The patient is coming out to the common areas, which is something she had not done until we reduced the Klonopin significantly. The goal would be to ultimately stop the Klonopin if possible as an outpatient. No suicidal or homicidal ideation prior to discharge. CONDITION AT DISCHARGE: Improved. FINAL DIAGNOSES: Major depressive disorder, recurrent with psychotic features, in partial remission; mild cognitive impairment; major anxiety disorder, unspecified; impulse control disorder, unspecified. Rest unchanged from admission. DISCHARGE MEDICATIONS: Please refer to the [facility]. DISCHARGE INSTRUCTIONS: [facility]. Time for discharge, day management greater than 30 minutes. The patient's hospitalization was prolonged significantly because she [facility] not [facility] and an alternate placement needed to be found by social service staff. ROMINA SORTO MD DR: TOD/moris JOB#: [id number] / [id number]
== END 2019-11-29 13:58 | DRG 885 ==
LOC: ER 19:52 → GEROPSY 10-20 02:07
PROVIDERS: ADMIT Psychiatry & Neurology Psychiatry; ATTEND Psychiatry & Neurology Psychiatry
DX: F33.9 Major depressive disorder, recurrent, unspecified (principal); E43 Unspecified severe protein-calorie malnutrition; N39.0 Urinary tract infection, site not specified; F13.239 Sedative, hypnotic or anxiolytic dependence with withdrawal, unspecified; E11.51 Type 2 diabetes mellitus with diabetic peripheral angiopathy without gangrene; E78.5 Hyperlipidemia, unspecified; E86.0 Dehydration; F03.90 Unspecified dementia, unspecified severity, without behavioral disturbance, psychotic disturbance, mood disturbance, and anxiety; F33.3 Major depressive disorder, recurrent, severe with psychotic symptoms; F41.9 Anxiety disorder, unspecified; F63.9 Impulse disorder, unspecified; G14 Postpolio syndrome; I48.91 Unspecified atrial fibrillation; I50.9 Heart failure, unspecified; J44.9 Chronic obstructive pulmonary disease, unspecified; K57.30 Diverticulosis of large intestine without perforation or abscess without bleeding; K58.9 Irritable bowel syndrome, unspecified; M81.0 Age-related osteoporosis without current pathological fracture; K21.9 Gastro-esophageal reflux disease without esophagitis; L40.9 Psoriasis, unspecified; N31.9 Neuromuscular dysfunction of bladder, unspecified; Z66 Do not resuscitate; M19.90 Unspecified osteoarthritis, unspecified site; Z74.01 Bed confinement status; Z87.01 Personal history of pneumonia (recurrent); Z87.440 Personal history of urinary (tract) infections; Z87.891 Personal history of nicotine dependence; Z90.49 Acquired absence of other specified parts of digestive tract; Z91.14 Patient's other noncompliance with medication regimen; Z91.19 Patient's noncompliance with other medical treatment and regimen; Z91.81 History of falling; Z99.3 Dependence on wheelchair; Z68.31 Body mass index [BMI] 31.0-31.9, adult; Z20.828 Contact with and (suspected) exposure to other viral communicable diseases
CPT/HCPCS: 36415; 70450; 71045; 74176; 80048; 80053; 80061; 80076; 80164; 80307; 81001; 82306; 82550; 82607; 82947; 83036; 83540; 83550; 83605; 83690; 83735; 83880; 84436; 84443; 84480; 84484; 85007; 85025; 85610; 85730; 86140; 86592; 87040; 87086; 87299; 87493; 93005; 96360; 96361; 96372; 99285; J1030; J1815; J7120; J7613; U0003-CS